=== PATIENT | female | born 1995 | race Caucasian/White ===

== ENCOUNTER → 2017-10-05 16:40 | Outpatient (CLI) | payer BC, SELFPAY ==
--- NOTE | 2017-10-05 16:40 | DT_ITS ---
This patient was seen during an EMR downtime September 28, 2017 - October 05, 2017. This patient may have a combination of paper and electronic documentation or all paper documentation. All documentation is viewable within the e-chart portion of [facility] for each patient visit.
[2017-10-05 17:38] LABS: AST(SGOT) 17 U/L (15-37); Alanine Aminotransfer ALT/SGPT 23 U/L (13-56); Albumin, Serum 3.8 g/dL (3.2-5.0); Alkaline Phosphatase 66 U/L (45-117); Anion Gap 8 (5-15); BUN 11 mg/dL (7-18); BUN/Creat Ratio 18.3 RATIO (10-20); Calcium,Total 8.8 mg/dL (8.5-10.1); Chloride 109 mmol/L (98-107); EST Glomerular Filtration Rate 131 mL/min (>60); Est Glom Filt Rate - Afr Amer 158 mL/min (>60); Globulin 3.9 g/dL (2.2-4.2); Glucose 112 mg/dL (74-106); Potassium 3.5 mmol/L (3.5-5.1); Protein, Total 7.7 g/dL (6.4-8.2); Sodium Level 143 mmol/L (136-145)
[2017-10-05 17:43] LABS: Vitamin B12 372 pg/mL (211-911); Vitamin D,25 Hydroxy 9.6 ng/mL (29.95-100.01)
[2017-10-05 17:59] LABS: Homocysteine 5.5 umol/L (3.2-10.7)
== END ==
PROVIDERS: Visit Provider Obstetrics & Gynecology
DX: O90.6 Postpartum mood disturbance (principal); I10 Essential (primary) hypertension
CPT/HCPCS: 36415; 80053; 82306; 82607; 83090; 83921

== ENCOUNTER → 2017-11-30 11:35 | Outpatient (CLI) | payer BC, SELFPAY ==
[2017-11-30 16:07] LABS: Vitamin B12 551 pg/mL (211-911); Vitamin D,25 Hydroxy 20.6 ng/mL (29.95-100.01)
== END ==
PROVIDERS: Visit Provider Obstetrics & Gynecology
DX: O90.6 Postpartum mood disturbance (principal); D51.9 Vitamin B12 deficiency anemia, unspecified; E55.9 Vitamin D deficiency, unspecified
CPT/HCPCS: 36415; 82306; 82607

== ENCOUNTER 2019-08-24 10:24 | Outpatient (RCR) | payer BC, SELFPAY ==
[2017-03-28 08:10] VITALS: BMI 38.7
[2019-08-22 11:15] LABS: hCG Titer Quant., Serum 4762 mIU/mL (1-3)
[2019-08-24 13:23] LABS: hCG Titer Quant., Serum 4160 mIU/mL (1-3)
== END 2019-08-25 18:00 | disposition home or self-care (01) ==
LOC: LAB 10:24
PROVIDERS: Referring Provider Obstetrics & Gynecology; Visit Provider Obstetrics & Gynecology
DX: N91.2 Amenorrhea, unspecified (principal)
CPT/HCPCS: 36415; 84702

== ENCOUNTER → 2020-03-20 | Outpatient (CLI) | payer BC, SELFPAY ==
[2017-03-28 08:10] VITALS: BMI 38.7
[2020-03-22 03:07] LABS: Chlamydia By Nucleic Acid AMP Negative (Negative)
[2020-03-22 08:39] LABS: Gonococcus By Nucleic Acid AMP Negative (Negative)
[2020-03-26 21:17] LABS: HPV Reflexed? NOT INDICATED
== END | disposition home or self-care (01) ==
LOC: LABSPEC 11:36
PROVIDERS: Visit Provider Obstetrics & Gynecology
DX: Z12.4 Encounter for screening for malignant neoplasm of cervix (principal); Z11.3 Encounter for screening for infections with a predominantly sexual mode of transmission
CPT/HCPCS: 87491; 87591; 88175; G0145

== ENCOUNTER → 2020-04-17 13:59 | Outpatient (CLI) | payer BC, SELFPAY ==
[2020-04-17 15:44] LABS: Absolute Lymphocyte Count 1.65 X10^3/uL (0.83-4.51); Absolute Neutrophil Count 8.4 X10^3/uL (2.0-7.7); Basophil# 0.04 X10^3/uL; Basophil% 0.4 % (0-1); Eosinophil# 0.25 X10^3/uL; Eosinophils% 2.3 % (0-5); Hematocrit 38.2 % (37-47); Hemoglobin 12.9 g/dL (12.0-15.0); Lymphocyte # 1.65 X10^3/ul (4.0); Mean Corp Hgb Conc 33.8 g/dL (32-36); Mean Corpuscular Hgb 28.8 pg (27.0-32.0); Mean Corpuscular Volume 85.3 fL (81-99); Mean Platelet Vol. 10.1 fl (6.2-12.0); Monocyte% 6.3 % (0-10); NRBC Flagged by Analyzer 0 % (0-5); Neutrophil # 8.35 X10^3/uL (2.7-7.7); Neutrophil % 75.6 % (47-70); Platelet Count 383 K/mm3 (150-450); RBC Distribution Width CV 13.1 % (11.6-14.6); RBC Distribution Width SD 40.3 fl (35.1-43.9); Red Blood Count 4.48 M/mm3 (4.2-5.4)
[2020-04-17 15:50] LABS: Color, Urine Yellow (Yellow); Glucose, Dipstick Normal (Normal); Ketone-Dipstick 5 mg/dl (Negative); Leukocyte Esterase-Dipstick 25 /ul (Negative); Nitrite-Dipstick Negative (Negative); Occult Blood-Urine Negative /ul (Negative); Protein-Dipstick 15 mg/dl (Negative); Urine Bilirubin Dipstick Negative (Negative); Urine Clarity Clear (Clear); Urine Urobilinogen Normal (Normal)
[2020-04-17 16:13] LABS: Thyroid Stim Hormone (TSH) 0.51 uIU/mL (0.358-3.74)
[2020-04-17 16:15] LABS: Amphetamine Urine VISTA NEGATIVE (<1000 ng/mL); Barbiturate Urine VISTA NEGATIVE (< 200 ng/mL); Benzodiazepine Urine VISTA NEGATIVE (< 200 ng/mL); Cocaine Urine VISTA NEGATIVE (< 300 ng/mL); Ecstacy Urine VISTA NEGATIVE (< 500 ng/mL); Methadone Urine VISTA NEGATIVE (< 300 ng/mL); PCP Urine VISTA NEGATIVE (< 25 ng/mL); THC Urine VISTA NEGATIVE (< 50 ng/mL); Vista UDS pH Range 7
[2020-04-18 09:47] LABS: HIV - WCH Non-Reactive (Nonreactive); Hepatitis B Surface Antigen Non-Reactive (Nonreactive); Hepatitis C Antibody Non-Reactive (Nonreactive); Rubella IgG Reactive (Nonreactive)
[2020-04-19 02:22] LABS: Prenatal RPR NONREACTIVE (NONREACTIVE)
== END ==
PROVIDERS: Visit Provider Obstetrics & Gynecology
DX: Z34.81 Encounter for supervision of other normal pregnancy, first trimester (principal)
CPT/HCPCS: 36415; 80307; 81002; 81220; 84443; 85025; 86703; 86762; 86803; 87340

== ENCOUNTER 2020-05-07 09:00 | Outpatient (RCR) | payer MEDICAID, SELFPAY ==
--- NOTE | 2020-05-07 09:00 | BH.COMM_ITS ---
Communication Note - Communication with Client Communication Note: Met with pt via Zoom prior to starting IOP today. No s ignificant changes since pre-admission screening. Completed admission paperwork and pt provided verabal consent. Completed [facility]. Pt presents as low risk with last suicidal thought occuring near 4 weeks ago.
--- NOTE | 2020-05-07 09:05 | BH.SGPN.GN ---
Behaviors/Verbalizations/Mental Status: [] Eye contact is good. Motor activity is appropriate. Appearance is casual. Speech is Appropriate. Mood is anxious. Affect is congruent. Thoughts are linear and logical. No evidence of psychosis. No reports of suicidal thoughts Client Response/Progress/Benefit: [] Pt participated when prompted. This is patient's first day in IOP. Shared that she entered IOP b/c she has been on a emotional roller-coaster. Shared hx of OCD and recent miscarriage and how that has exacerbated her mental health symptoms and decreased functioning. States that she would like to be in more control of her emotions and thoughts. No progress noted as this was her first session. Appeared to benefit from group support and increased awareness of the role of gaslighting in mental health. Will continue in IOP to maintain safety, increase healthy coping, and prevent decompensation Narrative Note: [] This psychotherapy group was provided via telehealth using two-way, real-time interactive telecommunication technology between the patients and the provider.?The interactive telecommunication technology included audio and video.? ?The patient was offered telemedicine as an option for care delivery during the COVID-19 pandemic and consented to this option. ?Patient location: [place] ?Provider located at [facility]
--- NOTE | 2020-05-07 10:05 | BH.COMM ---
Communication Note - Communication with Client Communication Note: Pt spoke to this therapist after 1st group. Reports that she has not been feeling well and had actually took a COVID testing and is awaiting results. She asked to be excused from 2nd and 3rd group. Plan is for her to continue virtually on 05/09/20.
--- NOTE | 2020-05-09 09:00 | BH.SGPN.GN ---
This psychotherapy group was provided via telehealth using two-way, real-time interactive telecommunication technology between the patients and the provider.?The interactive telecommunication technology included audio and video.? ?The patient was offered telemedicine as an option for care delivery during the COVID-19 pandemic and consented to this option. ?Patient location: [place] ?Provider located at [facility] Behaviors/Verbalizations/Mental Status: []Client alert and oriented, neatly dressed and groomed. Eye contact good. Motor activity appropriate. Speech within normal limits. Affect congruent to mood-tearful, mood anxious. Thoughts linear, logical, no signs of hallucinations or delusions. Reviewed client?s symptom tracker, no report of SI, plan, or intent as of 05/09/20. Client Response/Progress/Benefit: []Client responded well to session, attentive and receptive to encouragement from group. Client reports feeling anxious this morning and was tearful throughout check-in. Client shared about her mental health symptoms and recent struggling stating, I have a lot of fear and guilt. Client had to leave group early one day this week which led to client ruminating that she disappointed IOP staff. Tableau Analyst helped client combat this distortion. Client shared although she is anxious this morning, she is a little more positive. Client reports a mental health win for her was being able to stop herself from cleaning excessively yesterday. Appeared to benefit from connecting with peers. Will continue IOP tx to prevent decompensation, improve daily functioning, and reduce anxious thought patterns. Narrative Note: []
--- NOTE | 2020-05-09 10:05 | BH.SGPN.GN ---
Behaviors/Verbalizations/Mental Status: [] Eye contact is good. Motor activity is appropriate. Appearance is casual. Speech is Appropriate. Mood is anxious. Affect is congruent. Thoughts are linear and logical. No evidence of psychosis. Client Response/Progress/Benefit: [] Pt was an active participant in group discussion and was attentive during psychoeducation. Provided input on the quote of the day. Group was primarily educational and introduced and gave examples of the 10 cognitive distortions. Pt provided some examples of personal experiences for certain cognitive distortions. Benefited from education and increased awareness of cognitive distortions and role that they play in negative thoughts and emotions. Will continue in IOP to maintain safety, increase health coping skills, and prevent decompensation. Narrative Note: []
--- NOTE | 2020-05-09 11:30 | BH.NA_ITS ---
Physical Data - Height/Weight Height: 1.75 m Current Medication Compliance - Medication Compliance Do you take your medication as prescribed?: Yes Nutritional History - Appetite Nutritional Instructions:: If client shows signs of a swallowing problem, weight change of 10 pounds or more in the last month, or is on a diabetic diet, the physician will review and request a dietitian consult, as appropriate. All unintentional weight loss will be referred to the physician for decision on need for dietitian consult. Describe your appetite:: Fair Additional nutritional information:: Client states she does feel hungry, but at times does not follow her hunger cues. Client states she currently is having problems with her OCD and eating. Functional Assessment - Sleep Pattern Describe any problems with sleeping: Client states she is in bed at least 8 hours, but states she tosses and turns and gets less than 8 hours of actual sleep per night. Sensory/Communication Assess - Vision Problems Do you have any vision problems?: Glasses - Communication Problems Do you have difficulty understanding what people are saying?: No Medical Problems/History - Musculoskeletal Conditions Musculoskeletal: Other (See comments) Comments:: epidermolysis bullosa - Pain Assessment Do you have acute or chronic pain?: No - Additional History Additional comments:: depression, anxiety, OCD, post- depression Surgical History - Surgical History Have you had any surgeries? If so, list type and date:: No Substance Abuse - Substance Abuse Please describe substance abuse in the last 30 days:: Client denies alcohol use. Client states she briefly smoked cigarrettes at age 18. Client denies drug use. Client states she rarely drink caffiene. Mental Status Summary - Mental Status Significant Findings/Observations on Appearance and Mood:: Client is alert and oriented x 4. Client is seen via telehealth. Client is cooperative. Client's voice is normal rate. Client appears mildly anxious. Client makes logical assoc iations. Client denies delusions/hallucinations. Client denies SI. Suicide Assessment - Suicidal Ideation Are you currently or have you been suicidal in the past?: Yes - denies SI at this time Suicidal Intentional Rating Scale (SIRS): Suicidal thoughts (past) Physician Notification: If Active suicidal thoughts/Will not contract for safety is checked, contact physician and document in the Physician Notification section below. Past Psychiatric History - MH Treatment Hx Past Psychiatric Medications:: TeresaofRobb prescottpar Age of first mental health symptoms: Client was diagnosed with depression at age 16. Client was diagnosed with OCD around age 22. Describe (age, circumstance, etc) any past hospitalizations: [facility] in 2018. Current providers for mental health treatment (counselor, psychiatrist, mattress spring encaser, etc.): [facility] for therapy and psychiatry. Fall Risk Assessment - Age Age: Less than 60 - Mental Status Mental Status: Willing & able to ask for assistance when needed - Physical Status Physical Status: No problems - Impairments Impairments: None - Elimination Elimination: Continent AND independent - Gait or Balance Gait or Balance: Walks independently - Hx of Falls History of falls in the past 6 months: No known history - Medications/Substances Psychotropics:: Antidepressants Medications/substances used within the past 24 hours or ordered to administer: 1-2 of the medications/substances listed above - Total Score Total Points:: 1 RN Summary of Impressions - Impressions Recommendations: Include psychiatric and medical issues, treatment planning recommendations, and discharge planning needs. Impressions: Psychiatric Issues: major depressive disorder, recurrent, severe without psychosis; obsessive-compulsive disorder; cluster B traits - Level of Care How do the client's current symptoms and functional deficits support need for this level of care?: Client was referred to IOP by her therapist and psychiatrist for fleeting SI and depression. Client states her depression has gotten worse within the last year with COVID and family issues, causing more isolation. Client endorses crying spells, anhedonia, hopelessness, and decreased energy. Client states her appetite varies. Client is . Client also reports a stressor as a miscarriage she has in August 2019. Client states she was increasingly suicidal when she was still on her Zoloft, but since being switched to Celexa she is not suicidal but still depressed. IOP will promote gains and prevent further decompensation while providing social support and skills training.
--- NOTE | 2020-05-09 12:55 | BH.PSY.EVA_ITS ---
Psychiatric Evaluation - Initial Evaluation Initial Evaluation: History of Present Illness: [] Patient is a 25-year-old female with a history of depression, anxiety, and OCD who was referred by her psychiatric provider for worsening depression and suicidal ideation for the past several months. She currently lives with her and her 3-year-old daughter. She has been for 4 years. 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 The patient had several major stressors this year including having a miscarriage in August 2019. The patient was very depressed after this and also is very anxious about her current 15-week intrauterine . The current was desired and planned for her and her is supportive. Another stressor is [place] and [place] about 1 year ago and she does not know many people here and fee ls she does not have much support locally. She does have friends but they are an hour away by driving. For primary support she has her or father. Patient was taking Zoloft for depression and then the Zoloft quit working so it was discontinued. The patient states around that time she started having worsening suicidal ideation. She denies having any plan for suicide. Currently she feels depressed and sad and has some crying but feels better than she did several weeks ago. She has some anhedonia. She has increased sleep and decreased appetite which she feels is due to her . She has low energy level. Concentration is somewhat decreased. She feels guilt often due to the fact that she has had longstanding OCD with evangelical preoccupations. She is a worrier by nature and she has panic attacks but they have decreased to about once or twice a month now. She has a long history of evangelical obsessions for her OCD and always feels that every decision I make is wrong.. She feels due to her OCD she says that there is [address] to do things and that usually she does not pick that way. She has some rituals that are pretty rigid around bedtime but other than that no other rituals. She counts calories and steps that she takes during the day but this has been diagnosed as being due more to her OCD. She denies any eating disorder, purging or vomiting. She denies any trauma but she feels she did have some symptoms of PTSD after miscarriage but denies any now. She admits now to having only fleeting suicidal ideation. Denies a plan for suicide denies passive thoughts. Denies homicidal ideation, hallucinations, delusions, or symptoms of hector. Current Psychiatric Medications: [] Celexa 40 mg p.o. daily (on this for 6 weeks total, 1 month at this dose).; Zoloft was discontinued 1 month ago and she had taken that since after her 3-year-old daughter was born. Past Psychiatric History: [] She has a history of 1 psychiatric admission at [facility] in 2018 for severe depression and suicidal ideation after her first daughter was born. She denies any suicide attempts ever. She has current psychiatric providers. She first took psychiatric medications at age 18 for OCD and depression. She was first diagnosed with OCD at age 22 but feels she has had a since age 3 or 4 years. At that time her family moved across the country and she remembers the onset of her severe anxiety. She first had counseling at age 15 and it was helpful. She admits to cutting as self- harm from age 15 to age 18 which never required stitches. She has not done any self-harm since 6 years ago. Her past medications include Prozac, Lexapro, Zoloft, BuSpar, trazodone. Substance Use History: [] Non-smoker. No marijuana use. No alcohol use. No other drug use. No rehab ever. Allergies: [] No known allergies Medications: [] vitamins, one baby aspirin daily, B complex vitamins, vitamin D3, fish oil, Celexa. Past Medical History: [] 15-week current intrauterine . She is a 3 para 1 AB 1 with a history of 1 term daughter who is now 3 years of age. 1 spontaneous in August 2019. She has a genetic skin disorder called epidermolysis bullosa. Her periods are regular when she is not . She denies any surgeries. Family Psychiatric History: [] Mother is age 57 and father is age 58. Father has hypertension. She has a cousin with schizophrenia and drug and alcohol abuse. Her father has PTSD and ADHD. She has a sister with an eating disorder which she thinks is anorexia but her sister is at a healthy weight now. She has a lot of depression in her maternal and paternal aunts. No completed suicides in the family. Personal/Social History: [] She was born in [place] and raised in [place]. She moved to [place] in 2013 for a gap year program and met her here and state. She describes her childhood as there was lots of pressure. The patient felt she could never please her mother and still feels this way. School was okay for her until high school. She states that she had a nervous breakdown in 2014 around age 19 but was not hospitalized for this. She says she was cutting a lot in 2014 and had depression and OCD. She graduated high school and had some college. She got at age 20 and a last has lasted 5 years. Her is 27 years old and he is a [employer] group leader full-time in a [employer]. She describes her self is Confucianist. is supportive. No abuse in the marriage. She has 1 sister who is 5 years older than her and they are close. Legal History: [] No arrests. 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 No . Review of Systems: [] Negative except as noted in present illness. Vital Signs: [] Will be reviewed in nurses notes. Mental Status Examination: [] Patient is a 25-year-old female who is seen via telehealth and is casually dressed and groomed with good hygiene. She appears normal for stated age and has no psychomotor agitation or retardation. Eye contact is good and speech is normal rate and rhythm and fluent with no pressure. Mood is depressed. Affect is constricted and she is tearful at times. Thought process is organized and goal-directed. Thought content: There is evidence of occasional, fleeting suicidal ideation. There is no evidence of any plan for suicide. No evidence of passive thoughts of . No evidence of homicidal ideation, hallucinations, delusions, or symptoms of hector. The patient's thought content includes feeling that every decision I make is wrong. She feels this is due to her OCD with evangelical preoccupations. Diagnoses: [] Carson I: [] Major depressive disorder, recurrent, severe without psychosis; obsessive-compulsive disorder Carson II: [] Cluster B traits Carson III: [] 15-week intrauterine Carson IV: [] The patient will start the IOP program at [facility] as the structure, support, education, individual and group therapy will hopefully prevent worsening of the patient's symptoms which might require hospitalization. She felt safe during the interview and if it anytime she does not feel safe she will let us know or go to the emergency room. The risks, options, possible complications and side effects of the medications including in and breast-feeding were discussed with the patient and she und erstands and accepts these. No medication changes were made. The patient saw her psychiatrist yesterday. She will continue to follow-up with her outpatient psychiatric and medical providers. Plan: []
--- NOTE | 2020-05-09 13:08 | BH.DR.ITP ---
Initial Treatment Plan - Patient Information Visit Information: ADMISSION DATE: EXPECTED LOS: 4-6 weeks - Problems/Symptoms Problem #1:: Depression Symptom:: Sadness, hopelessness, worthlessness, guilt, fleeting passive suicidal ideation Problem #2:: Anxiety Symptom:: Worry, rumination, panic attacks, obsessions
--- NOTE | 2020-05-11 09:05 | BH.SGPN.GN ---
Behaviors/Verbalizations/Mental Status: [] Eye contact is good. Motor activity is appropriate. Appearance is casual. Speech is Appropriate. Mood is anxious. Affect is congruent. Thoughts are linear and logical. No evidence of psychosis. Reviewed daily check in sheet and no reports of suicidal ideations or intent Client Response/Progress/Benefit: [] Pt participated at times during the group discussion. Emotion for today is tired. Reports significant panic attacks yesterday. Had difficulty identifing trigger and was irritable when encouraged to identify how she could grow and learn from this panic attacks. Able to identify that she was able to reach out to support () rather than isolate or beat herself up. left his job and returned home to help pt as well which she appreciated. No progress noted. Benefited from group support and encouragement. Will continue in IOP to maintain safety, improve functioning, and increase health coping. Narrative Note: [] This psychotherapy group was provided via telehealth using two-way, real-time interactive telecommunication technology between the patients and the provider.?The interactive telecommunication technology included audio and video.? ?The patient was offered telemedicine as an option for care delivery during the COVID-19 pandemic and consented to this option. ?Patient location: [place] ?Provider located at [facility]
--- NOTE | 2020-05-11 10:10 | BH.SGPN.GN ---
This psychotherapy group was provided via telehealth using two-way, real-time interactive telecommunication technology between the patients and the provider. The interactive telecommunication technology included audio and video. The patient was offered telemedicine as an option for care delivery during the COVID-19 pandemic and consented to this option. Patient location: [place] Provider located at [facility] Behaviors/Verbalizations/Mental Status: []Client alert and oriented, casually dressed and groomed. Eye contact good. Motor activity appropriate. Speech within normal limits. Affect congruent, mood dysthymic. Thoughts linear, logical, no signs of hallucinations or delusions. Client Response/Progress/Benefit: []Client was an active participant AEB contributing to discussion and staying engaged with group activity while being telehealth. Connected with the topic of pitfalls and helped the group discuss barriers that keep them from choosing a healthier path to mental wellness such as pitfalls. Group worked together to identify examples of personal pitfalls which included; avoidance behaviors, self-comparison, isolation, personalizing, catastrophizing, all or nothing thinking, and not meeting high expectations. Client shared her personal pitfalls as avoidance behaviors, isolation, having high expectations, and all or nothing thinking. Engaged during the activity by offering group members encouragement and problem solving techniques. Client benefited from group as she learned her barriers from improving her mental symptoms. Client will continue IOP to increase the use of healthy coping skills, reduce negative thinking, and improve mood. Narrative Note: []
--- NOTE | 2020-05-11 11:10 | BH.SGPN.GN ---
This psychotherapy group was provided via telehealth using two-way, real-time interactive telecommunication technology between the patients and the provider.?The interactive telecommunication technology included audio and video.? ?The patient was offered telemedicine as an option for care delivery during the COVID-19 pandemic and consented to this option. ?Patient location: [place] ?Provider located at [facility] Behaviors/Verbalizations/Mental Status: []Client alert and oriented, neatly dressed and groomed. Eye contact good. Motor activity appropriate. Speech within normal limits. Affect congruent-tearful, mood anxious. Thoughts linear, logical, no signs of hallucinations or delusions. Client Response/Progress/Benefit: []Client receptive of session, engaged throughout AEB client participating in discussion and taking notes. Client completed a worksheet where client identified personal pitfalls impacting mental health progress. Client?s pitfalls included: ?overly moralizing? things, all or nothing thinking, external distractions, ?I can?t? statements, and personalizing. Attentive and contributing during group brainstorm of strategies to overcome pitfalls. Client will work on overcoming pitfalls by limiting the amount of time client distracts herself using technology. Benefited from identifying personal pitfalls and strategies to overcome these pitfalls. First week of IOP, appears to be connecting well to topics. Will continue IOP tx to prevent decompensation, improve daily functioning, and learn healthy coping skills to manage intrusive thoughts. Narrative Note: []
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
--- NOTE | 2020-05-11 14:58 | BH.MTP ---
Master Treatment Plan - Patient Information Program Physician:: Dr. Palacios Primary Therapist:: Kathleen Young, [facility] - Psychiatric Diagnoses Psychiatric Diagnoses:: Major depressive disorder, recurrent, severe without psychosis; obsessive-compulsive disorder Diagnosis Code(s):: F33.2 - Estimated LOS Estimated LOS (in weeks):: 6 Problem/Goal #1 - Problem/Goal #1 Stated Goal:: Client will reduce depressive symptoms, feelings of hopelessness, and anhedonia due to Major Depressive Disorder through Intensive Outpatient Program. Description of Barriers: Negative and distorted thoughts, inappropriate guilt, intrusive thoughts, low motivation and apathy could all be bariers to treatment. Functional Impact: Pt referred to [facility] by her outpatient therapist and psychiatrsit due to worsening depression and fleeting suicidal thoughts. Denies active SI, plan or intent. Endorses increased sleep, decreased appetite, low energy, isolation, crying spells, anhedonia, and hopelessness. Hx of jainism OCD with intrusive thoughts that every decision she makes is wrong. Mental health symptoms impacting daily functioning. Poor focus, concentration and memory. Able to care for her child but not at her baseline, finds self more distracted. Some days she has difficulty completing ADL's. - Objectives Objective #1 Stated Objective: Identify at least 2-3 distorted thoughts that reinforce depressive symptoms and replace with rational thought patterns. Interventions: Therapist will help client identify distorted, negative beliefs about self and replace with more realistic, affirmative messages.? Discharge Criteria: Client will have achieved this goal when can identify at least 2 distorted thought patterns and effectively replace those thoughts with rational messages.? Target Date: 06/18/20 Review Date: 06/04/20 Objective #2 Stated Objective: Pt will decrease depressive symptoms AEB pt?s score on the DSM 5 cross-cutting measure and improve pt?s daily functioning. Interventions: Through groups and individual therapy, pt will be provided with education on cognitive distortions, mistaken beliefs, and identifying and combating negative self-talk. Therapist will assist pt with getting back into the activities she once enjoyed as well as increasing healthy coping strategies. Discharge Criteria: Pt will have met this goal when pt?s score on the DSM 5 cross cutting measure for depression has been decreased and per pt?s report daily functioning has improved Target Date: 06/18/20 Review Date: 06/04/20 Problem/Goal #2 - Problem/Goal #2 Stated Goal:: Stabilize anxiety level while increasing ability to function on daily basis.? Description of Barriers: Negative and distorted thoughts, inappropriate guilt, intrusive thoughts, low motivation and apathy could all be bariers to treatment. Functional Impact: Pt referred to [facility] by her outpatient therapist and psychiatrsit due to worsening depression and fleeting suicidal thoughts. Denies active SI, plan or intent. Endorses increased sleep, decreased appetite, low energy, isolation, crying spells, anhedonia, and hopelessness. Hx of jainism OCD with intrusive thoughts that every decision she makes is wrong. Mental health symptoms impacting daily functioning. Poor focus, concentration and memory. Able to care for her child but not at her baseline, finds self more distracted. Some days she has difficulty completing ADL's. - Objectives Objective #1 Stated Objective: Client will learn and implement 2-3 calming skills to reduce overall anxiety and manage anxiety symptoms. Interventions: Therapist will teach client calming/relaxation skills and assign client homework which practices relaxation skills daily. Discharge Criteria: Client will have achieved this goal when can verbalize at least 2 calming skills and implement those skills successfully. Target Date: 06/18/20 Review Date: 06/04/20 Objective #2 Stated Objective: Pt will decrease anxious symptoms AEB pt?s score on the DSM 5 cross-cutting measure improve pt?s daily functioning. Interventions: Through groups and individual therapy, pt will be provided education about anxiety?s impact on body and common physiological reaction to anxiety. Therapist will teach pt appropriate breathing techniques and build healthy coping skills to manage daily anxieties. Discharge Criteria: Pt will have met this goal when pt?s score on the DSM 5 cross cutting measure for anxiety has been decreased and per pt?s report daily functioning has improved. Target Date: 06/18/20 Review Date: 06/04/20
--- NOTE | 2020-05-11 15:02 | BH.MDN_ITS ---
Multi-Disciplinary Note - Note 60-min Individual Time Started:: 12:20 Date: 05/11/20 Purpose of session/treatment goals addressed:: Purpose of session was to assess pt's current symptoms and stressors. Additional focus was on establshing IOP treatment goals. Eye Contact:: Good Motor Activity:: Appropriate Appearance:: Casual Speech:: Appropriate Mood:: Anxious Affect:: Congruent Thoughts:: Linear, Logical, No evidence of hallucinations/delusions noted Staff Interventions:: Therapist used open ended questions to elicit pt's current symptoms and stressors. Eliicted what led pt to seek IOP level of care. Collaborated with pt to identify treatment goals. Provided support by using active listening and validating pt's emotions. build rapport with pt. Client Response:: Pt responded well to session AEB pt openly sharing thoughts and feelings. Pt stated she was feeling extremely anxious at the end of the last group. Pt reported she is having difficulty being constricted to attending the program during certain times. 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 Through discussion pt able to recognize this was a distorted thought and it is okay to take a break if needed. Pt stated she has sought IOP level of care due to depressed mood, hopelessness, apathy, not wanting to get out of bed, low motivation, and decreased daily productivity. Pt reported has OCD with intrusive scrupulosity thoughts. Pt stated she believes this stems from being raised in a extremely conservative anabaptism mu-ism. Pt reported often has guilt about not making the right choice. Pt reported daily anxiety with panic attacks and restlessness. Pt reported she was going to work on her OCD with a therapist at [facility] but was referred to a different therapist to work through her trauma first using EMDR. Pt stated she had a miscarriage in August 2019 which she reported was the catalyst to her worsening depression. Pt reported she is currently 16 weeks and anxious that something will go wrong. Pt stated additional stressors are moving to [place] very conservative town, having limited support, losing a friendship with her best f riend, and having to switch counselors. Pt stated while she is in IOP she wants to work on decreasing/challenging her all or nothing thought parrents and prioritizing self-care. Risks/Concerns:: denies suicidal thoughts, plan or intention to date. Progress Toward Goals/Plan:: No progress observed given this is pt's first week in IOP. Session focused on building rapport and establshing treatment goals. Pt is to continue IOP to increase healthy coping, improve daily functioning, and prevent decompensation. Time Stopped:: 13:15
--- NOTE | 2020-05-14 09:05 | BH.SGPN.GN ---
Behaviors/Verbalizations/Mental Status: [] Eye contact is good. Motor activity is appropriate. Appearance is casual. Speech is Appropriate. Mood is anxious. Affect is congruent. Thoughts are linear and logical. No evidence of psychosis. Reviewed daily check in sheet and no reports of suicidal ideations or intent. Client Response/Progress/Benefit: [] Pt was an active participant in group discussion. Emotion for today is anxious. Mental health wins include limited social media. Discussed why she believes this will help her mental health. Also started back up with yoga over the weekend. Discussed her obstacles in the past which have kept her from yoga I always felt if I could do it as intense as possible it wasn't worth doing. Able to see benefits of light yoga with children as beneficial. Progress noted per pt report. Benefited from group support, encouragement, and praise. Will continue in IOP to maintain safety, increase healthy coping, and improve functioning. Narrative Note: []
--- NOTE | 2020-05-14 10:00 | BH.SGPN.GN ---
Behaviors/Verbalizations/Mental Status: []Client alert and oriented, casually dressed and appropriately groomed. Eye contact good. Motor activity appropriate. Speech within normal limits. Affect congruent, mood anxious and euthymic. Thoughts linear, logical, no signs of hallucinations or delusions. Client Response/Progress/Benefit: []Client engaged during session AEB taking notes, providing input, and listening attentively to others. Client worked with peers on defining goals and brainstorming the benefits of goal setting. Benefits included: having a purpose or sense of direction, creating a positive change, feeling in control of the outcomes, provides motivation, increases self-esteem, improves mental health, shows progress in daily living, and feeling grounded. Discussed self-awareness increases as she makes progress towards her goals. Contributed as group discussed the barriers that keep people from either setting goals or following through with goals. Client identified her personal barrier as ?feeling like a failure when a setback takes place.? Client attentive during psychoeducation on SMART goals. Appeared to benefit from learning the mental health benefits of setting goals using SMART criteria. Progress noted as client was able to recognize unhealthy thinking patterns of perfectionism and explained the importance of having short term and assisted goals. Client will continue IOP to increase the use of healthy coping skills, reduce negative thinking, and improve daily living. Narrative Note: []
--- NOTE | 2020-05-14 11:20 | BH.SGPN.GN ---
Behaviors/Verbalizations/Mental Status: []Eye contact is fair. Alert and oriented. Motor activity is appropriate. Appearance is casual. grooming is appropriate. Speech is Appropriate. Mood is anxious. Affect is constricted. Thoughts are linear and logical. No evidence of psychosis or hallucinations. Client Response/Progress/Benefit: []Client was engaged during discussion, did well to complete activity and process with the group. Client was willing to complete the worksheet in which she was challenged to develop a personal SMART goal. Client chose the goal meditate for five minutes a day for one week using [employer] timer merari. Client stated this will benefit her by reducing mind clutter, anxiety, and depression. Client identified her barriers which included: feeling like she isn't meditating right, not having the perfect time, and perfectionism. Client receptive to identifying solutions for these barriers and willing to begin working on this goal. Benefited from this group by developing a short-term SMART goal related to mental health. Will continue IOP tx to increase healthy coping skills, challenge distorted thoughts and prevent decompensation. Narrative Note: []
--- NOTE | 2020-05-15 10:15 | BH.SGPN.GN ---
Behaviors/Verbalizations/Mental Status: []Eye contact is good. Alert and oriented. Motor activity is appropriate. Appearance is casual. grooming is appropriate. Speech is Appropriate. Mood is anxious. Affect is congruent. Thoughts are linear and logical. No evidence of psychosis or hallucinations. Client Response/Progress/Benefit: []Pt engaged participant AEB pt contributing thoughts and feelings during session and engaging in activity. Pt assisted group with identifying consequences of not expressing self in a healthy way which included: resentment, bitterness, seeking constant distractions, lashing out, displacement, lose support, and mental health negatively impacted. Pt stated she could connect with displacement of feelings because her will sometimes come home from work and take it out on her. Pt reported growing up she always felt responsible for her parents feelings and now she will rely on her to regulate her emotions. Pt stated that is something she wants to further reflect on and start to change. Pt seemed to benefit from increased awareness of the impact unmanaged emotions can have on mental health. Pt is to continue IOP to increase healthy coping, decrease inappropriate guilt and prevent decompensation. Narrative Note: []
--- NOTE | 2020-05-15 11:10 | BH.SGPN.GN ---
Behaviors/Verbalizations/Mental Status: []Client alert and oriented, casually dressed and groomed. Eye contact good. Motor activity appropriate. Speech within normal limits. Affect congruent, mood anxious. Thoughts linear, logical, no signs of hallucinations or delusions. Client Response/Progress/Benefit: []Client engaged in session AEB client listening attentively to peers and providing input. Attentive during psychoeducation on 4 zones of regulation. Client able to identify feelings and behaviors for each zone. Client identified coping skills one can use to support self in each zone which included: journaling, opposite action, thought challenging, exercise, listening to music, deep breathing, progressive muscle relaxation, and reaching out to supports. Client stated belief that she is in the yellow zone today because she feels nervous and anxious about her upcoming OB appointment today. Client reports she can benefit from practicing deep breathing, practicing self-care, and communicating clearly with her OB. Benefited from increased education on zones of regulation or stages of alertness for emotions and healthy coping skills to use for each zone. Will continue IOP tx to prevent decompensation, reduce negative thinking, and improve daily functioning. Narrative Note: []
--- NOTE | 2020-05-15 15:46 | BH.MDN ---
Multi-Disciplinary Note - Note 45-min Individual Time Started:: 09:25 Date: 05/15/20 Purpose of session/treatment goals addressed:: Purpose of session was to address goal 1 from master treatment plan. Eye Contact:: Good Motor Activity:: Appropriate Appearance:: Casual Speech:: Appropriate Mood:: Anxious Affect:: Congruent Thoughts:: Linear, Logical, No evidence of hallucinations/delusions noted Staff Interventions:: Therapist used open ended questions to elicit pt's current symptoms and stressors. Therapist reviewed homework from last individual session. Collaborated with pt to identify themes of what she struggles with the most. Elicited a goal from pt for the next week. Client Response:: Pt reported she completed her goals from last individual session by doing yoga several times and putting her limits back on her phone. Pt stated she had to challenge her thoughts because struggles with believing she didn't really do yoga if she didn't do it for an hour and extremely intense. Pt reported she recognizes this thought is very all or nothing but stated these are the thoughts she often has. Pt stated she is able to acknowledge her wins of doing yoga even thought it wasn't for an hour and not intense. Pt stated she also put the limits on her phone to decrease how often she escapes throught social media. Pt reported she found herself still zoning out at times but thought she did better since having the limits set. Pt stated her weekend went overall really well. Through discussion pt able to identify issues of morality, all or nothing thoughts, guilt and need for control are the top themes of what she struggles with the most. Pt stated she knows her all or nothing thoughts and issues of morality are intertwined. Pt reported she likes to have a sense of control as a way to manage her anxiety. However pt recognizes that there are many things in life she cannot control and constantly trying to control the uncontrollable makes things harder for her. Pt stated her goal is to challenge any emotional reasoning distortions that she notices. Risks/Concerns:: denies suicidal thoughts, plan or intention to date. Progress Toward Goals/Plan:: Progress noted AEB pt reporting gaining more awareness of her distorted thought patterns and recognition of how her distortions are keeping her stuck. Pt is to continue IOP to increase healthy coping, challenge distorted thoughts and prevent decompensation. Time Stopped:: 10:10
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
--- NOTE | 2020-05-16 10:20 | BH.SGPN.GN ---
Behaviors/Verbalizations/Mental Status: [] Eye contact is good. Motor activity is appropriate. Appearance is casual. Speech is Appropriate. Mood is anxious. Affect is congruent. Thoughts are linear and logical. No evidence of psychosis. Client Response/Progress/Benefit: [] Pt was an active participant in group discussion and activity. Shared her insights on the quote of the day. Attentive during psychoeducation. Client worked with group to identify forces that can impact growth and overall mental health. Positive factors group identified that can impact mental health included; asking for help, self-care, taking medications, personal hygiene, and utilizing coping skills. Took a more passive role during experiential group activity noting I don't want to make any mistakes Processed the activity with peers and was able to make connections with the overall topic of the group. Pt benefited from increased awareness of the impact positive and negative forces can have on mental health and personal growth. Will continue in IOP to maintain safety, increase healthy coping, and decrease intrusive thoughts. Narrative Note: []
--- NOTE | 2020-05-16 11:20 | BH.SGPN.GN ---
Behaviors/Verbalizations/Mental Status: []Eye contact is good. Alert and oriented. Motor activity is appropriate. Appearance is casual. grooming is appropriate. Speech is Appropriate. Mood is anxious and positive. Affect is congruent. Thoughts are linear and logical. No evidence of psychosis or hallucinations. Client Response/Progress/Benefit: []Pt receptive of session, listened attentively to peers and provided positive input throughout group discussion. Group processed the activity and identified positive and negative forces impacting ability to complete the challenge. Pt was attentive during psychoeducation and appeared to benefit from increased insight on the impact of negative and positive forces on mental wellness. Identified wanting to improve her negative force of ruminating on things outside her control by putting a time limit on how much news she reads about. Pt stated she wants to limit herself to 10-20 minutes of news stories because the news increases her anxiety and also is an avoidance tactic. Pt recommended continued IOP tx to improve healthy coping skills, decrease anxious thoughts and prevent decompensation. Narrative Note: []
--- NOTE | 2020-05-23 10:15 | BH.SGPN.GN ---
Behaviors/Verbalizations/Mental Status: [] Eye contact is good. Motor activity is appropriate. Appearance is casual. Speech is Appropriate. Mood is anxious. Affect is congruent. Thoughts are linear and logical. No evidence of psychosis. Client Response/Progress/Benefit: [] Pt was an active participant in group discussions. Attentive and provided insights during psychoeducation on benefits and disadvantages of anxiety and review of different types of Anxiety Disorders (Social Anxiety, CARTER, OCD, PTSD, and Separation Anxiety). Completed worksheet on identifying her own physical symptoms or signs of anxiety which pt reported numerous however identified most frequent as; hives, muscle pain, and stomach issues. Benefited from increased awareness of physiological signs of anxiety as well as differences between 'normal' anxiety and anxiety disorder. Will continue in IOP to maintain safety, increase healthy coping, and improve functioning. Narrative Note: []
--- NOTE | 2020-05-23 11:15 | BH.SGPN.GN ---
Behaviors/Verbalizations/Mental Status: []Client alert and oriented, casually dressed and groomed. Eye contact good. Motor activity appropriate. Speech within normal limits. Affect congruent, mood anxious. Thoughts linear, logical, no signs of hallucinations or delusions. Client Response/Progress/Benefit: []Client was an active participant in group discussion and providing good insight to peers. Reviewed safety behaviors she engages in that reinforce anxiety. Attentive during psychoeducation on mindfulness coping skills and their impact on mental health wellness. The group practiced deep breathing and progressive muscle relaxation. Client was able to identify self-soothing and mind-based coping skills which included: 5-senses, meditation, deep breathing, journaling, and body scan. Client would like to work on practicing yoga to manage anxiety. Appeared to benefit from practicing in the moment coping skills. Progress noted in client?s receptiveness to coping skill suggestions and thought challenging. Client will continue IOP tx to improve daily functioning, combat distortions, and reduce avoidance behaviors. Narrative Note: []
--- NOTE | 2020-05-24 10:10 | BH.SGPN.GN ---
This psychotherapy group was provided via telehealth using two-way, real-time interactive telecommunication technology between the patients and the provider. The interactive telecommunication technology included audio and video. The patient was offered telemedicine as an option for care delivery during the COVID-19 pandemic and consented to this option. Patient location: [place] Provider located at [facility] Behaviors/Verbalizations/Mental Status: []Client alert and oriented, casually dressed and appropriately groomed. Eye contact good. Motor activity appropriate. Speech within normal limits. Affect full, mood anxious and euthymic, Thoughts linear, logical, no signs of hallucinations or delusions. Client Response/Progress/Benefit: []Client receptive of session, attentive and taking notes. Client agreed with the quote and provided a personal example to relate to. Identified benefits of healthy communication as helping self get her needs met as well as building trust with others. Potential barriers client identified were bringing others into an unhealthy conversation and displacing her anger on others. Remained attentive during psychoeducation on the four communication styles. Client self-reports identifying most with the aggressive communication style and wanting to become more assertive in communication. Benefited from increased insight regarding own communication style and impacts this has on overall mental health. Progress noted as client understood the impact that aggressive communication may have on her relationship with her . Client will continue IOP to improve healthy coping skills and ability to challenge negative thoughts that reinforce anxiety Narrative Note: []
--- NOTE | 2020-05-24 11:20 | BH.SGPN.GN ---
Behaviors/Verbalizations/Mental Status: []Client alert and oriented, casually dressed and appropriately groomed. Eye contact good. Motor activity appropriate. Speech WNL. Affect congruent, mood anxious. Thoughts linear, logical, no signs of hallucinations or delusions. Client Response/Progress/Benefit: []Client responded well to session AEB client listening attentively to others and providing input during group discussion on the pay offs and costs of the different communication styles. Client stated she most often uses aggressive communication with her and assertiveness with non-family members. Attentive during psychoeducation on assertiveness strategies to improve communication, and client selected an assertiveness skill to practice. Client selected the skill mindful is what she wants to work on because she wants to focus on staying in present moment with a discussion versus bringing up the past. Will continue IOP tx to increase healthy coping skills, challenge distorted thoughts, and prevent decompensation. Narrative Note: []
--- NOTE | 2020-05-24 14:48 | BH.MDN ---
Multi-Disciplinary Note - Note 30-min Individual Time Started:: 12:15 Date: 05/24/20 Purpose of session/treatment goals addressed:: Purpose of session was to address goal 1 from master treatment plan. Eye Contact:: Good Motor Activity:: Appropriate Appearance:: Casual Speech:: Appropriate Mood:: Anxious, Other - tearful at times Affect:: Congruent Thoughts:: Linear, Logical, No evidence of hallucinations/delusions noted Staff Interventions:: Therapist elicited pt's current symptoms and stressors. Reviwed homework from last session. Discussed areas that struggled in for the past week. Assisted pt with creating a flexible nighttime routine. reviewed healthy coping to help manage depressive symptoms. Provided support by using active listening and validating emotions. Client Response:: Pt responded well to session AEB pt sharing thoughts and feelings openly. Pt stated she did work on her goal from last session of challenging her emotional reasoning thoughts. Pt reported she will catch herself starting to guilt herself for no logical reason and address that thought in the moment. Pt stated she doesn't want her guilt to strangle her anymore. Pt reported she has been struggling with going to bed at a decent time which leds pt to feeling exhausted in the morning. Pt stated she knows going to bed late doesn't help her function very well throughout the day. Pt worked with therapist to develop flexible evening plan. Pt stated she wants to be in bed by 11:30pm on the nights before IOP and by 12am on the other nights. Pt reported she will turn her tv off an hour before she wants to be in bed to give her time to do yoga and be proactive by etting out her clothes for the next day if she has to be somewhere. Pt expressed some anxiety about having a nighttime routine becasue of fear she will revert back to how she used to be years ago with a very rigid OCD routine. Pt reported she is trying to challenge those thougths by reminding herself how far she has come. Pt stated she can note some improvement with her depressive symptoms, noting feeling lonely has being the most difficult thing for her currently. Pt reported tonight she is going to meet a friend for coffee as a way to increase connection and decrease feelings of loneliness. Pt stated goal for the week will be to foucs on her evening routine. Risks/Concerns:: denies current suicidal ideation, plan or intention to date. Progress Toward Goals/Plan:: Progress noted with pt reporting decreased depressive symptoms and improved ability to challenge some of her anxious and distorted thoughts. Continues to struggle with inappropriate guilt and difficulty with reducing expectations at times. Pt is to continue IOP to increase healthy coping, continue to challenge distorted thoughts and prevent decompensation. Time Stopped:: 12:45
--- NOTE | 2020-05-25 10:10 | BH.SGPN.GN ---
Behaviors/Verbalizations/Mental Status: []Client alert and oriented, casually dressed and groomed. Eye contact good. Motor activity appropriate. Speech within normal limits. Affect constricted, mood anxious. Thoughts linear, logical, no signs of hallucinations or delusions. Client Response/Progress/Benefit: []Client receptive to session, participating throughout. Provided input as the group brainstormed the positive and negative aspects of stress on physical and mental health. Group did well to identify the benefits of stress as well as the impact of distress on performance and mental health. Client identified top stressors such as trouble with functioning at her baseline, plans to move, feeling lonely, and cleaning and organizing at home. Client reports her stress jar is ?filled to the brim? and when it overflows client typically shuts down and avoids. Client stated, ?I?ll tell myself I can?t do it and then my problems get worse.? Progress in improved awareness of how client?s stress response can create a vicious cycle and make more stressors. Recommended to continue IOP tx to promote use of healthy coping skills, reduce negative thinking, and improve daily functioning. Narrative Note: []
--- NOTE | 2020-05-25 11:10 | BH.SGPN.GN ---
Behaviors/Verbalizations/Mental Status: []Client alert and oriented, casually dressed and groomed. Eye contact fair. Motor activity appropriate. Speech within normal limits. Affect congruent, mood anxious. Thoughts linear, logical, no signs of hallucinations or delusions. Client Response/Progress/Benefit: []Client engaged in session AEB listening attentively to others, providing input, and taking notes throughout. Client remained attentive during discussion about the 4 A's of managing stress and discussed connecting with the various benefits of each. Client stated she wants to work on avoiding unnecessary stressors. Client stated she has identified the unnecessary stressors currently in her jar and now wants to develop a framework on how to deal with each stressor. Client seemed to benefit from increased awareness of the impact of stress on mental health and increasing repertoire of stress management strategies. Client is to continue IOP level of care to continue focusing on increase self-care, challenge distorted thoughts and prevent decompensation. Narrative Note: []
== END 2020-05-27 23:59 ==
LOC: BHIOP 09:00
PROVIDERS: Referring Provider Psychiatry & Neurology Psychiatry; Visit Provider Psychiatry & Neurology Psychiatry
DX: O99.342 Other mental disorders complicating pregnancy, second trimester (principal); Z3A.15 15 weeks gestation of pregnancy; F33.2 Major depressive disorder, recurrent severe without psychotic features; F42.9 Obsessive-compulsive disorder, unspecified; Z79.899 Other long term (current) drug therapy; Z81.1 Family history of alcohol abuse and dependence; Z81.8 Family history of other mental and behavioral disorders
CPT/HCPCS: 90792; H0035; H2012; H2020; 90832; 90834; 90837

== ENCOUNTER 2020-05-28 09:00 | Outpatient (RCR) | payer MEDICAID, SELFPAY ==
[2017-03-28 08:10] VITALS: BMI 38.7
--- NOTE | 2020-05-25 09:00 | BH.SGPN.GN ---
Behaviors/Verbalizations/Mental Status: []Client alert and oriented, casually dressed. Eye contact fair. Motor activity appropriate. Speech within normal limits. Affect congruent, mood euthymic. Thoughts linear, logical, no signs of hallucinations or delusions. Reviewed client?s symptom tracker, no risk or plan for suicide ideation as of 05/25/20. Client Response/Progress/Benefit: []Client responded well to session, engaged throughout and participated in group discussion. Client reported feeling ?tired? as feeling a lack of sleep throughout the night. Client stated she has been working on her goal of going to bed at an earlier time by putting her phone away and spending quality time with her family. Client reportedly used healthy coping skills to accomplish her goal as self-care, quality time with , and playing board games as a healthy distraction. Progress noted as client is self aware that she has been ?in denial? about her sleep schedule and reports using the excuse of being to justify her poor sleep. Benefited from group as client was offering positive support to other group members. Will continue IOP to improve healthy communication with her and continue the use of healthy coping skills. Narrative Note: []
--- NOTE | 2020-05-28 09:00 | BH.SGPN.GN ---
Behaviors/Verbalizations/Mental Status: []Client alert and oriented, casually dressed. Eye contact good. Motor activity appropriate. Speech within normal limits. Affect congruent, mood euthymic. Thoughts linear, logical, no signs of hallucinations or delusions. Reviewed client?s symptom tracker, no risk or plan for suicide ideation as of 05/28/20. Client Response/Progress/Benefit: []Client responded well to session, engaged throughout and participated in group discussion. Client reported feeling ?calm? during her check-in. Client reported accomplishing her goal of going to bed early and completing yoga. Client stated a stressor as ?loss of friendships due to COVID 19?, but has recently spent quality time with close friends. Client reframed her stressor and said the friendships she has currently, are the friendships who are the strongest and most beneficial. Reported practicing healthy communication with , self-care, and opposite action as healthy coping skills. Progress noted as practicing healthy coping skills and accomplishing goals. Will continue IOP to continue the use of healthy coping skills, decrease the severity of anxiety sx, and reduce negative thinking. Narrative Note: []
--- NOTE | 2020-05-28 10:12 | BH.SGPN.GN ---
Behaviors/Verbalizations/Mental Status: []Client alert and oriented, casually dressed. Eye contact good. Motor activity appropriate. Speech within normal limits. Affect congruent, mood anxious and euthymic. Thoughts linear, logical, no signs of hallucinations or delusions. Client Response/Progress/Benefit: []Client engaged participant AEB client taking notes and providing to discussion. Group discussed the quote as well as unhealthy coping skills. Client shared someone?s ?load? may include stress, other people?s emotions, and responsibilities. Group gave examples such as: alcohol, avoidance, taking responsibility for others, and minimizing. Client shared an unhealthy coping skill she uses not asking for help and ignoring ?body cues? to rest. Client participated in the group activity and gained awareness of unrealistic expectations she had that were impacting client during activity. Client seemed to benefit from increased awareness of the importance of increasing healthy coping skills and consequences of utilizing unhealthy coping skills. Client reports progress with practicing mindfulness skills and catching negative thoughts. Will continue IOP tx to promote mood stability, improve daily functioning, and combat distortions. Narrative Note: []
--- NOTE | 2020-05-28 11:15 | BH.SGPN.GN ---
Behaviors/Verbalizations/Mental Status: []Client alert and oriented, casual dress, hygiene tended to. Eye contact fair. Motor activity appropriate. Speech within normal limits. Affect congruent, mood anxious. Thoughts linear, logical, no signs of hallucinations or delusions. Client Response/Progress/Benefit: []Client responded well to session, actively listening and providing examples. Client stated currently she is leaning more on her external supports for help so she can fully focus on improving and building healthy internal coping skills. Group discussed the different categories of coping skills which included distraction, emotional release, grounding, self-love, and thought challenging. Client participated in creating a coping skills ?menu? from the five categories of coping skills. Client's coping skill menu included: yoga, talking to self and supports, basic self-care, art, and positive affirmations. Progress noted in client AEB client reporting improved mood and improved ability to challenged distorted thoughts. Appeared to benefit from increasing repertoire of healthy coping skills. Will continue tx to continue challenging distorted thoughts, increase self-care practices and prevent decompensation.
--- NOTE | 2020-05-30 10:15 | BH.SGPN.GN ---
Behaviors/Verbalizations/Mental Status: []Client alert and oriented, neatly dressed and groomed. Eye contact good. Motor activity appropriate. Speech within normal limits. Affect congruent, mood euthymic. Thoughts linear, logical, no signs of hallucinations or delusions. Client Response/Progress/Benefit: []Client responded well to session, attentive and frequently contributing to discussion. Client worked with the group to identify factors that contributed to how we define ourselves which included: roles, expectations, labels, comparisons to others, circumstances, and shortcomings. Client reported that she was told growing up to not talk about mental health, so client internalized mental health stigma. Client reported she has experienced the impacts of mental health stigma and that client especially connected with perceived stigma. Client worked with group to identify and discuss social and perceived stigma. Client?s perceived stigma included telling herself ?I should be doing more and I?m a bad mom.? Client seemed to benefit from increased awareness of how mental health stigma can impact progress and self-worth. Client to continue IOP tx to promote gains in using healthy coping skills and to further improve daily functioning. Narrative Note: []
--- NOTE | 2020-05-30 11:10 | BH.SGPN.GN ---
Behaviors/Verbalizations/Mental Status: []Client alert and oriented, casually dressed, hygiene appeared to be tended to. Eye contact fair. Motor activity appropriate. Speech within normal limits. Affect congruent, anxious and slightly sad. Thoughts linear, logical, no signs of hallucinations or delusions. Client Response/Progress/Benefit: []Client engaged participant AEB pt providing input during discussion, taking notes and listened attentively to peers. Client worked with group to identify what mental stigma has prevented them from doing. Client stated for her stigma has prevented her from setting goals. Group brainstormed strategies to combat social and perceived stigma which included: educating others, no longer using negative language about mental illness, being open about mental health, self-compassion and not reinforcing stigma with behaviors or labels. Client stated she will attempt to decrease perceived stigma by creating a daily schedule/routine that is realistic to counteract perceived stigma she can't accomplish goals. Appeared to benefit from increasing awareness of strategies to combat stigma. Will continue IOP tx to continue use of healthy coping, identify core beliefs and prevent decompensation. Narrative Note: []
--- NOTE | 2020-05-30 13:19 | PCM.BH.PN_ITS ---
Progress Note Progress Note: History of Present Illness/Interim History: [] Patient is a 25-year-old female with a history of depression, anxiety and OCD who is seen in follow-up at the [facility] behavioral health IOP program. I last saw the patient about 3 weeks ago. She is currently 18 weeks gestational age with her current . She states that she feels better and her mood is much less depressed than before. Her anxiety has also much less and she is able to function better at home and is getting more done. She feels that the IOP program is helping her deal with her issues and feel more supported. Her sleep is good and she is able to deal with her OCD more effectively. She denies any suicidal or homicidal ideation. She denies any hallucinations or delusions. She is looking forward to and is excited about her new baby in the future. Current Psychiatric Medications: [] Celexa 40 mg p.o. daily (on this dose for 9 weeks total). Mental Status Examination: [] Patient is a 25-year-old female who is appears normal for stated age and is casually dressed and groomed with good hygiene. She has no psychomotor agitation or retardation. Eye contact is good and speech is normal rate and rhythm and fluent with no pressure. Mood is mildly depressed to euthymic. Affect is full and normal. Thought processes organized and goal-directed. Thought content: There is no evidence of suicidal or homicidal ideation or plan for suicide. There is no evidence of passive thoughts of . There is no evidence of hallucinations or delusions. Impulsivity is low. Judgment is intact. Insight: Good. Diagnoses: [] [place] I: [] Major depressive disorder, recurrent, severe without psychosis (resolving); obsessive-compulsive disorder [place] II: [] Cluster B traits [place] III: [] 18-week intrauterine [place] IV:[]] Primary support issues Plan: [] Patient will continue the IOP program at [facility] as the structure, support, education, individual and group therapy will hopefully prevent worsening of the patient's symptoms. She felt safe during the interview and if it anytime she does not feel safe she will let us know or go to the emergency room. The risk, options, possible complications and side effects of the medications were again discussed with the patient and she understands and accepts these. No medication changes were made. She will continue to follow-up with her outpatient psychiatric and medical providers.
--- NOTE | 2020-05-30 15:44 | BH.MDN ---
Multi-Disciplinary Note - Note 45-min Individual Time Started:: 09:15 Date: 05/30/20 Purpose of session/treatment goals addressed:: Purpose of session was to address goal 1 from treatment plan. Eye Contact:: Good Motor Activity:: Restless Appearance:: Casual Speech:: Appropriate Mood:: Anxious Affect:: Congruent Thoughts:: Linear, Logical, No evidence of hallucinations/delusions noted Staff Interventions:: thought challenging, motivational interviewing, CBT techniques, strengths perspective, other - created routine and realistic expectations Client Response:: Client reported she did art, yoga and paint as self-care and relaxation activities. Client stated she believed engaging in these calming activities helped decrease pressure throughout day. Client stated she is trying to adapt expectations for each day by looking at her current functioning. Client reported mother in law has been helping watch client's daughter two times a week so client has time to relax and use skills. Client reported she is continuing to work on sleep schedule and noticing progress. Pt expressed anxiety about not being able to have self-motivation to get things done. Worried once IOP is over she won't be moving in the morning. Client worked with therapist to identify activities would like to work on to improve routine. Client reported she wants to get out of the house several times a week with her daughter. 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 Lastly wants to get up between 7:30-8:00 so can get ready and make breakfast before her daughter wakes up. Client reported she feels those expectations are reasonable. Risks/Concerns:: Denies suicidal/homicidal ideation, plan or intention to date. Progress Toward Goals/Plan:: Progress noted with client reported improved mood, improved sleep schedule and being able to ask for help from supports. Client continues to struggle with wanting to create rigid, unreasonable expectations. Client is showing increased insight into how her unrealistic expectations negatively impact mood and functioning. Client to continue IOP to increase healthy coping, improve confidence and prevent decompensation. Time Stopped:: 10:00
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
--- NOTE | 2020-05-31 10:08 | BH.SGPN.GN ---
Behaviors/Verbalizations/Mental Status: []Client alert and oriented, casually dressed and groomed. Eye contact good. Motor activity appropriate. Speech within normal limits. Affect congruent, mood anxious and depressed. Thoughts linear, logical, no signs of hallucinations or delusions Client Response/Progress/Benefit: []Client was an engaged participant AEB client providing input throughout discussion and listening attentively to others. Client shared current reality as feeling stuck, not giving herself credit for progress, anxiety about , and feeling lonely. Client's realistic, desired reality is to feel closer to her support, practice more self-care, and feel less anxious. Client reports belief that she is ?probably closer than I think I am? to her desired reality. Group discussed common barriers that keep people stuck to include stigma, upbringing, self-comparison, lack of self-care, and negative thinking. Benefited from group as client was able to identify current and desired mental health state and increase awareness of how barriers can impact progress. Progress noted in client?s report of improved sleep schedule, but client is currently struggling with inappropriate guilt. Client to continue IOP tx to reinforce healthy coping skills, overcome negative thinking, and improve self-compassion. Narrative Note: []
--- NOTE | 2020-05-31 11:05 | BH.SGPN.GN ---
Behaviors/Verbalizations/Mental Status: []Client alert and oriented, casually dressed and groomed. Eye contact good. Motor activity appropriate. Speech within normal limits. Affect constricted, mood anxious and dysthymic. Thoughts linear, logical, no signs of hallucinations or delusions. Client Response/Progress/Benefit: []Client was an active participant in group discussion and activity. Engaged during activity and provided ideas on how to cope with internal barriers that keep clients stuck from moving towards goals. Barriers identified by client included: inappropriate guilt, isolation, and unrealistic expectations. Strategies identified for overcoming these barriers included: thought challenging, reaching out to support, acceptance and reminding self of positives. Client reported she wants to work on overcoming her barrier of inappropriate guilt by talking to support and seeking validation. Client was also encouraged to practice thought challenging. Benefited from group by identifying obstacles and solutions to desired reality. Client has been showing progress with increasing self-care, but continues to struggle with chronic negative thought patterns. Will continue IOP tx to reframe thinking and improve mood stability. Narrative Note: []
--- NOTE | 2020-06-01 09:05 | BH.SGPN.GN ---
Behaviors/Verbalizations/Mental Status: [] Eye contact is good. Motor activity is appropriate. Appearance is casual. Speech is Appropriate. Mood is euthymic. Affect is full. Thoughts are linear and logical. No evidence of psychosis. Reviewed daily check in sheet and no reports of suicidal thoughts. Client Response/Progress/Benefit: [] Pt was an active participant in group discussion. Attentive. Emotion for today is open. Daily symptom tracker notes 05/01 for depression and anxiety. Reports that she has decreased her ruminations over past events this week. Unsure how exactly she was able to do this however notes improved mood related to it. States I learned that I cannot shame myself into growth. Increased self-compassion. Improved sleep schedule. Benefited from group support and encouragement. Progress noted. Will continue in IOP to maintain gains. Narrative Note: []
--- NOTE | 2020-06-01 10:15 | BH.SGPN.GN ---
Behaviors/Verbalizations/Mental Status: [] Eye contact is good. Motor activity is appropriate. Appearance is casual. Speech is Appropriate. Mood is euthymic. Affect is full. Thoughts are linear and logical. No evidence of psychosis. Client Response/Progress/Benefit: [] Pt was an active participant in group discussions and activities. Attentive. Worked with peers to define what self-care is and it's benefits to mental health. Self-care was identified as activities that we do to; maintain/enhance our well-being, reduce stress, increase communication, improve view of self, decrease burnout, and to have fun. Group discussed the obstacles to completing self-care activities and the myths surrounding them which included; self-care is selfish, I'm too busy for them, self-care is just having fun, I don't deserve to do self-care, self-care has to be planned, self-care should only be done when I have nothing else to do. Group broke into smaller groups and worked together to bust these myths. Pt benefited due to increased awareness of importance of self-care in mental health. Will continue in IOP to maintain gains, prevent decompensation, and increase healthy coping. Narrative Note: []
--- NOTE | 2020-06-01 11:15 | BH.SGPN.GN ---
Behaviors/Verbalizations/Mental Status: []Client alert and oriented, casually dressed and groomed. Eye contact good. Motor activity restless. Speech within normal limits. Affect congruent, mood anxious and euthymic. Thoughts linear, logical, no signs of hallucinations or delusions. Client Response/Progress/Benefit: []Client active participant AEB client providing input during discussions and listened attentively to peers. Participated in group discussion on the various areas of self-care and types of self-care activities for each area. Client completed worksheet in which client identified current self-care practices and what self-care activities client wants to start using. Client reports belief financial self-care in a current strength, but client would like to improve emotional self-care. Client plans to work on this by setting aside 30 minutes each day this weekend to read a self-help book on self-compassion. Client has been showing progress with applying coping skills, but she continues to struggle with ruminations and inappropriate guilt. Will continue IOP tx to further promote the use of healthy coping skills, increase self-compassion, and improve daily functioning. Narrative Note: []
--- NOTE | 2020-06-04 09:00 | BH.SGPN.GN ---
Behaviors/Verbalizations/Mental Status: []Client alert and oriented, casually dressed. Eye contact good. Motor activity appropriate. Speech within normal limits. Affect congruent, mood anxious. Thoughts linear, logical, no signs of hallucinations or delusions. Reviewed client?s symptom tracker, no risk or plan for suicide ideation as of 06/04/20. Client Response/Progress/Benefit: []Client responded well to session, engaged throughout and participated in group discussion. Client reported feeling ?anxious? due to having nightmares last night. Reported the nightmares are due to her and finds it difficult to disassociate from the nightmares. Also reported a stressor of back pain and triggers of having a misscarriage but went to chiropractor to reassure herself this morning. Did not complete her goal of reading 30 minutes daily, but stated she still wants to complete the goal but has to set realistic expectations. Progress noted as client reportes using healthy coping skills such as communicating with , practicing meditation, spending time with supports, and practicing self-care. Benefited from group as client offered positive support to peers. Will continue IOP to challenge negative thoughts, improve daily functioning, and continue the use of healthy coping skills. Narrative Note: []
--- NOTE | 2020-06-04 10:15 | BH.SGPN.GN ---
Behaviors/Verbalizations/Mental Status: []Client alert and oriented, well dressed and groomed. Eye contact good. Motor activity appropriate. Speech within normal limits. Affect congruent, mood euthymic. Thoughts linear, logical, no signs of hallucinations or delusions Client Response/Progress/Benefit: []Client engaged in session AEB client providing input throughout discussion, taking notes and listening attentively to peers. When processing quote client shared it has been hard for her to set boundaries because client grew up believing that she should put others? happiness before her own. Client assisted group with identifying barriers to setting healthy boundaries. These included: fear of abandonment, low self-worth, lack of respect, fear of hurting, and fear of the unknown. Client stated guilt is her biggest barrier. Client attentive during psychoeducation on the types of boundaries. Client seemed to benefit from increased awareness of how boundaries impact mental health. Progress noted in client?s increased ability to catch unhealthy thought patterns and practice self-care. Will continue IOP tx to continue use of healthy coping, challenge distorted thoughts, and reduce unrealistic expectations. Narrative Note: []
--- NOTE | 2020-06-04 11:20 | BH.SGPN.GN ---
Behaviors/Verbalizations/Mental Status: []Client alert and oriented, casually dressed and appropriately groomed. Eye contact good. Motor activity appropriate. Speech within normal limits. Affect full, mood euthymic, slightly anxious. Thoughts linear and intact. no signs of delusions or hallucinations. Client Response/Progress/Benefit: []Client responded well to session AEB pt listening attentively to peers and providing input throughout session. Client engaged in the boundary self-assessment activity and attentive during psychoeducation on the different boundary styles. Client participated in review of personal bill of rights and discussion about how adopting certain bill of rights can help improve boundary setting. Client stated from the personal bill of rights worksheet she wants to work on adopting the belief I have the right not to be responsible for others' behaviors, actions, feelings, or problems. Client stated she believes adopting this bill of right will help her set boundaries with others and self so she doesn't get involved in others' situations. Will continue IOP tx to continue use of healthy coping, challenge distorted thoughts and prevent decompensation. Narrative Note: []
--- NOTE | 2020-06-04 14:49 | BH.MTP_ITS ---
Treatment Plan Review Date of Admission:: 05/07/20 Date of Treatment Plan Review:: 06/04/20 Admitting Diagnoses:: F33.2 Major depressive disorder, recurrent, severe without psychosis; obsessive-compulsive disorder Current Diagnoses:: F33.2 Major depressive disorder, recurrent, severe without psychosis (resolving); obsessive-compulsive disorder Patient's Response to Treatment:: Pt has responded well to treatment AEB consistent attendance, active participation during group sessions, engaged in individual therapy, and often completes homework. Status of Current Problems and Symptoms: Pt reporting progress with decreased depression and anxiety. Pt reports improved mood with improved daily functioning. Pt still struggles with seeking reassurance when anxious. Pt's continues to experience ruminations and anxious thought patterns. Pt showing progress with decreasing frequency of reassurance seeking. Pt reporting improved communication with her support system. Problem #1 Problem Name:: depression Status of Goals:: obj 1 - met, ongoing work encouraged. Pt identifies opposite action, self-compassion, challenging negative thoughts, and having a sleep schedule as skills that have helped her manage depressive symptoms. obj 2 - partially met, ongoing work encouraged. DSM 5 data unable to be collected at time of review. Per pt's report she notes significant improvement with her mood and improved daily functioning. Team Recommendations:: Team recommends to continue current goal and objectives with focus on showing consistent use of skills and that pt can maintain gains. Problem #2 Problem Name:: anxiety Status of Goals:: obj 1 - met, ongoing work encouraged. Pt identifies m editation, belly breathing and grounding tools as calming skills that have helped pt successfully manage anxiety at times. Pt still struggles with reassurance seeking and obsessive thought patterns. Obj 2 - partially met, ongoing work encouraged. DSM 5 data unable to be collected at time of review. Per pt's report she notes decrease in anxious symptoms and improved functioning. Pt starting to manage anxious thoughts and feelings without needing to seek reassurance. Team Recommendations:: Team recommends to continue current goal and objectives with focus on showing consistent use of skills and that pt can maintain gains.
--- NOTE | 2020-06-07 10:05 | BH.SGPN.GN ---
Behaviors/Verbalizations/Mental Status: [] Eye contact is good. Motor activity is appropriate. Appearance is casual. Speech is Appropriate. Mood is euthymic. Affect is congruent. Thoughts are linear and logical. No evidence of psychosis. Client Response/Progress/Benefit: [] Pt was an active participant in group discussions. Attentive during psycho-education on 4 types of conflict styles (Competing, Collaborating, Avoiding, and Accommodating). Worked with group to define conflict and identify how conflict is helpful. With peers identified barriers to addressing or managing conflict which included: fear of upsetting others, embarrassing self, abandonment, past negative experiences with conflict, and shutting down. Pt believes her conflict style is competing because wants to be right which she stated leads to prolonged conflict. Benefited from group due to increase insight and awareness of conflict, conflict styles, and obstacles to managing conflict. Pt to continue IOP to continue use of healthy coping, challenge distorted thoughts and prevent decompensation.
--- NOTE | 2020-06-07 11:07 | BH.SGPN.GN ---
Behaviors/Verbalizations/Mental Status: []Client alert and oriented, neatly dressed and groomed. Eye contact good. Motor activity appropriate. Speech within normal limits. Affect congruent, mood euthymic. Thoughts linear, logical, no signs of hallucinations or delusions. Client Response/Progress/Benefit: []Client engaged in session AEB contributing to discussion and taking notes. Client did well to participate during the activity in which participants were challenged to eliminate various items through group consensus. Client contributed to discussion of the barriers that occurred during the activity as well as the conflict resolution strategies. Client reviewed the worksheet on fair fighting rules to cope with conflict and client selected taking a moment to ?check-in? with self before a conflict to see ?what?s really the issue.? Client shared this may prevent unnecessary arguments with her . Appeared to benefit from learning strategies to better manage conflict. Progress noted in client?s increased awareness and generalization of coping skills. Will continue IOP tx to reduce negative thinking, improve mood stability, and increase self-esteem. Narrative Note: []
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
--- NOTE | 2020-06-08 09:00 | BH.SGPN.GN ---
Behaviors/Verbalizations/Mental Status: []Client alert and oriented, casually dressed. Eye contact good. Motor activity appropriate. Speech within normal limits. Affect congruent, mood euthymic and anxious. Thoughts linear, logical, no signs of hallucinations or delusions. Reviewed client?s symptom tracker, no risk or plan for suicide ideation, plan, or intent as of 06/08/20. Client Response/Progress/Benefit: []Client responded well to session, engaged throughout and participated in group discussion. Client reported feeling ?content? this morning as she spent last night alone practicing self-care and quality time with her daughter. Client stated she felt more able to manage her negative thoughts by challenging them and using opposite action. Stated her stressors as her and having negative thoughts related to a previous miscarriage. Progress noted as client reports using healthy coping skills and feeling more in control of her negative thoughts. Will continue IOP to continue the use of healthy coping skills, challenge cognitive distortions, and improve daily functioning. Narrative Note: []
--- NOTE | 2020-06-08 10:05 | BH.SGPN.GN ---
Behaviors/Verbalizations/Mental Status: []Client alert and oriented, casually dressed and groomed. Eye contact good. Motor activity appropriate. Speech within normal limits. Affect congruent, mood euthymic. Thoughts linear, logical, no signs of hallucinations or delusions. Client Response/Progress/Benefit: []Client engaged participant AEB contributions during discussion, engaged during activity and attentively listened to peers. Group reported even though change can be scary, change can be positive. Discussed how change can lead to improved mental health and relationships. Client worked with the group to identify barriers to making change, which included: fear of failure, anxiety, past experiences, comfortable with status quo, and putting others first. Client participated in the activity where they identified and discussed the emotions related to change. Client reported she sometimes uses time as an excuse to not make a change. Benefited from increased awareness and understanding of emotions, benefits, and barriers related to change. Will continue IOP tx as client can benefit from reducing anxious symptoms, increasing healthy coping skills, and preventing decompensation.
--- NOTE | 2020-06-08 11:05 | BH.SGPN.GN ---
Behaviors/Verbalizations/Mental Status: []Client alert and oriented, neatly dressed and groomed. Eye contact good. Motor activity appropriate. Speech within normal limits. Affect congruent, mood euthymic. Thoughts linear, logical, no signs of hallucinations or delusions. Client Response/Progress/Benefit: []Client responded well to session AEB taking notes and actively participating. Client contributed during psychoeducation on the change process and different emotions in each stage of change. Client also contributed during the activity and shared it was difficult for client to adjust expectations, but she succeeded. 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 Client reports belief she is currently in between the preparation and action stages. Client has made progress, but she would like to increase consistency. Client contributed during group discussion on using a decisional balance tool to promote change. Appeared to benefit from identifying what stage of change client is in and creating a small goal. Will continue IOP tx to promote use of healthy coping skills, combat negative thoughts, and improve self-esteem. Narrative Note: []
--- NOTE | 2020-06-13 09:05 | BH.SGPN.GN ---
Behaviors/Verbalizations/Mental Status: [] Eye contact is good. Motor activity is appropriate. Appearance is disheveled. Speech is Appropriate. Mood is anxious. Affect is congruent. Thoughts are linear and logical. No evidence of psychosis. Reviewed daily check in sheet and no reports of suicidal ideations or intent. Client Response/Progress/Benefit: [] Pt participated at times during the group discussions. Emotion for today is anxious. Reports that she has struggled with mental health in the past few days and discussed what has been occurring. She is also anxious related to her and she has an upcoming ultrasound and her OBGYN is currently on FMLA. Weather and not feeling well has led to isolation. Her COVID test was negative and has plans to leave the house this afternoon for an appointment. Benefited from group support and encouragement. Will continue in IOP to prevent decompensation, increase healthy coping, and improve functioning. Narrative Note: []
--- NOTE | 2020-06-13 10:10 | BH.SGPN.GN ---
This psychotherapy group was provided via telehealth using two-way, real-time interactive telecommunication technology between the patients and the provider.?The interactive telecommunication technology included audio and video.? ?The patient was offered telemedicine as an option for care delivery during the COVID-19 pandemic and consented to this option. ?Patient location: [place] ?Provider located at [facility] Behaviors/Verbalizations/Mental Status: []Client alert and oriented, neatly dressed and groomed. Eye contact good. Motor activity appropriate. Speech within normal limits. Affect congruent, mood anxious and agitated. Thoughts linear, logical, no signs of hallucinations or delusions. Client Response/Progress/Benefit: []Client was an engaged participant AEB taking notes and contributing to discussion. Connected with group topic of perspective and the impacts of one?s perspective on mental health. Client worked with the group to identify how a negative perspective can impact mental health which included: self-fulfilling prophecy, keeping people stuck in toxic relationships, and overgeneralizing. 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 Client appeared to benefit from increasing understanding of mental health benefits of a positive perspective and potential consequences to progress when perspective is negative. Progress noted in self-report of practicing coping skills outside IOP. Continues to struggle with combating all or nothing thoughts. Client will continue IOP tx to promote gains, improve self-compassion, and reduce negative thinking. Narrative Note: []
--- NOTE | 2020-06-13 11:10 | BH.SGPN.GN ---
This psychotherapy group was provided via telehealth using two-way, real-time interactive telecommunication technology between the patients and the provider.?The interactive telecommunication technology included audio and video.? ?The patient was offered telemedicine as an option for care delivery during the COVID-19 pandemic and consented to this option. ?Patient location: [place] ?Provider located at [facility] Behaviors/Verbalizations/Mental Status: []Eye contact is good. Alert and oriented. Motor activity is appropriate. Appearance is casual. grooming is appropriate. Speech is Appropriate. Mood is euthymic. Affect is congruent. Thoughts are linear and logical. No evidence of psychosis or hallucinations. Client Response/Progress/Benefit: []Pt engaged participant AEB pt providing input throughout session, listening attentively to peers and completing strengths exploration handout. Pt shared some of the strengths she identified were wisdom, empathy, and bravery. Pt stated she is currently using the strength of curiosity to help her mental health recovery process. Pt reported curiosity helps her examine her inner thoughts without judgement. Pt seemed to benefit from increased awareness of personal strengths and improved understanding how perspective can impact view of self. Pt is to continue IOP to continue use of healthy coping, challenge distorted thoughts and prevent decompensation. Narrative Note: []
--- NOTE | 2020-06-15 09:00 | BH.SGPN.GN ---
Behaviors/Verbalizations/Mental Status: []Client alert and oriented, casually dressed. Eye contact good. Motor activity appropriate. Speech within normal limits. Affect congruent, mood anxious and euthymic. Thoughts linear, logical, no signs of hallucinations or delusions. Reviewed client?s symptom tracker, no risk or plan for suicide ideation as of 06/15/20. Client Response/Progress/Benefit: []Client responded well to session, engaged throughout and participated in group discussion. Client reported feeling ?slightly negative? this morning as feeling stressed about . Reported a mental health win as advocating for self concerning her medical needs in regards to her and what she feels most comfortable with. Reported using opposite action to get out of bed and leave her house which helps improve overall mood. Progress noted as client reported actively working on goal of reading a book about self-compassion and practicing healthy coping skills. Benefited from group as client offered positive insight to peers. Will continue IOP to continue the use of healthy coping skills and challenge negative thoughts. Narrative Note: []
--- NOTE | 2020-06-15 11:00 | BH.SGPN.GN ---
Behaviors/Verbalizations/Mental Status: []Client alert and oriented, neatly dressed and groomed. Eye contact good. Motor activity appropriate. Speech within normal limits. Affect constricted, mood anxious and dysthymic. Thoughts linear, logical, no signs of hallucinations or delusions. Client Response/Progress/Benefit: []Pt was engaged throughout AEB contributing to group discussion and self-reflection. Pt contributed as the group provided examples of physical warning signs for anger and identified personal warning signs. These included: upset stomach, stress hives, and being hyper focused. Pt contributed as group brainstormed healthy coping skills for better managing anger which included: music, walking/exercise, meditation, reflecting on consequences, and grounding. Pt appeared to benefit from identifying different techniques to manage anger as well as gaining awareness of potential consequences of unmanaged anger. Pt selected listening to understand as the coping skill pt would like to try to regulate anger. Progress noted as pt reports increased self-care, but pt continues to struggle with self-compassion. Will continue IOP tx to promote the use of healthy coping skills and further decrease negative thinking. Narrative Note: []
--- NOTE | 2020-06-15 16:47 | BH.MDN ---
Multi-Disciplinary Note - Note 60-min Individual Time Started:: 10:00 Date: 06/15/20 Purpose of session/treatment goals addressed:: Purpose of session was address goals 1 and 2 from [facility]. Eye Contact:: Good Motor Activity:: Appropriate Appearance:: Casual Speech:: Appropriate Mood:: Euthymic Affect:: Full Thoughts:: Linear, Logical, No evidence of hallucinations/delusions noted Staff Interventions:: thought challenging, CBT techniques, discharge planning, strengths perspective, goal setting Client Response:: Pt reported she has been struggling lately with setting high expectations. Pt recognizes setting such high expectations sets her up for failure. Pt reported she is trying to work on self-compassion to help her set more realistic expectations. Pt reported she can note treatment progress since starting IOP. Pt reported her depression as decreased, improved daily schedule, increased awareness of her OCD symptoms with ability to manage more effectively, able to challenge distorted thoughts, and more open with communication. Pt reported she wants to keep working on structuring her days. Pt stated her goal is create a week schedule for next week. Pt stated she would feel ready for discharge in two weeks. Risks/Concerns:: Pt denies suicidal ideation, plan or intention to date. future focused. Progress Toward Goals/Plan:: Progress noted with pt reporting decreased depression, improved use of healthy coping skills, challenging distorted thoughts and improved ability to manage OCD and anxious symptoms. Pt continues to struggle with setting unrealistic expectations and needs continued work on creating a daily structure/routine. Pt is to continue IOP to maintain gains, create routine, and prevent decompensation. Plan is for pt to discharge from IOP in two weeks. Time Stopped:: 11:00
--- NOTE | 2020-06-18 09:00 | BH.SGPN.GN ---
Behaviors/Verbalizations/Mental Status: []Client alert and oriented, casually dressed. Eye contact good. Motor activity appropriate. Speech within normal limits. Affect congruent, mood anxious and euthymic. Thoughts linear, logical, no signs of hallucinations or delusions. Reviewed client?s symptom tracker, client scored himself within his baseline on 06/18/20. Client Response/Progress/Benefit: []Client responded well to session, engaged throughout and participated in group discussion. Client reported feeling ?happy? this morning after sharing positive experiences over her weekend. Shared feeling ?less anxious? this weekend due to recognizing when to step away in high stress situations with her in-laws. Stated ?lowering expectations and making more realistic goals? as a goal she reports working on. Identified thought challenging, self-care, and opposite action as healthy coping skills to help complete her goals of lowering expectations. Progress noted as client reports using healthy coping skills and working towards tx goals. Benefited from group as client gave positive suggestions and feedback to peers. Will continue IOP to continue the use of healthy coping skills, further decrease anxiety, and improve daily functioning. Narrative Note: []
--- NOTE | 2020-06-18 10:00 | BH.SGPN.GN ---
Behaviors/Verbalizations/Mental Status: []Client alert and oriented, casually dressed and groomed. Eye contact good. Motor activity appropriate. Speech within normal limits. Affect congruent, mood euthymic. Thoughts linear, logical, no signs of hallucinations or delusions. Client Response/Progress/Benefit: [] Client active participant AEB providing input to discussion and listening attentively to peers. Group identified the benefits of having a support system such as: emotional release, ability to rebound quicker after a setback, gain perspective, and not feeling alone. Group discussed different types of support, and client noted coping skills as an internal support. Group also discussed the barriers to accessing support in which client identified ?fear of being perceived as weak or incapable?. She did well to engage in the social support activity AEB providing feedback and sharing ideas. Seemed to benefit from increased awareness of potential benefits of social support. Progress noted in client?s self-report of practicing increased self-compassion. Will continue IOP tx to promote gains and further reduce mental health sx. Narrative Note: []
--- NOTE | 2020-06-18 11:13 | BH.SGPN.GN ---
Behaviors/Verbalizations/Mental Status: []Client alert and oriented, neatly dressed and groomed. Eye contact good. Motor activity appropriate. Speech within normal limits. Affect congruent, mood agitated. Thoughts linear, logical, no signs of hallucinations or delusions. Client Response/Progress/Benefit: []Client an active participant throughout AEB contributing to discussion, taking notes, and providing supportive feedback. Client participated in the group activity highlighting the various barriers to effectively utilizing supports and strategies the group used. Client participated in discussion of the four types of support (emotion, tangible, informational, and social) and gave examples for all types. Client reports wanting to work on increasing social support and plans to do this by continuing to be proactive in scheduling things with friends. Client shared she also has learned to be ?more open to opportunity? which has helped client connect with supports. Client seemed to benefit from identifying the type of support she wants to improve. Client to continue in IOP tx to promote mood stability, increase self-compassion, and improve daily functioning. Narrative Note: []
--- NOTE | 2020-06-21 09:00 | BH.SGPN.GN ---
Behaviors/Verbalizations/Mental Status: []Client alert and oriented, neatly dressed and groomed. Eye contact good. Motor activity appropriate. Speech within normal limits. Affect congruent, mood euthymic. Thoughts linear, logical, no signs of hallucinations or delusions. Reviewed client?s symptom tracker, no risk for suicidal ideation, plan, or intent as of 06/21/20 Client Response/Progress/Benefit: []Client responded well to session, attentive and providing supportive statements to peers. Client reports feeling anxious and proud this morning. Client stated she is proud of herself for all the progress she has made since starting IOP. Client shared she has been increasing self-care by having a better sleep/wake routine, spending time with friends, and being more flexible in her daily life. Client stated she feels anxious because she had difficult memories from her past come up last night, which client initially was frustrated about. Client reported then I had a realization that I'm not responsible for my thoughts and client was able to be more compassionate towards herself. Appeared to benefit from reflecting on her gains and connecting with peers. Will continue IOP tx to promote mood stability, further decrease negative thinking, and improve self-compassion. Narrative Note: []
--- NOTE | 2020-06-21 10:08 | BH.SGPN.GN ---
Behaviors/Verbalizations/Mental Status: [] Client alert and oriented, casually dressed and groomed. Eye contact good. Motor activity appropriate. Speech within normal limits. Affect congruent, mood euthymic. Thoughts linear, logical, no signs of hallucinations or delusions. Client Response/Progress/Benefit: [] Client receptive to session, participating throughout. Provided input as the group brainstormed the positive and negative aspects of stress on physical and mental health, indicating that stress makes her physically ill. Client identified current stressors impacting her mental health as: organizing her daily schedule, parenting, her current , moving, and past negative experiences. Client reports her stress jar is ?30% less full than last time? and noted that this feels much ?less paralyzing? than when she first began the IOP program. Progress in improved awareness of how many stressors she previously had in her jar that were ?unnecessary? and could be removed. Recommended to continue IOP tx to promote continued use of healthy coping skills and prevent decompensation. Narrative Note: []
--- NOTE | 2020-06-21 11:12 | BH.SGPN.GN ---
Behaviors/Verbalizations/Mental Status: []Client alert and oriented, casually dressed and groomed. Eye contact good. Motor activity WNL. Speech within normal limits. Affect congruent, mood anxious. Thoughts linear, logical, no signs of hallucinations or delusions. Client Response/Progress/Benefit: []Client engaged in session AEB listening attentively to others, providing input, and taking notes throughout. Client remained attentive during discussion about the 4 A's of managing stress and discussed connecting with the various benefits of each. Client stated she wants to work on stressor of daily schedule/parenting. Client reported she is going to alter her expectations about her schedule and parenting to help reduce stress and pressure of meeting unrealistic expectations. Client seemed to benefit from increased awareness of the impact of stress on mental health and increasing repertoire of stress management strategies. Client is to continue IOP level of care to continue focusing on setting realistic expectations, challenging distorted thoughts and prevent decompensation.
--- NOTE | 2020-06-22 10:12 | BH.SGPN.GN ---
Behaviors/Verbalizations/Mental Status: []Client alert and oriented, casually dressed and groomed. Eye contact good. Motor activity appropriate. Speech within normal limits. Affect congruent, mood euthymic. Thoughts linear, logical, no signs of hallucinations or delusions. Client Response/Progress/Benefit: [] Client was an active participant AEB contributing to discussion, taking notes, and engaging in group activity. Connected with the topic of pitfalls and indicated that pitfalls are ?obstacles along the way to success?. She contributed to the group discussion on barriers that keep them from choosing a healthier path to mental wellness such as pitfalls. Group worked together to identify examples of personal pitfalls which included; distorted thinking, lack of motivation, fear of failure, self-blame, and unhealthy coping. Client identified fear, indecision, all or nothing thinking, and perfectionism as own personal pitfalls. Engaged during the activity by taking on leadership role, offering encouragement, and providing feedback throughout. Client benefited from group as she learned to better identify potential barriers to improving mental health symptoms. Client will continue IOP to increase the consistent use of healthy coping skills, reduce mental health sx, and prevent decompensation. Narrative Note: []
--- NOTE | 2020-06-22 14:48 | BH.MDN_ITS ---
Multi-Disciplinary Note - Note 30-min Individual Time Started:: 11:30 Date: 06/22/20 Purpose of session/treatment goals addressed:: Purpose of session was to address goals 1 and 2 from [facility]. Eye Contact:: Good Motor Activity:: Appropriate Appearance:: Casual Speech:: Appropriate Mood:: Euthymic Affect:: Full Thoughts:: Linear, Logical, No evidence of hallucinations/delusions noted Staff Interventions:: thought challenging, CBT techniques, discharge planning, other - reviewed healthy coping skills Client Response:: Client reported she has been more intentional about being social at least once per week. Client reported she has been lowering her expectations with positive results. Client stated has reconnected with an old friend from gnosticist group when she was a child. Client reported it has been positive to reconnect with someone that also is trying to deconstruct muslim. Client stated when talking with this friend it validates her experience on how her restorationist experience was traumatic. Client reported will continue to make effort to stay connected with this friend. Client stated hse has been engaging in less comparisons with others. Client reported she is catching and stopping self when notices she is putting herself down for making a mistake. Client stated she has seen significant progress with herself since starting IOP and is feeling ready to discharge from [facility] next week. Risks/Concerns:: Denies active suicidal ideation, plan or intention to date. future focused. Progress Toward Goals/Plan:: Progress noted AEB client report of decrease in depressed and anxious symptoms. Client able to identify distorted thoughts and challenge thoughts. Client stated having decrease in ruminations throughout the day. Client having increased social connections, engaging in activities used to enjoy and improved daily functioning. Plan is for client to discharge from [facility] next week. Time Stopped:: 12:05
== END 2020-06-24 23:59 ==
LOC: BHIOP 09:00
PROVIDERS: Referring Provider Psychiatry & Neurology Psychiatry; Visit Provider Psychiatry & Neurology Psychiatry
DX: O99.342 Other mental disorders complicating pregnancy, second trimester (principal); F33.2 Major depressive disorder, recurrent severe without psychotic features; Z3A.18 18 weeks gestation of pregnancy; F42.9 Obsessive-compulsive disorder, unspecified; Z79.899 Other long term (current) drug therapy
CPT/HCPCS: 99213; H0035; H2012; H2020; 90832; 90834; 90837

== ENCOUNTER 2020-06-27 09:00 | Outpatient (RCR) | payer MEDICAID, SELFPAY ==
[2017-03-28 08:10] VITALS: BMI 38.7
--- NOTE | 2020-06-22 09:00 | BH.SGPN.GN ---
Behaviors/Verbalizations/Mental Status: []Client alert and oriented, casually dressed. Eye contact good. Motor activity appropriate. Speech within normal limits. Affect congruent, mood euthymic and anxious. Thoughts linear, logical, no signs of hallucinations or delusions. Reviewed client?s symptom tracker, no risk or thoughts ofsuicide ideation, plan, or intent as of 06/22/20. Client Response/Progress/Benefit: []Client responded well to session, engaged throughout and participated in group discussion. Client reported feeling ?anxious and content? this morning. Client reported no stressors. Reported working on her goal of having less restrictions within her schedule and identified healthy coping skills as self-compassion, talking with healthy supports, being vulnerable and open in communication, and watching television. Benefited from group as client provided positive support to other group members as they discussed their stressors. Progress noted as client continues to use healthy coping skills to help accomplish goals. Will continue IOP to improve self-compassion, continue the use of healthy coping skills, and reframe negative thoughts. Narrative Note: []
--- NOTE | 2020-06-27 09:01 | BH.SGPN.GN ---
Behaviors/Verbalizations/Mental Status: [] Eye contact is good. Alert and oriented. Motor activity is appropriate. Appearance is casual. grooming is appropriate. Speech is Appropriate. Mood is anxious and euthymic. Affect is congruent. Thoughts are linear and logical. No evidence of psychosis or hallucinations. Client Response/Progress/Benefit: []Pt engaged in session AEB listening to others and willingness to share thoughts and feelings with group. Pt did well to identify personal wins, noting she was feeling both optimistic and anxious on this date. Shared that she was able to have several difficult conversations with her and that they have been working on more effective communication which has been a personal ?in? for her. Shared feeling more understood and positive as a result. Additional win noted as making time for self-care last night which she struggles to do at times. Pt shared current stressor as upcoming IOP discharge, however did well to identify skills she may use to maintain gains made thus far. Recommended continued IOP tx to continue addressing mental health sx management and prevent decompensation prior to upcoming discharge. Narrative Note: []
--- NOTE | 2020-06-27 10:15 | BH.SGPN.GN ---
Behaviors/Verbalizations/Mental Status: []Client alert and oriented, casually dressed and appropriately groomed. Eye contact good. Motor activity appropriate. Speech within normal limits. Affect congruent, mood euthymic. Thoughts linear, logical, no signs of hallucinations or delusions. Client Response/Progress/Benefit: []Client engaged during session AEB taking notes, providing input, and listening attentively to others. Client worked with peers on defining goals and brainstorming the benefits of goal setting. Contributed as group discussed the barriers that keep people from either setting goals or following through with goals. Client reported she can note progress within herself because the first time she had this group she had a hard time with the concept of setting realistic expectations and not striving to be perfect, but now is able to recognize how distorted and unhelpful her thoughts were. Client attentive during psychoeducation on SMART goals. Appeared to benefit from reviewing the mental health benefits of setting goals using SMART criteria. Client will continue IOP to continue use of healthy coping skills and prevent decompensation. Narrative Note: []
--- NOTE | 2020-06-27 11:43 | PCM.BH.PN_ITS ---
Progress Note Progress Note: History of Present Illness/Interim History: [] The patient is a 25-year-old female with a history of depression, anxiety and OCD who is seen in follow-up at the [facility] behavioral health IOP program. I last saw the patient about 3 weeks ago. The patient feels that she is really benefiting from the IOP program. She likes the structure of the program and feels that it helps her structure her life at home better also. 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 She is about 21 weeks gestational age with her current now and is looking forward to having her new baby girl. Her has been without complications. Patient feels that she is less depressed now than when she began the program. She feels that she has learned skills that have allowed her to be more assertive and honest in her marriage and more assertive out in the world. Her mood is approaching euthymia now. Anxiety is also much improved. She denies any thoughts of , suicidal ideation, hallucinations or delusions. Current Psychiatric Medications: [] Celexa 40 mg p.o. daily (on this dose for 12 weeks total). Mental Status Examination: [] Patient is seen wearing a mask and appears mildly obese but normal for stated age. She is casually dressed and groomed with good hygiene. She has no psychomotor agitation or retardation. She is pleasant and cooperative during the interview. Eye contact is good and speech is normal rate and rhythm and fluent with no pressure. Mood is euthymic. Affect is full and normal. Thought process is organized and goal-directed. Thought content: There is no evidence of thoughts of , suicidal or homicidal ideation, hallucinations or delusions. Impulsivity is low. Judgment is intact. Insight is good. Diagnoses: [] [place] I: [] Major depressive disorder, recurrent, severe without psychosis (resolving); obsessive-compulsive disorder [place] II: [] Cluster B traits [place] III: [] 21-week intrauterine [place] IV:[]] Primary support issues Plan: [] The patient will continue the IOP program at [facility] and if she continues to improve and maintain her improvement she will be discharged in several days. She felt safe during the interview and if at any time she does not feel safe she will let us know or go to the emergency room. The risks, options, possible complications and side effects of the medications were discussed with the patient again and she understands and accepts these. No medication changes were made. The patient will continue to follow-up with her outpatient psychiatric and medical providers.
--- NOTE | 2020-06-27 15:59 | BH.MDN ---
Multi-Disciplinary Note - Note 45-min Individual Time Started:: 10:15 Date: 06/27/20 Purpose of session/treatment goals addressed:: Purpose of session was to review treatment progress, identify maintenance plan and discuss aftercare plans. Eye Contact:: Good Motor Activity:: Appropriate Appearance:: Casual Speech:: Appropriate Mood:: Euthymic Affect:: Full Thoughts:: Linear, Logical, No evidence of hallucinations/delusions noted Staff Interventions:: CBT techniques, strengths perspective, reviewed DSM-5 Client Response:: Pt reported she feels excited and anxious about her last day being Thursday. Pt reported she has made significant treatment progress since starting IOP. Pt stated her depression has significantly decreased. Pt reported she has improved daily functioning, able to manage stressors more effectively, and feels happier. Pt stated she has created weekly structure that includes time for self-care and engaging in activities she likes to do. Pt reviewed maintenance plan with therapist. Pt shared her daily plans for the whole week. 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 Pt reported she feels less anxious when she has structure. Pt recognizes she has to be flexible with her schedule because she struggles with all or nothing thinking. Pt stated she knows she needs to work on self-care because when the new baby arrives it could make time for self more challenging. Pt reported she has asked for help from her mom to come and stay at their house after pt gives . Pt stated she sees this as a big win because asking for help has been a challenge for pt. Pt reported she plans to follow up with her already established outpatient counselor and psychiatrist at [facility]. Risks/Concerns:: Pt denies suicidal ideation, plan or intention to date. Progress Toward Goals/Plan:: Significant progress noted AEB pt reporting decrease in depression and anxiety, improved daily functioning, increased self-care, improved communication with supports, able to ask for help, and ability to challenge distorted thoughts. Pt feels ready for discharge this week. Plan is for pt to follow up with her already established providers for counseling and psychiatry. Pt will be starting [facility] Aftercare program next . Time Stopped:: 11:05
--- NOTE | 2020-06-29 09:03 | BH.SGPN.GN ---
Behaviors/Verbalizations/Mental Status: []Client alert and oriented, neatly dressed and groomed. Eye contact good. Motor activity appropriate. Speech within normal limits. Affect congruent, mood euthymic. Thoughts linear, logical, no signs of hallucinations or delusions. Reviewed client?s symptom tracker, no risk for suicidal ideation, plan, or intent as of 06/29/20 Client Response/Progress/Benefit: []Client responded well to session, positive and providing supportive statements. Client reports feeling proud and bittersweet this morning as it is her last day of IOP tx. Client shared IOP has been helpful, so it is hard to leave. Client plans to participate in IOP aftercare which helps client feel better about graduating. Client shared her goal moving forward will be to work on maintenance and continuing to become more compassionate with herself. Client reports consistently using healthy coping skills such as thought challenging, mindfulness, being flexible, communication with supports, and self-care. Progress noted as client's functioning has improved and her symptoms have decreased significantly since admission. Will discharge from IOP today as she no longer meets criteria for IOP level of care. Narrative Note: []
--- NOTE | 2020-06-29 11:10 | BH.SGPN.GN ---
Behaviors/Verbalizations/Mental Status: []Client alert and oriented, casually dressed and groomed. Eye contact good. Motor activity appropriate. Speech within normal limits. Affect congruent, mood euthymic and anxious. Thoughts linear, logical, no signs of hallucinations or delusions. Client Response/Progress/Benefit: []Client responded well to session, engaged and participated throughout discussion. Client participated in the discussion of how each resiliency component can help increase personal resiliency. Client identified current resiliency traits client currently possesses and how these can continue to help client in treatment. Client identified personal resilience traits as keeping things in perspective. Client noted she has been working on making goals and expectations realistic and attainable. Client took a leadership role within the activity and brainstorms ideas for group to reach goal. Appeared to benefit from group as client discussed how resiliency impacts her daily functioning. Progress noted as client reflected on her improved mental health. Client?s goal it to practice nurturing herself with a positive view of self by reading a book regarding self-compassion and reframing negative self-talk. Client will discharge from [facility] as client no longer meets IOP criteria. Narrative Note: []
== END 2020-07-25 23:59 ==
LOC: BHIOP 09:00
PROVIDERS: Referring Provider Psychiatry & Neurology Psychiatry; Visit Provider Psychiatry & Neurology Psychiatry
DX: F33.2 Major depressive disorder, recurrent severe without psychotic features (principal); F42.9 Obsessive-compulsive disorder, unspecified; Z79.899 Other long term (current) drug therapy; E66.9 Obesity, unspecified
CPT/HCPCS: 99213; H0035; H2012; H2020; 90834

== ENCOUNTER 2020-07-05 14:00 | Outpatient (RCR) | payer MEDICAID, SELFPAY ==
[2017-03-28 08:10] VITALS: BMI 38.7
--- NOTE | 2020-07-05 14:00 | BH.SGPN.GN ---
Behaviors/Verbalizations/Mental Status: []Client alert and oriented, neatly dressed and groomed. Eye contact good. Motor activity appropriate. Speech within normal limits. Affect congruent, mood euthymic and anxious. Thoughts linear, logical, no signs of hallucinations or delusions. Client Response/Progress/Benefit: []Client responded well to session, checked in using GAPS. Client?s emotion today is ?anxious? as it is her first day in Aftercare program. Client reported multiple wins including having a difficult conversation with her and advocating for herself by maintaining her boundaries when needing a break. Client states using thought challenging, taking breaks, mindfulness, and affirmations to cope with daily stressors. Client shared house hunting continues to be a stressor for client. Receptive of discussion on self-talk and its influence in maintaining long-term mental health stability. Contributed to strategies for improving effective creation and application of believable personal affirmations. Client?s affirmation statements were ?I deserve rest and can rest at my own discretion? and ?I have the skills to improve this moment?. Progress noted in client?s report of continued mood stability since IOP discharge. Client to continue aftercare group to promote gains and further increase application of healthy coping skills. Narrative Note: []
--- NOTE | 2020-07-05 15:31 | BH.MTP_ITS ---
Master Treatment Plan - Patient Information Program Physician:: Dr. Palacios Primary Therapist:: Kathleen Young [facility] - Psychiatric Diagnoses Psychiatric Diagnoses:: Major depressive disorder, recurrent, severe without psychosis (resolving); obsessive-compulsive disorder Diagnosis Code(s):: F33.2 - Estimated LOS Estimated LOS (in weeks):: 12 Problem/Goal #1 - Problem/Goal #1 Stated Goal:: Client will maintain or see a reduction in symptoms AEB client score on the DSM 5 cross-cutting measure and improve client's daily functioning. - Objectives Objective #1 Stated Objective: Client will continue to consistently apply healthy coping skills to maintain progress made in IOP tx. Interventions: Through group therapy, client will review warning signs and triggers as well as healthy coping skills learned in IOP tx to successfully maintain gains while transitioning into outpatient therapy. Discharge Criteria: Client will have accomplished this goal when client's score on the DSM-5 cross-cutting measure has either maintained or reduced over a 12 week period. Target Date: 09/27/20 Objective #2 Stated Objective: Client will learn and utilize 2-3 maintenance strategies to prevent decompensation. Interventions: Through group therapy, client will be provided with education on healthy maintenance behaviors, relapse prevention techniques, and healthy coping strategies. Discharge Criteria: Client will have accomplished this goal when can report using at least 2 maintenance skills to prevent decompensation. Target Date: 09/27/20
--- NOTE | 2020-07-12 14:00 | BH.SGPN.GN ---
Behaviors/Verbalizations/Mental Status: []Client alert and oriented, casual in appearance. Eye contact good. Motor activity appropriate. Speech within normal limits. Affect congruent. Mood euthymic, slightly anxious. Thoughts linear, logical, no signs of hallucinations or delusions Client Response/Progress/Benefit: []Pt responded well to session AEB pt providing input throughout session, listening attentively to peers and completed worksheet. Pt reported she did not complete homework of hanging out her positive affirmation cards from last session. pt stated she did think of her affirmations several times over the last week. Pt admitted she used excuses to not hang up the cards. Pt stated feeling bit stressed last few days because tired due to being and not feel good. Pt stated mental health positive as communicating with openly and practicing self-compassion. During self-reflection activity pt stated she believes she is doing better with self-compassion, setting realistic expectations, and using skills more consistently. Pt stated she wants to work on self-reflection by taking time each evening to identify positives from day. Pt to continue aftercare to maintain gains and prevent decompensation. Narrative Note: []
--- NOTE | 2020-07-19 14:00 | BH.SGPN.GN ---
Behaviors/Verbalizations/Mental Status: []Client alert and oriented, casually dressed and groomed. Eye contact good. Motor activity appropriate. Speech within normal limits. Affect constricted, mood euthymic and anxious. Thoughts linear and logical. No signs of hallucinations or delusions. Client Response/Progress/Benefit: []Client responded well to session. Client reports feeling calm and ?content but I feel kind of bad that I do? today as client recently had a ?friendship breakup.? Client stated she recently set boundaries with a long-time friend which made client feel better, but hurt her friend?s feelings. Client receptive to supportive statements from peers reminding client she has the right to self-care. Client reports using coping skills such as mindfulness, self-compassion, and slowing down to manage her stressors. Client engaged well during the discussion of self-compassion. Noted connecting with the benefits of self-compassion and shared that for her self-compassion is ?talking to yourself like you would your inner child.? Client appeared to benefit from psychoeducation on the three elements of self-compassion and debunking common myths about self-compassion. Client practiced using self-compassion by reframing her ?friendship breakup? using the three components of self-compassion. Will continue IOP tx to promote mood stability and reinforce healthy coping skills. Narrative Note: []
== END 2020-07-25 23:59 ==
LOC: BHOG 14:00
PROVIDERS: Referring Provider Psychiatry & Neurology Psychiatry; Visit Provider Psychiatry & Neurology Psychiatry
DX: F33.2 Major depressive disorder, recurrent severe without psychotic features (principal)
CPT/HCPCS: 90853

== ENCOUNTER → 2020-08-07 12:58 | Outpatient (CLI) | payer MEDICAID, SELFPAY ==
[2017-03-28 08:10] VITALS: BMI 38.7
[2020-08-07 14:04] LABS: Glucose Challenge Gest 1H 50g 224 mg/dL (70-140); Hematocrit 33.8 % (37-47); Hemoglobin 10.7 g/dL (12.0-15.0); Mean Corp Hgb Conc 31.7 g/dL (32-36); Mean Corpuscular Volume 85.1 fL (81-99); Mean Platelet Vol. 9.9 fl (6.2-12.0); Platelet Count 383 K/mm3 (150-450); RBC Distribution Width CV 13.1 % (11.6-14.6); Red Blood Count 3.97 M/mm3 (4.2-5.4); White Blood Count 9.9 K/mm3 (4.4-11.0)
[2020-08-07 14:40] LABS: ALB/GLOB Ratio 0.6 RATIO (0.9-2.4); AST(SGOT) 13 U/L (15-37); Alanine Aminotransfer ALT/SGPT 19 U/L (13-56); Albumin, Serum 2.5 g/dL (3.2-5.0); Alkaline Phosphatase 60 U/L (45-117); Anion Gap 8 (5-15); BUN 5 mg/dL (7-18); BUN/Creat Ratio 8.4 RATIO (10-20); Calcium,Total 8.6 mg/dL (8.5-10.1); Chloride 104 mmol/L (98-107); Creatinine, Serum 0.59 mg/dL (0.55-1.02); EST Glomerular Filtration Rate 130 mL/min (>60); Est Glom Filt Rate - Afr Amer 157 mL/min (>60); Globulin 4.1 g/dL (2.2-4.2); Glucose 225 mg/dL (74-106); LDH 137 U/L (84-246); Potassium 4.2 mmol/L (3.5-5.1); Protein, Total 6.6 g/dL (6.4-8.2); Sodium Level 136 mmol/L (136-145)
[2020-08-07 16:48] LABS: Protein, Urine (Random) < 6.0 mg/dL (<11.9)
== END ==
PROVIDERS: Visit Provider Student in an Organized Health Care Education/Training Program
DX: O16.9 Unspecified maternal hypertension, unspecified trimester (principal); Z3A.00 Weeks of gestation of pregnancy not specified
CPT/HCPCS: 36415; 80053; 82570; 82950; 83615; 84156; 85027; 87086; 87088

== ENCOUNTER 2020-08-09 13:50 | Outpatient (RCR) | payer MEDICAID, SELFPAY ==
[2017-03-28 08:10] VITALS: BMI 38.7
--- NOTE | 2020-08-09 14:00 | BH.SGPN.GN ---
Behaviors/Verbalizations/Mental Status: []Client alert and oriented, casual appearance. Eye contact good. Motor activity appropriate. Speech within normal limits. Affect congruent, mood euthymic. Thoughts linear, logical, no signs of hallucinations or delusions. Client Response/Progress/Benefit: []Pt responded well to session AEB pt openly sharing thoughts and feelings and completing worksheet. Pt stated she has a rough day yesterday because she was diagnosed with gestational diabetes. Pt reported she started to catastrophize that this would trigger her OCD thoughts she used to have about eating. Pt stated she was able to get through this stressor by talking it through with her and allowing herself to feel. Pt stated she was able to note positives within the stressor like having to eat more consistently. Pt responded well to review and discussion on self-care. pt reported she feels like she has been doing better with engaging in self-care. Pt reported her self-care plan for the week is to: eat consistently, exercise, pray, sing, ask for help, spend time with family, and pampering. Narrative Note: []
--- NOTE | 2020-08-09 14:42 | BH.TPR ---
Treatment Plan Review Date of Admission:: 07/05/20 Date of Treatment Plan Review:: 08/09/20 Admitting Diagnoses:: F33.2 Major depressive disorder, recurrent, severe without psychosis (resolving); obsessive-compulsive disorder Current Diagnoses:: F33.2 Major depressive disorder, recurrent, severe without psychosis (resolving); obsessive-compulsive disorder Patient's Response to Treatment:: Pt struggling with attendance, missing the last two aftercare sessions. Pt engaged when does attend session. Status of Current Problems and Symptoms: Ongoing problems. Recently diagnosed with gestational diabetes which has exacerbated mental health symptoms. Problem #1 Problem Name:: Pt will maintain or see a reduction in sx AEB client score on the DSM-5 Status of Goals:: Objective 1- Not complete. DSM 5 scores not collected, however per pt's report functioning slightly decompensating. Pt reports increased anxiety due to complications. Pt using skills at times like thought challenge and reducing expectations. Objective 2- pt able to identify healthy coping skills like opposite action, thought reframing, reducing expectations and positive self-talk however struggling to use skills when needed. Team Recommendations:: Recommended client continue IOP aftercare group in addition to attending regular outpatient counseling in order to reinforce healthy coping skills and prevent further decompensation.
== END 2020-08-24 23:59 ==
LOC: BHOG 13:50
PROVIDERS: Referring Provider Psychiatry & Neurology Psychiatry; Visit Provider Psychiatry & Neurology Psychiatry
DX: F33.2 Major depressive disorder, recurrent severe without psychotic features (principal); F42.9 Obsessive-compulsive disorder, unspecified
CPT/HCPCS: 90853

== ENCOUNTER 2020-08-20 14:10 | Outpatient (CLI) | payer MEDICAID, SELFPAY ==
[2017-03-28 08:10] VITALS: BMI 38.7
[2020-08-20 14:25] VITALS: BMI 43.4
[2020-08-20 14:44] VITALS: BP 139/77; PULSE 108; O2SAT 98
[2020-08-20 14:45] VITALS: TEMP 36.8
[2020-08-20 14:50] VITALS: BP 139/77; PULSE 108
[2020-08-20] MEDS: Acetaminophen 500 MG Tablet 1000 MG PO (18:01)
--- NOTE | 2020-08-21 18:09 | PCM.PN.BLA ---
Progress Note 25 yo at 22/09 presenting s/p abdominal trauma. Daughter stepped on abdomen today. Denies bleeding, LOF, contractions. Reports some soreness of abdomen. +FM. Physical Exam Narrative Patient in NAD. NC/AT. No increased cardiorespiratory effort. Abdomen soft, NT, gravid. EXT no edema. Assessment & Plan Assessment/Plan (1) Abdominal trauma: Status: Acute Code(s): S39.91XA - Unspecified injury of abdomen, initial encounter Plan: 22/09w with abdominal trauma - daughter stepped on abdomen. heart tracing 145/mod indra/+accel/nod ecel, no contractions. Abdomen soft. Tylenol helped pain. RH pos blood type. No evidence of abruption. status reassuring. Home with precautions. F/u with visit next day.
== END 2020-08-20 18:25 | disposition home or self-care (01) ==
LOC: WPOUT 14:13 → WP 14:15
PROVIDERS: Referring Provider Student in an Organized Health Care Education/Training Program; Visit Provider Student in an Organized Health Care Education/Training Program
DX: O9A.213 Injury, poisoning and certain other consequences of external causes complicating pregnancy, third trimester (principal); S39.91XA Unspecified injury of abdomen, initial encounter; W50.0XXA Accidental hit or strike by another person, initial encounter; Y93.9 Activity, unspecified; Y92.9 Unspecified place or not applicable; Y99.9 Unspecified external cause status; Z3A.29 29 weeks gestation of pregnancy
CPT/HCPCS: 59050; 99218; G0378

== ENCOUNTER 2020-08-30 14:00 | Outpatient (RCR) | payer MEDICAID, SELFPAY ==
--- NOTE | 2020-08-30 14:00 | BH.SGPN.GN ---
Behaviors/Verbalizations/Mental Status: []Client alert and oriented, casually dressed and groomed. Eye contact fair. Motor activity appropriate. Speech within normal limits. Affect constricted. Mood anxious and dysthymic. Thoughts linear, logical, no signs of hallucinations or delusions. Client Response/Progress/Benefit: []Client responded well to session AEB client sharing thoughts and feelings and listening attentively to peers. Client reported she is doing okayish. Reported she is still struggling with adjusting to her gestational diabetes which is why she's missed the last two weeks. Client reported she is noticing her OCD symptoms are starting to worsen, but is doing her best to manage. Client identified additional stressor is being diagnosed with Obsessive Compulsive Personality Disorder which has added challenges to the household. Client stated she has gotten better at asking for help and setting boundaries to help manage this difficult time. Client contributed to the discussion on gratitude and its benefits. Client attentive during discussion of internal vs. external gratitude. Client created weekly plan on what she will identify for gratitude over the next 7 days. Appeared to benefit from connecting with peers and creating plan to identify gratitude. Pt decompensating over the last three weeks with reporting increased OCD symptoms and drop in functioning. Will continue IOP aftercare to continue use of healthy coping skills, challenge distorted thoughts and prevent further decompensation.
--- NOTE | 2020-09-13 14:00 | BH.SGPN.GN ---
Behaviors/Verbalizations/Mental Status: []Client alert and oriented, casual dress, hygiene tended to. Eye contact fair. Motor activity appropriate. Speech within normal limits. Affect constricted, mood agitated and anxious. Thoughts linear, logical, no signs of hallucinations or delusions. Client Response/Progress/Benefit: []Pt reported she is feeling amanda because super and super done. Pt stated she is proud of herself for being more open to her OBGYN about how she feels during the . Pt reported she has been having open, honest conversations with her . Pt stated she has been more self-compassionate about her gestational diabetes which seems to have helped decrease her panic attacks. Pt engaged in brainstorming of various daily routine ideas. Pt completed task of identifying activities to complete either on a daily or weekly basis for her routine. Patient identified night routine to include: clean kitchen, medication at 10:30pm, TV off by midnight, personal hygiene, schedule and to do list for next day, read, talk with for short time, and bed. Pt seemed to benefit from support from peers and learning about benefits of routine. Pt to continue aftercare group to continue use of healthy coping, challenge distorted thoughts and prevent decompensation. Narrative Note: []
--- NOTE | 2020-09-13 15:09 | BH.MTP_ITS ---
Treatment Plan Review Date of Admission:: 07/05/20 Date of Treatment Plan Review:: 09/13/20 Admitting Diagnoses:: F33.2 Major depressive disorder, recurrent, severe without psychosis (resolving); obsessive-compulsive disorder Current Diagnoses:: F33.2 Major depressive disorder, recurrent, severe without psychosis (resolving); obsessive-compulsive disorder Patient's Response to Treatment:: Pt's attendance has been sporadic in last two months. When pt does attend she is engaged AEB providing input throughout and completing worksheets. Status of Current Problems and Symptoms: Problems ongoing. Moving towards acceptance of gestational diabetes and being more self-compassionate during adjustment time. Problem #1 Problem Name:: Pt will maintain or see a reduction in sx AEB client score on the DSM-5 Status of Goals:: Objective 1- Not complete. DSM 5 scores indicate increase in anxiety by 33%, 20% increase in depression and overall 32% increase in symptoms. Pt's and recent diagnosis of gestational diabetes seem to be impacting mental health. Objective 2- pt able to identify healthy coping skills like opposite action, thought reframing, reducing expectations and positive self- talk. Team Recommendations:: Recommended client continue IOP aftercare group in addition to attending regular outpatient counseling in order to reinforce healthy coping skills and prevent further
--- NOTE | 2020-09-20 14:00 | BH.SGPN.GN ---
Behaviors/Verbalizations/Mental Status: []Client alert and oriented, neatly dressed and groomed. Eye contact good. Motor activity appropriate. Speech within normal limits. Affect congruent, mood anxious and dysthymic. Thoughts linear, logical, no signs of hallucinations or delusions. Client Response/Progress/Benefit: []Pt receptive of session, engaged throughout. Pt noted she was feeling nervous this afternoon and discussed this has been her overarching mood since being diagnosed with gestational diabetes. Attributes this to struggling with thought challenging when having ?what-if thoughts?. Went on to note that her mother is in town and has offered to watch pt?s 3 year old daughter overnight which will give pt time for self-care. Receptive of discussion on personal accountability and its importance in maintaining mental health stability. Pt worked cooperatively with group to identify benefits of maintaining personal accountability. Engaged in discussion on different accountability styles and brainstorming strategies for improving ability to hold themselves accountable. Pt identified that for homework she will practice using visual accountability resources via keeping an accomplishment log to hold her accountable for identifying areas she deserves credit each day. Pt seemed to benefit from support from peers and increasing understanding of personal accountability benefits and strategies. Progress variable as pt continues to report difficulties in managing anxiety however expresses some improvements in this area. Will continue IOP aftercare group. Narrative Note: []
== END 2020-09-24 23:59 ==
LOC: BHOG 14:00
PROVIDERS: Referring Provider Psychiatry & Neurology Psychiatry; Visit Provider Psychiatry & Neurology Psychiatry
DX: F33.2 Major depressive disorder, recurrent severe without psychotic features (principal); F42.9 Obsessive-compulsive disorder, unspecified
CPT/HCPCS: 90853

== ENCOUNTER → 2020-09-18 16:02 | Outpatient (CLI) | payer MEDICAID, SELFPAY ==
[2020-08-20 14:25] VITALS: BMI 43.4
[2020-09-18 17:35] LABS: Protein, Urine (Random) 22.6 mg/dL (<11.9); Protein:Creat Ratio 138 mg/g CRE (0-200)
[2020-09-18 17:37] LABS: ALB/GLOB Ratio 0.6 RATIO (0.9-2.4); AST(SGOT) 13 U/L (15-37); Alanine Aminotransfer ALT/SGPT 17 U/L (13-56); Albumin, Serum 2.6 g/dL (3.2-5.0); Alkaline Phosphatase 90 U/L (45-117); Anion Gap 8 (5-15); BUN 8 mg/dL (7-18); BUN/Creat Ratio 13.9 RATIO (10-20); Calcium,Total 9.3 mg/dL (8.5-10.1); Chloride 107 mmol/L (98-107); Creatinine, Serum 0.58 mg/dL (0.55-1.02); EST Glomerular Filtration Rate 135 mL/min (>60); Est Glom Filt Rate - Afr Amer 163 mL/min (>60); Globulin 4.6 g/dL (2.2-4.2); Glucose 104 mg/dL (74-106); Hematocrit 36.3 % (37-47); Hemoglobin 11.5 g/dL (12.0-15.0); LDH 136 U/L (84-246); Mean Corp Hgb Conc 31.7 g/dL (32-36); Mean Corpuscular Hgb 26.1 pg (27.0-32.0); Mean Corpuscular Volume 82.3 fL (81-99); Mean Platelet Vol. 9.6 fl (6.2-12.0); Platelet Count 424 K/mm3 (150-450); Potassium 4.1 mmol/L (3.5-5.1); Protein, Total 7.2 g/dL (6.4-8.2); RBC Distribution Width CV 14.1 % (11.6-14.6); RBC Distribution Width SD 41.6 fl (35.1-43.9); Red Blood Count 4.41 M/mm3 (4.2-5.4); Sodium Level 138 mmol/L (136-145); Uric Acid 5.1 mg/dL (2.6-6.0); White Blood Count 10.1 K/mm3 (4.4-11.0)
== END ==
PROVIDERS: Visit Provider Obstetrics & Gynecology
DX: O13.9 Gestational [pregnancy-induced] hypertension without significant proteinuria, unspecified trimester (principal); Z3A.00 Weeks of gestation of pregnancy not specified
CPT/HCPCS: 36415; 80053; 82570; 83615; 84156; 84550; 85027

== ENCOUNTER → 2020-09-26 15:32 | Outpatient (CLI) | payer MEDICAID, SELFPAY ==
[2020-09-26 17:04] LABS: Hematocrit 36.1 % (37-47); Hemoglobin 11.5 g/dL (12.0-15.0); Mean Corp Hgb Conc 31.9 g/dL (32-36); Mean Corpuscular Hgb 26.3 pg (27.0-32.0); Mean Corpuscular Volume 82.4 fL (81-99); Platelet Count 420 K/mm3 (150-450); RBC Distribution Width CV 14.3 % (11.6-14.6); RBC Distribution Width SD 41.6 fl (35.1-43.9); Red Blood Count 4.38 M/mm3 (4.2-5.4)
[2020-09-26 17:10] LABS: ALB/GLOB Ratio 0.6 RATIO (0.9-2.4); AST(SGOT) 14 U/L (15-37); Alanine Aminotransfer ALT/SGPT 19 U/L (13-56); Albumin, Serum 2.5 g/dL (3.2-5.0); Alkaline Phosphatase 95 U/L (45-117); Anion Gap 8 (5-15); BUN 8 mg/dL (7-18); BUN/Creat Ratio 12.8 RATIO (10-20); Calcium,Total 9.2 mg/dL (8.5-10.1); Chloride 105 mmol/L (98-107); Creatinine, Serum 0.62 mg/dL (0.55-1.02); EST Glomerular Filtration Rate 122 mL/min (>60); Est Glom Filt Rate - Afr Amer 148 mL/min (>60); Globulin 4.4 g/dL (2.2-4.2); Glucose 116 mg/dL (74-106); Potassium 4.3 mmol/L (3.5-5.1); Protein, Total 6.9 g/dL (6.4-8.2); Sodium Level 138 mmol/L (136-145); Uric Acid 5.5 mg/dL (2.6-6.0)
[2020-09-26 17:19] LABS: Protein, Urine (Random) 17.9 mg/dL (<11.9); Protein:Creat Ratio 104 mg/g CRE (0-200)
== END ==
PROVIDERS: Visit Provider Obstetrics & Gynecology
DX: O10.913 Unspecified pre-existing hypertension complicating pregnancy, third trimester (principal); Z3A.00 Weeks of gestation of pregnancy not specified
CPT/HCPCS: 36415; 80053; 82570; 84156; 84550; 85027

== ENCOUNTER 2020-09-27 09:00 | Outpatient (RCR) | payer MEDICAID, SELFPAY ==
--- NOTE | 2020-09-27 14:00 | BH.SGPN.GN ---
Behaviors/Verbalizations/Mental Status: []Client alert and oriented, casually dressed, hygiene tended to. Eye contact good. Motor activity appropriate. Speech within normal limits. Affect congruent, mood euthymic. Thoughts linear, logical, no signs of hallucinations or delusions. Client Response/Progress/Benefit: []Client responded well to session, attentive and engaged throughout. Reported feeling excited today as she has finally been given in induction date and reports reduced anxiety knowing more of when the baby is likely to be delivered. Client expressed that she has been creating a list of things to do prior to her induction date and feels more confident in her ability to best prepare herself as a result. Shared that she has been using skills of reaching out to supports, maintaining healthy boundaries, and opposite action. Client contributed to discussion on healthy decision making. Aided in identifying personal barriers and strategies to improve healthy decisions. Client reported she would like to work on reducing negative self-talk and perfectionistic thinking by making a more conscious effort to give herself credit when making small steps. Appeared to benefit from reflecting on application of coping skills, identifying barriers, and creating a game plan to improve healthy decision-making skills. Will continue IOP aftercare to continue the use of healthy coping skills and challenge negative thoughts. Narrative Note: []
--- NOTE | 2020-11-13 13:48 | BH.DS ---
Discharge Summary - Demographics Discharge Date: 09/27/20
--- NOTE | 2020-11-13 13:54 | BH.DS ---
Discharge Summary - Demographics Date of Admission:: 07/05/20 Discharge Date: 09/27/20 Presenting Problems at Admission:: Client discharged from IOP tx and transitioned to IOP aftercare to maintain gains client made in IOP and to reinforce healthy coping skills. At admission to IOP aftercare, client was still reporting mild symptoms of depression and anxiety. Client was also working on improving self-care and planning for upcoming transition to having multiple children in the home. Client was experiencing life stressors including caregiving, related stress, house hunting, self-care, boundaries. Despite these stressors, client reported ability to cope with her mental health and was activity using healthy skills. Discharge Diagnoses:: Major depressive disorder, recurrent, severe without psychosis (resolving); obsessive-compulsive disorder Reason for Discharge:: Client has accomplished her tx goals AEB her ability to maintain mood stability and gains made in IOP as well as overcome additional stressors presented while in the aftercare program. Client will transition to traditional outpatient counseling. - Treatment Progress During Treatment & Response: Client was engaged in IOP aftercare as evidenced by client's participation in group discussions and self-report of applying coping skills. Client at times struggled with consistency in these areas and missed several weeks of aftercare treatment due to medical issues associated with her . Client frequently reported using challenging distorted thoughts, asking for help, breathing, open communication with supports, and positive self-talk to manage her symptoms. Client?s DSM-5 scores for depression reduced by 33% from admission to discharge which was client?s tx goal. Client?s DSM-5 scores for anxiety also reduced by 33% by discharge date. At discharge, client was consistently reporting increased ability to function, better ability to balance stressors and maintain self-care, and was actively reaching out to her supports. Issues Still to be Addressed:: Client can benefit from continuing to increase communication and willingness to reach out to healthy supports, practice calming coping skills, and challenging distortions. Client had reported history of worsening mental health symptoms when not having time for self-care and is encouraged to continue to make this a priority. Discharge Recommendations/Instructions:: Client is recommended to continue seeing her outpatient providers for medication management and ongoing therapy. Discharge Handout: Complete Discharge Handout with client on aftercare options and continuity of care.
== END 2020-09-28 09:00 | disposition home or self-care (01) ==
LOC: BHOG 09:00
PROVIDERS: Referring Provider Psychiatry & Neurology Psychiatry; Visit Provider Psychiatry & Neurology Psychiatry
DX: F33.2 Major depressive disorder, recurrent severe without psychotic features (principal); F42.9 Obsessive-compulsive disorder, unspecified
CPT/HCPCS: 90853

== ENCOUNTER → 2020-10-08 | Outpatient (CLI) | payer MEDICAID, SELFPAY | END | disposition home or self-care (01) | LOC: LABSPEC 13:59 | PROVIDERS: Visit Provider Obstetrics & Gynecology | DX: Z36.85 Encounter for antenatal screening for Streptococcus B (principal) | CPT/HCPCS: 87081 ==

== ENCOUNTER 2020-10-12 07:05 | Inpatient (IN) | payer MEDICAID, SELFPAY ==
[2020-10-12] VITALS (44 sets, daily range): BP systolic 124–170; BP diastolic 58–95; PULSE 88–120; TEMP 36.4–37.7; O2SAT 91–100; BMI 48.9
[2020-10-12] MEDS: Lactated Ringers 1,000 ML 50 ML IV (08:15)
[2020-10-12 08:27] LABS: Absolute Lymphocyte Count 1.32 X10^3/uL (0.83-4.51); Basophil# 0.01 X10^3/uL; Basophil% 0.1 % (0-1); Eosinophils% 2.4 % (0-5); Hemoglobin 10.7 g/dL (12.0-15.0); Lymphocyte # 1.32 X10^3/ul (0.83-4.51); Lymphocyte % 16.2 % (19-41); Mean Corp Hgb Conc 31.5 g/dL (32-36); Mean Corpuscular Hgb 25.6 pg (27.0-32.0); Mean Corpuscular Volume 81.3 fL (81-99); Monocyte# 0.65 X10^3/uL; NRBC Flagged by Analyzer 0 % (0-5); Neutrophil # 5.95 X10^3/uL (2.7-7.7); Neutrophil % 72.8 % (47-70); Platelet Count 331 K/mm3 (150-450); RBC Distribution Width CV 14.6 % (11.6-14.6); RBC Distribution Width SD 42.4 fl (35.1-43.9); Red Blood Count 4.18 M/mm3 (4.2-5.4); White Blood Count 8.2 K/mm3 (4.4-11.0)
--- NOTE | 2020-10-12 08:28 | PCM.HP.OB ---
HPI - General General Date of Admission: 10/12/20 HPI Narrative GABY GUTIERREZ, is a 25 F who presents for induction of labor at 37w2d for gestational diabetes, uncontrolled on insulin. Maternal Data Information DENY Calculator Estimated Delivery Date Method Current WG Current Estimate 10/31/20 LMP (Certain) 37w 2d PFSH PFS Medical History (Updated 10/12/20 @ 08:56 by Heather Lopez) Cystic fibrosis carrier Epidermolysis bullosa Gestational diabetes mellitus in childbirth, insulin controlled Hypertension affecting Lactose intolerance Major depressive disorder, recurrent severe without psychotic features Obsessive compulsive disorder Oligohydramnios Home Medications vit,[id number] [Prenatabs FA] 1 tab PO DAILY 02/09/17 [History Last Taken 08/20/20 06:00] Levemir Flexpen 60 units OTHER BID 10/12/20 [History Last Taken 10/12/20 05:30] Zyrtec 1 tab PO.IVFORM DAILY 10/12/20 [History Last Taken 10/12/20] mirtazapine 15 mg PO QHS 10/12/20 [History Last Taken 10/11/20 21:00] venlafaxine 150 mg PO.IVFORM QHS 10/12/20 [History Last Taken 10/11/20 21:00] Allergy/AdvReac Type Severity Reaction Status Date / Time lanolin AdvReac Rash Verified 08/20/20 14:29 Family History (Updated 10/12/20 @ 08:[address] Ema Medina MD) Father Hypertension Surgical History No history of previous surgery Social History (Updated 10/12/20 @ 08:[address] Ema Medina MD) Smoking Status: Never smoker how long ago did patient quit smoking: quit in 2013 History 3 Elective abortions Hx Para 1 Spontaneous abortions 1 Hx # Term Pregnancies 1 Ectopic pregnancies Hx # Pregnancies Multiple births # of living children 1 Past Pregnancies Del. Date Name GA/Weeks Outcome Route Bth Weight Infant Gen Labor Lgth Anesthesia Del Locatn Provider FOB 03/28/17 Frederick 38 live - full term vacuum 7lb 12oz Female 12 epidural [facility] Landon Francisco Delivery Date: 03/28/17 IOL for low MEI, PIH Earl-Adam,Summer NST FHR Rate Baby A Baseline: 140 Variability:: Moderate Accelerations:: 15 x 15 Decelerations:: None NST Reactive:: Yes FHR Category:: Category I Uterine Activity:: 0/10 Vital Signs Vital Signs Vital Signs: 10/12/20 07:38 Temperature 99.2 F H Temperature Source Temporal Pulse Rate 108 H Blood Pressure 152/72 H BP Systolic 152 BP Diastolic 72 Pulse Ox 99 Weight Weight: 143.789 kg Body Mass Index (BMI) 48.9 Physical Exam Const alert, oriented x3 and no apparent distress HEENT normocephalic Resp normal respiratory effort, normal air movement and clear to auscultation bilaterally Cardio regular rate and regular rhythm GI normal to inspection, nondistended, normoactive bowel sounds, soft to palpation, non-tender and non-distended Inspection: gravid Labs Labs Labs: Blood Type A POSITIVE Antibody Screen NEGATIVE Hct 34.0 % (37-47) L Hgb 10.7 g/dL (12.0-15.0) L Rubella IgG Antibody Reactive (Nonreactive) Hep Bs Antigen Non-Reactive (Nonreactive) Neisseria gonorrhoeae DNA (COLEEN) Negative (Negative) HIV 1&2 Antibody Non-Reactive (Nonreactive) C.trachomatis DNA (PCR) Negative (Negative) Glucose 1 Hr 50 gm 224 mg/dL (70-140) H Group B Strep DNA POSITIVE (Negative) H Rhogam given: No Miscellaneous Test Assessment & Plan (1) 37 weeks gestation of : PLAN: Misoprostol (2) Gestational diabetes mellitus in childbirth, insulin controlled: PLAN: Postprandial BS 150 Blood sugars per protocol (3) Hypertension affecting : QUALIFIERS: Trimester: third trimester Qualified Code(s): O16.3 - Unspecified maternal hypertension, third trimester PLAN: Start Labetalol
[2020-10-12 08:36] LABS: Bedside Glucose 158 mg/dL (70-110)
[2020-10-12] MEDS: miSOPROStol 25 MCG TABLET PO (08:36)
[2020-10-12 09:36] LABS: Bedside Glucose 112 mg/dL (70-110)
[2020-10-12 10:20] LABS: Bedside Glucose 102 mg/dL (70-110)
[2020-10-12] MEDS: Labetalol 100 MG Tablet PO ×2 (10:42→21:37)
[2020-10-12 11:21] LABS: Bedside Glucose 117 mg/dL (70-110)
[2020-10-12 12:26] LABS: Bedside Glucose 121 mg/dL (70-110)
[2020-10-12 13:15] LABS: Bedside Glucose 102 mg/dL (70-110)
[2020-10-12 14:45] LABS: Bedside Glucose 104 mg/dL (70-110)
[2020-10-12] MEDS: Oxytocin 30 units/NS 500 ml 30 UNITS/500 ML IV.SOLN IV (15:06)
--- NOTE | 2020-10-12 17:42 | PN.OBGYN_ITS ---
Subjective Subjective Reports contractions are mild. She feels well. Objective Data Objective Data Vital Signs: Vital Signs Temp Pulse BP Pulse Ox 98.1 F 102 H 139/75 H 97 10/12/20 17:13 10/12/20 17:13 10/12/20 17:13 10/12/20 17:13 Weight: 143.789 kg Body Mass Index (BMI) 48.9 Intake & Output: Intake and Output for Last 24 Hours 10/10/20 10/11/20 10/12/20 23:59 23:59 23:59 Intake Total 858.73 / 858.73 Output Total 650 / 650 Balance 208.73 / 208.73 Lab / Micro Data Result Diagrams: 10/12/20 08:15 Labs: Laboratory Results - last 24 hr 10/12/20 10/12/20 10/12/20 08:04 08:15 08:15 WBC 8.2 RBC 4.18 L Hgb 10.7 L Hct 34.0 L MCV 81.3 MCH 25.6 L MCHC 31.5 L RDW Std Deviation 42.4 RDW Coeff of Demond 14.6 Plt Count 331 MPV 10.0 Immature Gran % (Auto) 0.500 Neut % (Auto) 72.8 H Lymph % (Auto) 16.2 L [place]ondera % (Auto) 8.0 Eos % (Auto) 2.4 Baso % (Auto) 0.1 Absolute Neuts (auto) 6.0 Absolute Lymphs (auto) 1.32 Nucleated RBC % 0 POC Glucose 158 H Blood Type A POSITIVE Antibody Screen NEGATIVE 10/12/20 10/12/20 10/12/20 09:22 10:08 11:14 WBC RBC Hgb Hct MCV MCH MCHC RDW Std Deviation RDW Coeff of Demond Plt Count MPV Immature Gran % (Auto) Neut % (Auto) Lymph % (Auto) Pondera % (Auto) Eos % (Auto) Baso % (Auto) Absolute Neuts (auto) Absolute Lymphs (auto) Nucleated RBC % POC Glucose 112 H 102 117 H Blood Type Antibody Screen 10/12/20 10/12/20 10/12/20 12:20 13:10 14:19 WBC RBC Hgb Hct MCV MCH MCHC RDW Std Deviation RDW Coeff of Demond Plt Count MPV Immature Gran % (Auto) Neut % (Auto) Lymph % (Auto) [place]ondera % (Auto) Eos % (Auto) Baso % (Auto) Absolute Neuts (auto) Absolute Lymphs (auto) Nucleated RBC % POC Glucose 121 H 102 104 Blood Type Antibody Screen NST FHR Rate Baby A Baseline: 145 Variability:: Moderate Accelerations:: 15 x 15 Decelerations:: None NST Reactive:: Yes FHR Category:: Category I Uterine Activity:: 2-07/04 Assessment & Plan (1) 37 weeks gestation of : PLAN: Amniotomy performed with limited clear fluid Continue pitocin as tolerated by mother and fetus Cat I FHR (2) Hypertension affecting : QUALIFIERS: Trimester: third trimester Qualified Code(s): O16.3 - Unspecified maternal hypertension, third trimester PLAN: Labetalol bid (3) Gestational diabetes mellitus in childbirth, insulin controlled: PLAN: Glucose monitoring per protocol Continue Levemir
[2020-10-12] MEDS: Calcium Carbonate 500 MG Tablet PO (18:25)
[2020-10-12] MEDS: Lactated Ringers 500 ML 999 ML IV (18:26)
[2020-10-12] MEDS: fentaNYL-bupivacaine (epidural) 100 ML BAG EPIDURAL ×2 (19:10→23:26)
[2020-10-12] MEDS: Lactated Ringers 1,000 ML 200 ML IV (21:38)
[2020-10-12 22:10] LABS: Bedside Glucose 79 mg/dL (70-110)
[2020-10-12 22:30] LABS: Bedside Glucose 74 mg/dL (70-110)
[2020-10-12] MEDS: 0.9% Saline Lock 10 ML Syringe IV (23:40)
[2020-10-13] VITALS (43 sets, daily range): BP systolic 117–176; BP diastolic 58–83; PULSE 99–130; RESP 16–18; TEMP 35.6–37.2; O2SAT 94–99
[2020-10-13 02:25] LABS: Bedside Glucose 49 mg/dL (70-110)
[2020-10-13 02:25] LABS: Bedside Glucose 59 mg/dL (70-110)
[2020-10-13] MEDS: Lactated Ringers 1,000 ML 200 ML IV (02:35)
[2020-10-13 02:51] LABS: Bedside Glucose 70 mg/dL (70-110)
[2020-10-13 04:06] LABS: Bedside Glucose 85 mg/dL (70-110)
[2020-10-13 04:41] LABS: Bedside Glucose 84 mg/dL (70-110)
[2020-10-13] MEDS: fentaNYL-bupivacaine (epidural) 100 ML BAG EPIDURAL (04:44)
[2020-10-13] MEDS: Ondansetron 4 MG/2 ML Vial IV (05:12)
[2020-10-13] MEDS: 0.9% Saline Lock 10 ML Syringe IV (05:12)
[2020-10-13 05:46] LABS: Bedside Glucose 83 mg/dL (70-110)
[2020-10-13] MEDS: Oxytocin 30 units/NS 500 ml 30 UNITS/500 ML IV.SOLN 334 UNITS IV (06:06)
--- NOTE | 2020-10-13 06:42 | EX.PCM.OBRPT ---
Assessment & Plan (1) Hypertension affecting : QUALIFIERS: Trimester: third trimester Qualified Code(s): O16.3 - Unspecified maternal hypertension, third trimester (2) Gestational diabetes mellitus in childbirth, insulin controlled: (3) 37 weeks gestation of : (4) Vacuum-assisted vaginal delivery: Maternal Data Information DENY Calculator Estimated Delivery Date Method Current WG Current Estimate 10/31/20 LMP (Certain) 37w 3d Vaginal Delivery Maternal Presentation Maternal Presentation: Medically Indicated Induction Type of Induction: Cytotec and - (Pitocin and Amniotomy performed following cytotec) Medical Reason for Induction: - (Gestational diabetes mellitus, poorly controlled) Operative Information Date of Procedure: 10/13/20 Pre-Operative Diagnosis: 37-3/7 weeks gestation, gestational diabetes Post-Operative Diagnosis: 37-3/7 weeks gestation, gestational diabetes Surgery / Procedure Performed: Vacuum Assisted Vaginal Delivery Type of Anesthesia: Epidural Anesthesiologist: Lucho Neil Drain: Mendez to straight drain Estimated Blood Loss: 500 ml Findings Description of Procedure: Arrived to room with category 2 heart rate tracing and patient was fully dilated and +3 station. She pushed with good maternal effort to +4 station however had bradycardia that did not resolve with maternal repositioning, discontinuing patient of the Pitocin and oxygen. I advised vacuum assisted. Reviewed risk and benefits of the vacuum placement. The fetus was in direct OA. The Kiwi Was placed at the flexion point and 500 mmHg applied. 3 pulls were performed with no pop offs to deliver the head. The Kiwi suction was released. There is no nuchal cord. The infant shoulders delivered with ease and the infant was placed on the maternal abdomen and further attended by nursery personnel. The cord was doubly clamped and cut. Cord blood gases were obtained. The placenta delivered spontaneously and appeared intact on inspection. The perineum was inspected and KEL performed confirming a second-degree perineal laceration with vaginal extension. Laceration was repaired using 3-0 Vicryl Rapide. There was good hemostasis. Sponge and needle counts were correct x2. Presentation: Vertex Amniotic Membrane Rupture Type: Artificial Amniotic Fluid Description: Clear Placental Delivery Description: Spontaneous Placenta Disposition: [facility] Cord Vessel Description: 3 Vessels Cord Entanglement: None Nuchal Cord Compression: With compression (variable deceleration noted prior to delivery) Infant A Gender: Female (1 minute): 7 (5 minute): 9 Delayed Cord Clamping: Yes Post Vaginal Delivery Medications Given After Delivery: IV Pitocin Laceration: Midline, Vaginal Extension/lac and 2nd degree Complication Complications: None
[2020-10-13] MEDS: Lactated Ringers 500 ML 999 ML IV ×2 (07:30)
[2020-10-13] MEDS: Labetalol (Prefilled) 20 MG/4 ML 10 MG IV (07:38)
[2020-10-13 08:21] LABS: Hematocrit 29.5 % (37-47); Hemoglobin 9.2 g/dL (12.0-15.0); Mean Corp Hgb Conc 31.2 g/dL (32-36); Mean Corpuscular Hgb 25.6 pg (27.0-32.0); Mean Corpuscular Volume 81.9 fL (81-99); Mean Platelet Vol. 9.8 fl (6.2-12.0); Platelet Count 271 K/mm3 (150-450); RBC Distribution Width CV 14.6 % (11.6-14.6); RBC Distribution Width SD 42.5 fl (35.1-43.9); White Blood Count 14.4 K/mm3 (4.4-11.0)
[2020-10-13 08:41] LABS: ALB/GLOB Ratio 0.6 RATIO (0.9-2.4); AST(SGOT) 15 U/L (15-37); Alanine Aminotransfer ALT/SGPT 14 U/L (13-56); Albumin, Serum 1.8 g/dL (3.2-5.0); Alkaline Phosphatase 86 U/L (45-117); Anion Gap 10 (5-15); BUN 8 mg/dL (7-18); BUN/Creat Ratio 14.9 RATIO (10-20); Calcium,Total 7.9 mg/dL (8.5-10.1); Chloride 105 mmol/L (98-107); Creatinine, Serum 0.54 mg/dL (0.55-1.02); EST Glomerular Filtration Rate 146 mL/min (>60); Est Glom Filt Rate - Afr Amer 176 mL/min (>60); Estimated Creatinine Clearance 153.52 ml/min; Globulin 3.2 g/dL (2.2-4.2); Glucose 89 mg/dL (74-106); Potassium 3.8 mmol/L (3.5-5.1); Sodium Level 137 mmol/L (136-145); Uric Acid 7.2 mg/dL (2.6-6.0)
[2020-10-13] MEDS: Ibuprofen 600 MG Tablet PO ×3 (08:43→20:44)
[2020-10-13 08:57] LABS: Protein, Urine (Random) 26.1 mg/dL (<11.9); Protein:Creat Ratio 300 mg/g CRE (0-200)
[2020-10-13] MEDS: Labetalol 100 MG Tablet PO ×2 (09:57→22:16)
[2020-10-13] MEDS: Loratadine 10 MG Tablet PO (09:57)
[2020-10-13 12:20] LABS: Bedside Glucose 94 mg/dL (70-110)
[2020-10-13] MEDS: Prenatal Vits Tablet 1 TABLET PO (15:11)
[2020-10-13] MEDS: Acetaminophen 500 MG Tablet 1000 MG PO ×2 (15:12→20:44)
--- NOTE | 2020-10-13 19:22 | CASEMGMT ---
SW Assessment Patient's Name: Janie Minor MOB History obtained from medical record, MOB and FOB, Francisco Mily. Patient gave permssion for this fiction and nonfiction prose writer to speak to her in the presence of the FOB G 3 P2 now Delivered at 37 weeks Control: Vasectomy [facility] Summer Rajat Medina Baby : Priscila 10/13/20 Apgars 7/9 Weights: 9bs 4 ounces Extended Day Teacher: Adarsh Tompkins Bottle Feeding MOB's Other Children: Christie Minor , age 3 1/2. Christie is currently being watched by FOB's parents Housing: Patient and FOB reside in a house in [facility] Transportation: Patient and FOB both have cars and both can drive Supplies: Patient and FOB report they have carseat, blankets, diapers, clothes, and all supplies. Mother reports that due to her skin disorder she will not breast feed the . She plans to bottle feed. Supports: Patient said that she is from [place] but her family is on her way to come and stay with her. Patient said that her mother will stay with her longer. Patient said that she will get charm filter operator helper to assist with Education Level: Patient graduated High School. No learning issues with reading, writing or learning comprehension.. Some college but did not complete a degree. Employment: Patient is not employed outside the home Agency Involvement: Patient has [employer] Patient has WIC Patient had [facility] with their first child but declined referral to [facility] at this time. Patient is linked with Stephanie Turner at [facility]. She reports she saw Stephanie last week and previously had been seeing her every other week. Patient plans to text her to [facility] an appointment. Patient has no legal or CPS issues. FOB: Pj Minor (Francisco) Patient and FOB have been together for 6 -6.5 years FOB will be involved with Employment: FOB is employed at [employer] in [place]. He will be taking 2 weeks off work to assist with . Patient is father to patient's other daughter, Christie. FOB reports that he is currently receiving treatment for OCPD (Obsessive Compulsive Personality Disorder) at [facility]. He sees his counselor weekly. Maternal health history. Patient reports [facility] and psychiatrist, Dr. Moreno.Patient reports she plans to continue to take her meds as prescribed. Patient said that she previously was in IOP/PHP program and found it very helpful. Patient denied any current SI. Patient plans to follow up with her mental health providers as needed. Patient voiced that at times she feels overwhelmed but is able to voice it to others for support. Previous records reports history of panic attacks. Patient was educated on Shaken Baby Syndrome, PPD and Safe Sleeping. Patient reports no AOD use or issues. SW educated patient on post depression. Patient reports that she has a pod cast called the [facility]. Patient was able to smile when talking about the and noted that the baby looked like her. Patient was educated that if patient gets into crisis she can always come to the Emergency Room for assessment and evaluation. Patient and FOB verbalized understanding. Patient was provided handouts on safe sleeping, post depression including 10 facts about depression and anxiety in and post . Patient and FOB declined any needs or concerns. Patient and FOB appear to be open to receiving support from mental health professionals. Patient's family is coming to provide assistance and patient's mother will stay longer to assist. Patient plans to hire help with . SW updated Diana RN. Diana reported concerns as patient wants assistance with showering and assistance with putting gloves on her hands. Father did skin to skin with and father has been feeding the . CATALINA called back later in the day and lurer said that she spoke to Diana and Diana indicated she feels alot better with patient's care of the child and self. Thus, at this time patient is cleared for discharge however, if any additional social work needs or safety needs arise the patient may benefit from an additional day for observation. Plan is for patient to be discharged home on Thursday. Plan: Home with family support and mental health counselor involved with patient and fob. Suzanne SWANN
[2020-10-13] MEDS: Mirtazapine 15 MG Tablet PO (22:17)
[2020-10-13] MEDS: Venlafaxine XR 150 MG Capsule PO (22:17)
[2020-10-14] VITALS (7 sets, daily range): BP systolic 128–168; BP diastolic 68–90; PULSE 100–110; RESP 18; TEMP 36.2–37.1; O2SAT 95–97
[2020-10-14] MEDS: Ibuprofen 600 MG Tablet PO ×2 (04:12→09:52)
[2020-10-14] MEDS: Acetaminophen 500 MG Tablet 1000 MG PO ×2 (04:12→09:52)
[2020-10-14 06:16] LABS: Bedside Glucose 89 mg/dL (70-110)
[2020-10-14 06:17] LABS: Hematocrit 25.7 % (37-47); Mean Corp Hgb Conc 31.1 g/dL (32-36); Mean Corpuscular Hgb 26.1 pg (27.0-32.0); Mean Platelet Vol. 9.6 fl (6.2-12.0); Platelet Count 215 K/mm3 (150-450); RBC Distribution Width CV 15.1 % (11.6-14.6); RBC Distribution Width SD 45.1 fl (35.1-43.9); Red Blood Count 3.06 M/mm3 (4.2-5.4); White Blood Count 7.9 K/mm3 (4.4-11.0)
--- NOTE | 2020-10-14 08:43 | NURSING ---
Call placed to Dr. Rajat Medina to discuss patient's blood pressures. Patient is somewhat painful and recently took a shower. Plan is to give 200 mg PO Labetalol now and reassess.
[2020-10-14] MEDS: Labetalol 200 MG Tablet PO (08:52)
--- NOTE | 2020-10-14 09:09 | NURSING ---
Patient denies headache, blurred vision, or epigastric pain. Dr. Rajat Medina and charge nurse both aware of blood pressures.
--- NOTE | 2020-10-14 09:12 | PCM.DC ---
Discharge Instructions Diet Discharge Diet: No restrictions Activity Discharge Activity: Return to Normal Activity May resume sexual activity in: 4-6 weeks Lifting Restrictions: 20-25lb Dressing / Incision Call your doctor if you observe: Fever of 101 or Higher, Using more than 1 pad per hour, Shortness of breath, Chest pain, Calf discomfort, Uncontrolled pain and - (Persistent or severe headache) Follow Up Care Please Follow Up With: Ema Medina MD When: 7-10 days telephone visit 6 weeks for visit Test Results: Test results from this visit will be discussed in further detail at your follow-up appointment, if applicable. Discharge Plan Admission Admit Date/Time: 10/12/20 07:05 Primary Reason for Your Visit: Vaginal delivery Attending Provider: Ema Ricardo Primary Care Provider: Care PhysicianJanice Primary Instructions Patient Instructions: After a Vaginal , High Blood Pressure (Hypertension) Additional Instructions / Restrictions: Take and record your home blood pressures once daily at rest. Call the office for home BPs >150 systolic or > 100 diastolic Discharge Orders/Prescriptions Prescriptions: New ibuprofen 600 mg Tablet 600 mg PO Q8H PRN PRN (Reason: Pain Score 1-3) Qty: 30 RF: 0 labetalol 100 mg Tablet 200 mg PO BID Qty: 120 RF: 1 Continued Prenatabs FA 1 TABLET tablet 1 tab PO DAILY RF: 0 mirtazapine 15 mg Tablet 15 mg PO QHS RF: 0 Zyrtec 1 tab PO.IVFORM DAILY RF: 0 venlafaxine 150 mg PO.IVFORM QHS RF: 0 Discontinued Levemir Flexpen 60 units OTHER BID RF: 0 Referrals / Follow Up: Care Physician,Janice Primary [Primary Care Provider] - Disposition Disposition (needs filled in before D/C Order can be placed): Home, self care
--- NOTE | 2020-10-14 09:38 | PCM.PN.OB ---
Subjective Subjective Perineum is sore. She notes blistering at site, but pain is manageable. She is out of bed, voiding without difficulty. She feels well overall. Denies headache, vision changes, heavy lochia. Has mild cramping. Requests d/c home today. Objective Data Objective Data Vital Signs: Vital Signs Temp Pulse Resp BP Pulse Ox 97.1 F L 110 H 18 147/73 H 97 10/14/20 08:28 10/14/20 09:13 10/14/20 08:28 10/14/20 09:13 10/14/20 08:28 Oxygen Delivery Method Room Air Weight: 143.789 kg Body Mass Index (BMI) 48.9 Intake & Output: Intake and Output for Last 24 Hours 10/12/20 10/13/20 10/14/20 23:59 23:59 23:59 Intake Total 2420.57 / 2420.57 3329.53 / 3329.53 Output Total 650 / 650 800 / 800 Balance 1770.57 / 1770.57 2529.53 / 2529.53 Lab / Micro Data Result Diagrams: 10/14/20 06:09 10/13/20 07:45 Labs: Laboratory Results - last 24 hr 10/13/20 10/14/20 10/14/20 08:37 06:05 06:09 WBC 7.9 RBC 3.06 L Hgb 8.0 L Hct 25.7 L MCV 84.0 MCH 26.1 L MCHC 31.1 L RDW Std Deviation 45.1 H RDW Coeff of Demond 15.1 H Plt Count 215 MPV 9.6 POC Glucose 94 89 Physical Exam Const alert, oriented x3 and no apparent distress Resp normal respiratory effort and normal air movement Cardio regular rate, regular rhythm, S1 normal heart sound and S2 normal heart sound Narrative: Lochia scant Uterus Palpation: uterus fundus firm and other OB fundus nontender Extremity no calf tenderness Extremity Narrative: +1 b/l pedal edema Neuro oriented x3 Assessment & Plan (1) (spontaneous vaginal delivery): PLAN: Bottlefeeding Rh positive Routine care (2) Hypertension affecting : QUALIFIERS: Trimester: third trimester Qualified Code(s): O16.3 - Unspecified maternal hypertension, third trimester PLAN: Suspect anxiety, white coat component of chronic HTN Labetalol 200mg bid Consider d/c home if BPs improved (3) Gestational diabetes mellitus in childbirth, insulin controlled: PLAN: Fasting sugar 89 this am No further monitoring indicated Plan HbA1C at 12 weeks
[2020-10-14] MEDS: Loratadine 10 MG Tablet PO (09:51)
--- NOTE | 2020-10-14 11:07 | NURSING ---
Educated patient on signs and symptoms of preeclampsia. Patient has home blood pressure cuff. Reviewed normal BP parameters. Patient verbalizes understanding.
== END 2020-10-14 11:25 | disposition home or self-care (01) | DRG 560 ==
PROVIDERS: Admitting Provider Obstetrics & Gynecology; Visit Provider Obstetrics & Gynecology
DX: O76 Abnormality in fetal heart rate and rhythm complicating labor and delivery (principal); O70.1 Second degree perineal laceration during delivery; O24.429 Gestational diabetes mellitus in childbirth, unspecified control; O26.23 Pregnancy care for patient with recurrent pregnancy loss, third trimester; Z3A.37 37 weeks gestation of pregnancy; Z37.0 Single live birth; O69.1XX0 Labor and delivery complicated by cord around neck, with compression, not applicable or unspecified; O13.4 Gestational [pregnancy-induced] hypertension without significant proteinuria, complicating childbirth; Z82.49 Family history of ischemic heart disease and other diseases of the circulatory system; Z79.4 Long term (current) use of insulin; Z14.1 Cystic fibrosis carrier; F42.9 Obsessive-compulsive disorder, unspecified
CPT/HCPCS: 36415; 59025; 59050; 80053; 82570; 82962; 84156; 84550; 85025; 85027; 86850; 86900; 86901; 99218; J7120; A4216; G0378; J2405

== ENCOUNTER → 2021-01-16 | Outpatient (CLI) | payer MEDICAID, SELFPAY | END | disposition home or self-care (01) | PROVIDERS: Visit Provider Physician Assistant | DX: Z20.822 Contact with and (suspected) exposure to COVID-19 (principal) | CPT/HCPCS: 87635; U0005; U0003 ==

== ENCOUNTER → 2021-01-30 10:55 | Outpatient (CLI) | payer MEDICAID, SELFPAY ==
[2021-01-30 12:01] LABS: Hemoglobin A1c 5.6 % (3.8-5.6)
== END ==
PROVIDERS: Visit Provider Obstetrics & Gynecology
DX: Z13.1 Encounter for screening for diabetes mellitus (principal); Z86.32 Personal history of gestational diabetes
CPT/HCPCS: 36415; 83036

== ENCOUNTER 2021-06-06 08:30 | Outpatient (RCR) | payer MEDICAID, SELFPAY ==
--- NOTE | 2021-06-06 09:05 | BH.SGPN.GN ---
Behaviors/Verbalizations/Mental Status: [] Eye contact is good. Motor activity is appropriate. Appearance is casual. Speech is Appropriate. Mood is anxious. Affect is congruent. Thoughts are linear and logical. No evidence of psychosis. Reviewed daily check in sheet and pt reports 1/5 for suicidal thoughts and 0/5 for intent. Client Response/Progress/Benefit: [] Pt participated at times during group discussion. Attentive. Shared with the group that today is her first day in IOP. Also shared that she had done the program in the past and found it very helpful. Decompensated due to 5 major life stressors. She did not elaborate on these stressors however discussed the repercussions that they had on her mental health and daily functioning. Shared hx of Obsessive thoughts. Benefited from group support and encouragement. Will continue in IOP to maintain safety, increase healthy coping, and prevent decompensation. Narrative Note: []
--- NOTE | 2021-06-06 09:30 | BH.COMM ---
Communication Note - Communication with Client Communication Note: Met with pt and updated pre-admission screening. Plan to start IOP today. Completed Gilliam Suicide Scale which shows high risk. Pt reports 1 1/2 weeks ago had interrupted suicide attempt when her knocked pills out of her hand. Pt states she did punch her head multiple times. Pt denies current suicidal ideation, plan or intention to date. Pt expressed understanding of reducing access to lethal methods. Pt denies access to guns. Pt agreeable to have her secure her current medications. Pt agrees to dispose of her excess medications. Consulted with Dr. Palacios with plan to admits to IOP with dx of Obsessive-compulsive disorder F42.9
--- NOTE | 2021-06-06 10:00 | BH.SGPN.GN ---
Behaviors/Verbalizations/Mental Status: []Client alert and oriented, casually dressed and groomed. Eye contact good. Motor activity appropriate. Speech within normal limits. Affect congruent, mood anxious. Thoughts linear, logical, no signs of hallucinations or delusions. Client Response/Progress/Benefit: []Client responded well to group session AEB listening attentively to others and participating in group discussion. Group members worked together to define and provide personal examples of pitfalls. Client stated that in the past, she had been told if things were difficult she was not on the ?right path? which led to pitfalls, and gave an example of reverting to unhealthy coping skills as a personal pitfall. Client participated in experiential activity, providing encouragement and problem solving strategies. Client appeared to benefit from increased self awareness of personal pitfalls. Will continue IOP treatment to prevent decompensation, increase healthy coping skills, and improve overall functioning. Narrative Note: []
--- NOTE | 2021-06-06 11:15 | BH.SGPN.GN ---
Behaviors/Verbalizations/Mental Status: []Client alert and oriented, neatly dressed and groomed. Eye contact good. Motor activity appropriate. Speech within normal limits. Affect congruent, mood anxious. Thoughts linear, logical, no signs of hallucinations or delusions. Client Response/Progress/Benefit: []Client receptive of session, engaged throughout AEB client actively listening and contributing to discussion, as well as taking notes. Client completed worksheet identifying personal pitfalls impacting mental health progress. Client identified the following pitfalls: avoidance, reassurance seeking, and difficulty adjusting her expectations. Group learned different coping skills to help manage pitfalls. Client selected reassurance seeking as the pitfall client wants to overcome. Client plans to work on this by prolonging the time before she asks for reassurance. Benefited from identifying personal pitfalls and strategies to overcome these pitfalls. Will continue IOP tx to prevent decompensation, increase ability to manage OCD symptoms, and improve daily functioning. Narrative Note: []
--- NOTE | 2021-06-07 09:05 | BH.SGPN.GN ---
Behaviors/Verbalizations/Mental Status: [] Eye contact is good. Motor activity is appropriate. Appearance is disheveled. Speech is Appropriate. Mood is anxious. Affect is congruent. Thoughts are linear and logical. No evidence of psychosis. Reviewed daily check in sheet and no reports of suicidal ideations or intent. Client Response/Progress/Benefit: [] Pt was an active participant in group discussion. Attentive. Provided appropriate feedback. Mental health win was Going to sleep at midnight. Talked more at length regarding was this is a win and some of her OCD traits which have kept her from going to sleep at normal times. Another mental health win was managing stress and Crisis this AM regarding childcare. I stayed calm and avoided catastrophizing things. She is proud that she was able to manage this disruption in routine and not avoid. I could've just not come but this is important. Progress noted per pt report. Benefited from group support, encouragement, and feedback. Narrative Note: []
--- NOTE | 2021-06-07 10:06 | BH.SGPN.GN ---
Behaviors/Verbalizations/Mental Status: []Client alert and oriented, casually dressed and groomed. Eye contact fair. Motor activity appropriate. Speech within normal limits. Affect constricted, mood tired and anxious. Thoughts linear, logical, no signs of hallucinations or delusions Client Response/Progress/Benefit: []Client engaged during session AEB actively contributing insight and completing worksheet. Connected with discussion on crisis and how coping with external crises by using unhealthy coping skills could result in a personal crisis. Group reflected on the importance of having awareness of personal warning signs to prevent reaching crisis point. Group identified potential warning signs for crisis and client completed the personal warning signs worksheet. Client identified personal crisis warning signs to include: isolation, decreased sleep and appetite, and hyper-focusing on problem-solving. Client benefited by increasing awareness of what leads to crisis and personal warning signs. Client will continue IOP tx to prevent decompensation, reduce OCD symptoms, and improve daily functioning. Narrative Note: []
--- NOTE | 2021-06-10 10:08 | BH.SGPN.GN ---
Behaviors/Verbalizations/Mental Status: []Client alert and oriented, casually dressed and groomed. Eye contact good. Motor activity appropriate. Speech within normal limits. Affect congruent, mood anxious. Thoughts linear, logical, no signs of hallucinations or delusions. Client Response/Progress/Benefit: []Client responded well to session AEB sharing and listening attentively to others. Client participated in experiential activity illustrating resilience, providing problem solving strategies and supportive feedback to others. Client was attentive and engaged throughout group processing of activity, nodding and taking notes. Discussed barriers to building resilience to include fear of the unknown. Identified benefits of increasing resilience as increasing flexibility in daily life, and better emotional regulation. Clinician provided psychoeducation on ten strategies to increase resilience. Appeared to benefit from increased knowledge of strategies to build resilience. Will continue IOP treatment to continue increasing anxiety management skills and application of self care to increase overall functioning. Narrative Note: []
--- NOTE | 2021-06-10 11:07 | BH.MDN_ITS ---
Multi-Disciplinary Note - Note 60-min Individual Time Started:: 09:30 Date: 06/10/21 Purpose of session/treatment goals addressed:: Purpose of session was to assess pt's current symptoms and stressors and identify treatment goals. Eye Contact:: Good Motor Activity:: Appropriate Appearance:: Casual Speech:: Appropriate Mood:: Anxious, Other - tearful Affect:: Congruent Thoughts:: Linear, Logical, No evidence of hallucinations/delusions noted Staff Interventions:: psychoeducation on: - anxiety cycles, CBT techniques, rapport building, strengths perspective, treatment planning, goal setting Client Response:: Pt stated her weekend went overall good. Pt reported she made intentional effort to not seek reassurance from her on several occasions over the weekend. Pt stated she realizes the uncomfortable anxiety lasted only a minute then she was able to move on. Pt reported while in IOP she wants to revisit healthy coping skills, decrease impact of OCD symptoms have on her daily functioning, and decrease depressive symptoms. Pt connected with education on anxious cycles and worked with therapist to identify what triggers her anxiety. pt explained she has intrusive thoughts about whether she made the right deci pebbles. Pt reported she will often seek reassurance from others to make sure her decision was good. Pt reported she also struggles with moving levels in her house because she fears she will get stuck on a floor or will experience uncomfortable physical sensations. Pt expressed understanding in order to decrease in anxiety she needs to face her fears. Pt agreeable to start decreasing frequency of seeking reassurance. Pt will document anxiety level on 1-10 (with 10 being severe) scale during anxious moment and anxiety level after she didn't seek reassurance. Risks/Concerns:: denies suicidal ideation, plan or intention to date. future focused. Progress Toward Goals/Plan:: Progress noted with pt reporting starting to decrease reassurance seeking behavior and reporting improved mood over the weekend. Pt continues to struggle with distorted thought patterns, overanalyzing, anxious thought patterns and avoidance behaviors. Pt to continue IOP to increase healthy coping, decrease anxiety and prevent decompensation. Time Stopped:: 10:30
--- NOTE | 2021-06-10 11:07 | BH.SGPN.GN ---
Behaviors/Verbalizations/Mental Status: []Client alert and oriented, casually dressed and groomed. Eye contact good. Motor activity appropriate. Speech within normal limits. Affect congruent, mood anxious and dysthymic. Thoughts linear, logical, no signs of hallucinations or delusions Client Response/Progress/Benefit: []Client responded well to session AEB listening and contributing to group discussion and completing the resilience worksheet provided. Client participated in the discussion of how each resiliency component can help increase personal resiliency. Worked cooperatively with group to identify strategies to enhance each of the components discussed. Client identifying doing well with the resilience components of: make connections and self-awareness. Went on to reflect wanting to improve in the personal resilience component of ?take care of yourself?. Client stated she wants to work on this by setting small daily goals and prioritizing self-care before other tasks in her daily routine. Client seemed to benefit from discussing strategies for improving personal resilience. Will continue IOP tx to prevent decompensation, continue to promote application of healthy coping skills, and further improve healthy boundary setting. Narrative Note: []
--- NOTE | 2021-06-10 11:49 | BH.MTP_ITS ---
Master Treatment Plan - Patient Information Program Physician:: Dr. Palacios Primary Therapist:: Kathleen Young, [facility] - Psychiatric Diagnoses Psychiatric Diagnoses:: 1. Obsessive-compulsive disorder. 2. Major depressive disorder, recurrent, severe without psychosis. 3. Cluster B traits Diagnosis Code(s):: F42; F33.2 - Estimated LOS Estimated LOS (in weeks):: 6 Problem/Goal #1 - Problem/Goal #1 Stated Goal:: Reduce time involved with or interference from obsessions and compulsions. Description of Barriers: Pt's negative thought patterns, all or nothing thinking, racing thoughts, low motivation, hopelessness, high expectations of self and distorted thoughts could be potential barriers to treatment. Functional Impact: The patient did the IOP program at the [facility] from April to June 2020. She referred herself back to the program for worsening symptoms of depression and OCD for the past few months. The patient on May 26, 2021 was depressed and became suicidal and made a gesture to take an overdose of pills but her knocked the bottle out of her hand. Her OCD symptoms have worsened since having her baby and they are paralyzing at times. She has a longstanding history of congregational preoccupations and rituals that she has to do things the right way or she can't do it at all. At times she can only switch floors at her home a certain number of times and then she is has trouble getting things done that might need to be done on a different floor pack. The patient endorses feeling down and sad. She endorses feeling hopelessness, worthlessness, low motivation and guilt. She enjoys her kids somewhat but they are also stressing her out now. She forces herself to eat in the morning and has been tending to binge at night but this has recently improved. She has fleeting, passive suicidal ideation now about 10 times a week but no definite plan and no active thoughts of suicide. - Objectives Objective #1 Stated Objective: Client will learn and utilize 2-3 strategies to help manage obsessions and compulsions. Interventions: Group and individual therapy will teach client strategies (e.g. continued everyday exposure, cognitive restructuring, problem solving and grounding tools) and help client build them into her life as much as possible. Discharge Criteria: Client will have met this goal when has utilized at least 2 strategies and reports successful decrease in impact of obsessions/compulsions on daily functioning. Target Date: 07/18/21 Review Date: 07/04/21 Objective #2 Stated Objective: Pt will decrease anxious symptoms AEB pt?s score on the DSM 5 cross-cutting measure improve pt?s daily functioning. Interventions: Through groups and individual therapy, pt will be provided education about anxiety?s impact on body and common physiological reaction to anxiety. Therapist will teach pt appropriate breathing techniques and build healthy coping skills to manage daily anxieties. Discharge Criteria: Pt will have met this goal when pt?s score on the DSM 5 cross cutting measure for anxiety has been decreased and per pt?s report daily functioning has improved. Target Date: 07/18/21 Review Date: 07/04/21 Problem/Goal #2 - Problem/Goal #2 Stated Goal:: Client will decrease depressive symptoms and isolation due to Major Depressive Disorder through Intensive Outpatient Program. Description of Barriers: Pt's negative thought patterns, all or nothing thinking, racing thoughts, low motivation, hopelessness, high expectations of self and distorted thoughts could be potential barriers to treatment. Functional Impact: The patient did the IOP program at the [facility] health unit from April to June 2020. She referred herself back to the program for worsening symptoms of depression and OCD for the past few months. The patient on May 26, 2021 was depressed and became suicidal and made a gesture to take an overdose of pills but her knocked the bottle out of her hand. Her OCD symptoms have worsened since having her baby and they are paralyzing at times. She has a longstanding history of congregational preoccupations and rituals that she has to do things the right way or she can't do it at all. At times she can only switch floors at her home a certain number of times and then she is has trouble getting things done that might need to be done on a different floor pack. The patient endorses feeling down and sad. She endorses feeling hopelessness, worthlessness, low motivation and guilt. She enjoys her kids somewhat but they are also stressing her out now. She forces herself to eat in the morning and has been tending to binge at night but this has recently improved. She has fleeting, passive suicidal ideation now about 10 times a week but no definite plan and no active thoughts of suicide. - Objectives Objective #1 Stated Objective: Client will learn and utilize 2-3 healthy coping strategies to manage depressive symptoms. Interventions: Therapist will utilize CBT techniques to assist client with understanding the connection between thoughts, feelings and behaviors. Education will be provided on behavioral activation. Therapist will assist client in learning internal coping strategies to manage depressive symptoms, along with helping client identify triggers. Discharge Criteria: Client will have achieved this goal when can verbalize and has practiced at least 2 healthy coping strategies that successfully manage depressive symptoms. Target Date: 07/18/21 Review Date: 07/04/21 Objective #2 Stated Objective: Pt will decrease depressive symptoms AEB pt?s score on the DSM 5 cross-cutting measure and improve pt?s daily functioning. Interventions: Through groups and individual therapy, pt will be provided with education on cognitive distortions, mistaken beliefs, and identifying and combating negative self-talk. Therapist will assist pt with getting back into the activities she once enjoyed as well as increasing healthy coping strategies. Discharge Criteria: Pt will have met this goal when pt?s score on the DSM 5 cross cutting measure for depression has been decreased and per pt?s report daily functioning has improved. Target Date: 07/18/21 Review Date: 07/04/21
--- NOTE | 2021-06-10 11:49 | BH.PSA ---
Development & Family of Origin - Family History Family History: Family History (Last Updated 10/12/20 @ 08:[address] Ema Medina MD) Father Hypertension Suicide Assessment Treatment Plan Recommendations
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
--- NOTE | 2021-06-12 10:10 | BH.SGPN.GN ---
Behaviors/Verbalizations/Mental Status: []Client alert and oriented, casually dressed and groomed. Eye contact good. Motor activity appropriate. Speech within normal limits. Affect congruent, mood anxious. Thoughts linear, logical, no signs of hallucinations or delusions. Client Response/Progress/Benefit: []Client responded well to session AEB sharing and listening attentively to others. Client was engaged throughout group discussion defining taking action. Group identified barriers to taking action, with client contributing fear of success as a barrier. Clinician discussed how certain emotional states can color our perspective, describing it as ?what is driving your bus?. Client provided guilt, reassurance seeking, and feeling overwhelmed as driving her ?bus? most often. Appeared to benefit from increased self-awareness and knowledge regarding examples and barriers to taking action. Will continue IOP treatment to continue increasing OCD management skills and self-compassion to prevent decompensation and improve everyday functioning. Narrative Note: []
[2021-06-12 10:42] VITALS: BP 162/102; PULSE 110
--- NOTE | 2021-06-12 11:15 | BH.SGPN.GN ---
Behaviors/Verbalizations/Mental Status: []Client alert and oriented, casually dressed and groomed. Eye contact good. Motor activity appropriate. Speech within normal limits. Affect congruent, mood euthymic. Thoughts linear, logical, no signs of hallucinations or delusions. Client Response/Progress/Benefit: []Client responded well to session, taking notes and participating in worksheet discussion. Client stated her goal is to tally when she feels the urge to seek reassurance and star when she doesn't seek reassurance. Identified setting daily reminder, communicating plan with and using belly breathing to manage discomfort as strategies to help support her with this goal. Appeared to benefit from identifying a small goal to benefit mental health. Client to continue IOP to decrease avoidance behaviors, improve daily functioning and prevent decompensation.
--- NOTE | 2021-06-12 12:32 | PCM.BH.PSYEV ---
Psychiatric Evaluation Initial Evaluation Initial Evaluation: History of Present Illness: [] The patient is a 26-year-old female who has been for 5 years and who has a history of depression and OCD. The patient gave to her second child 8 months ago and has a healthy baby. She also has a 4-year-old daughter who is currently having some issues with her physical health and GI disorders and is can being considered for a possible diagnosis of autism versus OCD symptoms. The patient did the IOP program at the [facility] unit from April to June 2020. She referred herself back to the program for worsening symptoms of depression and OCD for the past few months. The patient currently lives with her and 4-year-old and 8-month-old children. 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 The patient on May 26, 2021 was depressed and became suicidal and made a gesture to take an overdose of pills but her knocked the bottle out of her hand. The patient says recent stressors have included her parents moving close to the patient and her 4-year-old daughter's health issues. In addition the patient recently came out as bisexual and they moved into a new home a few months ago. She says the new location is preferred but it the whole process has still been stressful. Her started a new job 7 months ago and he now works from home and this has caused some stress for the patient and her 4-year-old daughter wants to be with the all the time since he is working at home and this has been stressful for them. Patient has a history of punching herself in the head and she only did this once but is still having urges to do it. She thinks she may have punched herself and given herself a concussion but she had no loss of consciousness or bruising. Her OCD symptoms have worsened since having her baby and they are paralyzing at times. She has a longstanding history of jainism preoccupations and rituals that she has to do things the right way or she can't do it at all. At times she can only switch floors at her home a certain number of times and then she is has trouble getting things done that might need to be done on a different floor pack. She also admits to having thoughts that are sexual about her and these are very ego-dystonic for her. She said they don't upset her like they used to because she has since learned that they're common and OCD and she knows she has no intentions or true feelings like that about her baby. She is unable to breast-feed her baby due to her skin condition of epidermolysis bullosa so she is bottlefeeding her baby. The baby is doing well and is sleeping 11 hours a night now. The patient endorses feeling down and sad. She endorses feeling hopelessness, worthlessness, low motivation and guilt. She enjoys her kids somewhat but they are also stressing her out now. She forces herself to eat in the morning and has been tending to binge at night but this has recently improved. For primary support she has her , sister and a several girlfriends. Her medications are put away now since her overdose gesture. Her energy level is low and her sleep hours are somewhat disrupted as she was tending to stay up till 2:58 in the morning due to her OCD telling her she had to do this or else. Something she bad would happen or she would be bad. She has low energy level and concentration varies. She admits to having some thoughts that she wouldn't care if she didn't wake up tomorrow. She has fleeting, passive suicidal ideation now about 10 times a week but no definite plan and no active thoughts of suicide. She is a worrier by nature and is having a few panic attacks a month. She has some disordered eating but it has improved lately and she denies any purging or other issues. She denies any recent trauma and denies any current PTSD symptoms. Current Psychiatric Medications: [] Effexor XR 150 mg p.o. daily (no dose change for 1 year); Remeron 15 mg p.o. nightly (x1 year) Past Psychiatric History: [] The patient did the IOP program at [facility] from April to June 2020. She has a history of 1 psychiatric admissions at [facility] in 2018 for severe depression and suicidal ideation after her first daughter was born. No suicide attempts ever but a recent gesture or attempt in front of her which he disrupted. She has a psychiatrist Dr. Moreno and a counselor that she sees every 1 to 2 weeks and this has been helpful. She first took psychiatric medication at age 18 for OCD and depression. She was diagnosed with OCD at age 22 but she states that she is certain she has had it since age for at least. She first had counseling at age 15 and it was helpful. She admits to cutting a self-harm from age [age] but never required stitches. She recently punched herself in the head but denies any other self-harm. Past medications include Celexa, Zoloft, Prozac and Lexapro. She cut herself 4 months ago 1 time only but no other cutting and no stitches. Substance Use History: [] Non-smoker. Has medical marijuana card and uses marijuana 3 times a week at bedtime to help her get to sleep. Drinks 1 drink of alcohol per week. No other alcohol and no other drug use. No rehab ever. Allergies: [] No known allergies except to lanolin Medications: [] No medications except psychiatric meds as noted above. She does agree that she should restart her vitamin D. Past Medical History: [] Epidermolysis bullosa; 3 para 2 AB 1 female with a history of 2 vaginal deliveries and 1 miscarriage in August 2019. She denies any surgeries. She is currently using condoms for control and her plans to have a vasectomy soon. Family Psychiatric History: [] Mother is age 58 and father is 59. Father has hypertension. The patient has a cousin with schizophrenia and drug and alcohol abuse. Her father has PTSD and ADHD. She has a sister with a history of an eating disorder but the sister is recovered now. Maternal and paternal aunts have depression. No completed suicides in the family. Personal/Social History: [] Patient was born in [place] and raised in [place]. She moved to [place] in 2013 for a gap year program and met her here and stayed. She describes her childhood as there was lots of pressure. The patient felt she could never please her mother and still feels this way. Since her mother moved closer few months ago this has really stressed the patient out. School was okay for her until high school. She states that she had a nervous breakdown in 2013 around age 19 but was not hospitalized for this. She was cutting a lot in 2014 and had depression and OCD. She graduated high school and had some college. She at age 20 has been 5 years. Her works in a sales job and is 27 years old. He is currently a part-time production zone leader in a [employer] but he plans to quit this job soon he is given notice. The patient was raised Latter Day but doesn't go to cheondoism. She says this is not a cause of stress in their marriage. is supportive. No abuse in the marriage. She has 1 sister who is 5 years older than her and they're close. They moved to a new house locally about 6 months ago and this is a better location but packing and then unpacking now remains stressful with 2 young children. Legal History: [] No arrests. 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 No . Overweight and having trouble losing weight after delivery but otherwise negative. Review of Systems: [] See above Vital Signs: [] Reviewed in nurses notes. Mental Status Examination: [] The patient is an obese 25-year-old female who is seen wearing a mask due to the pandemic and is casually dressed and groomed with good hygiene. She has no psychomotor agitation or retardation. Eye contact is good and speech is normal rate and rhythm and fluent with no pressure. Mood is depressed and anxious. Affect is constricted. Thought process is organized and goal-directed. Thought content: There is evidence of passive thoughts that she wouldn't care if she . There is evidence of fleeting, passive suicidal ideation up to 10 times a week. There is no evidence of active suicidal ideation, plan for suicide, homicidal ideation, hallucinations, delusions. She does have intrusive just ego-dystonic thoughts that things have to be done correctly or she is bad and also few sexual thoughts about her baby. Reality testing is intact. Insight is good. Impulsivity is high. Judgment is intact. Diagnoses: [] 1. Obsessive-compulsive disorder 2. Major depressive disorder, recurrent, severe without psychosis 3. Cluster B traits 4. 8 months Plan: [] The patient will start the IOP program at [facility] as the structure, support, education and group therapy will hopefully prevent worsening of the patient's symptoms which might require hospitalization. She felt safe during the interview and if it anytime she does not feel safe she will let us know or go to the emergency room. The risks, options, possible complications and side effects of the medications were discussed with the patient and she understands accepts these. The patient agrees to increase her Effexor XR to 225 mg p.o. daily. She will do this by filling a prescription for 75 mg of Effexor XR and taking 1 of these with 1 150 mg for a total of 225 mg daily. She understands that OCD requires higher doses and it can take up to 12 weeks for the OCD symptoms to respond. She will continue her Remeron for now but understands that this will cause weight gain and possibly cause her to be unable to lose weight later. After several weeks on the Effexor she may wean and discontinue the Remeron but the patient is hesitant to do this as she does not like changes. The patient will continue to follow-up with her outpatient outpatient psychiatric and medical providers and I will see the patient in follow-up in 1 to 2 weeks and as needed.
--- NOTE | 2021-06-12 12:48 | BH.DR.ITP ---
Initial Treatment Plan Patient Information Visit Information: ADMISSION DATE: EXPECTED LOS: 4-6 weeks Problems/Symptoms Problem #1:: Obsessive compulsive disorder Symptom:: Worry, intrusive thoughts with amish preoccupation and thoughts that she is not right. Symptom:: Rumination Problem #2:: Depression Symptom:: Sadness, hopelessness, worthlessness, low motivation, biological disruption of sleep, low energy, guilt, passive thoughts of , fleeting, passive suicidal ideation
--- NOTE | 2021-06-13 10:05 | BH.SGPN.GN ---
Behaviors/Verbalizations/Mental Status: []Client alert and oriented, casually dressed and groomed. Eye contact good. Motor activity appropriate. Speech within normal limits. Affect congruent, mood anxious. Thoughts linear, logical, no signs of hallucinations or delusions. Client Response/Progress/Benefit: []Client responded well to session, sharing throughout and listening attentively to others. Client provided examples of self care myths throughout group discussion, including self care is selfish, has to be pampering, and is too expensive. Client contributed to group discussion identifying the benefits of self care, and barriers that make it difficult to practice. Client participated in experiential activity illustrating the importance of utilizing self care. Client expressed feelings, problem solved, and provided supportive feedback to others throughout activity. Appeared to benefit from increased knowledge of self care strategies and the importance of self care. Will continue IOP treatment to continue increasing application of self care and anxiety management skills to improve daily functioning. Narrative Note: []
--- NOTE | 2021-06-17 09:00 | BH.SGPN.GN ---
Behaviors/Verbalizations/Mental Status: [] Eye contact is good. Motor activity is appropriate. Appearance is disheveled. Speech is Appropriate. Mood is anxious. Affect is congruent. Thoughts are linear and logical. No evidence of psychosis. Reviewed daily check in sheet and no reports of suicidal ideations or intent. Client Response/Progress/Benefit: [] Pt was an active participant in group discussion. Attentive. Provided appropriate feedback. Daily symptom tracker notes 25 for anxiety, depression, and irritability. /5 for self-harm urges. Mental gabe wins included adjusting and managing stressors over the weekend. Shared that her routine was disrupted on Thursday, which in the past would have led to significant decompensation due to OCD traits and negative automatic thoughts. Despite this stressor she reports that she as able to manage through thought reframing. I adjusted well. I'm doing better with transitions and managing change. She was able to utilize support while feeling ill this weekend as well which decrease distress. Also reports a nightmare which highlighted all my worst fears however through thought challenging and acceptance this did not lead to decompensation. Progress noted per pt report. Benefited from group support, encouragement, and a feedback. Will continue in IOP to maintain safety, increase healthy coping, and improve functioning. Narrative Note: []
--- NOTE | 2021-06-18 09:00 | BH.SGPN.GN ---
This psychotherapy group was provided via telehealth using two-way, real-time interactive telecommunication technology between the clients and the provider. The interactive telecommunication technology included audio and video. The client was offered telemedicine as an option for care delivery during the COVID-19 pandemic and consented to this option. Client location: [place] Provider located at [facility] Behaviors/Verbalizations/Mental Status: []Client alert and oriented, casually dressed and groomed. Eye contact good. Motor activity appropriate. Speech within normal limits. Affect congruent, mood anxious. Thoughts linear, logical, no signs of hallucinations or delusions. Reviewed client?s symptom tracker, no risk for suicidal ideation, plan, or intent as of 06/18/21 Client Response/Progress/Benefit: []Client responded well to session, distracted at times because client was watching her daughter today at home. Client described her mood as frazzled this morning due to trying to be present for therapy and watching her daughter at the same time. Client shared a mental health win today is that communication between client and her mother has been much better. Client stated she is focusing on being clear, honest, and direct with her mother and it has been reciprocated well. Client continues to struggle with her OCD symptoms and anxiety, but she is working on reducing reassurance seeking. Appeared to benefit from connecting with peers and acknowledging progress. Will continue IOP tx to prevent decompensation, improve daily functioning, and reduce intrusive thoughts. Narrative Note: []
--- NOTE | 2021-06-18 10:08 | BH.SGPN.GN ---
Behaviors/Verbalizations/Mental Status: []Client alert and oriented, casually dressed and groomed. Eye contact good. Motor activity appropriate. Speech within normal limits. Affect congruent, mood anxious and euthymic. Thoughts linear, logical, no signs of hallucinations or delusions. Client Response/Progress/Benefit: [] Client responded well to session AEB client taking notes, listening attentively to others, and providing input throughout. Group discussed the origin of coping skills, examples of unhealthy coping, and why we utilize them. Client identified comparisons, lack of awareness, and unrealistic expectations as personal barriers to using healthy coping skills. Participated in experiential activity, providing possible solutions and supportive feedback to peers. Client was attentive, took notes, and provided input throughout discussion of the importance of external supports and a strong variety of internal coping skills. Appeared to benefit from increased knowledge of internal coping skills and identifying personal barriers to consistent skill application. Progress in client increased awareness and report of taking steps to improve thought challenge skills. Client will continue IOP treatment to promote self-compassion, improve anxiety management skills, as well as prevent decompensation. Narrative Note: []
--- NOTE | 2021-06-20 09:00 | BH.SGPN.GN ---
This psychotherapy group was provided via telehealth using two-way, real-time interactive telecommunication technology between the patients and the provider. The interactive telecommunication technology included audio and video. The patient was offered telemedicine as an option for care delivery during the COVID-19 pandemic and consented to this option. Patient location: [place] Provider located at [facility] Behaviors/Verbalizations/Mental Status: Eye contact is good. Motor activity is appropriate. Appearance is casual. Speech is appropriate. Mood is anxious. Affect is congruent. Thoughts are linear and logical. No evidence of psychosis. Reviewed daily symptom tracker sheet with no reports of suicidal ideations, plan, or intent. Client Response/Progress/Benefit: [] Client was engaged AEB pt openly sharing thoughts and feelings and appeared attentive to others. Client stated she had a rough morning because she found out yesterday her was directly exposed to covid by a co-worker. Client reported her oldest daughter is staying with her grandparents to prevent any exposure to covid. Client stated she's having a difficult time being away from her daughter. Client stated she is feeling anxious that someone in the family will get covid. Client reported she is trying to focus on the facts of the situation and not let her anxiety take over. Client stated mental health positive as intentionally focusing on positives during day. Client seemed to benefit from support from peers. Will continue IOP treatment to decrease avoidance behaviors, increase emotion regulation and prevent decompensation.
--- NOTE | 2021-06-20 10:10 | BH.SGPN.GN ---
Behaviors/Verbalizations/Mental Status: [] Eye contact is good. Motor activity is appropriate. Appearance is casual. Speech is Appropriate. Mood is anxious. Affect is congruent. Thoughts are linear and logical. No evidence of psychosis. Client Response/Progress/Benefit: [] Pt was an active participant in group discussion. Engaged in activity. Attentive during psychoeducation on the 4 stages of change. Pt participated and shared insight during interactive discussion regarding the obstacles to making changes which included; anxiety, fear of the unknown, what if it doesn't go well?, makes us leave comfort zone, expects things to go bad, FOF, past experiences with change were negative, and shame. Pt participated in activity which led to discussion on emotions commonly associated with change ( confused, cautious, guilty, overwhelmed, happy, anxious, confident, hopeful, and frightened. Benefited from increased insight and awareness of obstacles to change, common emotions associated with change, and the stages of change. Will continue in IOP to prevent decompensation, maintain safety, and increase healthy coping skills. Narrative Note: [] This psychotherapy group was provided via telehealth using two-way, real-time interactive telecommunication technology between the patients and the provider. The interactive telecommunication technology included audio and video. The patient was offered telemedicine as an option for care delivery during the COVID-19 pandemic and consented to this option. Patient location: [place] Provider located at [facility]
--- NOTE | 2021-06-20 14:45 | BH.MDN ---
Multi-Disciplinary Note - Note 45-min Individual Time Started:: 11:53 Date: 06/20/21 Purpose of session/treatment goals addressed:: Purpose of session was to address goal 1 from MTP. Eye Contact:: Good Motor Activity:: Appropriate Appearance:: Casual Speech:: Appropriate Mood:: Anxious Affect:: Congruent, Other - tearful at times Thoughts:: Linear, Logical, No evidence of hallucinations/delusions noted Staff Interventions:: thought challenging, CBT techniques, mindfulness skills, strengths perspective, goal setting Client Response:: Client stated she has been struggling with some parts of the intrusive thoughts book she has been reading. Therapist pointed out that client is being all or nothing about the book content. Client agreed she really just wants a book to tell her everything she needs with no room for interpretation. Client stated she needs to keep working on seeing the hernandez of situations. Client reported she had recommended a podcast to her sister and her sister texted that she found one of the people annoying. Client stated she had to text her sister because client took her sister's response very personally. Client reported she does struggle that she feels like someone is rejecting her if they don't like something she suggests because she views that as a vulnerable thing. Therapist helped client with challenging this perspective. Client stated she has been doing well with seeking reassurance from her less often. Client reported her anxiety is about a 7 or 8 out of 10 with 10 being severe for about 2-3 minutes if doesn't seek reassurance. Client reported she does think it's helping to see that the severe anxiety doesn't last long if she just rides it out. Client stated additional progress noted with being able to switch floors in her house to get things with less anxiety. Client stated she was able to put her kids to bed one day last week which she notes as significant win. Client reported the unknown causes a lot of anxiety, so her is the one that does bedtime. Client stated she did really well with putting the kids down and didn't take as long as she thought it would. Reported goal for the week is to set 2 to 3 intentions of the day and 2-3 self-care priorities for the day. Risks/Concerns:: Denies suicidal/homicidal ideation, plan or intention to date. future focused. Progress Toward Goals/Plan:: Progress noted with pt reporting decrease in reassurance seeking, able to switch floors more often in her house, and sitting with uncomfortable feelings more often. Client continues to struggle with daily intrusive anxious thoughts, racing thoughts, and difficulty completing some tasks at times. Pt is to continue IOP to continue doing the anxious thing, decrease avoidance behavior and prevent decompensation. Time Stopped:: 12:33
--- NOTE | 2021-06-24 09:03 | BH.SGPN.GN ---
Behaviors/Verbalizations/Mental Status: Client alert and oriented, casually dressed and groomed. Eye contact good. Motor activity appropriate. Speech within normal limits. Affect congruent, mood anxious and dysthymic. Thoughts linear, logical, no signs of hallucinations or delusions. Reviewed client?s symptom tracker, risk for suicidal ideation reported as 2/5, denies plan, or intent as of 06/18/21. Client is future oriented and reports ability to maintain safety.[] Client Response/Progress/Benefit: [] Client responded well to session, attentive and willing to process with group. Client reports feeling anxious? this morning as she had a stressful previous day and morning this morning. Explained that her 4 year old daughter had returned home after spending a few days with client?s parents and that this had been a difficult transition for them all. Shared that her younger daughter had begun crawling in the last week which has increased the overall anxiety and caregiving responsibilities. Client shared trying to take things one day at a time and challenge herself to practice self-compassion, but that she has been struggling in this area. Went on to discuss trying to focus on one to two self-care goals each day. Receptive of and appeared to benefit from group support and suggestions. Progress noted in client overall ability to address current stressor and maintain mood stability in doing so. Client will continue IOP tx to promote healthy communication with supports, continue to encourage self-care, and maintain mood stability. Narrative Note: []
--- NOTE | 2021-06-24 10:15 | BH.SGPN.GN ---
Behaviors/Verbalizations/Mental Status: []Client alert and oriented, casually dressed and groomed. Eye contact good. Motor activity appropriate. Speech within normal limits. Affect congruent, mood euthymic. Thoughts linear, logical, no signs of hallucinations or delusions. Client Response/Progress/Benefit: []Client responded well to session AEB sharing and listening attentively to others. Client participated in group activity identifying famous individuals and how they overcame failure to be successful. Group defined fear of failure, with client stating ?there are a lot of things that I do not do because I am afraid of not being good enough?. Group discussed how fear of failure has impacted their mental health and relationships, with client stating ?you miss 100% of the shots you don?t take?. Client participated in experiential activity, providing supportive feedback and problem solving throughout. Appeared to benefit from increased knowledge of fear of failure and increased self-awareness. Will continue IOP treatment to continue increasing positive self-talk and decreasing rumination to increase overall functioning. Narrative Note: []
--- NOTE | 2021-06-24 11:15 | BH.SGPN.GN ---
Behaviors/Verbalizations/Mental Status: []Client alert and oriented, casually dressed and groomed. Eye contact good. Motor activity appropriate. Speech within normal limits. Affect congruent, mood anxious. Thoughts linear, logical, no signs of hallucinations or delusions. Client Response/Progress/Benefit: []Client responded well to session, engaged in the experiential activity and attentive throughout group processing. Client completed fear of failure worksheet and was able to identify thoughts and behaviors that reinforce personal fear of failure including: avoidance, having rigid role expectations, and valuing others? opinions over her own. Client also reported that fear of failure has kept client from being consistent with her passions, trying new things, and advocating for her daughter. Client participated in small group discussion regarding strategies to overcome fear of failure. Identified wanting to work on creating more realistic expectations for herself. Appeared to benefit from increased knowledge of strategies to combat fear of failure and gaining self-awareness. Client will continue IOP tx to prevent decompensation, increase ability to manage OCD symptoms, and increase self-compassion. Narrative Note: []
== END 2021-06-24 23:59 | disposition home or self-care (01) ==
LOC: BHIOP 08:30
PROVIDERS: PCP Family Medicine; Referring Provider Psychiatry & Neurology Psychiatry; Visit Provider Psychiatry & Neurology Psychiatry
DX: F42.9 Obsessive-compulsive disorder, unspecified (principal); F33.2 Major depressive disorder, recurrent severe without psychotic features; Z79.899 Other long term (current) drug therapy
CPT/HCPCS: H2020 ×2; 90792; H2012; S9480; T1002; 90832

== ENCOUNTER 2021-06-25 07:56 | Outpatient (RCR) | payer MEDICAID, SELFPAY ==
[2021-06-25 00:42] VITALS: BP 162/102; PULSE 110
--- NOTE | 2021-06-25 09:05 | BH.SGPN.GN ---
Behaviors/Verbalizations/Mental Status: [] Eye contact is good. Motor activity is appropriate. Appearance is casual. Speech is Appropriate. Mood is euthymic. Affect is full. Thoughts are linear and logical. No evidence of psychosis. Reviewed daily check in sheet and no reports of suicidal ideations or intent. Client Response/Progress/Benefit: [] Pt was an active participant in group discussion. Attentive. Provided appropriate feedback. Daily symptom tracker notes 1/5 for depression and anger, 2/5 for anxiety. Emotion for today is really good overall. Mental health wins include not pushing myself or setting unrealistic expectations. She gave some examples in the past of setting unrealistic goals which impacted her mental health. She discussed some situational stressors and how she is coping with them. Progress noted per pt report. Will continue in IOP to maintain safety, stablize mood, and prevent decompensation, Narrative Note: []
--- NOTE | 2021-06-25 10:05 | BH.SGPN.GN ---
Behaviors/Verbalizations/Mental Status: []Eye contact is good. Motor activity is appropriate. Appearance is casual. Speech is Appropriate. Mood is anxious. Affect is congruent. Thoughts are linear and logical. No evidence of psychosis. Client Response/Progress/Benefit: []Pt was an active participant in group discussion AEB taking notes and providing input throughout. Attentive during psychoeducation reviewing internal and external obstacles and provided examples throughout. Participated in the reflection activity in which clients sugey pictures depicting their current and desired reality and shared with the group. Pt shared in current reality she is in a straight jacket made up of her intrusive thoughts and as hard as she tries to fight they continue to tighten around her. Shared desired reality is to release herself from her thoughts and feel more deserving of self-care and support from others. Pt to continue IOP to further improve daily functioning, and promote healthy stress and anxiety management skills, as well as prevent decompensation. Narrative Note: []
--- NOTE | 2021-06-25 11:10 | BH.SGPN.GN ---
Behaviors/Verbalizations/Mental Status: []Client alert and oriented, casually dressed and groomed. Eye contact good. Motor activity appropriate. Speech within normal limits. Affect congruent, mood euthymic. Thoughts linear, logical, no signs of hallucinations or delusions. Client Response/Progress/Benefit: []Client an active participant, encouraging peers and contributed as group brainstormed ideas on how to cope with internal barriers that keep clients stuck from moving towards goals. Able to identify barriers to desired reality. Identified barriers to current reality to include: ?paralyzing? intrusive thoughts, catastrophizing, and black and white thinking. Client wants to work on overcoming the barrier of catastrophizing by taking a breath/step back and looking at the facts. Benefited from group by identifying obstacles and solutions to desired reality. Will continue IOP tx to prevent decompensation, reduce intrusive thought patterns, and improve daily functioning impaired by OCD. Narrative Note: []
--- NOTE | 2021-06-26 10:05 | BH.SGPN.GN ---
Behaviors/Verbalizations/Mental Status: []Client alert and oriented, casually dressed and groomed. Eye contact good. Motor activity appropriate. Speech within normal limits. Affect congruent, mood euthymic. Thoughts linear, logical, no signs of hallucinations or delusions. Client Response/Progress/Benefit: []Client responded well to session AEB sharing and listening attentively to others. Group discussed the benefits of healthy relationships, with client identifying home being a safe place and having support as examples. Group identified factors that contribute to unhealthy relationships, with client stating poor conflict resolution, personal upbringing, and lashing out as contributors. Client participated in experiential activity modeling healthy relationship behaviors, providing support to others and problem solving throughout. Appeared to benefit from increased knowledge of the benefits of healthy relationships and characteristics of unhealthy relationships. Will continue IOP treatment to increase anxiety management skills and decrease negative self talk to improve daily functioning. Narrative Note: []
--- NOTE | 2021-06-26 12:15 | PCM.BH.PN ---
Progress Note Progress Note: History of Present Illness/Interim History: [] The patient is a 26-year-old female who is seen in follow-up at the [facility] behavioral health IOP program where she is being treated for OCD and depression. I last saw the patient 2 weeks ago and at that time her Effexor XR was increased to 225 mg p.o. daily. The patient is tolerating the Effexor well and feels a slight improvement in her mood and anxiety symptoms. Her mood is much less depressed. She feels her OCD is slightly better also. She feels she is learning valuable skills to help manage her mental health issues in the IOP program. She denies any self-harm in the past 2 weeks. She is trying and has been able to keep more regular sleep-wake hours and she feels that this has increased her sleep by about 2 hours at night. She she still has some stresses with her 's new job and her children but she is able to deal with them better. She denies any panic attacks in the past 2 weeks. She denies any passive thoughts of and also denies suicidal ideation, homicidal ideation, hallucinations or delusions. Current Psychiatric Medications: [] Effexor XR 225 mg p.o. daily (dose increased 2 weeks ago); Remeron 15 mg p.o. nightly Mental Status Examination: [] The patient is a obese 25-year-old female who is seen wearing a mask due to the pandemic and is casually dressed and groomed with good hygiene. She is ambulatory with a normal gait. She has no psychomotor agitation or retardation. Eye contact is good and speech is normal rate and rhythm and fluent with no pressure. Mood is mildly depressed. Affect is full and normal. Thought process is organized and goal-directed. Thought content: There is no evidence of passive thoughts of , self-harm, suicidal ideation, homicidal ideation, hallucinations or delusions. She does still have some intrusive ego dystonic thoughts due to her OCD that are not changed but are slightly less potent. Insight is good. Impulsivity is moderate to high. Judgment is intact. Diagnoses: [] 1. Obsessive-compulsive disorder 2. Major depressive disorder, recurrent, severe without psychosis 3. Cluster B traits 4. 8-1/2 months Plan: [] The patient will continue the IOP program at [facility] as the structure, support, education and group therapy will hopefully prevent worsening of the patient's symptoms which might require hospitalization. She felt safe during the interview and if it anytime she does not feel safe she will let us know or go to the emergency room. The risks, options, possible complications and side effects of the medications were again discussed with the patient and she understands and accepts these. No medication changes were made today. The patient understands it can take up to 12 weeks to see much improvement in OCD symptoms from dose increases. In addition she understands that OCD often requires higher doses than normally prescribed. She will continue the Remeron for now but if she notices weight gain and as the Effexor takes effect we may be able to wean her off of the Remeron. The patient will continue to follow-up with her outpatient psychiatric and medical providers. I will see the patient in follow-up while she is in the IOP program.
--- NOTE | 2021-06-26 15:55 | BH.MDN ---
Multi-Disciplinary Note - Note 45-min Individual Time Started:: 09:17 Date: 06/26/21 Purpose of session/treatment goals addressed:: Purpose of session was to address goals 1 and 2 from MTP. Eye Contact:: Good Motor Activity:: Appropriate Appearance:: Casual Speech:: Appropriate Mood:: Anxious, Other - tearful Affect:: Congruent Thoughts:: Linear, Logical, No evidence of hallucinations/delusions noted Staff Interventions:: thought challenging, CBT techniques, strengths perspective, goal setting - Homework provided to accomplish 3 identified tasks, taught coping skills - breaking large tasks into more manageable pieces Client Response:: Client reported she is continuing to make progress with not seeking reassurance from others. Client reported getting better at catching herself before she seeks reassurance. Client shared she has noticed her anxiety is decreasing when doesn't get reassurance and starting to be more confident in her decisions. Client shared an issue that continues to impact her is getting easily overwhelmed when has to think about the long-term or future. Client reported she has been avoiding completing paperwork for her daughter's preschool application for next school year because gets overwhelmed. Also been avoiding calling [facility] to schedule autism testing for her daughter because fears what the results will be. Client reported she knows avoiding these tasks result in increased anxiety and nothing getting accomplished. Client worked with therapist to break down three tasks she has been avoiding and identify when she will complete each task. Client identified her tasks to be: make payment for preschool, complete preschool application and call [facility] to schedule daughter's appointment. Client stated she feels these three tasks are doable by next week. Risks/Concerns:: Client denies suicidal/homicidal ideation, plan or intention to date. future focused. Progress Toward Goals/Plan:: Client progress noted AEB client reporting decreased frequency of seeking reassurance and anxiety reduction when doesn't get reassurance. Progress also can be noted with client being able to switch floors in her house with less distress the more she faces her anxiety. Client started IOP with having frequent thoughts of and had a suicidal gesture. Client hasn't had suicidal thoughts in the last couple of weeks. Client continues to struggle with overwhelming anxious thoughts that result in her avoiding getting necessary tasks completed. Client to continue IOP to continue exposing self to anxious situations, utilization of healthy coping and prevent decompensation. Time Stopped:: 10:00
--- NOTE | 2021-07-02 09:06 | BH.SGPN.GN ---
Behaviors/Verbalizations/Mental Status: []Client alert and oriented, casually dressed and groomed. Eye contact good. Motor activity appropriate. Speech within normal limits. Affect congruent, mood euthymic and anxious. Thoughts linear, logical, no signs of hallucinations or delusions. Reviewed client?s symptom tracker, no risk for suicidal ideation, plan, or intent as of 07/02/21 Client Response/Progress/Benefit: [] Client responded well to session, attentive and openly discussed areas of progress in treatment. Client reports feeling hopeful and anxious this morning as she had a positive weekend and accomplished several small mental health goals. Discussed challenging herself to be more social and spend time out celebrating with her and his family. Additionally, discussed making plans to Facetime with a friend tomorrow rather than sleep-in which client expressed feeling excited about doing. Shared skills she can use to help hold herself accountable as she feels she may be tempted to sleep-in. Shared trying to continue to work on her intrusive thoughts outside of treatment and has found the ?Overcoming unwanted intrusive thoughts? book to be a helpful resource as well. Appeared to benefit from reflecting on her progress, as well as supportive suggestions from the group. Client will continue IOP tx to promote mood stability, continue to improve healthy goal setting, and reduce intrusive thoughts. Narrative Note: []
--- NOTE | 2021-07-02 10:10 | BH.SGPN.GN ---
Behaviors/Verbalizations/Mental Status: []Client alert and oriented, casually dressed and groomed. Eye contact good. Motor activity appropriate. Speech within normal limits. Affect congruent, mood euthymic. Thoughts linear, logical, no signs of hallucinations or delusions. Client Response/Progress/Benefit: []Client responded well to session AEB sharing and listening attentively to others. Client participated in group discussion defining boundaries, describing them as ?non-negotiables?. Participated in group discussion regarding the importance of boundaries, stating that they help build self worth and prevent pitfalls. Clinician provided psychoeducation on types of boundaries, including physical, material, and emotional. Client provided personal examples of boundaries she has set with her supports. Appeared to benefit from increased knowledge of types of boundaries and self- awareness. Will continue IOP treatment to continue increasing healthy boundary setting with supports and decreasing inappropriate guilt to improve daily functioning. Narrative Note: []
--- NOTE | 2021-07-02 11:15 | BH.SGPN.GN ---
Behaviors/Verbalizations/Mental Status: []Client alert and oriented, casually dressed and groomed. Eye contact good. Motor activity appropriate. Speech within normal limits. Affect congruent, mood euthymic. Thoughts linear, logical, no signs of hallucinations or delusions. Client Response/Progress/Benefit: []Pt responded well to session AEB listening attentively to peers and providing input. Pt attentive during psychoeducation on the different boundary styles. Pt noted connecting most with the porous and flexible boundary setting styles. Pt shared she is working on being more assertive with her intellectual boundaries. Pt was given a handout on strategies for healthy boundary setting. Pt identified wanting to work on avoiding reassurance seeking from her supports to improve boundary setting with herself. Appeared to benefit from increasing insight to boundary setting and the impacts on mental health. Progress reported in pt?s report of decreased reassurance seeking from her . Will continue IOP tx to improve ability to manage OCD symptoms and intrusive thoughts that have been impacting daily functioning. Narrative Note: []
--- NOTE | 2021-07-03 09:36 | BH.TPR ---
Treatment Plan Review Date of Admission:: 06/06/21 Date of Treatment Plan Review:: 07/03/21 Admitting Diagnoses:: 1. Obsessive-compulsive disorder F42. 2. Major depressive disorder, recurrent, severe without psychosis. 3. Cluster B traits Current Diagnoses:: 1. Obsessive-compulsive disorder F42. 2. Major depressive disorder, recurrent, severe without psychosis. 3. Cluster B traits Patient's Response to Treatment:: Pt responding well to IOP AEB consistent attendance to sessions, providing input throughout group discussions and engaging in individual counseling. Status of Current Problems and Symptoms: Pt showing improvement with decreased reassurance seeking from others with report of reduction of anxiety when doesn't seek reassurance. Pt continues to report recurrent and persistent thoughts that cause anxiety and she engages in behaviors to prevent anxiety. Pt has been avoiding necessary tasks, like paying for preschool, because she becomes overwhelmed and anxious. Per pt's DSM 5 cross cutting scores at review scores indicate a 48% overall reduction in symptoms compared to intake scores. Problem #1 Problem Name:: OCD Status of Goals:: obj 1: partially met, ongoing work encouraged. Pt able to identify strategies to help manage obsessions and compulsions like exposure to anxiety provoking situations, not seeking reassurance (sitting with the uncomfortable), and using grounding tools. Pt showing progress with managing some obsessive thoughts but continues to engage in compulsive behaviors at times. obj 2: partially met, ongoing work encouraged. Per pt's DSM 5 cross cutting measure scores indicate a 45% reduction in generalized anxious thoughts and a 29% reduction in obsessive thoughts and compulsions. Team Recommendations:: Team recommends continue current goals and objectives to see consistent application of skills and maintenance of progress. Problem #2 Problem Name:: Depression Status of Goals:: Obj 1 - partially met, ongoing work needed. Pt able to identify healthy coping skills like thought challenge, openly communicating with supports, and opposite action. Has struggled at times with consistent use of healthy coping skills. Obj 2 - partially met, ongoing work needed. Per pt's DSM 5 scores at review scores indicate a 20% decrease in depression. Team Recommendations:: Team recommends continue current goals and objectives to see consistent application of skills, increase social interactions, promoting pt to get back into activities she used to enjoy and maintenance of progress.
--- NOTE | 2021-07-04 09:05 | BH.SGPN.GN ---
Behaviors/Verbalizations/Mental Status: [] Eye contact is good. Motor activity is appropriate. Appearance is casual. Speech is Appropriate. Mood is anxious. Affect is congruent. Thoughts are linear and logical. No evidence of psychosis. Reviewed daily check in sheet and no reports of suicidal ideations or intent. Client Response/Progress/Benefit: [] Pt was an active participant in group discussion. Attentive. Provided appropriate feedback. Mental health wins include; following through with virtual meeting with friend and completed a guided meditation. Talked at length regarding the benefits of talking with her friend and the guided meditation. Also described a situation where she was able to thought challenge. She reports increased anxiety in the past 2-3 days with no apparent triggers. Shared how this has impacted her functioning and led to some regression. Regression noted per pt report with increased anxiety. Will continue in IOP to maintain safety, decrease intrusive thoughts, and stabilize mood. Narrative Note: []
--- NOTE | 2021-07-04 10:20 | BH.SGPN.GN ---
Behaviors/Verbalizations/Mental Status: []Client alert and oriented, casually dressed and groomed. Eye contact good. Motor activity appropriate. Speech within normal limits. Affect congruent, mood euthymic. Thoughts linear, logical, no signs of hallucinations or delusions. Client Response/Progress/Benefit: []Pt was an engaged participant AEB pt listening attentively to others and providing input throughout. Attentive during psychoeducation on communication styles. Assisted group with identifying benefits of effective communication on mental health which included: getting needs met, improves relationships, maintains boundaries, and prevents additional conflict. Pt identified she tries to be assertive first, but pt tends to revert to passive-aggressive and aggressive with her spouse. Pt reports this style leads to conflict and pt feeling guilty. Benefited from increased awareness of different communication barriers, styles, and the importance of communicating effectively to improve mental wellness. Will continue IOP tx to improve management of OCD symptoms, improve self-compassion, and improve daily functioning. Narrative Note: []
--- NOTE | 2021-07-05 10:15 | BH.SGPN.GN ---
Behaviors/Verbalizations/Mental Status: []Client alert and oriented, casually dressed and groomed. Eye contact good. Motor activity appropriate. Speech within normal limits. Affect congruent, mood euthymic. Thoughts linear, logical, no signs of hallucinations or delusions. Client Response/Progress/Benefit: []Client responded well to session AEB sharing and listening attentively to others. Client participated in activity illustrating how positive and negative perspectives affect how individuals view situations, sharing observations and insights. Group defined and discussed perspective and what impacts it, with client contributing social media as an example. Client identified her perspective as ?coming out of negative?, and stated that she is working to ?not write off today? and be productive within her limits. Appeared to benefit from increased knowledge and self-awareness of perspective. Will continue IOP treatment to increase anxiety management skills and realistic goal setting to improve daily functioning. Narrative Note: []
--- NOTE | 2021-07-05 11:15 | BH.SGPN.GN ---
Behaviors/Verbalizations/Mental Status: []Client alert and oriented, casually dressed and groomed. Eye contact good. Motor activity appropriate. Speech within normal limits. Affect congruent, mood euthymic and anxious. Thoughts linear, logical, no signs of hallucinations or delusions Client Response/Progress/Benefit: []Pt did well to remain attentive throughout session, AEB providing input throughout discussion. Engaged as group reviewed the importance of taking a strengths-based approach to foster a healthier perspective and better manage mental health symptoms. Completed strengths exploration worksheet and identified personal strengths to include: bravery, empathy, and confidence. Pt reported these strengths are currently helping pt be vulnerable and take action in her treatment. Pt stated self-sabotage keeps pt from using strengths and pt helped group identify strategies to increase acknowledgement of strengths. Benefited from identifying personal strengths and strategies for enhancing use of identified strengths. Pt to continue IOP tx to promote gains, increase ability to challenge negative self-talk, and further decrease reassurance seeking. Narrative Note: []
--- NOTE | 2021-07-05 15:40 | BH.MDN ---
Multi-Disciplinary Note - Note 60-min Individual Time Started:: 09:10 Date: 07/05/21 Time Stopped:: 10:15
--- NOTE | 2021-07-08 09:01 | BH.SGPN.GN ---
Behaviors/Verbalizations/Mental Status: [] Eye contact is good. Motor activity is appropriate. Appearance is casual. Speech is Appropriate. Mood is euthymic, slightly anxious. Affect is congruent. Thoughts are linear and logical. No evidence of psychosis. Reviewed daily check in sheet and no reports of suicidal ideations or intent. Client Response/Progress/Benefit: [] Pt was an active participant in group discussion. Attentive. Provided appropriate feedback. Emotion for today is hopeful. Pt shared she had an awesome weekend. Pt reported mental health win as being productive and giving self time for self-care. pt stated she noticed herself becoming little obsessive about her cleaning but stopped self so she would engage in self-care. Pt stated she used dialectical thinking to challenge her all or nothing thinking. Pt stated stressed that every month she is going to experience horrible day around her menstrual cycle. Pt reported she was worrying is this how it will always be. Pt receptive to feedback from group and encouraged to talk with OBGYN about her symptoms. Benefited from group support, encouragement, and feedback. Progress noted per pt report. Will continue in IOP to continue challenge distorted thoughts, continue to decrease reassurance seeking and prevent decompensation.
--- NOTE | 2021-07-08 10:05 | BH.SGPN.GN ---
Behaviors/Verbalizations/Mental Status: []Client alert and oriented, casually dressed and groomed. Eye contact good. Motor activity appropriate. Speech within normal limits. Affect congruent, mood anxious. Thoughts linear, logical, no signs of hallucinations or delusions. Client Response/Progress/Benefit: []Client responded well to session AEB sharing and listening attentively to others. Client participated in group discussion of what makes up a support system, with client identifying child development instructor, pets, and doctors as supports. Group discussed factors that weaken support systems and the benefits of social support. Client identified toxic supports and lack of resources as weakening factors. Participated in experiential activity illustrating the importance of social support as well as modeling communication that strengthens support systems. Appeared to benefit from increased knowledge of social support and self-awareness of personal support system. Will continue IOP treatment to continue improving boundary setting and anxiety management skills to improve daily functioning. Narrative Note: []
--- NOTE | 2021-07-08 11:15 | BH.SGPN.GN ---
Behaviors/Verbalizations/Mental Status: []Client alert and oriented, neatly dressed and groomed. Eye contact good. Motor activity appropriate. Speech within normal limits. Affect congruent, mood euthymic. Thoughts linear, logical, no signs of hallucinations or delusions. Client Response/Progress/Benefit: []pt was an active participant throughout AEB contributing to discussion, providing personal examples, and taking notes. Pt processed emotions pt felt in the activity and how pt coped in the moment. Pt provided input during discussion on the types of support our supports can provide. Pt reports wanting to work on increasing information support, noting this will provide pt insight and knowledge. Pt plans to improve this support by going to the [employer]. Pt seemed to benefit from identifying the type of support and how this support will aid in promoting overall mental wellness. Progress noted in pt?s report of utilizing coping skills to reduce reassurance seeking. Will continue IOP tx to further improve ability to manage OCD symptoms and improve daily functioning. Narrative Note: []
--- NOTE | 2021-07-10 10:10 | BH.SGPN.GN ---
Behaviors/Verbalizations/Mental Status: []Client alert and oriented, neatly dressed and groomed. Eye contact good. Motor activity appropriate. Speech within normal limits. Affect congruent, mood euthymic. Thoughts linear, logical, no signs of hallucinations or delusions. Client Response/Progress/Benefit: []Pt was an active participant in group discussion and experiential activity. Attentive during psychoeducation. Group had an interactive discussion on the benefits of emotional regulation in which pt provided insight. Group identified several benefits to emotional regulation which included; more stable relationships, improved communication, and better ability to manage stress. Group also was able to identify how emotions can impact our communication leading to; difficulty articulating our thoughts, shutting down, mind-reading, and getting defensive. Pt participated in experiential activity and reported she used positive self-talk during the activity to combat unrealistic expectations and self-inflicted pressure. Benefited from increased awareness into how emotions can impact one's ability to effectively communicate. Will continue IOP tx to further improve mood stability and increase the ability to manage OCD symptoms. Narrative Note: []
--- NOTE | 2021-07-10 11:20 | BH.SGPN.GN ---
Behaviors/Verbalizations/Mental Status: []Client alert and oriented, casually dressed and groomed. Eye contact good. Motor activity appropriate. Speech within normal limits. Affect congruent, mood euthymic. Thoughts linear, logical, no signs of hallucinations or delusions. Client Response/Progress/Benefit: []Client engaged in session AEB client listening attentively to peers and providing input. Attentive during psychoeducation on 4 zones of regulation. Client able to identify feelings and behaviors for each zone. Client identified coping skills one can use to support self in each zone which included: gentle yoga, reach out to supports, to-do list, meditation. Client reports she can benefit from opposite action, regular meditation, and timed production. Benefited from increased education on zones of regulation or stages of alertness for emotions and healthy coping skills to use for each zone. Will continue IOP tx to prevent decompensation, challenge negative thoughts, and continue use of healthy coping skills.
--- NOTE | 2021-07-10 12:26 | PCM.BH.PN_ITS ---
Progress Note Progress Note: History of Present Illness/Interim History: [] The patient is a 26-year-old female who is seen in follow-up at the [facility] behavioral health IOP program where she is being treated for OCD and depression. I last saw the patient 2 weeks ago. The patient states that she feels her mood overall has improved greatly on the higher dose of Effexor that she has been taking for the past month. Her OCD is also much better and interferes much less in her daily life. She has learned valuable skills in the IOP program also that helps her deal with her obsessions and negative thinking. Patient is sleeping better also had about over 7 hours a night which is good for her. She denies any self-harm. She denies any panic at time attacks. She denies any passive thoughts of , suicidal ideation, homicidal ideation, hallucinations or delusions. The patient feels she is doing better and wishes to try to go off her Remeron to avoid the risk of weight gain associated with it. In addition the patient feels she may have PMDD because her moods often and sometimes worsens several days before her menstrual period starts. She is cycle day #8 now. The patient has regular menstrual periods. Current Psychiatric Medications: [] Effexor XR 225 mg p.o. daily (dose increased 4 weeks ago); Remeron 15 mg p.o. nightly Mental Status Examination: [] Patient is an obese female who is seen wearing a mask due to the pandemic and appears normal for stated age. She is casually dressed and groomed with good hygiene. She has no psychomotor agitation or retardation. Eye contact is good and speech is normal rate and rhythm and fluent with no pressure. Mood is euthymic. Affect is full and normal. Thought process is organized and goal-directed. Thought content: The patient is optimistic about the future and is looking forward to applying the skills she has learned in the IOP program. There is no evidence of passive thoughts of , thoughts of self-harm, suicidal ideation, homicidal ideation, hallucinations or delusions. Her intrusive OCD thoughts have decreased markedly and she is able to control them so they interfere very little with her life. Insight is good. Impulsivity is moderate. Judgment is intact. Diagnoses: [] 1. Obsessive-compulsive disorder 2. Major depressive disorder, recurrent, severe without psychosis (resolving) 3. Cluster B traits 4. 9 months post Plan: [] The patient will continue the IOP program at [facility] as the structure, support, education and group therapy will hopefully prevent worsening of the patient's symptoms which might require hospitalization. She felt safe during the interview and if it anytime she does not feel safe she will let us know or go to the emergency room. The risks, options, possible complications and side effects of the medications were again discussed with the patient and she understands and accepts these. The patient will discontinue her Remeron tonight to avoid any risk of weight gain associated with it. She agrees to keep a journal of her premenstrual symptoms for several months to determine if she truly has PMDD. She will continue to follow-up with her outpatient psychiatric and medical providers and I will see the patient in follow-up in 2 weeks.
--- NOTE | 2021-07-10 12:32 | PCM.BH.PN_ITS ---
Progress Note Progress Note: history of Present Illness/Interim History: [] Patient is a 38-year-old female who is seen in follow-up at the [facility] behavioral health IOP program where she is being treated for bipolar depression, anxiety and PTSD. I last saw the patient 2 weeks ago and at that time Latuda was started at 40 mg p.o. at dinner with food. The patient was instructed that if she was tolerating it well she could increase to 80 mg in the evening with food after several days. The patient increased to 80 mg at dinner with food about 10 days ago and and states that she feels much better. Her sleep is vastly improved at 6 hours straight every night and this is very good for her. Her mood is good but not grandiose or manic. Her mind is clear and her her concentration is good. She denies any passive thoughts of and denies any suicidal ideation in the past 2 weeks. She is currently looking for a job and is optimistic about the future. She has noticed no side effects on the Latuda but feels her mood is much more stable. She denies any drug use. Current Psychiatric Medications: [] Latuda 80 mg p.o. in the evening with food (times almost 2 weeks); she is also continuing her lithium, hydroxyzine, melatonin and Flexeril at their prior doses. Mental Status Examination: [] The patient is a 38-year-old female who appears normal for stated age and is seen wearing a mask due to the pandemic. She is casually dressed and groomed with good hygiene. She has no psychomotor agitation or retardation. Eye contact is good and speech is normal rate and rhythm and fluent with no pressure. Mood is euthymic. Affect is full and normal. Thought process is goal-directed and organized. Thought content: There is no evidence of passive thoughts of , suicidal ideation, plan for suicide, homicidal ideation, hallucinations, delusions or symptoms of hector. Judgment is intact. Impulsivity is moderate. Insight is fair to good. Diagnoses: [] 1. Bipolar 1 disorder, most recent episode depressed, severe without psychosis (resolving) 2. Generalized anxiety disorder 3. PTSD 4. 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 Primary support issues Plan: [] The patient will continue the IOP program as the structure, support, education and group therapy will hopefully prevent worsening of the patient's symptoms which might require hospitalization. She felt safe during the interview and if it anytime she does not feel safe she agrees to let us know or go to the emergency room. The risks, options, possible complications and side effects of the medications were discussed with the patient again and she understands and accepts these. The patient will continue her current medication dose and a prescription was sent in for Latuda 80 mg, 1 p.o. at dinner with food in the evening. #30 with 1 refill. The patient will continue to follow-up with her outpatient psychiatric and medical providers.
--- NOTE | 2021-07-10 15:51 | BH.MDN ---
Multi-Disciplinary Note - Note 45-min Individual Time Started:: 09:15 Date: 07/10/21 Eye Contact:: Good Motor Activity:: Appropriate Appearance:: Casual Speech:: Appropriate Mood:: Euthymic Affect:: Full Thoughts:: Linear, Logical, No evidence of hallucinations/delusions noted Staff Interventions:: psychoeducation on: - maintenance plan, CBT techniques, discharge planning, strengths perspective, other - reviewed healthy skills Time Stopped:: 09:55
--- NOTE | 2021-07-11 09:13 | BH.SGPN.GN ---
Behaviors/Verbalizations/Mental Status: []Client alert and oriented, casually dressed and groomed. Eye contact good. Motor activity appropriate. Speech within normal limits. Affect congruent, mood anxious and euthymic. Thoughts linear, logical, no signs of hallucinations or delusions. Reviewed client?s symptom tracker, no risk for suicidal ideation, plan, or intent as of 07/11/21 Client Response/Progress/Benefit: []Client responded well to session, attentive and openly discussed current stressors as well as progress with group. Client reports feeling tired but excited this morning, describing limited sleep but is looking forward to plans to have a relaxing afternoon. Discussed reaching out to her mom to help watch her daughter so she can get a few things done around the house. Shared she would typically feel guilty about doing so but has been working to challenge herself to not apologize for prioritizing her own needs, which is progress. Additional win is recognizing and addressing her used of distraction to avoid taking her medications last night. Client explained putting off her meds as she was anxious about beginning a new dose but successfully challenged herself to confront her use of avoidance and do the anxious thing. Appeared to benefit from reflecting on her progress in this area, as well as supportive group environment. Client will continue IOP tx to promote mood stability, continue to reduce reassurance seeking behaviors, and prevent decompensation. Narrative Note: []
--- NOTE | 2021-07-11 10:10 | BH.SGPN.GN ---
Behaviors/Verbalizations/Mental Status: []Eye contact is good. Motor activity is appropriate. Appearance is neat. Speech is appropriate. Mood is euthymic. Affect is congruent. Thoughts are linear and logical. No evidence of psychosis Client Response/Progress/Benefit: []Pt was an engaged participant in group discussion, providing input and was attentive during psychoeducation. Participated in short activity about automatic thoughts and shared that mood and past experiences can impact automatic thoughts. Group was primarily educational; therapist introduced and gave examples of the most common cognitive distortions. Benefited from education and increased awareness of cognitive distortions and the role that they play our behaviors and emotions. Pt reported connecting with distortions such as catastrophizing, shoulds, and all or nothing thinking. Pt reported all or nothing thinking has been an issue for pt most of her life and has led to very rigid expectations of self. Will continue IOP tx to challenge unrealistic expectations, increase self-compassion, and further reduce OCD symptoms. Narrative Note: []
--- NOTE | 2021-07-11 11:10 | BH.SGPN.GN ---
Behaviors/Verbalizations/Mental Status: []Eye contact is good. Motor activity is appropriate. Appearance is neat. Speech is appropriate. Mood is euthymic. Affect is congruent. Thoughts are linear and logical. No evidence of psychosis Client Response/Progress/Benefit: []Pt was an active participant in discussion. Attentive during psychoeducation on cognitive distortions not discussed in previous group and providing several personal examples. Pt identified distortions she connects with during previous group, but gave more examples of all or nothing and catastrophizing. Pt shared she has struggled with not finishing goals or quitting her goals due to all or nothing thinking in the past. Reviewed strategies to help challenge and reframe distortions. Pt picked the strategy of using opposite action of what pt's distortion is telling her to do to help challenge negative thoughts. Will continue in IOP tx to further reduce OCD symptoms, challenge all or nothing expectations, and promote gains. Narrative Note: []
--- NOTE | 2021-07-15 09:00 | BH.SGPN.GN ---
Behaviors/Verbalizations/Mental Status: []Pt alert and oriented, casually dressed and groomed. Eye contact good, motor activity appropriate, speech within normal limits. Affect, congruent. Mood, euthymic. Thoughts linear, logical, no signs of hallucinations or delusions. Reviewed pt's daily symptom tracker, no SI indicated. Client Response/Progress/Benefit: P[]Pt responded well to session, attentive and listening to peers. Pt reports feeling confident this morning as pt has been experiencing stressors and triggers, but responding better than she has in the past. Pt stated she used coping skills this weekend to manage OCD and need for reassurance and she has been challenging self-expectations to avoid perfectionism. Pt shared her rigid thoughts and expectations have been a barrier to pt being consistent with coping skills before, so pt is working on doing something small each day. Pt's stressor today is that pt's is struggling with some personal things and pt wants to fix all her problems for her. Discussed being kind/supportive and having boundaries. Progress noted in pt's self-report of improved mood stability and functioning. Pt will discharge from [facility] tx at the end of the week but can benefit from two more sessions to reinforce healthy coping skills. Narrative Note: []
--- NOTE | 2021-07-15 10:10 | BH.SGPN.GN ---
Behaviors/Verbalizations/Mental Status: [] Eye contact is good. Motor activity is appropriate. Appearance is disheveled. Speech is Appropriate. Mood is euthymic. Affect is full. Thoughts are linear and logical. No evidence of psychosis. Client Response/Progress/Benefit: [] Pt was an active participant in group discussion and activity. Attentive during psychoeducation on social stigma vs self-stigma. Pt was actively involved in interactive discussion on the question of What impacts how we define and view ourselves? Pt along with peers were able to identify several aspects that impact how we view ourselves which include; society, past experiences, upbringing, guilt over past actions, shame, what we tell ourselves, actions, and our roles (i.e. mother, father, unemployed, crazy). Pt also participated in identifying examples of social stigma for mental health illness which included too sensitive, looking for attention, overly emotional, psycho, crazy, just an excuse, not working hard enough, lazy, mental health is not real, just a pessimist, and mental health can just be turned off. Benefited from increased awareness of how mental health stigma can impact individuals and treatment. Plan is to continue in IOP to maintain safety, increase healthy coping, decreased intrusive thoughts, and prevent decompensation. Narrative Note: []
--- NOTE | 2021-07-15 11:10 | BH.SGPN.GN ---
Behaviors/Verbalizations/Mental Status: []Client alert and oriented, casually dressed and groomed. Eye contact good. Motor activity appropriate. Speech within normal limits. Affect congruent, mood euthymic. Thoughts linear, logical, no signs of hallucinations or delusions. Client Response/Progress/Benefit: []Client engaged participant AEB client participating in the activity, providing some input during small group discussion, and listening attentively to others. Client appeared to connect with discussion about what stigma has kept her from doing. Group brainstormed strategies to combat social and perceived stigma. Client shared one thing she can personally do to combat stigma is to open up about getting treatment for mental health. Appeared to benefit from increasing awareness of strategies to combat stigma. Will continue IOP tx to continue use of healthy coping, challenge negative thoughts and prevent decompensation.
--- NOTE | 2021-07-18 09:05 | BH.SGPN.GN ---
Behaviors/Verbalizations/Mental Status: []Eye contact is good. Motor activity is appropriate. Appearance is casual with hygiene tended to. Speech is appropriate. Mood is anxious and euthymic. Affect is congruent. Thoughts are linear and logical. No evidence of psychosis. Reviewed daily check in sheet and pt denies suicidal ideations, plan, or intent as of this date, 07/18/21. Client Response/Progress/Benefit: []Pt receptive of session, actively engaged throughout and providing supportive feedback and input to group. Reports current emotion as ?stressed but thankful? discussing that although she has several current stressors, she has come a long way in her ability to manage these stressors and the associated anxiety. Discussed Doing well to advocate for her needs and ask others for help without feeling guilty or like she is an inconvenience. Additionally, discussed trying to manage her own anxiety while also preparing her daughter for an upcoming medical procedure. Discussed thought challenge and calming skills she has been finding most beneficial. Appeared to benefit from reflecting on wins and identifying current areas of progress. Pt will continue IOP tx to maintain gains, encourage consistent healthy skill application, and prevent decompensation. Narrative Note: []
--- NOTE | 2021-07-18 10:15 | BH.SGPN.GN ---
Behaviors/Verbalizations/Mental Status: []Client alert and oriented, casually dressed and groomed. Eye contact good. Motor activity appropriate. Speech within normal limits. Affect congruent, mood euthymic. Thoughts linear, logical, no signs of hallucinations or delusions. Client Response/Progress/Benefit: []Client receptive to session, participating throughout. Provided input as the group brainstormed the positive and negative aspects of stress on physical and mental health. Group did well to identify the benefits of stress as well as the impact of distress on performance and mental health. Client identified top stressors such as holding onto others emotions, communicating with parents, mormon guilt, money issues, and daughter's health. Client reports her stress jar is about 70% filled and when it overflows client will become overwhelmed. Stated she knows asking for help is what she needs to do when jar starts to get full. Seemed to benefit from improved awareness of how client?s stress response can create a vicious cycle and make more stressors. Recommended to continue IOP tx to maintain gains, continue use of healthy coping skills and prevent decompensation.
--- NOTE | 2021-07-18 11:10 | BH.SGPN.GN ---
Behaviors/Verbalizations/Mental Status: [] Eye contact is good. Motor activity is appropriate. Appearance is casual. Speech is Appropriate. Mood is anxious. Affect is congruent. Thoughts are linear and logical. No evidence of psychosis. Client Response/Progress/Benefit: [] Pt was an active participant in group discussion. Attentive during psychoeducation. Active participant in group experiential activity. Able to reflect on group activity and relate it to group topic of stress. Pt along with peers had an interactive discussion in which they identified certain skills they had to utilize to manage stress during activity which included ; communication, asking for help, trying new and different techniques, utilize acceptance (i.e. not as easy as I thought), and thought reframing (i.e. doesn't have to work on first try). Provided insight and examples during psychoeducation on the 4 A's of Stress (Avoid, Alter, Adapt, ad Accept). Pt choose to practice 'Accept' by accepting Cain's procedure and using our supports to make it as easy as possible. Benefited from increased education and awareness of strategies to manage stress. Also practiced in the moment stress management during group activity. Will continue in IOP to maintain gains with plan to discharge tomorrow. Narrative Note: []
--- NOTE | 2021-07-19 08:51 | BH.DS ---
Discharge Summary - Demographics Date of Admission:: 06/06/21 Discharge Date: 07/19/21 Presenting Problems at Admission:: The patient did the IOP program at the [facility] from April to June 2020. She referred herself back to the program for worsening symptoms of depression and OCD for the past few months. The patient on May 26, 2021 was depressed and became suicidal and made a gesture to take an overdose of pills but her knocked the bottle out of her hand. Her OCD symptoms have worsened since having her baby and they are paralyzing at times. She has a longstanding history of buddhist preoccupations and rituals that she has to do things the right way or she can't do it at all. At times she can only switch floors at her home a certain number of times and then she is has trouble getting things done that might need to be done on a different floor pack. The patient endorses feeling down and sad. She endorses feeling hopelessness, worthlessness, low motivation and guilt. She enjoys her kids somewhat but they are also stressing her out now. She forces herself to eat in the morning and has been tending to binge at night but this has recently improved. She has fleeting, passive suicidal ideation now about 10 times a week but no definite plan and no active thoughts of suicide. Discharge Diagnoses:: 1. Obsessive-compulsive disorder F42. 2. Major depressive disorder, recurrent, severe without psychosis (resolving) F33.2. 3. Cluster B traits Reason for Discharge:: Client has demonstrated significant treatment progress AEB client report and decrease in symptoms per DSM 5 cross cutting measure at discharge. Client no longer meets criteria for IOP level of care.
--- NOTE | 2021-07-19 10:15 | BH.SGPN.GN ---
Behaviors/Verbalizations/Mental Status: []Client alert and oriented, neatly dressed and groomed. Eye contact good. Motor activity appropriate. Speech within normal limits. Affect congruent, mood euthymic. Thoughts linear, logical, no signs of hallucinations or delusions. Client Response/Progress/Benefit: []Pt was an active participant in group discussion and activity. Attentive during psychoeducation on coping skills and gave examples of unhealthy coping skills shut as trying to cope all alone and avoiding issues. Pt also reflected on her growth since starting IOP and how she beti with stressors now. Benefited from increased understanding of unhealthy coping skills and the need for developing healthy interna and external coping skills. Pt will discharge from IOP tx as pt has accomplished their tx goals and no longer meets criteria for IOP level of care. Narrative Note: []
--- NOTE | 2021-07-19 11:15 | BH.SGPN.GN ---
Behaviors/Verbalizations/Mental Status: []Client alert and oriented, casually dressed and groomed. Eye contact good. Motor activity appropriate. Speech within normal limits. Affect congruent, mood euthymic. Thoughts linear, logical, no signs of hallucinations or delusions. Client Response/Progress/Benefit: [] Client responded well to session, taking notes and providing input and examples throughout. Group discussed the different categories of coping skills which included distraction, emotional release, grounding, self-love, and thought challenging. Client created a coping skill menu identifying various skills she could try in each category. Client?s coping skill menu included: complete daily chores/office work, meditation, lion?s breath, maintaining healthy guidelines for bedtime, reminding herself that a little at a time still counts. Appeared to benefit from increasing repertoire of healthy coping skills. Will discharge from tx given progress and is recommended to continue outpatient tx to maintain gains, further promote mood stability, and prevent decompensation. Narrative Note: []
--- NOTE | 2021-07-19 14:45 | BH.DS ---
Discharge Summary - Demographics Date of Admission:: 06/06/21 Discharge Date: 07/19/21 Presenting Problems at Admission:: The patient did the IOP program at the [facility] unit from April to June 2020. She referred herself back to the program for worsening symptoms of depression and OCD for the past few months. The patient on May 26, 2021 was depressed and became suicidal and made a gesture to take an overdose of pills but her knocked the bottle out of her hand. Her OCD symptoms have worsened since having her baby and they are paralyzing at times. She has a longstanding history of mosque preoccupations and rituals that she has to do things the right way or she can't do it at all. At times she can only switch floors at her home a certain number of times and then she is has trouble getting things done that might need to be done on a different floor pack. The patient endorses feeling down and sad. She endorses feeling hopelessness, worthlessness, low motivation and guilt. She enjoys her kids somewhat but they are also stressing her out now. She forces herself to eat in the morning and has been tending to binge at night but this has recently improved. She has fleeting, passive suicidal ideation now about 10 times a week but no definite plan and no active thoughts of suicide. Discharge Diagnoses:: 1. Obsessive-compulsive disorder F42. 2. Major depressive disorder, recurrent, severe without psychosis (resolving) F33.2. 3. Cluster B traits Reason for Discharge:: Pt has made significant treatment progress and no longer meets medical necessity for IOP level of care. - Treatment Progress During Treatment & Response: Per DSM 5 cross cutting measure at discharge pt's scores indicate a 60% reduction in depression, 55% reduction in generalized anxiety, 62% reduction in OCD symptoms, and an overall 62% decrease in symptoms when compared to intake scores. Pt responded well to IOP AEB pt's consistent attendance, actively engaged in group discussions, and applied skills learned in group and individual counseling outside treatment environment. Issues Still to be Addressed:: Pt could benefit from continued reinforcement of healthy skills, being able to sit with uncomfortable anxious symptoms, continuing to stop self from seeking reassurance, and continued work on creating new healthy core beliefs. Discharge Recommendations/Instructions:: 07/29/21 appointment with Stephanie for counseling. next month appointment is scheduled with Dr. Moreno for medication management. 08/01/21 scheduled to start [facility] Aftercare Program Discharge Handout: Complete Discharge Handout with client on aftercare options and continuity of care.
--- NOTE | 2021-07-19 15:42 | BH.MDN ---
Multi-Disciplinary Note - Note 60-min Individual Time Started:: 09:10 Date: 07/19/21 Time Stopped:: 10:10
== END 2021-07-19 12:29 | disposition home or self-care (01) ==
LOC: BHIOP 07:56
PROVIDERS: PCP Family Medicine; Referring Provider Psychiatry & Neurology Psychiatry; Visit Provider Psychiatry & Neurology Psychiatry
DX: F42.9 Obsessive-compulsive disorder, unspecified (principal); F33.2 Major depressive disorder, recurrent severe without psychotic features; Z79.899 Other long term (current) drug therapy
CPT/HCPCS: 99213; H2012; H2020; S9480; 90834; 90837

== ENCOUNTER 2021-08-08 13:00 | Outpatient (RCR) | payer MEDICAID, SELFPAY ==
--- NOTE | 2021-08-08 14:00 | BH.SGPN.GN ---
Behaviors/Verbalizations/Mental Status: []Client alert and oriented, casually dressed and groomed. Eye contact good. Motor activity appropriate. Speech within normal limits. Affect congruent, mood euthymic. Thoughts linear, logical, no signs of hallucinations or delusions. Client Response/Progress/Benefit: [] Pt responded well to session, engaged and remaining attentive and willing to participate in discussion throughout. Pt reported she has not seen her therapist but has an appointment coming up. Pt reported using deep breathing, logically thinking through things, meditation, and allowing feelings as strategies to manage stressors and emotions in the last week. Pt reports connecting with the topic of routine and structure and it?s importance in ongoing mental health maintenance. Pt engaged in brainstorming of various daily routine ideas. Pt completed task of identifying current routine practices as well as important tasks to begin more regularly implementing into a structured daily routine. Pt seemed to benefit from support from peers and learning about benefits of routine. Pt to continue aftercare group to promote ongoing use of healthy coping, continue to use open communication, and prevent decompensation.
--- NOTE | 2021-08-08 14:48 | BH.MTP ---
Master Treatment Plan - Patient Information Program Physician:: Dr. Teresa Escobedo Primary Therapist:: Kathleen Young [facility] - Psychiatric Diagnoses Psychiatric Diagnoses:: Obsessive-compulsive disorder F42; Major depressive disorder, recurrent, severe without psychosis (resolving); F33.2; Cluster B traits Diagnosis Code(s):: F42 - Estimated LOS Estimated LOS (in weeks):: 10 Problem/Goal #1 - Problem/Goal #1 Stated Goal:: client will maintain or see a reduction in symptoms AEB client score on the DSM 5 cross-cutting measure and improve client's daily functioning. - Objectives Objective #1 Stated Objective: Client will continue to consistently apply healthy coping skills to maintain progress made in IOP tx. Interventions: Through group therapy, client will review warning signs and triggers as well as healthy coping skills learned in IOP tx to successfully maintain gains while transitioning into outpatient therapy. Discharge Criteria: Client will have accomplished this goal when client's score on the DSM-5 cross-cutting measure has either maintained or reduced over a 10 week period. Target Date: 10/17/21 Review Date: 09/12/21 Status: open Objective #2 Stated Objective: Client will learn and utilize 2-3 maintenance strategies to prevent decompensation from original IOP DSM-5 scores. Interventions: Through group therapy, client will be provided with education on healthy maintenance behaviors, relapse prevention techniques, and healthy coping strategies. Discharge Criteria: Client will have accomplished this goal when can report using at least 2 maintenance skills to prevent decompensation compared to original IOP DSM-5 scores Target Date: 10/17/21 Review Date: 09/12/21 Status: open
--- NOTE | 2021-08-09 08:29 | BH.COMM ---
Communication Note - Communication with Client Communication Note: Pt presented to start Transitions group which is weekly group for 10-12 weeks. Verbal order to admit with dx of F42.[address] Palacios
--- NOTE | 2021-08-15 14:00 | BH.SGPN.GN ---
Behaviors/Verbalizations/Mental Status: []Client alert and oriented, casual in appearance. Eye contact good. Motor activity appropriate. Speech within normal limits. Affect congruent. Mood euthymic, anxious. Thoughts linear, logical, no signs of hallucinations or delusions Client Response/Progress/Benefit: []Pt responded well to session AEB providing input throughout and listening attentively to others. Pt reported current emotion as ?optimistic but anxious? and attributes this in part to needing to adjust to her daughter?s recent anxiety dx and decide how to best support her daughter moving forward. Pt reports she has remained consistent with regular outpatient counseling and ongoing medication management. Pt identified several coping skills she has been using over the past week to continue to manage mental health sx and maintain mood stability, which included: cleaning, deep breathing, and asking for help. Pt connected with self-reflection discussion. Worked with group to identify the benefits of self-reflection. Seemed to benefit from identifying how to incorporate self-reflection into life more often. Pt completed aftercare specific self-reflection activity and indicated she has seen improvements in overall ability to maintain consistent with medications, taking time to embrace her own self-worth, as well as continue to challenge her use of distorted thoughts. Explained she would like to continue to focus on making improvements in her ability to create and maintain a healthy food plan as she has been struggling with binge/restriction cycling recently. Willing to complete weekly self-reflection assignment for homework. Pt to continue aftercare to maintain gains and prevent decompensation. Narrative Note: []
--- NOTE | 2021-08-23 14:00 | BH.SGPN.GN ---
Behaviors/Verbalizations/Mental Status: []Client alert and oriented, casually dressed. Eye contact good. Motor activity appropriate. Speech within normal limits. Affect congruent, mood euthymic. Thoughts linear, logical, no signs of hallucinations or delusions. Client Response/Progress/Benefit: []Pt responded well to session AEB pt providing input during discussion and listening attentively to peers. Pt stated has seen individual therapist, psychiatry and taking medications. Pt reported her daughter had two falls this week which was stressful but pt coped by using support. Pt stated she also has been socializing more and in a place to provide support to others. Pt engaged in discussion about self-love. Pt worked with group to identify strategies to increase self-love. Pt stated wanting to work on self-love taking time to calm her mind every day. Pt seemed to benefit from reviewing treatment progress and stressors as well as learning about how to increase self-love. Pt to continue aftercare group to promote ongoing use of healthy coping, continue to use open communication, and prevent decompensation.
== END 2021-08-24 23:59 ==
LOC: BHOG 13:00
PROVIDERS: PCP Family Medicine; Visit Provider Psychiatry & Neurology Psychiatry
DX: F33.2 Major depressive disorder, recurrent severe without psychotic features (principal); F42.2 Mixed obsessional thoughts and acts
CPT/HCPCS: 90853

== ENCOUNTER 2021-08-26 08:36 | Outpatient (RCR) | payer MEDICAID, SELFPAY ==
--- NOTE | 2021-08-29 14:00 | BH.SGPN.GN ---
Behaviors/Verbalizations/Mental Status: []Client alert and oriented, casual in appearance. Eye contact good. Motor activity appropriate. Speech within normal limits. Affect congruent. Mood anxious and tired. Thoughts linear, logical, no signs of hallucinations or delusions Client Response/Progress/Benefit: []Pt responded well to session AEB pt openly sharing thoughts and feelings and completing worksheet. Pt completed the self-reflection sheet stating they have been following up with their outpatient counseling, psychiatry, and taking medications consistently. Pt reported she had a medication issue this week which resulted in pt sleeping more than usual and acting strangely. Pt meets with her psychiatrist tomorrow and shared she feels tired today still, but better than she did earlier this week. Pt also reports using coping skills such as accepting rest, being assertive with boundaries, and stretching. Pt responded well to group discussion and review about self-care. 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 Pt seemed to benefit from support from peers and identifying self-care plan. Pt will continue IOP aftercare to promote gains and further increase mood stability. Narrative Note: []
--- NOTE | 2021-08-29 16:26 | BH.DS_ITS ---
Discharge Summary - Demographics Date of Admission:: 08/08/21 Discharge Date: 08/29/21 Presenting Problems at Admission:: Pt discharged from IOP tx and transitioned to IOP aftercare to maintain gains Pt made in IOP and to reinforce healthy coping skills. At admission to IOP aftercare, pt continued to report mild depression and OCD as well as ongoing negative core beliefs that pt was working on changing. Pt also continued to experience the stress of parenting, finances, and family medical issues. Discharge Diagnoses:: Obsessive-compulsive disorder F42; Major depressive disorder, recurrent, severe without psychosis (resolving); F33.2; Cluster B traits Reason for Discharge:: Pt stopped coming to IOP aftercare after 08/29/21. Pt had to cancel due to medical issues. Pt will continue with outpatient counseling and psychiatry. - Treatment Progress During Treatment & Response: Pt responded well and made progress in IOP aftercare as evidenced by pt's participation in group discussions and self- report of consistently applying coping skills. Pt stopped attending aftercare after 08/29/21 due to medical issues, but prior to this pt was an active group member. Pt's overall DSM-5 scores decreased by an additional 50% from IOP admission. Pt was able to prevent decompensation of depressive, OCD, and anxiety symptoms and maintain gains made in IOP. Issues Still to be Addressed:: Pt could benefit from continued reinforcement of healthy skills, being able to sit with uncomfortable anxious symptoms, continuing to stop self from seeking reassurance, and continued work on creating new healthy core beliefs. Discharge Recommendations/Instructions:: Pt will follow up with Dr. Moreno for medication management and Stephanie for individual counseling. Pt recently had some medical issues and can benefit from continuing to follow up with her outpatient medical providers. Discharge Handout: Complete Discharge Handout with client on aftercare options and continuity of care.
== END 2021-09-24 23:59 ==
LOC: BHOG 08:36
PROVIDERS: PCP Family Medicine; Visit Provider Psychiatry & Neurology Psychiatry
DX: F42.9 Obsessive-compulsive disorder, unspecified (principal); F33.2 Major depressive disorder, recurrent severe without psychotic features
CPT/HCPCS: 90853

== ENCOUNTER → 2021-09-13 | Outpatient (CLI) | payer MEDICAID, SELFPAY ==
[2021-09-13 13:31] LABS: Hematocrit 40.6 % (37-47); Hemoglobin 13.4 g/dL (12.0-15.0); Mean Corpuscular Volume 81.7 fL (81-99); Mean Platelet Vol. 9.9 fl (6.2-12.0); Platelet Count 419 K/mm3 (150-450); RBC Distribution Width CV 13.3 % (11.6-14.6); RBC Distribution Width SD 39.1 fl (35.1-43.9); Red Blood Count 4.97 M/mm3 (4.2-5.4); White Blood Count 8.2 K/mm3 (4.4-11.0)
[2021-09-13 14:08] LABS: T3 Total - Triiodothyronine 1.44 ng/mL (0.6-1.81)
[2021-09-13 14:14] LABS: Free T3 3.2 pg/mL (2.18-3.98); T4 Free Direct 0.81 ng/dL (0.76-1.46)
== END | disposition home or self-care (01) ==
LOC: WOBLAB 12:52
PROVIDERS: PCP Family Medicine; Visit Provider Obstetrics & Gynecology
DX: N93.8 Other specified abnormal uterine and vaginal bleeding (principal)
CPT/HCPCS: 36415; 84439; 84443; 84480; 84481; 85027

== ENCOUNTER 2021-09-19 12:28 | Emergency (ER) | payer MEDICAID, SELFPAY ==
[2021-09-19 12:29] VITALS: BP 191/128; PULSE 104; RESP 18; TEMP 36.7; O2SAT 97; BMI 42.8
[2021-09-19 13:28] VITALS: BP 155/93; PULSE 114; RESP 16; O2SAT 98
[2021-09-19 13:33] LABS: Mucous, Urine 0 SEEN /hpf (<or=2+)
[2021-09-19 13:35] LABS: Internal QC Validated? YES +Cl - CLEAR BKGD
[2021-09-19] MEDS: 0.9% Normal Saline 1,000 ML 1000 ML IV (13:35)
[2021-09-19 13:36] LABS: Absolute Lymphocyte Count 1.84 X10^3/uL (0.83-4.51); Basophil# 0.02 X10^3/uL; Basophil% 0.3 % (0-1); Color, Urine Red (Yellow); Eosinophil# 0.08 X10^3/uL; Eosinophils% 1.2 % (0-5); Glucose, Dipstick Normal (Normal); Hematocrit 39.6 % (37-47); Hemoglobin 13.2 g/dL (12.0-15.0); Ketone-Dipstick 5 mg/dl (Negative); Leukocyte Esterase-Dipstick 25 /ul (Negative); Lymphocyte # 1.84 X10^3/ul (0.83-4.51); Lymphocyte % 28.5 % (19-41); Mean Corp Hgb Conc 33.3 g/dL (32-36); Mean Corpuscular Hgb 27.2 pg (27.0-32.0); Mean Corpuscular Volume 81.6 fL (81-99); Monocyte# 0.47 X10^3/uL; Monocyte% 7.3 % (0-10); NRBC Flagged by Analyzer 0 % (0-5); Neutrophil # 4.03 X10^3/uL (2.7-7.7); Neutrophil % 62.4 % (47-70); Nitrite-Dipstick Negative (Negative); Occult Blood-Urine 250 /ul (Negative); Platelet Count 429 K/mm3 (150-450); Protein-Dipstick 100 mg/dl (Negative); RBC Distribution Width CV 13.1 % (11.6-14.6); RBC Distribution Width SD 38.6 fl (35.1-43.9); Red Blood Count 4.85 M/mm3 (4.2-5.4); Specific Gravity, Urine 1.015 (1.002-1.030); Urine Bilirubin Dipstick Negative (Negative); Urine Clarity Cloudy (Clear); Urine Urobilinogen Normal (Normal); White Blood Count 6.5 K/mm3 (4.4-11.0)
[2021-09-19 13:38] LABS: Pregnancy, Urine Negative Negative
[2021-09-19 13:41] LABS: Red Blood Cells-Urine > 100 SEEN /hpf (0-5)
[2021-09-19 13:43] LABS: Bacteria 1+ /hpf (None Seen); Squamous Epithelial Cells - UA 0-5 SEEN /hpf (5-10); White Blood Cells 0-5 SEEN /hpf (0-5)
[2021-09-19 13:49] LABS: Anion Gap 7 (5-15); BUN 9 mg/dL (7-18); BUN/Creat Ratio 12.7 RATIO (10-20); Calcium,Total 9.2 mg/dL (8.5-10.1); Chloride 105 mmol/L (98-107); Creatinine, Serum 0.71 mg/dL (0.55-1.02); EST Glomerular Filtration Rate 105 mL/min (>60); Est Glom Filt Rate - Afr Amer 127 mL/min (>60); Estimated Creatinine Clearance 124.38 ml/min; Glucose 144 mg/dL (74-106); Potassium 3.8 mmol/L (3.5-5.1); Sodium Level 139 mmol/L (136-145)
[2021-09-19 14:23] VITALS: BP 146/94; BP 153/110; PULSE 107; PULSE 109; PULSE 113
[2021-09-19 14:28] VITALS: BP 139/84; PULSE 113; RESP 16; O2SAT 97
--- NOTE | 2021-09-19 15:06 | EDS_ITS ---
HPI HPI - Female History of Present Illness Chief Complaint: Vag Bleeding Informant: patient Narrative Narrative: Patient is a 26-year-old female with recent history of dysfunctional uterine bleeding presenting with increased uterine bleeding and lightheadedness. Patient states she is had bleeding for the past 2 weeks nonstop. She is going through the largest pad size every few hours. She started feel lightheaded today which is what triggered her to go to the emergency room. She saw her eyeglass assembler last week and had a transvaginal ultrasound which showed a thickened endometrium and was scheduled to have a D&C 1 week from today. When she started feel lightheaded today she came to the emergency room for further evaluation. Patient is not on any iron supplements. No other complaints at this time. Patient notes that she was recently prior on progestin to help with the bleeding however it made her depression worse and started have suicidal thought so she stopped taking it 5 days ago. Since then the bleeding has worsened again. She did recently see her psychiatrist and had her mirtazapine and Effexor increased. She is unsure if this is contributing to her lightheadedness. PFSH PFS Medical History Cystic fibrosis carrier Encounter for screening for COVID-19 Epidermolysis bullosa Gestational diabetes mellitus in childbirth, insulin controlled Hypertension affecting Lactose intolerance Major depressive disorder, recurrent severe without psychotic features Obsessive compulsive disorder Oligohydramnios Vacuum-assisted vaginal delivery Home Medications venlafaxine [Effexor XR] 300 mg PO QHS 06/12/21 [History Last Taken Unknown] ferrous gluconate 324 mg PO BID 14 Days #28 tab 09/19/21 [Rx Last Taken Unknown] mirtazapine 30 mg PO QHS 09/19/21 [History Last Taken Unknown] Allergy/AdvReac Type Severity Reaction Status Date / Time lanolin AdvReac Rash Verified 09/19/21 12:33 Family History Father Hypertension Surgical History No history of previous surgery Social History Smoking Status: Never smoker how long ago did patient quit smoking: quit in 2013 ROS ROS ED Constitutional Constitutional ED: Reports other Details: Lightheaded ; Denies chills or fever(s) Eyes Eyes: Denies blurry vision or change in vision ENT ENT ED: Denies rhinorrhea Cardiovascular Cardiovascular: Denies chest pain or palpitations Respiratory/Chest Respiratory/Chest: Denies dyspnea Gastrointestinal Gastrointestinal: Denies abdominal pain, nausea or vomiting Genitourinary Genitourinary ED: Reports vaginal bleeding and other Details: Abnormal vaginal bleeding ; Denies dysuria, hematuria or urinary frequency Musculoskeletal Musculoskeletal: Denies arthralgias or myalgias Integumentary Denies rash Neurologic Neurologic: Denies headache(s) or weakness Psychiatric Psychiatric: Reports depression; Denies anxiety, suicidal ideation or suicidal thoughts EXAM Physical Exam Const Vital Signs: 09/19/21 12:29 09/19/21 13:28 09/19/21 14:23 Temperature 98.1 F Temperature Source Temporal Pulse Rate 104 H 114 H Pulse Rate [Lying] 109 H Pulse Rate [Sitting (for 1 minute prior to obtaining)] 107 H Pulse Rate [Standing (for 1 minute prior to obtaining)] 113 H Respiratory Rate 18 16 Blood Pressure 191/128 H 155/93 H Blood Pressure [Lying] 146/94 H Blood Pressure [Sitting (for 1 minute prior to obtaining)] 153/110 H Blood Pressure Mean 149 113 Blood Pressure Mean [Lying] 111 Blood Pressure Mean [Sitting (for 1 minute prior to obtaining)] 124 Pulse Ox 97 98 Oxygen Delivery Method Room Air Room Air 09/19/21 14:28 Temperature Temperature Source Pulse Rate 113 H Pulse Rate [Lying] Pulse Rate [Sitting (for 1 minute prior to obtaining)] Pulse Rate [Standing (for 1 minute prior to obtaining)] Respiratory Rate 16 Blood Pressure 139/84 H Blood Pressure [Lying] Blood Pressure [Sitting (for 1 minute prior to obtaining)] Blood Pressure Mean 102 Blood Pressure Mean [Lying] Blood Pressure Mean [Sitting (for 1 minute prior to obtaining)] Pulse Ox 97 Oxygen Delivery Method Room Air General Appearance ED: Negative for pallor HEENT Reports moist mucous membranes Negative for trauma Eyes PERRL and EOMs intact bilaterally General Eye ED: Negative for pale conjunctiva Neck supple Chest Wall inspection of chest normal Resp normal respiratory effort and clear to auscultation bilaterally Cardio regular rhythm Rate: tachycardic GI normal to inspection, nondistended, normoactive bowel sounds and soft to palpation no CVA tenderness and external exam normal Speculum Exam - Vagina: vaginal bleeding medium/moderate and with clots (Small) Speculum Exam - Cervix: cervical os closed and cervical bleeding Back/Spine no CVA tenderness Extremity normal to inspection and full ROM Neuro oriented x3 Sensorium / Orientation: alert Psych mental status grossly normal Skin no rashes or lesions noted General Skin Exam: Negative for pallor MDM MDM MDM Narrative Medical decision making narrative: Patient evaluated for lightheadedness and vaginal bleeding. She is not having intermittent vaginal bleeding for some time is been worse over the past 2 weeks. She has an appointment for D&C next week. She started feel lightheaded today which is what prior to the emergency room. Hemoglobin today is 13.2. 5 days ago she was 13.4. Her hemoglobin is stable. Patient does not have any brisk bleed on pelvic exam. Orthostatics are stable however she is tachycardic. She actually initially is hypertensive in the emergency room. Discussed case with Dr. Raman, OB on-call, who is agreeable with outpatient follow-up given stable hemoglobin. She does not require an emergent D&C at this time. No further recommendations for medications at this time given her adverse reaction to progesterone last week. Patient is counseled return precautions. She will be started on iron supplements. She verbalizes agreement understands plan. Discharged home in stable condition. Lab Data Labs: Laboratory Results - last 24 hr 09/19/21 09/19/21 09/19/21 13:25 13:25 13:25 WBC 6.5 RBC 4.85 Hgb 13.2 Hct 39.6 MCV 81.6 MCH 27.2 MCHC 33.3 RDW Std Deviation 38.6 RDW Coeff of Demond 13.1 Plt Count 429 MPV 10.0 Immature Gran % (Auto) 0.300 Neut % (Auto) 62.4 Lymph % (Auto) 28.5 Cavalier % (Auto) 7.3 Eos % (Auto) 1.2 Baso % (Auto) 0.3 Absolute Neuts (auto) 4.0 Absolute Lymphs (auto) 1.84 Nucleated RBC % 0 Sodium 139 Potassium 3.8 Chloride 105 Carbon Dioxide 27.0 Anion Gap 7 BUN 9 Creatinine 0.71 Estim Creat Clear Calc 124.38 Est GFR (MDRD) Af Amer 127 Est GFR (MDRD) Non-Af 105 BUN/Creatinine Ratio 12.7 Glucose 144 H Calcium 9.2 Urine Color Urine Clarity Urine pH Ur Specific [place] Urine Protein Urine Glucose (UA) Urine Ketones Urine Occult Blood Urine Nitrite Urine Bilirubin Urine Urobilinogen Ur Leukocyte Esterase Urine RBC Urine WBC Ur Squamous Epith Cells Urine Bacteria Urine Mucus Urine Test Blood Type A POSITIVE Antibody Screen NEGATIVE 09/19/21 13:25 WBC RBC Hgb Hct MCV MCH MCHC RDW Std Deviation RDW Coeff of Demond Plt Count MPV Immature Gran % (Auto) Neut % (Auto) Lymph % (Auto) Cavalier % (Auto) Eos % (Auto) Baso % (Auto) Absolute Neuts (auto) Absolute Lymphs (auto) Nucleated RBC % Sodium Potassium Chloride Carbon Dioxide Anion Gap BUN Creatinine Estim Creat Clear Calc Est GFR (MDRD) Af Amer Est GFR (MDRD) Non-Af BUN/Creatinine Ratio Glucose Calcium Urine Color Red Urine Clarity Cloudy Urine pH 8.0 Ur Specific [place] 1.015 Urine Protein 100 H Urine Glucose (UA) Normal Urine Ketones 5 H Urine Occult Blood 250 H Urine Nitrite Negative Urine Bilirubin Negative Urine Urobilinogen Normal Ur Leukocyte Esterase 25 H Urine RBC > 100 SEEN Urine WBC 0-5 SEEN Ur Squamous Epith Cells 0-5 SEEN Urine Bacteria 1+ Urine Mucus 0 SEEN Urine Test Negative Blood Type Antibody Screen Discharge Plan Triage Chief Complaint: Vag Bleeding ED Provider: Ashanti Rubio Dx/Rx/DC Orders Clinical Impression: DUB (dysfunctional uterine bleeding), Lightheadedness Instructions: ED Dysfunctional Uterine Bleeding Prescriptions: New ferrous gluconate 324 mg (37.5 mg iron) tablet 324 mg PO BID 14 Days Qty: 28 RF: 0 No Action venlafaxine [Effexor XR] 150 mg Capsule,Extended Release 24hr 300 mg PO QHS RF: 0 mirtazapine 30 mg Tablet 30 mg PO QHS RF: 0 Primary Care Provider: Lona Rico Referrals: Lona Rico MD [Primary Care Provider] - Ema Ricardo MD [STAFF PHYSICIAN] - 2 Days Disposition Disposition: Home, Self Care
== END 2021-09-19 15:36 | disposition home or self-care (01) ==
PROVIDERS: Emergency Provider Emergency Medicine; PCP Family Medicine; Visit Provider Emergency Medicine
DX: N93.8 Other specified abnormal uterine and vaginal bleeding (principal); R42 Dizziness and giddiness; F32.9 Major depressive disorder, single episode, unspecified; Z79.899 Other long term (current) drug therapy
CPT/HCPCS: 80048; 81001; 81025; 85025; 86850; 86900; 86901; 96360; 99283; J7030

== ENCOUNTER → 2021-09-20 | Outpatient (CLI) | payer MEDICAID, SELFPAY ==
[2021-09-20 11:31] LABS: Hematocrit 41.2 % (37-47); Hemoglobin 13.4 g/dL (12.0-15.0); Mean Corp Hgb Conc 32.5 g/dL (32-36); Mean Corpuscular Hgb 26.9 pg (27.0-32.0); Mean Corpuscular Volume 82.7 fL (81-99); Mean Platelet Vol. 9.8 fl (6.2-12.0); Platelet Count 446 K/mm3 (150-450); RBC Distribution Width CV 12.9 % (11.6-14.6); RBC Distribution Width SD 38.6 fl (35.1-43.9); Red Blood Count 4.98 M/mm3 (4.2-5.4)
--- NOTE | 2021-09-20 12:30 | EMB_PTH ---
PATIENT: GABY AMEZCUA LOC: [facility] U#:[id number] AGE/SX: ROOM: RE09/20/[address]: Dr. Ema Medina MD : 1995 BED: DIS: 09/20/2021 SPEC #: [id number] RECD: 09/20/21 16:22 STATUS: DANYA ARGUETA #: [id number] GERSON: 09/20/21 12:[address]: Ema Ricardo DEPT: SURGICAL PATHOLOGY RECD BY: Mary Grace Marin ENTERED: 09/24/21 06:41 SP TYPE: ENDOM BX/C MASOOD DR: Dr. Lona Rico MD Tissues: Endometrium, NOS Procedures: Surgery Specimen Level IV HEADER OPERATION: Endometrial biopsy PRE-OP DIAGNOSIS: Menorrhagia, thickened endometrium TISSUE SUBMITTED: Endometrial biopsy MICROSCOPIC DIAGNOSIS Endometrium, biopsy: Transition endometrium with stromal breakdown. AM:mauricio 09/25/2021 MICROSCOPIC DESCRIPTION Slides are reviewed. GROSS DESCRIPTION Received in fixative is one container labeled with the patient's name and designated endometrial biopsy. The specimen consists of multiple irregular and hemorrhagic fragments of dark reddish-fraser soft tissue that in aggregate measure 2 x 2 x 0.2 cm. The specimen is totally submitted in one cassette. / AM:mauricio 09/24/2021 TC:5 CPT: 33548
== END | disposition home or self-care (01) ==
LOC: WOBLAB 11:24
PROVIDERS: PCP Family Medicine; Visit Provider Obstetrics & Gynecology
DX: N93.8 Other specified abnormal uterine and vaginal bleeding (principal); N92.1 Excessive and frequent menstruation with irregular cycle; R93.89 Abnormal findings on diagnostic imaging of other specified body structures
CPT/HCPCS: 36415; 85027; 88305

== ENCOUNTER 2021-09-25 07:34 | Outpatient (RCR) | payer MEDICAID, SELFPAY | END 2021-10-16 09:43 | disposition home or self-care (01) | LOC: BHOG 07:34 | PROVIDERS: PCP Family Medicine; Visit Provider Psychiatry & Neurology Psychiatry | DX: Z00.00 Encounter for general adult medical examination without abnormal findings (principal) ==

== ENCOUNTER 2021-09-26 12:52 | Day surgery (SDC) | payer MEDICAID, SELFPAY ==
[2021-09-25 13:02] LABS: International Normalized Ratio 1.1; Prothrombin Time (Protime)PT. 13.5 SECONDS (11.7-14.9)
[2021-09-25 13:03] LABS: Partial Thromboplast Time 24.7 Seconds (24.1-36.2)
[2021-09-26] VITALS (7 sets, daily range): BP systolic 140–164; BP diastolic 72–108; PULSE 78–100; RESP 16–18; TEMP 36.2–37.3; O2SAT 97–99; BMI 45.2
[2021-09-26 13:15] LABS: Internal QC Validated? YES +Cl - CLEAR BKGD; Pregnancy, Urine Negative Negative
[2021-09-26] MEDS: Lactated Ringers 1,000 ML 125 ML IV (13:33)
--- NOTE | 2021-09-26 13:38 | PCM.HP.BLA ---
History and Physical Date of Admission: 09/26/21 Surgical History and Physical Date: 09/26/2021 Name: GABY AMEZCUA Age: 26 Date of : 1995 Gaby Amezcua, a 26 year old female 2 0 1 0 2, presents for Hysteroscopy, dilation and curettage on September 26, 2021 --Ally has a history of menometrorrhagia and poorly tolerated Provera. She continues with bleeding. A pelvic US showed a 2cm endometrium. Office endometrial biopsy showed transitional endometium. shm MEDICATIONS HISTORY: Current medications prescribed by our practice are: 1. progesterone micronized 200 mg capsule, 2 tab po qhs 2. tranexamic acid 650 mg tablet, 2 tab po tid Patient is also takin. mirtazapine 15 mg tablet, 1 tab po qhs 2. Effexor XR 150 mg capsule,extended release 3. Cetirizine 10mg - 1 tab po daily ALLERGIES: No Known Drug Allergies, Lanolin, Hives and/or rash, Provera and Suicidal thoughts Infections - Bronchitis, Chicken pox and Pneumonia Illnesses - depression, anxiety, epidermolysis bullosa simplex Accidents - None Hospitalizations - see surgery One UTI 4 y ago; Review of Systems: GENERAL - Denies fever, or chills SKIN - Denies skin changes EYES - Denies visual changes EARS - Denies difficulty hearing NOSE - Denies nasal congestion or bleeding MOUTH - Denies sore throat or difficulty swallowing NECK - Denies pain or swelling RESPIRATORY - Denies shortness of breath or wheezing CARDIOVASCULAR - Denies palpitations or chest pain GASTROINTESTINAL - Denies nausea, vomiting, diarrhea, constipation GENITOURINARY - Irregular bleeding MUSCULOSKELETAL - Denies joint or muscle pain NEUROLOGICAL - Denies localized numbness or weakness PSYCHIATRIC - Denies depression or anxiety ENDOCRINE - Denies heat or cold intolerance, weight loss or gain HEMATO-IMMUNOLOGIC - Denies excesive bleeding with cuts SOCIAL HISTORY: Alcohol Use - occasionally not while Smoking - Never Diet - Does not drink milk- lactose intolerant. Occ herbal tea. Water tries for 80 oz day. Lifestyle - Exercise - Busy w home, daughter. Yoga and walks. Seat Belt Use - always Employer - [employer] Illicit Drug Use - denies use of street drugs Sexual Activity - Residence - lives with Place of - [place] Spouse-Sig Other Name - Francisco Spouse-Sig Other Occupation - [employer] Manager Spouse-Sig Other Phone No - [phone] Children Name(s) - Priscila Soriano Control - planning vasectomy/condoms FAMILY HISTORY: MENSTRUAL HISTORY: LMP Known?- Definite, LMP - 09/04/21, Age Onset Menarche - 11 PAST PREGNANCIES: Total Pregnancies - 3; Full Term Pregnancies - 2; Premature - 0; Abortions, Induced - 0; Abortions, Spontaneous - 1; Ectopics - 0; Multiple Births - 0; Living Children - 2 SURGICAL HISTORY: 1. none ; - PHYSICAL EXAM 09/20/21 BP- 140/88 L lower arm Resp- 20 regular Height- 67.5 inch CONSTITUTIONAL - NAD, well nourished, and well developed SKIN - No rash, lesions, or ulcers HEENT - normocephalic, atraumatic, sclerae anicteric LUNGS - normal respiratory rate and rhythm NEUROLOGICAL - normal gait, normal balance, normal motor PSYCHIATRIC - A and O to time, place, person, mood and affect External Genitial Vagina - non-tender without lesions Urethra/Urethral Meatus - non-tender Bladder - non-tender Vagina - vaginal conway are pink and moist without loss of rugae and no evidence of atropy Cervix - without cervical motion tenderness and has normal size and features without evident lesions Uterus - 6 cm in size, mobile and nontender Adnexa - clear without massess or tenderness Assessment & Plan Assessment/Plan (1) Menometrorrhagia: PLAN: Recent US with 2cm endometrium Transitional endometrium on office endometrial biopsy - unclear if due to recent progestin effect Suspicion for endometrial hyperplasia, r/o malignancy Plan for hysteroscopy, dilation and curettage Procedural r/b/i/a reviewed Patient and given opportunity to ask questions and questions answered to their satisfaction. Proceed as planned. (2) DUB (dysfunctional uterine bleeding):
--- NOTE | 2021-09-26 14:30 | EMB_PTH ---
PATIENT: GABY AMEZCUA [place] [facility] [place][id number] AGE/SX: 26/F ROOM: RE09/26/[address]: Dr. Ema Medina MD : 1995 BED: DIS: 09/26/2021 SPEC #: [id number] RECD: 09/26/21 15:34 STATUS: DANYA ARGUETA #: [id number] GERSON: 09/26/21 14:[address]: Ema Ricardo DEPT: SURGICAL PATHOLOGY RECD BY: Mary Grace Marin ENTERED: 09/27/21 08:40 SP TYPE: ENDOM BX/C MASOOD DR: Dr. Lona Rico MD Tissues: Endometrium, NOS Procedures: Surgery Specimen Level IV HEADER OPERATION: Hysteroscopy, D & C Symphion PRE-OP DIAGNOSIS: Menometrorrhagia, dysfunctional uterine bleeding TISSUE SUBMITTED: Endometrial curettings MICROSCOPIC DIAGNOSIS Endometrium, curettings: Transition endometrium with minimal disorder and focal glandular breakdown. AM:mauricio 09/30/2021 MICROSCOPIC DESCRIPTION Slides are reviewed. GROSS DESCRIPTION Received in fixative is one container labeled with the patient's name and designated endometrial curettings. The specimen consists of multiple irregular fragments of dark fraser soft tissue that in aggregate measure 6 x 3 x 0.2 cm. The specimen is totally submitted in two cassettes. / AM:mauricio 09/27/2021 TC:5 CPT: 87580
[2021-09-26] MEDS: Lidocaine 1% (20 ml mdv) 20 ML Vial (14:40)
--- NOTE | 2021-09-26 15:22 | PCM.OPRPT ---
Problems Associated Problem List Diagnoses (1) Menometrorrhagia: (2) DUB (dysfunctional uterine bleeding): Report of Operation Date of Procedure: 09/26/21 Pre-Operative Diagnosis: 1. Menometrorrhagia 2. Thickened endometrium Post-Operative Diagnosis: 1. Menometrorrhagia 2. Thickened endometrium Surgery/Procedure Performed:: 1. Hysteroscopy 2. Dilation and curettage 3. Symphion endometrial resection Description of Surgical Findings:: endometrial stipling, polypoid endometrium with single endometrial polyp Surgeon: Ema Ricardo Type of Anesthesia: Local MAC Anesthesiologist: Shaquille Carvalho Specimen's removed: endometrial curettings Estimated Blood Loss (mL): 5 Fluids Replaced: 800 ml Description of Procedure: Indications: 26-year-old para 2 with a history of excessive and frequent menstruation with irregular cycle presents for scheduled hysteroscopy, D&C and Symphion. She had a pelvic ultrasound demonstrating a 2 cm endometrial and benign office endometrial biopsy. She was advised to proceed with procedure to rule out endometrial hyperplasia or malignancy. Procedural risks, benefits, indications and alternatives were reviewed. Procedure: The patient was brought to the operating room and sinus performed. She is placed in the dorsal supine position and induced under MAC. She was repositioned to dorsolithotomy and examination under anesthesia was performed. The perineum was prepped and draped in sterile fashion with straight catheterization of the bladder performed. Weighted speculum was placed vaginally and the cervix grasped the anterior cervical lip using a single-tooth tenaculum. Paracervical block was placed for total of 20 cc of half percent ropivacaine. The cervix was subsequently dilated and hysteroscopy performed using the Symphion scope. The endometrium was abundant, polypoid with single endometrial polyp visualized and stifling present. Symphion resectoscopic polypectomy was performed with endometrial sampling and followed by sharp curettage. Hysteroscopy was again performed without any cavitary defects. The procedure was complete. The scope was removed. The tenaculum is removed from the cervix and the tenaculum site was hemostatic. The patient was repositioned to dorsal supine, awakened and transferred to the recovery room without complication. Sponge and needle counts were correct x2. Complications None Admit VTE Documentation VTE Present on Admission: No VTE Mechan Device Prophylaxis: SCD's VTE Pharm Prophylaxis ordered?: No
--- NOTE | 2021-09-26 15:30 | PCM.DC ---
Discharge Instructions Diet Discharge Diet: No restrictions Activity May resume sexual activity in: 4 weeks Dressing / Incision Call your doctor if you observe: Fever of 101 or Higher, Using more than 1 pad per hour, Shortness of breath, Chest pain, Calf discomfort and Uncontrolled pain Follow Up Care Please Follow Up With: Ema Medina MD When: 1-2 weeks Test Results: Test results from this visit will be discussed in further detail at your follow-up appointment, if applicable. Discharge Plan Admission Primary Reason for Your Visit: Hysteroscopy, dilation and curettage (D&C) Attending Provider: Ema Ricardo Primary Care Provider: Lona Rico Instructions Patient Instructions: Dilation and Curettage Discharge Orders/Prescriptions Prescriptions: New ibuprofen 800 mg tablet 800 mg PO TID PRN (Reason: pain) Qty: 30 RF: 0 Continued venlafaxine [Effexor XR] 150 mg Capsule,Extended Release 24hr 300 mg PO QHS RF: 0 progesterone micronized 200 mg Capsule 400 mg PO QHS RF: 0 mirtazapine 30 mg Tablet 30 mg PO QHS RF: 0 ferrous gluconate 324 mg (37.5 mg iron) tablet 324 mg PO BID 14 Days Qty: 28 RF: 0 Referrals / Follow Up: Lona Rico MD [Primary Care Provider] - Disposition Disposition (needs filled in before D/C Order can be placed): Home, Self Care
== END 2021-09-26 16:16 | disposition home or self-care (01) ==
LOC: SDC 12:55 → AC 12:55
PROVIDERS: PCP Family Medicine; Referring Provider Obstetrics & Gynecology; Visit Provider Obstetrics & Gynecology
PROC: 0UB98ZZ Excision of Uterus, Via Natural or Artificial Opening Endoscopic (ICD-10-PCS; CPT 58558; principal; 2021-09-26 14:15)
DX: N92.1 Excessive and frequent menstruation with irregular cycle (principal); F33.2 Major depressive disorder, recurrent severe without psychotic features; N93.8 Other specified abnormal uterine and vaginal bleeding; R93.89 Abnormal findings on diagnostic imaging of other specified body structures; F41.9 Anxiety disorder, unspecified; Z79.899 Other long term (current) drug therapy
CPT/HCPCS: 58563; 00952; 36415; 81025; 85610; 85730; 86850; 86900; 86901; 88305; J7120; J2405

== ENCOUNTER → 2021-11-01 | Outpatient (CLI) | payer MEDICAID, SELFPAY ==
[2021-11-01 10:57] LABS: Glucose 75GTT - 30 minutes 188 mg/dL (100-160)
[2021-11-01 10:58] LABS: Glucose 75GTT - 60 minutes 217 mg/dL (100-160)
[2021-11-01 11:20] LABS: Glucose 75GTT - Fasting 104 mg/dL (70-99)
[2021-11-01 12:39] LABS: Glucose 75GTT - 120 minutes 185 mg/dL (70-140)
[2021-11-02 08:53] LABS: Insulin 75GTT - 30 MIN 112.3 mU/L (Not Estab.)
[2021-11-02 08:53] LABS: Insulin 75GTT - 120 min 145.8 mU/L (Not Estab.)
[2021-11-02 08:53] LABS: Insulin 75GTT - 60 min 120.9 mU/L (Not Estab)
== END | disposition home or self-care (01) ==
LOC: WOBLAB 08:51
PROVIDERS: PCP Family Medicine; Visit Provider Obstetrics & Gynecology
DX: R03.0 Elevated blood-pressure reading, without diagnosis of hypertension (principal)
CPT/HCPCS: 36415; 82951; 82952; 83525

== ENCOUNTER 2022-01-30 06:02 | Day surgery (SDC) | payer MEDICAID, SELFPAY ==
[2022-01-24 11:35] LABS: Hemoglobin 13.9 g/dL (12.0-15.0); Mean Corp Hgb Conc 33.1 g/dL (32-36); Mean Corpuscular Hgb 27.3 pg (27.0-32.0); Mean Corpuscular Volume 82.4 fL (81-99); Mean Platelet Vol. 10.6 fl (6.2-12.0); Platelet Count 378 K/mm3 (150-450); RBC Distribution Width CV 13.3 % (11.6-14.6); RBC Distribution Width SD 39.7 fl (35.1-43.9); White Blood Count 6.3 K/mm3 (4.4-11.0)
[2022-01-30] VITALS (9 sets, daily range): BP systolic 117–151; BP diastolic 76–104; PULSE 96–109; RESP 16–18; TEMP 36.2–36.7; O2SAT 93–97; BMI 44.9
--- NOTE | 2022-01-30 | FALS_PTH ---
PATIENT: GABY AMEZCUA LOC: [facility] – [place] U#:[id number] AGE/SX: 26/F ROOM: RE01/30/[address]: Dr. Janeth Raman DO : 1995 BED: DIS: 01/30/2022 SPEC #: [id number] RECD: 01/30/22 12:46 STATUS: DANYA REQ #: [id number] GERSON: 01/30/22 00:[address]: Janeth Raman DEPT: SURGICAL PATHOLOGY RECD BY: Neymar Hernandez ENTERED: 01/30/22 12:47 SP TYPE: FALL TUBES OTHR DR: Dr. Lona Rico MD Tissues: A - Endometrium, NOS B - Fallopian tube Procedures: Surgery Specimen Level II Surgery Specimen Level IV HEADER OPERATION: Hysteroscopy, D & C Michelle PRE-OP DIAGNOSIS: Abnormal uterine bleeding, sterilization TISSUE SUBMITTED: A ? Endometrial curettings, B ? Bilateral fallopian tubes with paratubal cysts MICROSCOPIC DIAGNOSIS A. Endometrium, curettings: Minimally disordered proliferative endometrium. B. Bilateral fallopian tubes, salpingectomies: Complete segments of fallopian tubes. Benign paratubal cysts. AM:mauricio 01/31/2022 MICROSCOPIC DESCRIPTION Slides are reviewed. GROSS DESCRIPTION A - Received in fixative is one container labeled with the patient's name and designated endometrial curettings. The specimen consists of multiple fragments of pink hemorrhagic soft tissue that in aggregate measure 2.5 x 2 x 0.2 cm. The specimen is totally submitted in one cassette. B - Received in fixative is one container labeled with the patient's name and designated bilateral fallopian tubes with paratubal cysts. The specimen consists of bilateral fallopian tubes with paratubal cysts. One of the fallopian tubes measures 4.5 cm in length and 0.5 cm in diameter. The fimbrial end is identified. The rest of the specimen consists of multiple tubular pieces measuring 5 cm in length and 0.4 cm in diameter. The rest of the small pieces appear to consists of paratubal cysts and fimbrial end and measures in aggregate 4 x 3.5 x 0.5 cm. The paratubal cyst measures 0.5 to 1 cm in greatest dimension. The fallopian tubes are not identified as right or left. Lamp Shade Assembler sections are submitted in two cassettes as follows: 1 ? intact fallopian tube, 2 ? fallopian tube pieces including fimbrial end and paratubal cyst. / ARIANNA:mauricoi 01/30/2022 TC:5 CPT: 95239 x2, 01650
--- NOTE | 2022-01-30 06:21 | HP.PCM.OB_ITS ---
History and Physical Date of Admission: 01/30/22 HPI: 26-year-old female with abnormal uterine bleeding, menorrhagia and desire for permanent sterilization presenting for hysteroscopy, dilation curettage, endometrial ablation, laparoscopic bilateral salpingectomy. Medical history: 1. History of eating disorder 2. 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 D&C Medications: 1. Zyrtec 2. Vitamin D3 3. Ibuprofen as needed 4. Probiotic 5. Mirtazapine 6. Venlafaxine 7. Vitamin B complex Social history: Denies tobacco, alcohol, drug use Family history: History of hypertension and diabetes Allergies: Lanolin causes rash Review of system: Denies fevers or chills, chest pain or shortness of breath, nausea or vomiting, diarrhea or constipation, rashes, headache, vision changes, dizziness. Physical exam: Vital signs: General: No acute distress HEENT: Normocephalic/atraumatic, PERRLA Cardiac: Regular rate and rhythm Respiratory: Clear to auscultation bilaterally Abdomen: Soft, nontender, nondistended Extremities: No edema Neurologic: Cranial nerves II through XII grossly intact, no focal deficits Musculoskeletal: Strength 5 out of 5 throughout all extremities Assessment/plan:26-year-old female with abnormal uterine bleeding, menorrhagia and desire for permanent sterilization presenting for hysteroscopy, dilation curettage, endometrial ablation, laparoscopic bilateral salpingectomy. All risk, benefits, alternatives discussed with patient. Risk include but are not limited to: Risk of bleeding twin transfusion, infection, injury to surrounding tissue including bowel/bladder/major abdominal vessels, VTE, ICU admission, risk of regret. Patient aware and consented.
[2022-01-30 06:34] LABS: Internal QC Validated? YES +Cl - CLEAR BKGD; Pregnancy, Urine Negative Negative
[2022-01-30] MEDS: Lactated Ringers 1,000 ML 125 ML IV ×2 (07:00→10:10)
--- NOTE | 2022-01-30 07:28 | OP.PCM_ITS ---
Report of Operation Date of Procedure: 01/30/22 Pre-Operative Diagnosis: Abnormal uterine bleeding, desires permanent steriliza tion Post-Operative Diagnosis: Abnormal uterine bleeding, desires permanent sterilization Surgery/Procedure Performed:: Hysteroscopy, dilation curettage, endometrial ablation with Michelle. Laparoscopic bilateral salpingectomy. Description of Surgical Findings:: Normal-appearing external genitalia. No uterine descensus. Thickened endometrial lining. No fibroids or polyps. Normal-appearing bilateral ovaries and fallopian tubes. Left fallopian tube with fatty area and mesosalpinx, right fallopian tube with 2 paratubal cyst. Type of Anesthesia: General Specimen's removed: Endometrial curettings, bilateral fallopian tubes, paratubal cysts Estimated Blood Loss (mL): 10 cc Fluids Replaced: 800 cc Description of Procedure: Indications/risk benefits: 26-year-old female with abnormal uterine bleeding and desires permanent sterilization. All risk, benefits, terms discussed patient. Risk include but are not limited to: Risk bleeding twin transfusion, infection, injury to surrounding tissue including bowel/bladder/major abdominal vessels, VTE, ICU admission, risk of regret. Patient were consented. Procedure: Patient taken the operating room placed under general anesthesia. Patient placed in the dorsal lithotomy position prepped draped in usual sterile fashion. Mendez catheter placed. Weighted speculum placed in posterior vagina and Jones retractor used to visualize the cervix. Anterior lip of cervix grasped single-tooth tenaculum. Cervix gradually dilated. Hysteroscope placed through cervical canal and inspection of endometrial cavity completed with findings as above. Curettage completed a 360 degree manner. Uterus sounded to 11 cm, cervical length 5 cm. Michelle device opened. CO2 noted to be leaking through cervical canal. Additional ring forcep placed at cervix as the cervix was over dilated, after which CO2 assessment passed. Cavity assessments passed. Ablation completed. Device removed. Uterine manipulator placed, tenaculum and ring forceps removed. Gloves were changed and attention turned to the anterior abdominal wall. 5 mm infraumbilical transverse incision made with scalpel. Trocar placed under direct visualization. Right and left trochars placed under direct visualization; 5 mm left lower quadrant and 8 mm right lower quadrant. Inspection of the abdominal cavity completed with findings as above. Left fal lopian tube identified and carried from fimbria to cornua. Left fimbriated end grasped and LigaSure device used to remove tube along the mesosalpinx. Fallopian tube removed through trocar. Right fallopian tube then identified carried from cornua to fimbriated end. Fimbriated end grasped and fallopian tube removed using LigaSure device along the mesosalpinx. Right fallopian tube removed through trocar. Mesosalpinx and cornua hemostatic. Insufflation stopped, trochars removed. Skin closed with subcuticular stitch and skin glue. Mendez catheter and uterine manipulator removed, hemostatic cervix. Urine output: 200 cc clear urine.
--- NOTE | 2022-01-30 07:28 | DCINST_ITS ---
Discharge Instructions Diet Discharge Diet: No restrictions Activity Discharge Activity: Return to Normal Activity and May Shower May resume sexual activity in: 2 weeks Weight Bearing Status: Weight bearing as tolerated Lifting Restrictions: No greater than 15 pounds Dressing / Incision Call your doctor if your incision/area has: Continuous Slow Oozing, Increased Pain/ Swelling, Increased Redness and Foul Smelling Discharge Call your doctor if you observe: Fever of 101 or Higher, Inability to urinate, Using more than 1 pad per hour, Shortness of breath, Chest pain, Calf discomfort and Uncontrolled pain Cleanse incision/area with: Soap & Water and Keep Dressing Clean & Dry Follow Up Care Please Follow Up With: Janeth Raman DO When: 2 weeks post operative visit. Test Results: Test results from this visit will be discussed in further detail at your follow- up appointment, if applicable. Discharge Plan Admission Primary Reason for Your Visit: Ablation and tubal sterilization Attending Provider: Janeth Raman Primary Care Provider: Lona Rico Discharge Orders/Prescriptions Prescriptions: New oxycodone 5 mg tablet 5 mg PO Q6H PRN (Reason: pain (scale score 7-10)) 3 Days Qty: 10 0RF Continued venlafaxine [Effexor XR] 150 mg Capsule,Extended Release 24hr 300 mg PO QHS ibuprofen 800 mg tablet 800 mg PO TID PRN (Reason: pain) Qty: 30 0RF mirtazapine 30 mg Tablet 30 mg PO QHS cetirizine [Zyrtec] 10 mg Tablet 10 mg PO DAILY vitamin B complex Capsule 1 cap PO DAILY cholecalciferol (vitamin D3) [Vitamin D3] 50 mcg (2,000 unit) Capsule 50 mcg PO DAILY Probiotic 3 billion cell Capsule 3,000 mmu cells PO DAILY Rx Instructions: administer with a meal Referrals / Follow Up: Lona Rico MD [Primary Care Provider] - Disposition Disposition (needs filled in before D/C Order can be placed): Home, Self Care
--- NOTE | 2022-01-30 10:06 | SUR.PHASEI ---
Addendum entered by Tiffany Delgadillo 01/30/22 10:08: CORRECTION: TIME OF ENTRY 2443 Original Note: JUST REMOVED O2. PATIENT WANTS TO RETURN BRANDO TO AC ROOM TO AMBULATE TO BATHROOM. AGREED TO HOLD OFF IV PAIN MEDICATION TO EXPEDITE TXR. ENCOURAGED SPLINTING ABDOMEN, COUGHING & DEEP BREATHING.
== END 2022-01-30 10:55 | disposition home or self-care (01) ==
LOC: SDC 06:07 → AC 06:08
PROVIDERS: Anesthesiology; PCP Family Medicine; Referring Provider Student in an Organized Health Care Education/Training Program; Visit Provider Student in an Organized Health Care Education/Training Program
PROC: 0U5B8ZZ Destruction of Endometrium, Via Natural or Artificial Opening Endoscopic (ICD-10-PCS; CPT 58558; principal; 2022-01-30 07:15)
PROC: (CPT 58661; 2022-01-30 07:15)
DX: N92.0 Excessive and frequent menstruation with regular cycle (principal); F32.A Depression, unspecified; N83.8 Other noninflammatory disorders of ovary, fallopian tube and broad ligament; F41.9 Anxiety disorder, unspecified; Z30.2 Encounter for sterilization; Z79.899 Other long term (current) drug therapy
CPT/HCPCS: 58563; 58661; 36415; 81025; 85027; 86850; 86900; 86901; 88302; 88305; J7120; J2405

== ENCOUNTER → 2022-04-30 | Outpatient (CLI) | payer MEDICAID, SELFPAY ==
--- NOTE | 2022-04-30 15:33 | RAD_ITS ---
STUDY: X-RAY CHEST REASON FOR EXAM: Female, 27 years old. CHEST PAIN HEMOPTYSIS TECHNIQUE: XR Chest 2 Views COMPARISON: None FINDINGS: There is no demonstrated pleural abnormality. Normal size heart. Normal mediastinum and wero. Normal visualized pulmonary arteries. Normal visualized aortic arch and descending thoracic aorta. Normal visualized thoracic spine. Normal visualized ribs, clavicles, and shoulders. There is no demonstrated abnormality of the visualized soft tissue structures of the upper abdomen. RAD/Chest PA and Lateral IMPRESSION: There are no acute findings. Electronically Signed: Juan Souza MD at 17:42 EST ,
== END | disposition home or self-care (01) ==
LOC: RAD 15:31
PROVIDERS: PCP Family Medicine; Referring Provider Family Medicine; Visit Provider Family Medicine
DX: O24.419 Gestational diabetes mellitus in pregnancy, unspecified control (principal); O99.891 Other specified diseases and conditions complicating pregnancy; R04.2 Hemoptysis; Z3A.00 Weeks of gestation of pregnancy not specified
CPT/HCPCS: 36415; 71046; 83036

== ENCOUNTER 2022-09-25 12:50 | Emergency (ER) | payer MEDICAID, SELFPAY ==
[2022-09-25 12:51] VITALS: BP 176/121; PULSE 130; RESP 18; TEMP 35.3; O2SAT 99; BMI 44.9
[2022-09-25 13:57] VITALS: BP 218/117; PULSE 114; RESP 23; O2SAT 98
--- NOTE | 2022-09-25 14:07 | CT_ITS ---
STUDY: CT BRAIN WITHOUT CONTRAST REASON FOR EXAM: Female, 27 years old. 2 day history of headaches.COVID positive. RADIATION DOSAGE (If Supplied By Facility): CTDIvol = ( 44.99 ) mGy, DLP = ( 796.11 ) mGycm TECHNIQUE: Transaxial CT imaging of the brain was performed without administration of intravenous contrast material. Individualized dose optimization techniques were used for this CT. COMPARISON: No relevant priors. FINDINGS: Normal soft tissue structures. Normal calvarium. Normal size ventricles and extra-axial spaces for the patient''s age. Normal white matter tracts of the cerebral hemispheres. Normal basal ganglia and thalami. Normal brainstem. Normal cerebellum. There is no intracranial hemorrhage. There are no findings of an acute ischemic infarction. Minimal mucosal thickening along the lateral wall of the right maxillary sinus. Partial opacification of the left sphenoid sinus as well as the ethmoid sinuses. CT/Brain/Head without Contrast IMPRESSION: Sinusitis. Electronically Signed: Jeremy Gonzalez MD at 15:32 EDT ,
--- NOTE | 2022-09-25 14:12 | EX.ED.VIS.HA ---
HPI History of Present Illness Chief Complaint: Headache Narrative Narrative: 27-year-old female presenting with headache. She states is severe. She complains of light sensitivity and sound sensitivity. Patient describes pressure behind her forehead and some lightheadedness. Patient notes that her blood pressure is elevated. Patient states that she had she had a little bit of chest pressure and shortness of breath as well. Patient states she had COVID over the last several days. She states 9 days ago she started having symptoms. 6 days ago she tested positive for COVID-19. She states that yesterday she started to feel better and got up to do stuff and states she felt started feel tired and slept for 15 hours after this. Patient states she has no other medical history. Her blood pressures not usually high. She has had high blood pressure during . She is no longer having fevers, chills, body aches, congestion. [facility] Medical History Anxiety Blister Cystic fibrosis carrier Depression Encounter for screening for COVID-19 Epidermolysis bullosa Gestational diabetes mellitus in childbirth, insulin controlled Hypertension Hypertension affecting Lactose intolerance Low iron Major depressive disorder, recurrent severe without psychotic features Marijuana use MDD (major depressive disorder), recurrent episode, severe Non-smoker Obsessive compulsive disorder Oligohydramnios Vacuum-assisted vaginal delivery Wears glasses Home Medications ibuprofen 800 mg tablet 800 mg PO TID PRN pain #30 tabs 09/26/21 [Rx Last Taken 01/29/22] cetirizine 10 mg tablet (Zyrtec) 10 mg PO DAILY 01/23/22 [History Last Taken 01/29/22] cholecalciferol (vitamin D3) 50 mcg (2,000 unit) capsule (Vitamin D3) 50 mcg PO DAILY 01/23/22 [History Last Taken 01/29/22] lactobacillus combination no.4 3 billion cell capsule (Probiotic) 3,000 mmu cells PO DAILY 01/23/22 [History Last Taken 01/29/22] vitamin B complex 1 cap PO DAILY 01/23/22 [History Last Taken 01/29/22] oxycodone 5 mg tablet 5 mg PO Q6H PRN pain (scale score 7-10) 3 days #10 tabs 01/30/22 [Rx Last Taken Unknown] venlafaxine 150 mg capsule,extended release 24 hr (Effexor XR) 300 mg PO QHS #60 caps 07/14/22 [Rx Last Taken Unknown] aripiprazole 2 mg tablet 2 mg PO DAILY #30 tabs 09/01/22 [Rx Last Taken Unknown] metoprolol tartrate 50 mg tablet 50 mg PO DAILY #30 tabs 09/25/22 [Rx Last Taken Unknown] Allergy/AdvReac Type Severity Reaction Status Date / Time lanolin AdvReac Rash Verified 07/14/22 08:34 Family History Father Hypertension Surgical History History of dilation and curettage Social History Smoking Status: Never smoker how long ago did patient quit smoking: quit in 2013 ROS ROS ED Constitutional Constitutional ED: Denies chills or fever(s) Eyes Eyes: Denies change in vision ENT ENT ED: Denies rhinorrhea or sore throat Cardiovascular Cardiovascular: Reports chest pain Respiratory/Chest Respiratory/Chest: Reports dyspnea and dyspnea on exertion Gastrointestinal Gastrointestinal: Reports nausea; Denies abdominal pain or vomiting Genitourinary Genitourinary ED: Denies dysuria Musculoskeletal Musculoskeletal: Denies arthralgias or back pain Integumentary Denies abscess Neurologic Neurologic: Reports headache(s); Denies paresthesias Psychiatric Psychiatric: Denies anxiety or depression EXAM Physical Exam Const Vital Signs: 09/25/22 12:51 09/25/22 13:57 09/25/22 14:07 Temperature 95.6 F L Temperature Source Temporal Pulse Rate 130 H 114 H Respiratory Rate 18 23 H Blood Pressure 176/121 H 218/117 H Blood Pressure Mean 139 150 Pulse Ox 99 98 Oxygen Delivery Method Room Air Room Air Room Air 09/25/22 15:45 09/25/22 16:42 Temperature Temperature Source Pulse Rate 100 78 Respiratory Rate 16 16 Blood Pressure 147/88 H 160/101 H Blood Pressure Mean 107 Pulse Ox 95 Oxygen Delivery Method Room Air Positive well nourished General Appearance ED: NAD; Negative for pallor HEENT Reports normocephalic atraumatic Eyes PERRL and EOMs intact bilaterally Resp normal respiratory effort and clear to auscultation bilaterally Auscultation: Negative for rales, rhonchi or wheezes Cardio regular rhythm Rate: tachycardic GI non-tender Neuro oriented x3 and CN's II-XII intact bilaterally Sensorium / Orientation: awake and alert Speech: speech normal Psych mental status grossly normal Skin General Skin Exam: elasticity normal; Negative for jaundice or pallor MDM MDM MDM Narrative Medical decision making narrative: Patient presenting with elevated blood pressure, headache, nausea. She feels a little chest pressure and shortness of breath. She is tachycardic on arrival and a heart rate of 130. She states her typical heart rate is around 100. Her blood pressure was 218/117. IV line was established patient was given 20 mg grams of labetalol IV. Differential includes but is not limited to ACS, PE, aortic dissection, pneumonia, pneumothorax, hypertensive emergency, intracranial hemorrhage, electrolyte abnormalities, dehydration. CBC was obtained to assess white blood cell count, hemoglobin, platelets, differential. CMP to assess liver function, renal function, glucose, anion gap, electrolytes. hCG to assess for . Urinalysis to assess for UTI. High-sensitivity troponin and EKG were also obtained to rule out ischemia or endorgan damage secondary to hypertension. I cannot PERC out the patient because he is tachycardic and recently had COVID so I will obtain a CTA of the chest. CT brain will be obtained to rule out intracranial hemorrhage. CBC shows white blood cell count of 5.8, hemoglobin 14.0, hematocrit 42.3, platelets high at 456. Renal function within normal limits. Electrolytes normal with exception of potassium 3.3. Total bilirubin is normal. AST and ALT slightly increased however the patient recently had COVID-19. hCG negative. CTA of the chest shows no aortic dissection or pulmonary emboli. There are some evidence of inflammation/groundglass opacities in the lungs consistent with previous COVID-19. CT of the brain is negative. After 1 dose of labetalol the patient's blood pressure came down to 147/88. She was given Reglan and Benadryl for her headache and this did help her headache significantly. On reevaluation she feels a lot better. High-sensitivity troponin came back at 4. At this point the patient I think is stable for discharge. I spoke with Lona Arias who wanted to give the patient 50 mg of metoprolol p.o. twice daily which was ordered. Patient was told to keep a blood pressure diary. Return precautions were discussed. Impression: 1. Hypertension new onset 2. Headache 3. Chest pain 4. Dyspnea Lab Data Attestation: I reviewed the patient's lab results. Labs: Laboratory Results - last 24 hr 09/25/22 09/25/22 09/25/22 14:25 14:25 14:25 WBC 5.8 RBC 5.09 Hgb 14.0 Hct 42.3 MCV 83.1 MCH 27.5 MCHC 33.1 RDW Std Deviation 39.1 RDW Coeff of Demond 13.0 Plt Count 456 H MPV 9.4 Immature Gran % (Auto) 0.300 Neut % (Auto) 57.9 Lymph % (Auto) 33.0 [place] % (Auto) 6.2 Eos % (Auto) 2.1 Baso % (Auto) 0.5 Absolute Neuts (auto) 3.3 Absolute Lymphs (auto) 1.91 Nucleated RBC % 0 Sodium 139 Potassium 3.3 L Chloride 104 Carbon Dioxide 27.0 Anion Gap 8 BUN 14 Creatinine 0.72 Estim Creat Clear Calc 121.57 Est GFR (MDRD) Af Amer 123 Est GFR (MDRD) Non-Af 102 BUN/Creatinine Ratio 19.3 Glucose 106 Calcium 9.0 Total Bilirubin 0.20 Direct Bilirubin 0.12 AST 82 H ALT 131 H Alkaline Phosphatase 86 Troponin I High Sens 4 Total Protein 8.0 Albumin 3.5 Globulin 4.5 H HCG, Quant < 1 Urine Color Urine Clarity Urine pH Ur Specific [place] Urine Protein Urine Glucose (UA) Urine Ketones Urine Occult Blood Urine Nitrite Urine Bilirubin Urine Urobilinogen Ur Leukocyte Esterase Urine RBC Urine WBC Ur Squamous Epith Cells Urine Bacteria Urine Mucus 09/25/22 15:35 WBC RBC Hgb Hct MCV MCH MCHC RDW Std Deviation RDW Coeff of Demond Plt Count MPV Immature Gran % (Auto) Neut % (Auto) Lymph % (Auto) [place] % (Auto) Eos % (Auto) Baso % (Auto) Absolute Neuts (auto) Absolute Lymphs (auto) Nucleated RBC % Sodium Potassium Chloride Carbon Dioxide Anion Gap BUN Creatinine Estim Creat Clear Calc Est GFR (MDRD) Af Amer Est GFR (MDRD) Non-Af BUN/Creatinine Ratio Glucose Calcium Total Bilirubin Direct Bilirubin AST ALT Alkaline Phosphatase Troponin I High Sens Total Protein Albumin Globulin HCG, Quant Urine Color Yellow Urine Clarity Sl. Cloudy Urine pH 5.0 Ur Specific [place] 1.005 Urine Protein Negative Urine Glucose (UA) Normal Urine Ketones Negative Urine Occult Blood 10 H Urine Nitrite Negative Urine Bilirubin Negative Urine Urobilinogen Normal Ur Leukocyte Esterase Negative Urine RBC 0 SEEN Urine WBC 0-5 SEEN Ur Squamous Epith Cells 5-10 SEEN Urine Bacteria RARE Urine Mucus 0 SEEN Radiography Diagnostic Testing: Clinical Impression(s) from Imaging Studies Brain CT 09/25/22 14:07 IMPRESSION: Sinusitis. Electronically Signed: Jeremy Gonzalez MD at 15:32 EDT , Chest CTA 09/25/22 14:13 IMPRESSION: No evidence of pulmonary embolism. Tiny areas of the groundglass appearance as described in both lungs suggestive of possible focal inflammatory changes. Electronically Signed: Jeremy Gonzalez MD at 15:40 EDT , Discharge Plan Triage Chief Complaint: Headache ED Provider: Robin Hernandez Dx/Rx/DC Orders Instructions: ED Headache Unspecified, ED Hypertension New Begin Treatment Prescriptions: New metoprolol tartrate 50 mg tablet 50 mg PO DAILY Qty: 30 0RF No Action venlafaxine [Effexor XR] 150 mg capsule,extended release 24hr 300 mg PO QHS Qty: 60 2RF ibuprofen 800 mg tablet 800 mg PO TID PRN (Reason: pain) Qty: 30 0RF cetirizine [Zyrtec] 10 mg Tablet 10 mg PO DAILY vitamin B complex Capsule 1 cap PO DAILY cholecalciferol (vitamin D3) [Vitamin D3] 50 mcg (2,000 unit) Capsule 50 mcg PO DAILY Probiotic 3 billion cell Capsule 3,000 mmu cells PO DAILY Rx Instructions: administer with a meal oxycodone 5 mg tablet 5 mg PO Q6H PRN (Reason: pain (scale score 7-10)) 3 Days Qty: 10 0RF aripiprazole 2 mg tablet 2 mg PO DAILY Qty: 30 2RF Primary Care Provider: Lona Rico Referrals: Lona Rico MD [Primary Care Provider] - Disposition Disposition: Home, Self Care Discharge Date/Time: 09/25/22 16:43
--- NOTE | 2022-09-25 14:13 | CT_ITS ---
STUDY: CTA CHEST REASON FOR EXAM: Female, 27 years old. With a history of headaches. Dizziness.COVID positive. The patient is 37 weeks . The patient was shielded appropriately. RADIATION DOSAGE (If Supplied By Facility): CTDIvol = ( 13.75 ) mGy, DLP = ( 454.16 ) mGycm TECHNIQUE: The examination was performed with the intravenous administration of IV 100mL Isovue-370. Post-processing of the angiographic images was performed, with multiplanar reformation and 3D reconstruction. Individualized dose optimization techniques were used for this CT. COMPARISON: None. FINDINGS: STUDY: CTA CHEST REASON FOR EXAM: Female, 27 years old. With a history of headaches. Dizziness.COVID positive. The patient is 37 weeks . The patient was shielded appropriately. RADIATION DOSAGE (If Supplied By Facility): CTDIvol = ( 13.75 ) mGy, DLP = ( 454.16 ) mGycm TECHNIQUE: The examination was performed with the intravenous administration of IV 100mL Isovue-370. Post-processing of the angiographic images was performed, with multiplanar reformation and 3D reconstruction. Individualized dose optimization techniques were used for this CT. COMPARISON: None. Normal enhancement of the main pulmonary artery and right and left pulmonary arteries. Normal enhancement of the bilateral peripheral pulmonary arteries. There is no demonstrated pulmonary embolism. Normal thoracic aorta and visualized great vessels. There is no demonstrated aortic dissection. Normal heart and pericardium. Normal mediastinum. Normal hilar regions. Normal visualized trachea and bronchi. The lungs are well expanded. There is a faint groundglass nodular density measuring 3.3 mm in anterior aspect of the right upper lobe as seen on axial image #96. A similar appearing groundglass nodular densities seen in the lateral aspect of the left upper lobe as seen on axial image #92. This may represent a focal area of inflammatory change. There is also evidence of a focal nodular groundglass appearance in the anterior aspect of the right middle lobe as seen on axial image #85. Mild increased markings in the lower lobes. Normal pleura. Normal chest wall structures. Normal osseous structures. Normal visualized upper abdomen. CT/CTA Chest W/WO Contrast IMPRESSION: No evidence of pulmonary embolism. Tiny areas of the groundglass appearance as described in both lungs suggestive of possible focal inflammatory changes. Electronically Signed: Jeremy Gonzalez MD at 15:40 EDT ,
--- NOTE | 2022-09-25 14:15 | NURSING ---
NO OLD EKGS
[2022-09-25] MEDS: DiphenhydrAMINE 50 MG/ML Syringe 25 MG IV (14:42)
[2022-09-25] MEDS: 0.9% Normal Saline 1,000 ML 999 ML IV (14:42)
[2022-09-25] MEDS: Metoclopramide 10 MG/2 ML Vial IV (14:44)
[2022-09-25] MEDS: Labetalol (Prefilled) 20 MG/4 ML IV (14:45)
[2022-09-25 14:51] LABS: Absolute Lymphocyte Count 1.91 X10^3/uL (0.83-4.51); Absolute Neutrophil Count 3.3 X10^3/uL (2.0-7.7); Basophil# 0.03 X10^3/uL; Basophil% 0.5 % (0-1); Eosinophil# 0.12 X10^3/uL; Eosinophils% 2.1 % (0-5); Hematocrit 42.3 % (37-47); Lymphocyte # 1.91 X10^3/ul (0.83-4.51); Mean Corp Hgb Conc 33.1 g/dL (32-36); Mean Corpuscular Hgb 27.5 pg (27.0-32.0); Mean Corpuscular Volume 83.1 fL (81-99); Mean Platelet Vol. 9.4 fl (6.2-12.0); Monocyte# 0.36 X10^3/uL; Monocyte% 6.2 % (0-10); NRBC Flagged by Analyzer 0 % (0-5); Neutrophil # 3.34 X10^3/uL (2.7-7.7); Neutrophil % 57.9 % (47-70); Platelet Count 456 K/mm3 (150-450); RBC Distribution Width SD 39.1 fl (35.1-43.9); Red Blood Count 5.09 M/mm3 (4.2-5.4); White Blood Count 5.8 K/mm3 (4.4-11.0)
[2022-09-25 14:55] LABS: AST(SGOT) 82 U/L (15-37); Alanine Aminotransfer ALT/SGPT 131 U/L (13-56); Albumin, Serum 3.5 g/dL (3.2-5.0); Alkaline Phosphatase 86 U/L (45-117); Anion Gap 8 (5-15); BUN 14 mg/dL (7-18); BUN/Creat Ratio 19.3 RATIO (10-20); Bilirubin, Direct 0.12 mg/dL (0.00-0.30); Chloride 104 mmol/L (98-107); Creatinine, Serum 0.72 mg/dL (0.55-1.02); EST Glomerular Filtration Rate 102 mL/min (>60); Est Glom Filt Rate - Afr Amer 123 mL/min (>60); Estimated Creatinine Clearance 121.57 ml/min; Globulin 4.5 g/dL (2.2-4.2); Glucose 106 mg/dL (74-106); Potassium 3.3 mmol/L (3.5-5.1); Sodium Level 139 mmol/L (136-145); Troponin-I HS 4 pg/mL (3.0-54.0); hCG Titer Quant., Serum < 1 mIU/mL (1-3)
[2022-09-25 15:43] LABS: Mucous, Urine 0 SEEN /hpf (<or=2+); Red Blood Cells-Urine 0 SEEN /hpf (0-5)
[2022-09-25 15:45] VITALS: BP 147/88; PULSE 100; RESP 16; O2SAT 95
[2022-09-25 15:51] LABS: Color, Urine Yellow (Yellow); Glucose, Dipstick Normal (Normal); Ketone-Dipstick Negative (Negative); Leukocyte Esterase-Dipstick Negative /ul (Negative); Nitrite-Dipstick Negative (Negative); Occult Blood-Urine 10 /ul (Negative); Protein-Dipstick Negative (Negative); Specific Gravity, Urine 1.005 (1.002-1.030); Urine Bilirubin Dipstick Negative (Negative); Urine Clarity Sl. Cloudy (Clear); Urine Urobilinogen Normal (Normal)
--- NOTE | 2022-09-25 15:55 | NURSING ---
pt in bed smiling talking with dad and nurse. up to br for ua and not as woosy reported that head pressure better now bp wnl and 2nd ordered dose trandate on hold for now per
[2022-09-25 16:12] LABS: Bacteria RARE /hpf (None Seen); Squamous Epithelial Cells - UA 5-10 SEEN /hpf (5-10); White Blood Cells 0-5 SEEN /hpf (0-5)
[2022-09-25 16:42] VITALS: BP 160/101; PULSE 78; RESP 16
== END 2022-09-25 16:43 | disposition home or self-care (01) ==
PROVIDERS: Emergency Provider Student in an Organized Health Care Education/Training Program; PCP Family Medicine; Visit Provider Student in an Organized Health Care Education/Training Program
DX: I10 Essential (primary) hypertension (principal); R51.9 Headache, unspecified; R07.89 Other chest pain; R06.02 Shortness of breath; Z86.16 Personal history of COVID-19
CPT/HCPCS: 70450; 71275; 80048; 80076; 81001; 84484; 84702; 85025; 93005; 96361; 96374; 96375; 99285; Q9967; A4216

== ENCOUNTER 2022-10-27 10:58 | Emergency (ER) | payer MEDICAID, SELFPAY ==
[2022-10-27 10:59] VITALS: BP 186/119; PULSE 110; RESP 18; TEMP 36.6; O2SAT 100; BMI 46.3
--- NOTE | 2022-10-27 11:28 | RAD_ITS ---
STUDY: X-RAY - RIGHT ANKLE REASON FOR EXAM: Female, 27 years old. Pain following injury. TECHNIQUE: 3 view(s) of the ankle. COMPARISON: None. FINDINGS: Normal visualized distal tibia and fibula. Normal medial and lateral malleoli. Normal tibiotalar articulation and ankle mortise. Normal visualized talus and calcaneus. The visualized subtalar, talonavicular, calcaneocuboid and tarsal articulations are normal. The soft tissue structures are unremarkable. RAD/Ankle min 3 Views IMPRESSION: Normal x-ray examination of the ankle. Electronically Signed: Jeremy Gonzalez MD at 11:59 EDT ,
--- NOTE | 2022-10-27 11:28 | RAD_ITS ---
STUDY: X-RAY - LEFT TIBIA AND FIBULA REASON FOR EXAM: Female, 27 years old. Pain following injury. TECHNIQUE: 3 view(s) of the tibia and fibula were obtained. COMPARISON: None. FINDINGS: Comminuted oblique fracture through the distal tibial shaft as well as comminuted nondisplaced fracture of the distal fibula. Nondisplaced vertical fracture of the medial malleolus. Soft tissue swelling. Questionable open fracture of the distal tibia. RAD/Tibia & Fibula 2 Views IMPRESSION: Comminuted nondisplaced fracture involving the distal tibial shaft as well as the medial malleolus. Nondisplaced fracture of the distal fibula. Soft tissue swelling. Questionable open fracture. Electronically Signed: Jeremy Gonzalez MD at 12:00 EDT ,
--- NOTE | 2022-10-27 11:29 | ED.VIS.LOWEX ---
HPI History of Present Illness Chief Complaint: Lower Extremity Injury Informant: patient Narrative Narrative: Patient was going down few outdoor steps at her home today, her right ankle twisted causing her left one to buckle and give out, she felt a snap severe pain in her left lower leg and inability to bear weight, brought by EMS and splinted with regards to her left lower extremity. She states the right one feels fine she did not injure anything else above the lower extremities. No prodromal symptoms. [facility] Medical History Anxiety Blister Cystic fibrosis carrier Depression Encounter for screening for COVID-19 Epidermolysis bullosa Gestational diabetes mellitus in childbirth, insulin controlled Hypertension Hypertension affecting Lactose intolerance Low iron Major depressive disorder, recurrent severe without psychotic features Marijuana use MDD (major depressive disorder), recurrent episode, severe Non-smoker Obsessive compulsive disorder Oligohydramnios Vacuum-assisted vaginal delivery Wears glasses Home Medications ibuprofen 800 mg tablet 800 mg PO TID PRN pain #30 tabs 09/26/21 [Rx Last Taken 01/29/22] cetirizine 10 mg tablet (Zyrtec) 10 mg PO DAILY 01/23/22 [History Last Taken 01/29/22] cholecalciferol (vitamin D3) 50 mcg (2,000 unit) capsule (Vitamin D3) 50 mcg PO DAILY 01/23/22 [History Last Taken 01/29/22] lactobacillus combination no.4 3 billion cell capsule (Probiotic) 3,000 mmu cells PO DAILY 01/23/22 [History Last Taken 01/29/22] vitamin B complex 1 cap PO DAILY 01/23/22 [History Last Taken 01/29/22] oxycodone 5 mg tablet 5 mg PO Q6H PRN pain (scale score 7-10) 3 days #10 tabs 01/30/22 [Rx Last Taken Unknown] metoprolol tartrate 50 mg tablet 50 mg PO DAILY #30 tabs 09/25/22 [Rx Last Taken Unknown] aripiprazole 5 mg tablet 5 mg PO DAILY #30 tabs 10/15/22 [Rx Last Taken Unknown] venlafaxine 150 mg capsule,extended release 24 hr (Effexor XR) 300 mg (2 x 150 mg) PO QHS #60 caps 10/15/22 [Rx Last Taken Unknown] oxycodone-acetaminophen 5 mg-325 mg tablet 1 tab PO Q4H PRN pain 5 days #24 TABLETS 10/27/22 [Rx Last Taken Unknown] Allergy/AdvReac Type Severity Reaction Status Date / Time lanolin AdvReac Rash Verified 10/15/22 08:29 Family History Father Hypertension Surgical History History of dilation and curettage Social History Smoking Status: Never smoker how long ago did patient quit smoking: quit in 2013 ROS ROS ED Constitutional Constitutional ED: Denies chills or fever(s) Musculoskeletal Musculoskeletal: Reports extremity pain; Denies neck pain Integumentary Denies Abrasions, rash or wounds Neurologic Neurologic: Denies paresthesias or weakness EXAM Physical Exam Const Vital Signs: 10/27/22 10:59 10/27/22 11:35 10/27/22 13:48 Temperature 98 F Temperature Source Temporal Pulse Rate 110 H 102 H Respiratory Rate 18 18 Blood Pressure 186/119 H 197/115 H 168/97 H Blood Pressure Mean 141 142 120 Pulse Ox 100 96 Oxygen Delivery Method Room Air Room Air Positive well nourished and well developed General Appearance ED: well developed and NAD Neck full ROM and supple Back/Spine normal ROM and normal to inspection Extremity Extremity Narrative: Right lower extremity: Abrasion anterior to the lateral malleolus, there is some mild tenderness there and at the lateral malleolus as well as the medial malleolus there is no swelling, she has excellent range of motion, the base of the fifth metatarsal is nontender, the proximal fibula and the rest of the lower leg is nontender and the rest of the foot is nontender. Full range of motion throughout all joints. Left lower extremity: Deformity at the junction of the middle and distal thirds of the tibia with swelling and inability to move the ankle due to pain there. She can wiggle the toes well, she has a 2+/4 dorsalis pedis pulse. No tenderness of the knee limited range of motion due to pain in the lower leg, no tenderness in the femur or the hip without any groin pain. Full range of motion of both upper extremities without any pain or difficulty. No signs of other trauma. Neuro oriented x3, no focal motor deficits and no sensory deficits noted Sensorium / Orientation: alert Psych mental status grossly normal and thought process normal Skin no wounds Rashes: no rashes Trauma: abrasion MDM MDM MDM Narrative Medical decision making narrative: X-rays of the left tibia and fibula show fractures of the tibial shaft and the fibular shaft in addition to the medial malleolus. Discussed with Dr. Mckeon with orthopedics, he recommends a CT of the ankle for further evaluation. This was done after I splinted the patient see the procedure note, and after discussing with him he states he can take care of this, recommend close outpatient follow-up in the office in 2 or 3 days if the patient can be discharged with nonweightbearing. We did try, patient states she is able to walk with crutches nonweightbearing and use pain medication at home we discussed reasons to return mostly pain control, numbness in her toes, which she does not have now. Radiography Diagnostic Testing: Clinical Impression(s) from Imaging Studies Ankle X-Ray 10/27/22 11:28 IMPRESSION: Normal x-ray examination of the ankle. Electronically Signed: Jeremy Gonzalez MD at 11:59 EDT , Tibia/Fibula X-Ray 10/27/22 11:28 IMPRESSION: Comminuted nondisplaced fracture involving the distal tibial shaft as well as the medial malleolus. Nondisplaced fracture of the distal fibula. Soft tissue swelling. Questionable open fracture. Electronically Signed: Jeremy Gonzalez MD at 12:00 EDT , Lower Extremity CT 10/27/22 13:48 IMPRESSION: Nondisplaced, fracture of the distal tibial shaft as well as a vertical fracture through the medial malleolus of the distal tibia. Nondisplaced oblique fracture of the distal fibula just proximal to the lateral malleolus. Soft tissue swelling. No open fracture is seen. Electronically Signed: Jeremy Gonzalez MD at 15:07 EDT , Discharge Plan Triage Chief Complaint: Lower Extremity Injury ED Provider: Rubén Le Dx/Rx/DC Orders Clinical Impression: Fall down steps, Closed fracture of shaft of left tibia and fibula Prescriptions: New oxycodone-acetaminophen [oxycodone-acetaminophen] 5-325 mg tablet 1 tab PO Q4H PRN (Reason: pain) 5 Days Qty: 24 0RF No Action aripiprazole 5 mg tablet 5 mg PO DAILY Qty: 30 2RF venlafaxine [Effexor XR] 150 mg capsule,extended release 24hr 300 mg PO QHS Qty: 60 2RF ibuprofen 800 mg tablet 800 mg PO TID PRN (Reason: pain) Qty: 30 0RF cetirizine [Zyrtec] 10 mg Tablet 10 mg PO DAILY vitamin B complex Capsule 1 cap PO DAILY cholecalciferol (vitamin D3) [Vitamin D3] 50 mcg (2,000 unit) Capsule 50 mcg PO DAILY Probiotic 3 billion cell Capsule 3,000 mmu cells PO DAILY Rx Instructions: administer with a meal oxycodone 5 mg tablet 5 mg PO Q6H PRN (Reason: pain (scale score 7-10)) 3 Days Qty: 10 0RF metoprolol tartrate 50 mg tablet 50 mg PO DAILY Qty: 30 0RF Primary Care Provider: Lona Rico Referrals: Lona Rico MD [Primary Care Provider] - Ubaldo Mckeon MD [Med Staff - Active Staff] - 10/30/22 ([facility] -- call for appt time) Disposition Disposition: Home, Self Care
[2022-10-27 11:35] VITALS: BP 197/115; PULSE 102; RESP 18; O2SAT 96
[2022-10-27] MEDS: fentaNYL 100 MCG/2 ML Ampul 50 MCG IV (12:38)
[2022-10-27 13:48] VITALS: BP 168/97
--- NOTE | 2022-10-27 13:48 | CT_ITS ---
STUDY: CT LEFT ANKLE WITHOUT CONTRAST REASON FOR EXAM: Female, 27 years old. Fracture due to a fall. RADIATION DOSAGE (If Supplied By Facility): CTDIvol = ( 15.35 ) mGy, DLP = ( 549.49 ) mGycm TECHNIQUE: Thin section transaxial imaging of the ankle was obtained, with sagittal and coronal reconstructed images. Individualized dose optimization techniques were used for this CT. COMPARISON: None. FINDINGS: There is evidence of a comminuted nondisplaced fracture of the distal tibial diaphysis. Nondisplaced vertical fracture through the medial malleolus. Nondisplaced oblique fracture of the distal fibula just proximal to the lateral malleolus. Normal tibiotalar articulation and talar dome. Normal talus, calcaneus, navicular and cuboid tarsal bones. Normal subtalar, talonavicular and calcaneocuboid articulations. Normal navicular-cuneiform, cuneiform tarsal bones and intercuneiform articulations. Normal tarsometatarsal articulations and visualized metatarsi. Soft tissue swelling. CT/Extremity Lower without Contra IMPRESSION: Nondisplaced, fracture of the distal tibial shaft as well as a vertical fracture through the medial malleolus of the distal tibia. Nondisplaced oblique fracture of the distal fibula just proximal to the lateral malleolus. Soft tissue swelling. No open fracture is seen. Electronically Signed: Jeremy Gonzalez MD at 15:07 EDT ,
[2022-10-27] MEDS: Morphine 4 MG/ML Syringe IV (13:56)
[2022-10-27 15:23] VITALS: BP 118/78; PULSE 72; RESP 14; TEMP 36.6; O2SAT 99
== END 2022-10-27 15:45 | disposition home or self-care (01) ==
PROVIDERS: Emergency Provider Emergency Medicine; PCP Family Medicine; Visit Provider Emergency Medicine
DX: S82.255A Nondisplaced comminuted fracture of shaft of left tibia, initial encounter for closed fracture (principal); S82.435A Nondisplaced oblique fracture of shaft of left fibula, initial encounter for closed fracture; S82.55XA Nondisplaced fracture of medial malleolus of left tibia, initial encounter for closed fracture; W10.8XXA Fall (on) (from) other stairs and steps, initial encounter; Y93.01 Activity, walking, marching and hiking; Y99.8 Other external cause status; Y92.008 Other place in unspecified non-institutional (private) residence as the place of occurrence of the external cause; I10 Essential (primary) hypertension; Z79.899 Other long term (current) drug therapy
CPT/HCPCS: 29505; 73590; 73610; 73700; 96374; 96375; 99284; A4216

== ENCOUNTER → 2023-05-14 | Outpatient (CLI) | payer MEDICAID, SELFPAY ==
--- OUTSIDE RECORDS SUMMARY | 2023-05-14 09:53 | XMS RPT_ITS | CCD ---
Author Name Unknown Address [address] [facility] [address] [place] [address] Organization [facility] Care Team Providers Care Multi Disciplined Language Analyst Name Role Phone NO, DOCTOR ON Consulting Unavailable NO, DOCTOR ON Referring Unavailable DIDERIC ROB DO Admitting Unavailable DIDURERIC DO Primary Care Unavailable ERIC LAYTON DO Attending Unavailable ADRIANCRYSTAL Attending Unavailable NO, DOCTOR ON Consulting Unavailable ADRIANCRYSTAL Admitting Unavailable ADRIANCRYSTAL Primary Care Unavailable ADRIANCRYSTAL BALLARD Attending Unavailable NO, DOCTOR ON Consulting Unavailable ADRIANCRYSTAL Admitting Unavailable ADRIANCRYSTAL Primary Care Unavailable ALAYNA FOY Primary Care Physician [phone] PILY LEWIS DO Attending Unavailable ALAYNA FOY Primary Care Unavailable OCTAVIANO JASSO, DR GILBERTO Grant Attending Unavailab simin FOY ALAYNA Primary Care Unavailable OCTAVIANO JASSO, DR GILBERTO Grant Attending Unavailab HERBERT TobiasNAH Primary Care Unavailable Shanthi Easley PA-C A Primary Care Provider NICOLASA CHINO Attending Unavailable MEILER, SHANTHI A Primary Care Unavailable DISHA, IMAN Referring Unavailable MEILER, SHANTHI A Primary Care Unavailable MEILER, SHANTHI A Primary Care Unavailable DISHA, IMAN Referring Unavailable DISHA, IMAN Attending Unavailable MEILER, SHANTHI A Primary Care Unavailable Allergies Allergy Classification Reported Allergen(s) Allergy Type Date of Onset Reaction(s) Facility (9 sources) Lanolin; Translations: [lanolin topical] Drug Allergy 10-20-2018 [facility] Medications Current Medications Medication Drug Class(es) Dates Sig (Normalized) Sig (Original) metoprolol tartrate 50 mg oral tablet (3 sources) beta-Adrenergic Melba Start: 11-03-2022 take 1 tablet by mouth once daily Metoprolol Tartrate 50 mg oral tablet TAKE 1 TABLET BY MOUTH ONCE DAILY Start Date: 11/03/22 Status: Ordered 12 hr morphine sulfate 15 mg extended release oral tablet (1 source) Opioid Agonist Start: 11-08-2022 End: 11-10-2022 take 1 tablet by mouth every hour, then take 1 tablet by mouth every twelve hours MS Contin 15 mg/8-12 hrs oral tablet, extended release Dose : 15 mg = 1 tab(s), Oral, q12h, # 4 tab(s), 0 Refill(s), Leg pain Ankle fracture, 131.8 Start Date: 11/08/22 Stop Date: 11/10/22 Status: Ordered oxyCODONE hydrochloride 5 mg oral tablet (3 sources) Opioid Agonist Start: 11-03-2022 oxyCODONE 5 mg oral tablet ( IMMEDIATE release ) Dose : 5 mg = 1 tab(s), Oral, q6h, PRN for pain, # 12 tab(s), 0 Refill(s) Start Date: 11/03/22 Status: Ordered Probiotic (3 sources) Start: 11-03-2022 Probiotic 0 Refill(s) Start Date: 11/03/22 Status: Ordered Vitamin B Complex oral capsule (3 sources) Start: 11-03-2022 take 1 capsule by mouth once daily Vitamin B Complex oral capsule Dose = 1 cap(s), Oral, Daily, 0 Refill(s) Start Date: 11/03/22 Status: Ordered Vitamin D3 (3 sources) Start: 11-03-2022 Vitamin D3 Dose : 100 mcg = 1 tab(s), Oral, Daily, # 90 tab(s), 0 Refill(s) Start Date: 11/03/22 Status: Ordered Completed/Discontinued Medications Medication Drug Class(es) Dates Sig (Normalized) Sig (Original) ARIPiprazole 5 mg oral tablet (8 sources) Atypical Antipsychotic Start: 02-11-2023 ARIPiprazole (ABILIFY) 5 mg tablet Problems Active Problems Problem Classification Problem Date Documented Da te Episodic/Chronic Anxiety disorders (11 sources) Generalized anxiety disorder; Translations: [Obsessive-compulsi ve disorder] Onset: 10-20-2018 04-06-2020 Chronic Fracture of lower limb (3 sources) Closed fracture of lower leg; Translations: [Other fracture of unspecified lower leg, initial encounter for closed fracture] Onset: 11-08-2022 Episodic Menstrual disorders (2 sources) Menometrorrhagia; Translations: [Excessive and frequent menstruation with irregular cycle] 04-07-2023 Chronic Mood disorders (3 sources) Recurrent major depressive episodes, moderate 04-06-2020 Chronic Other connective tissue disease (1 source) Pain in lower limb; Translations: [Pain in leg, unspecified] Onset: 11-08-2022 Episodic Other female genital disorders (2 sources) Abnormal uterine bleeding; Translations: [Abnormal uterine and vaginal bleeding, unspecified] 02-27-2023 Chronic Other female genital disorders (1 source) Abnormal uterine and vaginal bleeding, unspecified; Translations: [Abnormal uterine bleeding (AUB)] Onset: 03-06-2023 Chronic Other nutritional; endocrine; and metabolic disorders (2 sources) Obesity 11-07-2022 Chronic Other nutritional; endocrine; and metabolic disorders (5 sources) Obese class I; Translations: [Obesity, unspecified] Onset: 09-14-2018 09-14-2018 Chronic Other nutritional; endocrine; and metabolic disorders (5 sources) Obese class II; Translations: [Obesity, unspecified] Onset: 04-11-2019 04-11-2019 Chronic Other nutritional; endocrine; and metabolic disorders (1 source) Body mass index 40+ - severely obese; Translations: [Body mass index (BMI) 45.0-49.9, adult] 04-07-2023 Chronic Other nutritional; endocrine; and metabolic disorders (1 source) Severe obesity; Translations: [Morbid (severe) obesity due to excess calories] 04-07-2023 Chronic Past or Other Problems Problem Classification Problem Date Documented Da te Episodic/Chronic Immunizations and screening for infectious disease (1 source) Encounter for observation for suspected exposure to other biological agents ruled out; Translations: [Encounter for observation for suspected exposure to other biological agents ruled out] Onset: 07-30-2019 Episodic Other circulatory disease (3 sources) Other specified symptoms and signs involving the circulatory and respiratory systems; Translations: [Other specified symptoms and signs involving the circulatory and respiratory systems] Onset: 11-22-2019 Episodic Other connective tissue disease (5 sources) Pelvic floor dysfunction; Translations: [Other specified disorders of muscle] Onset: 12-21-2020 12-21-2020 Episodic Other lower respiratory disease (2 sources) Cough; Translations: [Cough] Onset: 07-30-2019 Episodic Other lower respiratory disease (1 source) Shortness of breath; Translations: [Shortness of breath] Onset: 07-30-2019 Episodic Results Test Name Value Interpretation Reference Range Facil ity Vital Signs Date Time Vital Sign Value Performing Clinician Facility 04-07-2023 11:24-0500 Body weight 141.79 kg Nicolasa Chino MD Work Phone: [facility] 04-07-2023 11:24-0500 Diastolic blood pressure 80 mm[Hg] Nicolasa Chino MD Work Phone: [facility] 04-07-2023 11:24-0500 Systolic blood pressure 106 mm[Hg] Nicolasa Chino MD Work Phone: [facility] 02-27-2023 08:12-0400 Body height 175.3 cm Iman Disha LIGHT TRUCK DRIVER.RESTAURANT SERVICE MANAGER Work Phone: [facility] 02-27-2023 08:12-0400 Body weight 144.7 kg Iman Disha LIGHT TRUCK DRIVER.RESTAURANT SERVICE MANAGER Work Phone: [facility] 02-27-2023 08:12-0400 Diastolic blood pressure 94 mm[Hg] Iman Disha LIGHT TRUCK DRIVER.RESTAURANT SERVICE MANAGER Work Phone: [facility] 02-27-2023 08:12-0400 Systolic blood pressure 146 mm[Hg] Iman Caneadea LIGHT TRUCK DRIVER.RESTAURANT SERVICE MANAGER Work Phone: [facility] 11-08-2022 04:47-0400 Body temperature 98.24 [degF] PILY LEWIS DO [facility] 11-08-2022 04:47-0400 Diastolic Blood Pressure Non-Invasive 78 1 PILY LEWIS DO [facility] 11-08-2022 04:47-0400 Heart rate 89 /min PILY LEWIS DO [facility] 11-08-2022 04:47-0400 Respiratory rate 18 /min PILY DURESKA DO [facility] 11-08-2022 04:47-0400 Systolic Blood Pressure Non-Invasive 134 1 PILY DURESKA DO [facility] 11-08-2022 03:41-0400 Body height 175.3 cm PILY DURESKA DO [facility] 11-08-2022 03:41-0400 Body temperature 98.06 [degF] PILY BLEDSOEESKA DO [facility] 11-08-2022 03:41-0400 Body weight 131.8 kg PILY BLEDSOEESKA DO [facility] 11-08-2022 03:41-0400 Diastolic Blood Pressure Non-Invasive 80 1 PILY BLEDSOEESKA DO [facility] 11-08-2022 03:41-0400 Heart rate 125 /min PILY LEIGHKA DO [facility] 11-08-2022 03:41-0400 Respiratory rate 20 /min PILY BLEDSOEESKA DO [facility] 11-08-2022 03:41-0400 Systolic Blood Pressure Non-Invasive 145 1 PILY BLEDSOEESKA DO [facility] 11-07-2022 16:02-0400 Diastolic Blood Pressure Non-Invasive [address] GILBERTO BRUMFIELD MD [facility] 11-07-2022 16:02-0400 Heart rate 97 /min DR GILBERTO BRUMFIELD MD [facility] 11-07-2022 16:02-0400 Respiratory rate 17 /min DR GILBERTO BRUMFIELD MD [facility] 11-07-2022 16:02-0400 Systolic Blood Pressure Non-Invasive [address] GILBERTO BRUMFIELD MD [facility] 11-07-2022 15:45-0400 Diastolic Blood Pressure Non-Invasive [address] GILBERTO BRUMFIELD MD [facility] 11-07-2022 15:45-0400 Heart rate 94 /min DR GILBERTO BRUMFIELD MD [facility] 11-07-2022 15:45-0400 Respiratory rate 17 /min DR GILBERTO BRUMFIELD MD [facility] 11-07-2022 15:45-0400 Systolic Blood Pressure Non-Invasive [address] GILBERTO BRUMFIELD MD [facility] 11-07-2022 15:25-0400 Diastolic Blood Pressure Non-Invasive [address] GILBERTO BRUMFIELD MD [facility] 11-07-2022 15:25-0400 Heart rate 94 /min DR GILBERTO BRUMFIELD MD [facility] 11-07-2022 15:25-0400 Respiratory rate 21 /min DR GILBERTO BRUMFIELD MD [facility] 11-07-2022 15:25-0400 Systolic Blood Pressure Non-Invasive [address] GILBERTO BRUMFIELD MD [facility] 11-07-2022 14:51-0400 Body temperature 96.8 [degF] DR GILBERTO BRUMFIELD MD [facility] 11-07-2022 14:45-0400 Respiratory Rate - Anes 22 br/min DR GILBERTO BRUMFIELD MD [facility] 11-07-2022 14:40-0400 Respiratory Rate - Anes 21 br/min DR GILBERTO BRUMFIELD MD [facility] 11-07-2022 14:35-0400 Respiratory Rate - Anes 22 br/min DR GILBERTO BRUMFIELD MD [facility] 11-07-2022 10:58-0400 Body height 175.[address] GILBERTO BRUMFIELD MD [facility] 11-07-2022 10:58-0400 Body temperature 96.98 [degF] DR GILBERTO BRUMFIELD MD [facility] 11-07-2022 10:58-0400 Body weight 131.[address] GILBERTO BRUMFIELD MD [facility] 11-03-2022 08:25-[address] GILBERTO BRUMFIELD MD [facility] 11-03-2022 08:25-[address] GILBERTO Umanzor [facility] 11-03-2022 08:25-0400 Body height 175.[address] GILBERTO BRUMFIELD MD [facility] 11-03-2022 08:25-0400 Body weight 131.[address] GILBERTO BRUMFIELD MD [facility] 11-03-2022 08:25-0400 Body weight 42.89 kg/m2 DR GILBERTO BRUMFIELD MD [facility] 11-03-2022 08:25-0400 Diastolic Blood Pressure Non-Invasive [address] GILBERTO BRUMFIELD MD [facility] 11-03-2022 08:25-0400 Heart rate 106 /min DR GILBERTO BRUMFIELD MD [facility] 11-03-2022 08:25-0400 Respiratory rate 18 /min DR GILBERTO BRUMFIELD MD [facility] 11-03-2022 08:25-0400 Systolic Blood Pressure Non-Invasive [address] GILBERTO BRUMFIELD MD [facility] Encounters Encounter Date Encounter Type Care Provider Facility Start: 04-07-2023 End: 04-07-2023 ambulatory NICOLASA CHINO Facility:[facility] Start: 04-07-2023 End: 04-07-2023 Patient encounter procedure Nicolasa Chino MD Work Phone: OB/Gynecology Procedures Date Procedure Procedure Detail Performing Clinician Start: 11-07-2022 Bone structure of fi bula (body structure) DR GILBERTO BRUMFIELD MD Plan of Treatment Date Care Activity Detail Author Start: 09-18-2030 Urine microalbumin profile DTaP,Tdap,Td Vaccine (2 - Td or Tdap) [facility] Start: 12-26-2022 Covid-19 Vaccine ( season) Covid-19 Vaccine ( season) [facility] Start: 12-26-2022 Covid-19 Vaccine ( season) Covid-19 Vaccine ( season) [facility] Start: 12-26-2022 Influenza vaccination [facility] Start: 2015 Pap Testing Pap Testing [facility] Start: 2015 Screening for malignant neoplasm of cervix Pap Testing [facility] Start: 2012 Hepatitis C Screening Hepatitis C Screening [facility] Start: 2012 Hepatitis C screening Hepatitis C Screening [facility] Start: 2012 HIV Screening HIV Screening [facility] Start: 2012 HIV screening HIV Screening [facility] Start: 1994 Hepatitis B Vaccine (1 of 3 - 3-dose series) Hepatitis B Vaccine (1 of 3 - 3-dose series) [facility] End: 03-28-2024 Us transvaginal US FEMALE PELVIS TRANSVAG Radiology Routine Abnormal uterine bleeding (AUB) 1 Occurrences starting 02/27/2023 until 03/28/2024 [facility] Work Phone: Immunizations Immunization Date Immunization Notes Care Provider Ac moore 04-05-2021 influenza virus vacc ine, unspecified formulation Nicolasa Chino MD Work Phone: [facility] 03-17-2020 influenza virus vacc ine, unspecified formulation Iman Disha ZAVALETA Work Phone: [facility] Payers Date Payer Category Payer Medicaid [facility] MEDICAID [place] [employer] [place] [id number] 2022-Present [phone] [address] [place] [address] Medicaid [id number] 2022 Unknown [id number] 1994 Unknown [id number] 1994 Unknown [id number] 1994 Unknown [id number] 1994 Unknown [id number] 1994 Unknown [id number] 1994 Unknown [id number] Unknown [id number] Social History Date Type Detail Facility Start: 11-03-2022 End: 04-07-2023 Tobacco smoking status Never smoked tobacco (finding) [facility] Sex Assigned At Sex [facility] Start: 09-14-2018 End: 04-07-2023 Tobacco use and exposure Smokeless tobacco non-user [facility] Start: 02-27-2023 End: 04-07-2023 Alcohol intake Current drinker of alcohol (finding) [facility] Start: 04-11-2019 End: 04-07-2023 History of Social function [facility] Start: 04-11-2019 End: 04-07-2023 Alcohol Use Disorder Identification Test - Consumption [AUDIT-C] [facility] How often to you hav e a drink containing alcohol? 2-4 times a month [facility] Average Number of Drinks Not on file [facility] Start: 1994 Sex Assigned At Not on file [facility] Functional Status Date Assessment Result Facility 11-08-2022 Functional Status Activity Carlos Alberto tance Maximum assistance [facility] 11-07-2022 Functional Status right knee high [facility] 11-07-2022 Functional Status ice on [facility] 11-07-2022 Functional Status Maintained [facility] Mental Status Date Assessment Result Facility 11-08-2022 Mental Status Orientation Oriented x 4 [facility] 11-07-2022 Mental Status Oriented x 4 [facility] 11-07-2022 Mental Status [facility] Clinical Notes 12-21-2020 to 04-07-2023 Nicolasa Chino MD - 04/07/2023 11:21 AM Angélica Hernandez RDMS - 03/06/2023 10:30 AM Iman Carcamo APRN.RESTAURANT SERVICE MANAGER - 02/27/2023 8:02 AM EDT Note Date & Type Note Facility 04-07-2023 Note HNO ID: [id number] Author: Nicolasa Chino MD Service: ? Author Type: Physician Type: Progress Notes Filed: 04/07/2023 1:00 PM Note Text: Gaby Minor is a 27 year old female who presents for problem visit for abnormal uterine bleeding. HPI: 27 YOF here w/ c./o heavy and prolonged menses. Had an endometrial ablation and tubal in 2021 at age 26. 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 Changes pasds q 90 min when heaviest. Bleeds for up to two weeks at a time. Cramping doesn't limit activity. Denies dyspareunia. 2 SVDs without complication. Denies problems w/ BM or urination. No pelvic pressure or feeling of prolapse. No feeling of incomplete void. No h/o prolonged bleeding or easy bruising. Patient states she has h/o eating discorder, OCD and has had a lot of mood problems worsening on OCPs in the past. Tried several types in the past. Sees a counselor and psychologist. States she has had a hard time exercising since broke leg and had to have surgery and hardware put in this summer. Gained approx 20 lbs. Stated she is wanting to be healthier. OB History T2 L2 SAB1 IAB0 Ectopic0 Multiple0 Live Births2 Bottle Tester History LMP: Ablation Age at Menarche: Age at First : Age at Menopause: Bottle Tester History Comments: Sexual Activity: Yes; Male; ablation Contraception: Tubal Ligation PAST MEDICAL HISTORY Diagnosis Date COVID 08/2022 Depression Epidermolysis bullosa simplex Essential hypertension 09/2022 after covid CARTER (generalized anxiety disorder) MDD (major depressive disorder) OCD (obsessive compulsive disorder) Post depression PAST SURGICAL HISTORY Procedure Laterality Date DANDC, DIAG AND/OR THERAPEUTIC 09/2021 LEG SURGERY HX Left 10/2022 broke tibula fibula and ankle LIGATE FALLOPIAN TUBE 01/30/2022 S BALLOON,UTERINE ABLATION [id number] 01/30/2022 FAMILY HISTORY Problem Relation Age of Onset No Known Problems Mother Hypertension Father No Known Problems Sister Social History Tobacco Use Smoking status: Never Smokeless tobacco: Never Vaping Use Vaping Use: Never used Substance Use Topics Alcohol use: Yes Drug use: Never Current Outpatient Medications Medication Sig tranexamic acid (LYSTEDA) 650 mg tablet Take 2 tablets 3 times a day as needed for heavy bleeding up to 5 days. norethindrone (AYGESTIN) 5 mg tablet Take 1 tablet TID until bleeding stops, the BID x 3 days, the daily x 3 days. Lactobacillus acidophilus (PROBIOTIC ORAL) Probiotic 0 Refill(s) Start Date: 11/03/22 Status: Ordered cetirizine (ZYRTEC) 10 mg tablet Take 10 mg by mouth. ARIPiprazole (ABILIFY) 5 mg tablet dilTIAZem CR (TIAZAC, TAZTIA XT) 120 mg 24 hr capsule meloxicam (MOBIC) 7.5 mg tablet venlafaxine ER (EFFEXOR XR) 150 mg 24 hr capsule cholecalciferol (VITAMIN D-3) 5,000 unit tab Take 5,000 Units by mouth once daily. No current facility-administered medications for this visit. Allergies As of Date: 04/07/2023 Allergen Noted Reaction LANOLIN 10/20/2018 Rash Fully Assessed 04/07/2023 Allergies and current medication updated:Yes EXAM: BP 106/80 Wt 312 lb 9.6 oz (141.8kg) GENERAL: pleasant, female in no apparent distress ABDOMEN: soft, non-tender, no masses, and pannus moderate PELVIC: external genitalia normal, normal Bartholin's glands, urethra, [place] Grant's glands, no vulvar lesions, no cervical lesions, good vaginal support, physiologic discharge present, normal appearing perineal body and perianal region BIMANUAL: uterus normal size, shape and consistency, no adnexal masses, and non-tender ASSESSMENT AND PLAN: menorrhagia, failed OCPs in the past, hesitant to retry due to mood side effects in the past. D/ wher short and salvage determiner risks to hyst. Has previous ablation and sterilization so conception is contraindicated already. However, d/w her would recommend trial of hormonal therapy. Has tried lysteda and it did lighten bleeding but still having prolonged bleeding. Mirena contraindicated due to previous ablation. If surgery would be TVH. Obesity-offered obesity medicine consult, will consider. Nicolasa Chino MD I spent a total of 36 minutes on the date of the service which included preparing to see the patient, [id number] patient care, completing clinical documentation, obtaining and/or reviewing separately obtained history, performing a medically appropriate examination, and independently interpreting results (not separately reported). [facility] 04-07-2023 History of Presen t illness Narrative Gaby Minor is a 27 year old female who presents for problem visit for abnormal uterine bleeding. HPI: 27 YOF here w/ c./o heavy and prolonged menses. Had an endometrial ablation and tubal in 2021 at age 26. 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 Changes pasds q 90 min when heaviest. Bleeds for up to two weeks at a time. Cramping doesn't limit activity. Denies dyspareunia. 2 SVDs without complication. Denies problems w/ BM or urination. No pelvic pressure or feeling of prolapse. No feeling of incomplete void. No h/o prolonged bleeding or easy bruising. Patient states she has h/o eating discorder, OCD and has had a lot of mood problems worsening on OCPs in the past. Tried several types in the past. Sees a counselor and psychologist. States she has had a hard time exercising since broke leg and had to have surgery and hardware put in this summer. Gained approx 20 lbs. Stated she is wanting to be healthier. OB History T2 L2 SAB1 IAB0 Ectopic0 Multiple0 Live Births2 Bottle Tester History LMP: Ablation Age at Menarche: Age at First : Age at Menopause: Bottle Tester History Comments: Sexual Activity: Yes; Male; ablation Contraception: Tubal Ligation PAST MEDICAL HISTORY Diagnosis Date COVID 08/2022 Depression Epidermolysis bullosa simplex Essential hypertension 09/2022 after covid CATRER (generalized anxiety disorder) MDD (major depressive disorder) OCD (obsessive compulsive disorder) Post depression PAST SURGICAL HISTORY Procedure Laterality Date D&C, DIAG AND/OR THERAPEUTIC 09/2021 LEG SURGERY HX Left 10/2022 broke tibula fibula and ankle LIGATE FALLOPIAN TUBE 01/30/2022 S BALLOON,UTERINE ABLATION [id number] 01/30/2022 FAMILY HISTORY Problem Relation Age of Onset No Known Problems Mother Hypertension Father No Known Problems Sister Social History Tobacco Use Smoking status: Never Smokeless tobacco: Never Vaping Use Vaping Use: Never used Substance Use Topics Alcohol use: Yes Drug use: Never Current Outpatient Medications Medication Sig tranexamic acid (LYSTEDA) 650 mg tablet Take 2 tablets 3 times a day as needed for heavy bleeding up to 5 days. norethindrone (AYGESTIN) 5 mg tablet Take 1 tablet TID until bleeding stops, the BID x 3 days, the daily x 3 days. Lactobacillus acidophilus (PROBIOTIC ORAL) Probiotic 0 Refill(s) Start Date: 11/03/22 Status: Ordered cetirizine (ZYRTEC) 10 mg tablet Take 10 mg by mouth. ARIPiprazole (ABILIFY) 5 mg tablet dilTIAZem CR (TIAZAC, TAZTIA XT) 120 mg 24 hr capsule meloxicam (MOBIC) 7.5 mg tablet venlafaxine ER (EFFEXOR XR) 150 mg 24 hr capsule cholecalciferol (VITAMIN D-3) 5,000 unit tab Take 5,000 Units by mouth once daily. No current facility-administered medications for this visit. Allergies As of Date: 04/07/2023 Allergen Noted Reaction LANOLIN 10/20/2018 Rash Fully Assessed 04/07/2023 Allergies and current medication updated:Yes EXAM: BP 106/80 Wt 312 lb 9.6 oz (141.8kg) GENERAL: pleasant, female in no apparent distress ABDOMEN: soft, non-tender, no masses, and pannus moderate PELVIC: external genitalia normal, normal Bartholin's glands, urethra, [place] Grant's glands, no vulvar lesions, no cervical lesions, good vaginal support, physiologic discharge present, normal appearing perineal body and perianal region BIMANUAL: uterus normal size, shape and consistency, no adnexal masses, and non-tender ASSESSMENT AND PLAN: menorrhagia, failed OCPs in the past, hesitant to retry due to mood side effects in the past. D/ wher short and correction risks to hyst. Has previous ablation and sterilization so conception is contraindicated already. However, d/w her would recommend trial of hormonal therapy. Has tried lysteda and it did lighten bleeding but still having prolonged bleeding. Mirena contraindicated due to previous ablation. If surgery would be TVH. Obesity-offered obesity medicine consult, will consider. Nicolasa Chino MD I spent a total of 36 minutes on the date of the service which included preparing to see the patient, [id number] patient care, completing clinical documentation, obtaining and/or reviewing separately obtained history, performing a medically appropriate examination, and independently interpreting results (not separately reported). documented in this encounter [facility] 03-06-2023 Note HNO ID: [id number] Author: Angélica Rodriguez RDMS Service: ? Author Type: Building Coordinator Type: Progress Notes Filed: 03/06/2023 10:58 AM Note Text: Radiology Service Progress Note PATIENT NAME: Gaby Minor DATE OF SERVICE: March 06, 2023 TIME: 10:57 AM PATIENT IDENTITY VERIFICATION COMPLETED USING TWO (2) IDENTIFIERS: Name and Date of confirmed by patient verbally. FALL SCREENING: Has the patient had 2 falls in the last year or 1 fall with injury or currently using an Ambulatory Assistive Device (Walker, Cane, Wheelchair, Crutches, etc.)? No PATIENT GENDER DATA: Female. status: : No status: NO. PATIENT RELEVANT IMPLANT DATA REVIEWED: Not Applicable RADIOLOGY DEPARTMENT: Ultrasound PERIPHERAL IV DATA: Not applicable SIGNED BY: Angélica Rodriguez RDMS March 06, 2023 10:57 AM [facility] 03-06-2023 History of Presen t illness Narrative Radiology Service Progress Note PATIENT NAME: Gaby Minor DATE OF SERVICE: March 06, 2023 TIME: 10:57 AM PATIENT IDENTITY VERIFICATION COMPLETED USING TWO (2) IDENTIFIERS: Name and Date of confirmed by patient verbally. FALL SCREENING: Has the patient had 2 falls in the last year or 1 fall with injury or currently using an Ambulatory Assistive Device (Walker, Cane, Wheelchair, Crutches, etc.)? No PATIENT GENDER DATA: Female. status: : No status: NO. PATIENT RELEVANT IMPLANT DATA REVIEWED: Not Applicable RADIOLOGY DEPARTMENT: Ultrasound PERIPHERAL IV DATA: Not applicable SIGNED BY: Angélica Rodriguez RDMS March 06, 2023 10:57 AM documented in this encounter [facility] 02-27-2023 Note HNO ID: [id number] Author: Iman Gauthier APRN.RESTAURANT SERVICE MANAGER Service: ? Author Type: Nurse Practitioner Type: Progress Notes Filed: 02/27/2023 9:16 AM Note Text: Gaby Minor is a 27 year old female who presents for problem visit abnormal bleeding for 10 month(s). HPI: pt had a ablation and salpingectomy in 02/15 for heavy and prolong period lasting 2.5-3 weeks. For 2 months after ablation with light spotting. Mook started with a little heavier bleeding last 2 weeks which has just progress to longer and heavier bleeding now. In Sept bled for 25 day, with 2 weeks off and now on 14 days of bleeding. She is having some mild cramping. Bleeding starts off light and with each week gets heavier. OB History T2 L2 SAB1 IAB0 Ectopic0 Multiple0 Live Births2 Bottle Tester History LMP: Unknown Age at Menarche: Age at First : Age at Menopause: Bottle Tester History Comments: Sexual Activity: Yes; Male; ablation Contraception: Tubal Ligation PAST MEDICAL HISTORY Diagnosis Date COVID 08/2022 Depression Epidermolysis bullosa simplex Essential hypertension 09/2022 after covid CARTER (generalized anxiety disorder) MDD (major depressive disorder) OCD (obsessive compulsive disorder) Post depression PAST SURGICAL HISTORY Procedure Laterality Date DANDC, DIAG AND/OR THERAPEUTIC 09/2021 LEG SURGERY HX Left 10/2022 broke tibula fibula and ankle LIGATE FALLOPIAN TUBE 01/30/2022 S BALLOON,UTERINE ABLATION [id number] 01/30/2022 FAMILY HISTORY Problem Relation Age of Onset No Known Problems Mother Hypertension Father No Known Problems Sister Social History Tobacco Use Smoking status: Never Smokeless tobacco: Never Vaping Use Vaping Use: Never used Substance Use Topics Alcohol use: Yes Drug use: Never Current Outpatient Medications Medication Sig citalopram (CELEXA) 40 mg tablet Take 40 mg by mouth once daily. traZODone (DESYREL) 50 mg tablet Take 50 mg by mouth daily at bedtime. PRN fluticasone (FLONASE) 50 mcg/actuation nasal spray Use 2 Sprays in each nostril once daily. Rinse mouth after use. busPIRone (BUSPAR) 5 mg tablet TAKE 1 TABLET BY MOUTH ONCE DAILY FOR 3 DAYS THEN 1 TABLET TWICE DAILY sertraline (ZOLOFT) 50 mg tablet Take 1.5 tablets by mouth once daily. (Patient not taking: Reported on 06/11/2020 ) minerals ([employer] MINERAL ORAL) Take 1,000 mg by mouth once daily. B Complex Vitamins capsule Take 1 capsule by mouth once daily. cholecalciferol (VITAMIN D-3) 5,000 unit tab Take 5,000 Units by mouth once daily. No current facility-administered medications for this visit. Allergies As of Date: 02/27/2023 Allergen Noted Reaction LANOLIN 10/20/2018 Rash Fully Assessed 06/11/2020 REVIEW OF SYSTEMS Abdomen: No bloating, early satiety, indigestion, or increased flatulence. No abdominal pain, nausea, vomiting, diarrhea, or constipation. Expanded ROS: N/A Allergies and current medication updated:Yes EXAM: There were no vitals taken for this visit. GENERAL: pleasant, female in no apparent distress HEENT: Normocephalic, atraumatic, mucus membranes moist, and no lesions CHEST: Normal inspiratory effort NEURO: alert and oriented x3,exam grossly non-focal EXTREMITIES: normal ASSESSMENT/PLAN: 1. Abnormal uterine bleeding (AUB) - ICD9: 626.9, ICD10: N93.9 - CBC + DIFF - US FEMALE PELVIS TRANSVAG - IRON + TIBC - TSH BLD Will notify patient of test results. Pt will most likely need to have a hysterectomy, she does not want to do hormonal control due problems with it in the past and mental illness. Iman Gauthier, LIGHT TRUCK DRIVER.RESTAURANT SERVICE MANAGER Medical Decision Making: Problems: Moderate: New problem with uncertain prognosis Data: Unique test(s) ordered: 3+ Risk: Low: Low risk from testing/treatment Medical Decision Making Level: 4 - Moderate [facility] 02-27-2023 History of Presen t illness Narrative Gaby Minor is a 27 year old female who presents for problem visit abnormal bleeding for 10 month(s). HPI: pt had a ablation and salpingectomy in 02/15 for heavy and prolong period lasting 2.5-3 weeks. For 2 months after ablation with light spotting. Mook started with a little heavier bleeding last 2 weeks which has just progress to longer and heavier bleeding now. In Sept bled for 25 day, with 2 weeks off and now on 14 days of bleeding. She is having some mild cramping. Bleeding starts off light and with each week gets heavier. OB History T2 L2 SAB1 IAB0 Ectopic0 Multiple0 Live Births2 Bottle Tester History LMP: Unknown Age at Menarche: Age at First : Age at Menopause: Bottle Tester History Comments: Sexual Activity: Yes; Male; ablation Contraception: Tubal Ligation PAST MEDICAL HISTORY Diagnosis Date COVID 08/2022 Depression Epidermolysis bullosa simplex Essential hypertension 09/2022 after covid CARTER (generalized anxiety disorder) MDD (major depressive disorder) OCD (obsessive compulsive disorder) Post depression PAST SURGICAL HISTORY Procedure Laterality Date D&C, DIAG AND/OR THERAPEUTIC 09/2021 LEG SURGERY HX Left 10/2022 broke tibula fibula and ankle LIGATE FALLOPIAN TUBE 01/30/2022 S BALLOON,UTERINE ABLATION [id number] 01/30/2022 FAMILY HISTORY Problem Relation Age of Onset No Known Problems Mother Hypertension Father No Known Problems Sister Social History Tobacco Use Smoking status: Never Smokeless tobacco: Never Vaping Use Vaping Use: Never used Substance Use Topics Alcohol use: Yes Drug use: Never Current Outpatient Medications Medication Sig citalopram (CELEXA) 40 mg tablet Take 40 mg by mouth once daily. traZODone (DESYREL) 50 mg tablet Take 50 mg by mouth daily at bedtime. PRN fluticasone (FLONASE) 50 mcg/actuation nasal spray Use 2 Sprays in each nostril once daily. Rinse mouth after use. busPIRone (BUSPAR) 5 mg tablet TAKE 1 TABLET BY MOUTH ONCE DAILY FOR 3 DAYS THEN 1 TABLET TWICE DAILY sertraline (ZOLOFT) 50 mg tablet Take 1.5 tablets by mouth once daily. (Patient not taking: Reported on 06/11/2020 ) minerals ([employer] MINERAL ORAL) Take 1,000 mg by mouth once daily. B Complex Vitamins capsule Take 1 capsule by mouth once daily. cholecalciferol (VITAMIN D-3) 5,000 unit tab Take 5,000 Units by mouth once daily. No current facility-administered medications for this visit. Allergies As of Date: 02/27/2023 Allergen Noted Reaction LANOLIN 10/20/2018 Rash Fully Assessed 06/11/2020 REVIEW OF SYSTEMS Abdomen: No bloating, early satiety, indigestion, or increased flatulence. No abdominal pain, nausea, vomiting, diarrhea, or constipation. Expanded ROS: N/A Allergies and current medication updated:Yes EXAM: There were no vitals taken for this visit. GENERAL: pleasant, female in no apparent distress HEENT: Normocephalic, atraumatic, mucus membranes moist, and no lesions CHEST: Normal inspiratory effort NEURO: alert and oriented x3,exam grossly non-focal EXTREMITIES: normal ASSESSMENT/PLAN: 1. Abnormal uterine bleeding (AUB) - ICD9: 626.9, ICD10: N93.9 - CBC + DIFF - US FEMALE PELVIS TRANSVAG - IRON + TIBC - TSH BLD Will notify patient of test results. Pt will most likely need to have a hysterectomy, she does not want to do hormonal control due problems with it in the past and mental illness. Iman Gauthier APRN.CNP Medical Decision Making: Problems: Moderate: New problem with uncertain prognosis Data: Unique test(s) ordered: 3+ Risk: Low: Low risk from testing/treatment Medical Decision Making Level: 4 - Moderate documented in this encounter [facility] 11-08-2022 Hospital Discharg e instructions Patient Education 11/08/2022 04:29:13 Ankle Fracture Ankle Fracture You have an ankle fracture. This means that one or more of the bones that make up the ankle joint are broken. This often causes pain, swelling, and bruising. A fracture is treated with a splint, cast, or special boot. It will take about 4 to 6 weeks for the fracture to heal. Surgery may be needed to fix severe injuries. Home care You will be given a splint, cast, or boot to prevent movement at the ankle joint. Unless you were told otherwise, use crutches or a walker. Don t put weight on the injured leg until cleared by your healthcare provider to do so. Crutches and walkers can be rented at many pharmacies and surgical or orthopedic supply stores. Don t put weight on a splint. It will break. Keep your leg raised to reduce pain and swelling. When sleeping, place a pillow under the injured leg. When sitting, support the injured leg so it is often. This is very important during the first 48 hours. Apply an ice pack over the injured area for no more than 15 to 20 minutes. Do this every 3 to 6 hours for the first 24 to 48 hours. Keep using ice packs 3 to 4 times a day for the next 2 to 3 days, then as needed to ease pain and swelling. To make an ice pack, put ice cubes in a plastic bag that seals at the top. Wrap the bag in a clean, thin towel or cloth. Never put ice or an ice pack directly on the skin. You can place the ice pack directly over the cast or splint. As the ice melts, be careful that the cast or splint doesn t get wet. Keep the cast, splint, or boot completely dry at all times. Bathe with your cast, splint, or boot out of the water, protected with [address] 1 bag outside of the other. Tape each bag with duct tape at the top end or use rubber bands. Water can still leak in. So it's best to keep the cast, splint, or boot away from water. If a boot or fiberglass cast or splint gets wet, dry it with a chair spring assembler on a cool setting. You may use uyen-vhe-rqnucoq pain medicine to control pain, unless another pain medicine was prescribed. Talk with your provider before using these medicines if you have chronic liver or kidney disease or ever had a stomach ulcer or GI (gastrointestinal) bleeding. Follow-up care Follow up with your healthcare provider in 1 week, or as advised. This is to be sure the bone is healing correctly. If you were given a splint, it may be changed to a cast or boot at your follow-up visit. If X-rays were taken, you will be told of any new findings that may affect your care. When to seek medical advice Call your healthcare provider right away if any of these occur: The plaster cast or splint becomes wet or soft The fiberglass cast or splint stays wet for more than 24 hours There is increased tightness, sore areas, or pain under the cast or splint Your toes become swollen, cold, blue, numb, or tingly The cast or splint becomes loose The cast or splint has a bad smell The cast or splint develops cracks or breaks [id number] [employer]. [address] [place] [address]. All rights reserved. This information is not intended as a substitute for professional medical care. Always follow your healthcare professional's instructions. Follow Up Care 11/08/2022 03:34:51 With:GILBERTO BRUMFIELD MD Address: [address] [place] [address] [facility] [place] [address]- [phone] When:2-4 days [facility] 07-15-2023 Note Discharge Instructions Thank you for allowing [facility] to assist you with your healthcare needs. The following is important discharge information regarding your hospital visit. Diagnosis from Today's Visit Ankle fracture, Ankle fracture Leg pain Leg pain-swelling What to Do Next Instructions from Your Care Team No qualifying data available. Post Acute Orders No qualifying data available. You Need to Schedule the Following Appointments Follow Up with GILBERTO BRUMFIELD MD When Within 2-4 days Where: [address] [place] [facility] [place] [address]- [phone] Allergies Lanolin (Rash) Medications Please ask your primary doctor or pharmacist before taking any other medication not listed, including over the counter drugs, herbal medications, vitamins and or supplements as they may interact with your home medications. What How Much When Why Instructions Last Dose New morphine (MS Contin 15 mg/ 8-12 hrs oral tablet, extended release) 1 tab(s) by mouth Every 12 hours Leg pain Ankle fracture Duration: 2 Days Printed Prescription Unchanged ARIPiprazole (ARIPiprazole 2 mg oral tablet) 3 tab(s) by mouth Every day Unchanged cetirizine (Zyrtec 10 mg oral tablet) 1 tab(s) by mouth Once a day as needed for as needed for allergy symptoms Unchanged cholecalciferol (Vitamin D3) 100 Microgram by mouth Every day Unchanged herbal/ nutritional product (Probiotic) Unchanged metoprolol (Metoprolol Tartrate 50 mg oral tablet) TAKE 1 TABLET BY MOUTH ONCE DAILY Unchanged multivitamin (Vitamin B Complex oral capsule) 1 cap by mouth Every day Unchanged oxyCODONE (oxyCODONE 5 mg oral tablet ( IMMEDIATE release )) 1 tab(s) by mouth Every 6 hours as needed for for pain Unchanged venlafaxine (Effexor XR 150 mg oral capsule, extended release) 2 cap by mouth Once a day with a meal stop Celexa Please take this list to your next doctor s visit. Bring all medications you take, including over the counter medications, herbals and other supplements with you to your doctor s visit. Patients and families are reminded to discard old lists and to update any records with all medication providers or retail pharmacies. Medication Leaflets morphine (oral) (MOR feeshamir) MS Osiris Contin What is the most important information I should know about morphine? MISUSE OF OPIOID MEDICINE CAN CAUSE ADDICTION, OVERDOSE, OR . Keep the medicine where others cannot get to it. Using opioid medicine during may cause life-threatening withdrawal symptoms in the . Fatal side effects can occur if you use opioid medicine with alcohol, or with other drugs that cause drowsiness or slow your breathing. What is morphine? Morphine is an opioid medicine used to treat moderate to severe pain. Short-acting morphine is taken as needed for pain. The extended-release form of morphine is for zdcqsj-zzl-wmsdv treatment of pain. This form of morphine is not for use on an as-needed basis for pain. Morphine may also be used for purposes not listed in this medication guide. What should I discuss with my healthcare provider before using morphine? You should not take this medicine if you have ever had an allergic reaction to morphine or other narcotic medicines, or if you have: severe asthma or breathing problems; a stomach or bowel obstruction (including paralytic ileus); or if you have taken an MAO inhibitor in the past 14 days, such as isocarboxazid, linezolid, methylene blue injection, phenelzine, or tranylcypromine. Tell your doctor if you have ever had: breathing problems, sleep apnea (breathing stops during sleep); a head injury, brain tumor, or seizures; a drug or alcohol addiction, or mental illness; urination problems; liver or kidney disease; or problems with your gallbladder, pancreas, or thyroid. If you use opioid medicine while you are , your baby could become dependent on the drug. This can cause life-threatening withdrawal symptoms in the baby after it is born. Babies born dependent on opioids may need medical treatment for several weeks. Ask a doctor before using opioid medicine if you are . Tell your doctor if you notice severe drowsiness or slow breathing in the nursing baby. How should I use morphine? Follow the directions on your prescription label and read all medication guides. Never use morphine in larger amounts, or for longer than prescribed. Tell your doctor if you feel an increased urge to take more of this medicine. Never share opioid medicine with another person, especially someone with a history of drug addiction. MISUSE CAN CAUSE ADDICTION, OVERDOSE, OR . Keep the medicine where others cannot get to it. Selling or giving away this medicine is against the law. Stop taking all other mgrifc-fun-cjghp narcotic pain medications when you start taking morphine. Swallow the capsule or tablet whole to avoid exposure to a potentially fatal overdose. Do not crush, chew, break, open, or dissolve. Measure liquid medicine with the supplied syringe or a dose-measuring device (not a kitchen spoon). You may have withdrawal symptoms if you stop using morphine suddenly. Ask your doctor before stopping the medicine. Never crush a pill to inhale the powder or inject it into your vein. This could result in . Store at room temperature, away from heat, moisture, and light. Keep track of your medicine. You should be aware if anyone is using it improperly or without a prescription. Do not keep leftover opioid medication. Just one dose can cause in someone using this medicine accidentally or improperly. Ask your pharmacist where to locate a drug take-back disposal program. If there is no take-back program, flush the unused medicine down the toilet. What happens if I miss a dose? Since morphine is used for pain, you are not likely to miss a dose. If you do miss a dose, take the medicine as soon as you remember. Then take your next dose as follows: If you take morphine 1 time per day: Take your next dose 24 hours after taking the missed dose. If you take morphine 2 times per day: Take your next dose 12 hours after taking the missed dose. If you take morphine 3 times per day: Take your next dose 8 hours after taking the missed dose. Do not take two doses at one time. Do not take more than your prescribed dose in a 24-hour period. What happens if I overdose? Seek emergency medical attention or call the Poison Help line at . An overdose can be fatal, especially in a child or person using opioid medicine without a prescription. Overdose symptoms may include severe drowsiness, pinpoint pupils, slow breathing, or no breathing. Your doctor may recommend you get naloxone (a medicine to reverse an opioid overdose) and keep it with you at all times. A person caring for you can give the naloxone if you stop breathing or don't wake up. Your caregiver must still get emergency medical help and may need to perform CPR (cardiopulmonary resuscitation) on you while waiting for help to arrive. Anyone can buy naloxone from a pharmacy or local health department. Make sure any person caring for you knows where you keep naloxone and how to use it. What should I avoid while using morphine? Do not drink alcohol. Dangerous side effects or could occur. Avoid driving or hazardous activity until you know how this medicine will affect you. Dizziness or drowsiness can cause falls, accidents, or severe injuries. What are the possible side effects of morphine? Get emergency medical help if you have signs of an allergic reaction: hives; difficult breathing; swelling of your face, lips, tongue, or throat. Opioid medicine can slow or stop your breathing, and may occur. A person caring for you should seek emergency medical attention if you have slow breathing with long pauses, blue colored lips, or if you are hard to wake up. Call your doctor at once if you have: slow heart rate, sighing, weak or shallow breathing, breathing that stops; chest pain, fast or pounding heartbeats; extreme drowsiness, feeling like you might pass out; serotonin syndrome--agitation, hallucinations, fever, fast heart rate, muscle stiffness, twitching, loss of coordination, nausea, diarrhea; or low cortisol levels--nausea, vomiting, loss of appetite, dizziness, worsening tiredness or weakness. Serious breathing problems may be more likely in older adults and people who are debilitated or have wasting syndrome or chronic breathing disorders. Common side effects may include: drowsiness, dizziness, tiredness; constipation, stomach pain, nausea, vomiting; sweating; or feelings of extreme happiness or sadness. This is not a complete list of side effects and others may occur. Call your doctor for medical advice about side effects. You may report side effects to FDA at 8-563-GXS-9276. What other drugs will affect morphine? Many other drugs can be dangerous when used with opioid medicine. Tell your doctor if you also use: other opioid medicines; a benzodiazepine sedative like Valium, Klonopin, or Xanax; sleep medicine, muscle relaxers, or other drugs that make you drowsy; or drugs that affect serotonin, such as antidepressants, stimulants, or medicine for migraines or Parkinson's disease. This list is not complete. Many drugs may affect morphine, including prescription and thxv-cwi-nfvpgap medicines, vitamins, and herbal products. Not all possible interactions are listed here. Where can I get more information? Your doctor or pharmacist can provide more information about morphine. Remember, keep this and all other medicines out of the reach of children, never share your medicines with others, and use this medication only for the indication prescribed. Every effort has been made to ensure that the information provided by [employer]. ('[employer]') is accurate, up-to-date, and complete, but no guarantee is made to that effect. Drug information contained herein may be time sensitive. [employer] information has been compiled for use by healthcare practitioners and consumers in the [place] and therefore [employer] does not warrant that uses outside of the [place] are appropriate, unless specifically indicated otherwise. [employer] drug information does not endorse drugs, diagnose patients or recommend therapy. [employer] drug information is an informational resource designed to assist licensed healthcare practitioners in caring for their patients and/or to serve consumers viewing this service as a supplement to, and not a substitute for, the expertise, skill, knowledge and judgment of healthcare practitioners. The absence of a warning for a given drug or drug combination in no way should be construed to indicate that the drug or drug combination is safe, effective or appropriate for any given patient. [employer] does not assume any responsibility for any aspect of healthcare administered with the aid of information [employer] provides. The information contained herein is not intended to cover all possible uses, directions, precautions, warnings, drug interactions, allergic reactions, or adverse effects. If you have questions about the drugs you are taking, check with your doctor, nurse or pharmacist. Copyright 6806-8751 [employer]. Version: 15.02. Revision Date: 10/08/2020. Education Materials Ankle Fracture You have an ankle fracture. This means that one or more of the bones that make up the ankle joint are broken. This often causes pain, swelling, and bruising. A fracture is treated with a splint, cast, or special boot. It will take about 4 to 6 weeks for the fracture to heal. Surgery may be needed to fix severe injuries. Home care You will be given a splint, cast, or boot to prevent movement at the ankle joint. Unless you were told otherwise, use crutches or a walker. Don t put weight on the injured leg until cleared by your healthcare provider to do so. Crutches and walkers can be rented at many pharmacies and surgical or orthopedic supply stores. Don t put weight on a splint. It will break. Keep your leg raised to reduce pain and swelling. When sleeping, place a pillow under the injured leg. When sitting, support the injured leg so it is often. This is very important during the first 48 hours. Apply an ice pack over the injured area for no more than 15 to 20 minutes. Do this every 3 to 6 hours for the first 24 to 48 hours. Keep using ice packs 3 to 4 times a day for the next 2 to 3 days, then as needed to ease pain and swelling. To make an ice pack, put ice cubes in a plastic bag that seals at the top. Wrap the bag in a clean, thin towel or cloth. Never put ice or an ice pack directly on the skin. You can place the ice pack directly over the cast or splint. As the ice melts, be careful that the cast or splint doesn t get wet. Keep the cast, splint, or boot completely dry at all times. Bathe with your cast, splint, or boot out of the water, protected with [address] 1 bag outside of the other. Tape each bag with duct tape at the top end or use rubber bands. Water can still leak in. So it's best to keep the cast, splint, or boot away from water. If a boot or fiberglass cast or splint gets wet, dry it with a chair spring assembler on a cool setting. You may use aepo-rud-mihzbmh pain medicine to control pain, unless another pain medicine was prescribed. Talk with your provider before using these medicines if you have chronic liver or kidney disease or ever had a stomach ulcer or GI (gastrointestinal) bleeding. Follow-up care Follow up with your healthcare provider in 1 week, or as advised. This is to be sure the bone is healing correctly. If you were given a splint, it may be changed to a cast or boot at your follow-up visit. If X-rays were taken, you will be told of any new findings that may affect your care. When to seek medical advice Call your healthcare provider right away if any of these occur: The plaster cast or splint becomes wet or soft The fiberglass cast or splint stays wet for more than 24 hours There is increased tightness, sore areas, or pain under the cast or splint Your toes become swollen, cold, blue, numb, or tingly The cast or splint becomes loose The cast or splint has a bad smell The cast or splint develops cracks or breaks 1204-8502 [employer]. [address] [place] [address], [place] [address]. All rights reserved. This information is not intended as a substitute for professional medical care. Always follow your healthcare professional's instructions. Additional Information VACCINATE! IT SAVES LIVES! Members of the community who have not yet received the COVID-19 vaccine and would like to receive it can visit one of [facility] vaccine clinics. There are many vaccine clinic locations within the [facility]. For locations and available times, please visit [email or web address] [email or web address] It is important to note that some COVID mobile vaccine clinics are held outdoors and may be canceled in rainy or stormy conditions. To learn more about pediatric vaccinations (ages 5-11), we invite you to visit the [facility] webpage. https://www.[employer]s.org/p ages/5253-Tknmu-Zbpksidtezl-Freq zdtagf-Wnjkm-Krwvfcbsm.html To learn more about the COVID-19 vaccine, we invite you to visit the CDC website for a list of frequently asked questions. https://www.cdc.gov/coronavirus/ 2019-ncov/vaccines/faq.html [facility] Patient Portal Access Instructions: Stay connected with your healthcare team and access your personal medical information anytime with the [facility] Patient Portal. If you would like a full copy of your medical records please contact the [facility] Medical Records Department Thursday through Thursday between 8a.m. and 4:30p.m. Please follow the directions below to access the portal: 1.Access the email account you provided upon registration to the hospital.2.Look for an invitation email from [facility].3.Open the email and access the invitation link: Accept Invitation to [facility].Fill in the required oliver to create your account. Sign into [email or web address] with your username and password that you created in the above steps to stay up to date. You can then view a summary of results, a summary of your visits, and the ability to download your summaries to your computer or send the information securely to a physician. Remember that your healthcare information is confidential, so carefully consider who you will allow to register on the [facility] Patient Portal for access to your information. You can also access the [facility] Patient Portal on the [employer]. Simply click on Health Records under Health Data and then click on the [facility] logo. HOW TO SAFELY DISPOSE OF PRESCRIPTION MEDICATIONS Please use one of the following methods to safely dispose of your unused medications. 1.Use a drug disposal kit: the drug disposal pouch allows you to safely discard your old and unused drugs. Ask your nurse to give you one when you are discharged.2.Visit a local take-back location: Many local pharmacies and police departments have programs that collect old and unwanted prescription drugs. Call your local pharmacy or go to http://Information Gateway.[employer]/1H1Ua7i to find one close to you.3.Make use of household items: Use cat litter or old coffee grounds to dispose medications if other options are not available. Mix your drugs with these household products, seal them in an airtight container and throw it into the garbage. Call [facility]: [phone] to be sure your drugs can be disposed of in this way. Some medicines may require a different approach.4.Never flush your medications down the toilet. IF YOU HAVE BEEN PRESCRIBED AN OPIOIDS FOR PAIN If you have been prescribed an opioid (such as hydrocodone, oxycodone or morphine), it is critical to understand the possible side effects and risks of opioid pain medications. Even when taken as directed, opioids can have several side effects including: Tolerance, meaning you might need to take more of a medication for the same pain relief. Nausea, vomiting and/or constipation. Sleepiness, dizziness, dry mouth, confusion, depression or itching. Physical dependence, meaning you have withdrawal symptoms when a medication is stopped ? this can develop within a few days. KNOW YOUR RESPONSIBILITIES It is important to know exactly how much and how often to take the opioid pain medications you are prescribed. Never take opioids in higher amounts or more often than prescribed. Do not combine opioids with alcohol or other drugs that cause drowsiness, such as benzodiazepines, also known as benzos, including diazepam and alprazolam, muscle relaxants or sleep aids. Never sell or share prescription opioids. This is illegal. Store opioids in a secure place and out of reach of others (including children, family, friends and visitors). The last page(s) of this document has been signed and retained as a CHART COPY Signatures Patient Education Materials Ankle Fracture Medication Leaflets morphine (oral) My discharge plan and instructions have been reviewed and explained to me and I,GABY MINOR understand my current condition and have read and understand these discharge instructions. I have received a written copy of the plan/instructions. If I have questions, I am aware that I should contact my doctor. 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 An ankle fracture is a break in one, two, or all three of these sections of bone. Follow these instructions at home: If you have a splint: Wear the splint as told by your doctor. Take it off only as told by your doctor. Loosen the splint if your toes tingle, become numb, or turn cold and blue. Keep the splint clean. If the splint is not waterproof: ?Do not let it get wet. ?Cover it with a watertight covering when you take a bath or a shower. If you have a cast: Do not stick anything inside the cast to scratch your skin. Doing that increases your risk of infection. Check the skin around the cast every day. Tell your doctor about any concerns. You may put lotion on dry skin around the edges of the cast. Do not put lotion on the skin underneath the cast. Keep the cast clean. If the cast is not waterproof: ?Do not let it get wet. ?Cover it with a watertight covering when you take a bath or a shower. Managing pain, stiffness, and swelling If directed, put ice on the injured area: ?If you have a removable splint, remove it as told by your doctor. ?Put ice in a plastic bag. ?Place a towel between your skin and the bag. ?Leave the ice on for 20 minutes, 2 3 times a day. Move your toes often. This prevents stiffness and lessens swelling. Raise (elevate) the injured area above the level of your heart while you are sitting or lying down. General instructions Do not use the injured limb to support your body weight until your doctor says that you can. Use crutches as told by your doctor. Take vtgq-miv-tzfvavt and prescription medicines only as told by your doctor. Ask your doctor when it is safe to drive if you have a cast or splint. Do exercises as told by your doctor. Do not use any products that contain nicotine or tobacco, such as cigarettes and e-cigarettes. These can delay bone healing. If you need help quitting, ask your doctor. Keep all follow-up visits as told by your doctor. This is important. Contact a doctor if: Your pain or swelling gets worse. Your pain or swelling does not get better when you rest or take medicine. Get help right away if: Your cast gets damaged. You continue to have very bad pain. You have new pain or swelling. Your skin or toes below the injured ankle: ?Turn blue or hernandez. ?Feel cold or numb. ?Lose sensitivity to touch. Summary An ankle fracture is a break in one, two, or all three of the bones in your lower leg and lower foot. If you have a splint, wear it as told by your health care provider. Keep it clean and dry. If you have a cast, do not stick anything inside the cast to scratch your skin. This can cause infection. Use ice, take medicines, raise your foot, and avoid tobacco and nicotine products. These steps will lessen pain and swelling and speed up healing. This information is not intended to replace advice given to you by your health care provider. Make sure you discuss any questions you have with your health care provider. Document Released: 02/08/2010 Document Revised: 03/26/2018 Document Reviewed: 05/18/2017 [employer] Patient Education 2020 [employer] 11/07/2022 16:00:16 How to Use a Walker How to Use a Walker This sheet gives you information about how to use a walker. Your health care provider may also: Give you more specific instructions based on your condition. Give you instructions on how to use your legs or arms to support your body weight (weight bearing). What are the risks? Using a walker is generally safe. However, it may cause falls if it is not used correctly. How to walk with a walker The best way to walk with a walker depends on whether you are using a standard walker or a front-wheeled walker. A standard walker has rubber tips on the ends of all four legs. A front-wheeled walker has wheels on the ends of the front legs and rubber tips on the ends of the back legs. Do not use your walker on stairs or an escalator unless you have been trained by a physical therapist and your health care provider approves. Standard walker 1.supervisor forming and tempering your walker. Do not slide your standard walker. 2.Set down your walker, one step-length in front of you. Make sure that all four legs of the walker touch the ground at the same time. Your toes should be farther forward than the back legs of your walker. 3.Hold on to the walker, and press it with your arms for support. 4.Step your weaker leg into the middle of the walker. Step your stronger leg forward to land next to your weaker leg. 5.Repeat this process for each step. Front-wheeled walker 1.Slide your front-wheeled walker one step-length in front of you. Your toes should be farther forward than the back legs of your walker. 2.Hold on to the walker for support and press through the handrails as needed for support. 3.Step your weaker leg into the middle of the walker. Step your stronger leg forward to land next to your weaker leg. 4.Repeat the process for each step. Tips Always keep both feet within the width of the walker's legs or wheels. When using your walker, you should not feel like you need to lean forward or to the side to keep your hands on the handgrips. Make sure you are following any weight-bearing instructions that your health care provider gave you. If you have a standard walker: ?Do not slide your walker when you are moving. If you have a front-wheeled walker: ?Be careful not to let the walker get too far ahead of you as you walk. ?If your walker does not glide well over carpet, consider cutting an X into two tennis balls and placing the balls over the back legs of your walker. How to stand up with a walker 1.Put your walker in front of you. 2.Slide forward in your chair. 3.Position your legs so that your weaker leg is ahead of you and your stronger leg is bent and near your chair. 4.Position your hands. If your chair has armrests, put each hand on an armrest. If there are no armrests, put the hand opposite your weaker leg on the chair seat, and put the other hand on the center of the walker's crossbar. 5.Lean forward and push up from your chair. 6.Rise by straightening your stronger leg. 7.Steady yourself. 8.Carefully move your hands to the handgrips of the walker. Tips Do not pull on the walker when you stand up. This may cause it to tip. Sit in a firm chair whenever you can. A low seat or an overstuffed chair or sofa is hard to get out of. How to sit down with a walker Seat with armrests 1.Back up toward your seat, using your walker, until you feel the back of your legs touch the chair. 2.Carefully reach your hands behind you and put each hand on an armrest. 3.Slowly lower yourself into the seat with your injured leg out in front. Seat without armrests 1.Back up toward the side of the seat, using your walker, until you feel the back of your legs touch the chair. 2.Use one hand to hold on to the back of the chair, and use the other hand to hold on to the front of the seat. 3.Slowly lower yourself into the seat. How to use a walker on a curb or step Stepping up 1.Put all four legs of the walker on the curb or step. 2.Get your feet as close to the curb or step as you can. 3.Test the steadiness of the walker by pressing down on the handgrips. 4.If the walker is steady, press down on it with your hands as you step up with your stronger leg. 5.Step up with your weaker leg. Stepping down 1.Put all four legs of the walker on the surface that is lower than the curb or step. 2.Get your feet as close to the curb or step as you can. 3.Test the steadiness of the walker by pressing down on the handgrips. 4.If the walker is steady, press down on it with your hands as you step down with your weaker leg. 5.Step down with your stronger leg. Summary Follow specific instructions from your health care provider on how to use a walker. Do not use your walker on stairs or an escalator unless you have been trained by a physical therapist and your health care provider approves. Make sure you are following any weight-bearing instructions that your health care provider gave you. This information is not intended to replace advice given to you by your health care provider. Make sure you discuss any questions you have with your health care provider. Document Released: 04/13/2006 Document Revised: 03/09/2019 Document Reviewed: 03/09/2019 [employer] Patient Education 2020 [employer]. 11/07/2022 15:59:11 Spinal Anesthesia and Epidural Anesthesia, Care After, Fshj-no-Bmoi Spinal Anesthesia and Epidural Anesthesia, Care After This sheet gives you information about how to care for yourself after your procedure. Your doctor may also give you more specific instructions. If you have problems or questions, call your doctor. Follow these instructions at home: For at least 24 hours after the procedure: Have a responsible adult stay with you. It is important to have someone help care for you until you are awake and alert. Rest as needed. Do not do activities where you could fall or get hurt (injured). Do not drive. Do not use heavy machinery. Do not drink alcohol. Do not take sleeping pills or medicines that make you sleepy (drowsy). Do not make important decisions. Do not sign legal documents. Do not take care of children on your own. Eating and drinking If you throw up (vomit), drink water, juice, or soup when nausea and vomiting stop. Drink enough fluid to keep your pee (urine) pale yellow. Make sure you do not feel like throwing up (nauseous) before you eat solid foods. Follow the diet that your doctor recommends. General instructions Return to your normal activities as told by your doctor. Ask your doctor what activities are safe for you. Take mcnx-mlm-czzzcxf and prescription medicines only as told by your doctor. If you have sleep apnea, surgery and certain medicines can raise your risk for breathing problems. Follow instructions from your doctor about when to wear your sleep device. Your doctor may tell you to wear your sleep device: ?Anytime you are sleeping, including during daytime naps. ?While taking prescription pain medicines, sleeping pills, or medicines that make you sleepy. Do not use any products that contain nicotine or tobacco. This includes cigarettes and e-cigarettes. ?If you need help quitting, ask your doctor. ?If you smoke, do not smoke by yourself. Make sure someone is nearby in case you need help. Keep all follow-up visits as told by your doctor. This is important. Contact a doctor if: It has been more than one day since your procedure and you feel like throwing up. It has been more than one day since your procedure and you throw up. You have a rash. Get help right away if: You have a fever. You have a headache that lasts a long time. You have a very bad headache. Your vision is blurry. You see two of a single object (double vision). You are dizzy or light-headed. You faint. Your arms or legs tingle, feel weak, or get numb. You have trouble breathing. You cannot pee (urinate). Summary After the procedure, have a responsible adult stay with you at home until you are fully awake and alert. Do not do activities that might get you injured. Do not drive, use heavy machinery, drink alcohol, or make important decisions for 24 hours after the procedure. Take medicines as told by your doctor. Do not use products that contain nicotine or tobacco. Get help right away if you have a fever, blurry vision, difficulty breathing or passing urine, or weakness or numbness in arms or legs. This information is not intended to replace advice given to you by your health care provider. Make sure you discuss any questions you have with your health care provider. Document Released: 08/04/2016 Document Revised: 03/26/2018 Document Reviewed: 08/04/2016 [employer] Patient Education 2020 [employer]. Follow Up Care 10/31/2022 09:35:19 With:GILBERTO BRUMFIELD MD Address: [address] [place] [address] & [place] [address] [phone] When: Unknown Comments:Follow-up as scheduled in two weeks. [facility] 11-07-2022 Note ORIGINAL Images acquired, not reported on this accession number. [facility] 11-07-2022 Note ORIGINAL Images acquired, not reported on this accession number. [facility] 11-07-2022 Summary of episod e note Discharge Instructions Thank you for allowing [facility] to assist you with your healthcare needs. The following is important discharge information regarding your hospital visit. Your Care Team ALAYNA FOY What to do next Follow Up Appointments Follow Up with GILBERTO BRUMFIELD MD When Why: Follow-up as scheduled in two weeks. Where: [address] [place] [address] [facility] [place] [address] [phone] Allergies Lanolin (Rash) Medications Please ask your primary doctor or pharmacist before taking any other medication not listed, including over the counter drugs, herbal medications, vitamins and or supplements as they may interact with your home medications. What How Much When Instructions Last Dose Unchanged ARIPiprazole (ARIPiprazole 2 mg oral tablet) 3 tab(s) by mouth Every day Unchanged cetirizine (Zyrtec 10 mg oral tablet) 1 tab(s) by mouth Once a day as needed for as needed for allergy symptoms Unchanged cholecalciferol (Vitamin D3) 100 Microgram by mouth Every day Unchanged herbal/ nutritional product (Probiotic) Unchanged metoprolol (Metoprolol Tartrate 50 mg oral tablet) TAKE 1 TABLET BY MOUTH ONCE DAILY Unchanged multivitamin (Vitamin B Complex oral capsule) 1 cap by mouth Every day Unchanged oxyCODONE (oxyCODONE 5 mg oral tablet ( IMMEDIATE release )) 1 tab(s) by mouth Every 6 hours as needed for for pain Unchanged venlafaxine (Effexor XR 150 mg oral capsule, extended release) 2 cap by mouth Once a day with a meal stop Celexa Please take this list to your next doctor s visit. Bring all medications you take, including over the counter medications, herbals and other supplements with you to your doctor s visit. Patients and families are reminded to discard old lists and to update any records with all medication providers or retail pharmacies. Education Materials Ankle Fracture The ankle joint is made up of the lower (distal) sections of your lower leg bones(tibia and fibula) along with a bone in your foot (talus). An ankle fracture is a break in one, two, or all three of these sections of bone. Follow these instructions at home: If you have a splint: Wear the splint as told by your doctor. Take it off only as told by your doctor. Loosen the splint if your toes tingle, become numb, or turn cold and blue. Keep the splint clean. If the splint is not waterproof: ? Do not let it get wet. ? Cover it with a watertight covering when you take a bath or a shower. If you have a cast: Do not stick anything inside the cast to scratch your skin. Doing that increases your risk of infection. Check the skin around the cast every day. Tell your doctor about any concerns. You may put lotion on dry skin around the edges of the cast. Do not put lotion on the skin underneath the cast. Keep the cast clean. If the cast is not waterproof: ? Do not let it get wet. ? Cover it with a watertight covering when you take a bath or a shower. Managing pain, stiffness, and swelling If directed, put ice on the injured area: ? If you have a removable splint, remove it as told by your doctor. ? Put ice in a plastic bag. ? Place a towel between your skin and the bag. ? Leave the ice on for 20 minutes, 2 3 times a day. Move your toes often. This prevents stiffness and lessens swelling. Raise (elevate) the injured area above the level of your heart while you are sitting or lying down. General instructions Do not use the injured limb to support your body weight until your doctor says that you can. Use crutches as told by your doctor. Take yaan-fyf-aahlsov and prescription medicines only as told by your doctor. Ask your doctor when it is safe to drive if you have a cast or splint. Do exercises as told by your doctor. Do not use any products that contain nicotine or tobacco, such as cigarettes and e-cigarettes. These can delay bone healing. If you need help quitting, ask your doctor. Keep all follow-up visits as told by your doctor. This is important. Contact a doctor if: Your pain or swelling gets worse. Your pain or swelling does not get better when you rest or take medicine. Get help right away if: Your cast gets damaged. You continue to have very bad pain. You have new pain or swelling. Your skin or toes below the injured ankle: ? Turn blue or hernandez. ? Feel cold or numb. ? Lose sensitivity to touch. Summary An ankle fracture is a break in one, two, or all three of the bones in your lower leg and lower foot. If you have a splint, wear it as told by your health care provider. Keep it clean and dry. If you have a cast, do not stick anything inside the cast to scratch your skin. This can cause infection. Use ice, take medicines, raise your foot, and avoid tobacco and nicotine products. These steps will lessen pain and swelling and speed up healing. This information is not intended to replace advice given to you by your health care provider. Make sure you discuss any questions you have with your health care provider. Document Released: 02/08/2010 Document Revised: 03/26/2018 Document Reviewed: 05/18/2017 [employer] Patient Education 2020 [employer]. How to Use a Walker This sheet gives you information about how to use a walker. Your health care provider may also: Give you more specific instructions based on your condition. Give you instructions on how to use your legs or arms to support your body weight (weight bearing). What are the risks? Using a walker is generally safe. However, it may cause falls if it is not used correctly. How to walk with a walker The best way to walk with a walker depends on whether you are using a standard walker or a front-wheeled walker. A standard walker has rubber tips on the ends of all four legs. A front-wheeled walker has wheels on the ends of the front legs and rubber tips on the ends of the back legs. Do not use your walker on stairs or an escalator unless you have been trained by a physical therapist and your health care provider approves. Standard walker 1. supervisor forming and tempering your walker. Do not slide your standard walker. 2. Set down your walker, one step-length in front of you. Make sure that all four legs of the walker touch the ground at the same time. Your toes should be farther forward than the back legs of your walker. 3. Hold on to the walker, and press it with your arms for support. 4. Step your weaker leg into the middle of the walker. Step your stronger leg forward to land next to your weaker leg. 5. Repeat this process for each step. Front-wheeled walker 1. Slide your front-wheeled walker one step-length in front of you. Your toes should be farther forward than the back legs of your walker. 2. Hold on to the walker for support and press through the handrails as needed for support. 3. Step your weaker leg into the middle of the walker. Step your stronger leg forward to land next to your weaker leg. 4. Repeat the process for each step. Tips Always keep both feet within the width of the walker's legs or wheels. When using your walker, you should not feel like you need to lean forward or to the side to keep your hands on the handgrips. Make sure you are following any weight-bearing instructions that your health care provider gave you. If you have a standard walker: ? Do not slide your walker when you are moving. If you have a front-wheeled walker: ? Be careful not to let the walker get too far ahead of you as you walk. ? If your walker does not glide well over carpet, consider cutting an X into two tennis balls and placing the balls over the back legs of your walker. How to stand up with a walker 1. Put your walker in front of you. 2. Slide forward in your chair. 3. Position your legs so that your weaker leg is ahead of you and your stronger leg is bent and near your chair. 4. Position your hands. If your chair has armrests, put each hand on an armrest. If there are no armrests, put the hand opposite your weaker leg on the chair seat, and put the other hand on the center of the walker's crossbar. 5. Lean forward and push up from your chair. 6. Rise by straightening your stronger leg. 7. Steady yourself. 8. Carefully move your hands to the handgrips of the walker. Tips Do not pull on the walker when you stand up. This may cause it to tip. Sit in a firm chair whenever you can. A low seat or an overstuffed chair or sofa is hard to get out of. How to sit down with a walker Seat with armrests 1. Back up toward your seat, using your walker, until you feel the back of your legs touch the chair. 2. Carefully reach your hands behind you and put each hand on an armrest. 3. Slowly lower yourself into the seat with your injured leg out in front. Seat without armrests 1. Back up toward the side of the seat, using your walker, until you feel the back of your legs touch the chair. 2. Use one hand to hold on to the back of the chair, and use the other hand to hold on to the front of the seat. 3. Slowly lower yourself into the seat. How to use a walker on a curb or step Stepping up 1. Put all four legs of the walker on the curb or step. 2. Get your feet as close to the curb or step as you can. 3. Test the steadiness of the walker by pressing down on the handgrips. 4. If the walker is steady, press down on it with your hands as you step up with your stronger leg. 5. Step up with your weaker leg. Stepping down 1. Put all four legs of the walker on the surface that is lower than the curb or step. 2. Get your feet as close to the curb or step as you can. 3. Test the steadiness of the walker by pressing down on the handgrips. 4. If the walker is steady, press down on it with your hands as you step down with your weaker leg. 5. Step down with your stronger leg. Summary Follow specific instructions from your health care provider on how to use a walker. Do not use your walker on stairs or an escalator unless you have been trained by a physical therapist and your health care provider approves. Make sure you are following any weight-bearing instructions that your health care provider gave you. This information is not intended to replace advice given to you by your health care provider. Make sure you discuss any questions you have with your health care provider. Document Released: 04/13/2006 Document Revised: 03/09/2019 Document Reviewed: 03/09/2019 Elsevier Patient Education 2020 [employer] Spinal Anesthesia and Epidural Anesthesia, Care After This sheet gives you information about how to care for yourself after your procedure. Your doctor may also give you more specific instructions. If you have problems or questions, call your doctor. Follow these instructions at home: For at least 24 hours after the procedure: Have a responsible adult stay with you. It is important to have someone help care for you until you are awake and alert. Rest as needed. Do not do activities where you could fall or get hurt (injured). Do not drive. Do not use heavy machinery. Do not drink alcohol. Do not take sleeping pills or medicines that make you sleepy (drowsy). Do not make important decisions. Do not sign legal documents. Do not take care of children on your own. Eating and drinking If you throw up (vomit), drink water, juice, or soup when nausea and vomiting stop. Drink enough fluid to keep your pee (urine) pale yellow. Make sure you do not feel like throwing up (nauseous) before you eat solid foods. Follow the diet that your doctor recommends. General instructions Return to your normal activities as told by your doctor. Ask your doctor what activities are safe for you. Take kxkv-bkb-dbdaefg and prescription medicines only as told by your doctor. If you have sleep apnea, surgery and certain medicines can raise your risk for breathing problems. Follow instructions from your doctor about when to wear your sleep device. Your doctor may tell you to wear your sleep device: ? Anytime you are sleeping, including during daytime naps. ? While taking prescription pain medicines, sleeping pills, or medicines that make you sleepy. Do not use any products that contain nicotine or tobacco. This includes cigarettes and e-cigarettes. ? If you need help quitting, ask your doctor. ? If you smoke, do not smoke by yourself. Make sure someone is nearby in case you need help. Keep all follow-up visits as told by your doctor. This is important. Contact a doctor if: It has been more than one day since your procedure and you feel like throwing up. It has been more than one day since your procedure and you throw up. You have a rash. Get help right away if: You have a fever. You have a headache that lasts a long time. You have a very bad headache. Your vision is blurry. You see two of a single object (double vision). You are dizzy or light-headed. You faint. Your arms or legs tingle, feel weak, or get numb. You have trouble breathing. You cannot pee (urinate). Summary After the procedure, have a responsible adult stay with you at home until you are fully awake and alert. Do not do activities that might get you injured. Do not drive, use heavy machinery, drink alcohol, or make important decisions for 24 hours after the procedure. Take medicines as told by your doctor. Do not use products that contain nicotine or tobacco. Get help right away if you have a fever, blurry vision, difficulty breathing or passing urine, or weakness or numbness in arms or legs. This information is not intended to replace advice given to you by your health care provider. Make sure you discuss any questions you have with your health care provider. Document Released: 08/04/2016 Document Revised: 03/26/2018 Document Reviewed: 08/04/2016 [employer] Patient Education 2020 [employer]. Additional Information VACCINATE! IT SAVES LIVES! Members of the community who have not yet received the COVID-19 vaccine and would like to receive it can visit one of [facility] vaccine clinics. There are many vaccine clinic locations within the [facility]. For locations and available times, please visit https://gettheshot.coronavirus.o hio.gov/. It is important to note that some COVID mobile vaccine clinics are held outdoors and may be canceled in rainy or stormy conditions. To learn more about pediatric vaccinations (ages 5-11), we invite you to visit the [facility] webpage. [email or web address].[email or web address].org/p ages/3881-Zpunj-Sbadluyyovz-Freq gxdmgu-Rxquz-Klsvnreur.html To learn more about the COVID-19 vaccine, we invite you to visit the CDC website for a list of frequently asked questions.https://www.cdc.gov/co ronavirus/2019-ncov/vaccines/faq .html [facility] Patient Portal Access Instructions: Stay connected with your healthcare team and access your personal medical information anytime with the [facility] Patient Portal. Please follow the directions below to create your [facility] account: 1.Access the email account you provided upon registration to the hospital/physician office.2.Look for an invitation email from [facility].3.Open the email and access the invitation link: Accept Invitation to [facility].4.Fill in the required oliver to create your account. To access your account, visit [email or web address]. Click the blue button labeled Access Patient Portal and then log in with the username and password that you created in the steps above. You will be able to view your test results, lab results, a summary of your visits, upcoming appointments and more. There is also a convenient messaging option where you can send secure messages to your provider. In addition, you will have the ability to download any documents or summaries to your computer and/or send the information securely to a physician. Remember that your healthcare information is confidential, so carefully consider who you will allow to register on the [facility] Patient Portal for access to your information. You can also access the [facility] Patient Portal on the [facility] merari. Simply click on Patient Portal and then log into your account. If you would like to receive a full copy of your medical records, please contact the [facility] Medical Records Department by calling [phone], Thursday through Thursday between 8 a.m. and 4:30 p.m. HOW TO SAFELY DISPOSE OF PRESCRIPTION MEDICATIONS Please use one of the following methods to safely dispose of your unused medications. 1.Use a drug disposal kit: the drug disposal pouch allows you to safely discard your old and unused drugs. Ask your nurse to give you one when you are discharged.2.Visit a local take-back location: Many local pharmacies and police departments have programs that collect old and unwanted prescription drugs. Call your local pharmacy or go to http://Information Gateway.[employer]/9J9Ps3t to find one close to you.3.Make use of household items: Use cat litter or old coffee grounds to dispose medications if other options are not available. Mix your drugs with these household products, seal them in an airtight container and throw it into the garbage. Call [facility]: [phone] to be sure your drugs can be disposed of in this way. Some medicines may require a different approach.4.Never flush your medications down the toilet. IF YOU HAVE BEEN PRESCRIBED AN OPIOID FOR PAIN If you have been prescribed an opioid (such as hydrocodone, oxycodone or morphine), it is critical to understand the possible side effects and risks of opioid pain medications. Even when taken as directed, opioids can have several side effects including: Tolerance, meaning you might need to take more of a medication for the same pain relief. Nausea, vomiting and/or constipation. Sleepiness, dizziness, dry mouth, confusion, depression or itching. Physical dependence, meaning you have withdrawal symptoms when a medication is stopped, can develop within a few days. KNOW YOUR RESPONSIBILITIES It is important to know exactly how much and how often to take the opioid pain medications you are prescribed. Never take opioids in higher amounts or more often than prescribed. Do not combine opioids with alcohol or other drugs that cause drowsiness, such as benzodiazepines, also known as benzos, including diazepam and alprazolam, muscle relaxants or sleep aids. Never sell or share prescription opioids. This is illegal. Store opioids in a secure place and out of reach of others (including children, family, friends and visitors). The last page of this document has been signed and retained as a CHART COPY. Signatures Patient Education Materials Ankle Fracture, Xufp-cl-Fnsn How to Use a Walker Spinal Anesthesia and Epidural Anesthesia, Care After, Zciy-pb-Vyke Medication Leaflets My discharge plan and instructions have been reviewed and explained to me and ISEVEN ALEXANDRA J understand my current condition and have read and understand these discharge instructions. I have received a written copy of the plan/instructions. If I have questions, I am aware that I should contact my doctor. 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 HISTORY: ORDERING SYSTEM PROVIDED HISTORY: Reason for Exam: fracture FINDINGS: There are postoperative changes with an intramedullary duyen and screws in the tibia as well as a fixation plate at the distal fibula. There is an oblique fracture of the distal tibia with approximately 4 mm of anterior displacement of the distal fragment. There is a comminuted fracture of the distal fibula with 6 mm of posterior displacement of one of fragments. There is no dislocation. The joint spaces are maintained. IMPRESSION: Postoperative internal fixation of distal tibia and fibula fractures. Interpreted by: Eric Razo MD Preliminary Report By: Eric Razo MD Electronically signed By Eric Razo MD Dictated Date: 11/07/2022 3:50:31 PM Prelim Date: 11/07/2022 3:53:59 PM Sign Date: 11/07/2022 3:53:59 PM Ordering Provider: [facility] 11-07-2022 Note ORIGINAL EXAMINATION: TWO XRAY VIEWS OF THE LEFT TIBIA/FIBULA 11/07/2022 3:46 pm COMPARISON: None. HISTORY: ORDERING SYSTEM PROVIDED HISTORY: Reason for Exam: fracture FINDINGS: There are postoperative changes with an intramedullary duyen and screws in the tibia as well as a fixation plate at the distal fibula. There is an oblique fracture of the distal tibia with approximately 4 mm of anterior displacement of the distal fragment. There is a comminuted fracture of the distal fibula with 6 mm of posterior displacement of one of fragments. There is no dislocation. The joint spaces are maintained. IMPRESSION: Postoperative internal fixation of distal tibia and fibula fractures. Interpreted by: Eric Razo MD Preliminary Report By: Eric Razo MD Electronically signed By Eric Razo MD Dictated Date: 11/07/2022 3:50:31 PM Prelim Date: 11/07/2022 3:53:59 PM Sign Date: 11/07/2022 3:53:59 PM Ordering Provider: [facility] 11-07-2022 Anesthesiology Consult note Patient: GABY MINOR Age: 27 years Sex: Female : 1995 Associated Diagnoses: None Author: YARA GONZALES APRN-PROGRAM/MUSIC DIRECTOR Preoperative Information Anesthesia history Patient's history: negative. Family's history: negative. Health Status Allergies: Allergic Reactions (Selected) Severity Not Documented Lanolin- Rash., Allergies (1) ActiveReaction LanolinRash Current medications: (Selected) Inpatient Medications Ordered Kefzol: 2 gram(s), 200 mL/hr, IV Piggyback, PREOP pharm LR 1,000 mL: 125 mL/hr, Intravenous, Stop: 11/07/22 23:59:00 EDT Prescriptions Prescribed Effexor XR 150 mg oral capsule, extended release: 300 mg, 2 cap(s), Oral, qDayM, stop Celexa, 60 cap(s), 0 Refill(s) Documented Medications Documented ARIPiprazole 2 mg oral tablet: 6 mg, 3 tab(s), Oral, Daily, 90 tab(s), 0 Refill(s) Metoprolol Tartrate 50 mg oral tablet: TAKE 1 TABLET BY MOUTH ONCE DAILY Probiotic: 0 Refill(s) Vitamin B Complex oral capsule: 1 cap(s), Oral, Daily, 0 Refill(s) Vitamin D3: 100 mcg, 1 tab(s), Oral, Daily, 90 tab(s), 0 Refill(s) Zyrtec 10 mg oral tablet: 10 mg, 1 tab(s), Oral, qDay, PRN: as needed for allergy symptoms, 10 tab(s), 0 Refill(s) oxyCODONE 5 mg oral tablet ( IMMEDIATE release ): 5 mg, 1 tab(s), Oral, q6h, PRN: for pain, 12 tab(s), 0 Refill(s), Medications (2) Active Scheduled: (1) ceFAZolin 2 gram(s), IV Piggyback, PREOP pharm Continuous: (1) Lactated Ringers 1,000 mL 1,000 mL, Intravenous, 125 mL/hr PRN: (0) Problem list: Medical Generalized anxiety disorder / SNOMED CT 55970557 / Confirmed Obesity / SNOMED CT 8297354491 / Confirmed OCD (obsessive compulsive disorder) / SNOMED CT 948677069 / Confirmed Depression, major, recurrent, moderate / SNOMED CT 489526813 / Confirmed, Active Problems (8) Depression, major, recurrent, moderate Epidermolysis bullosa Generalized anxiety disorder Hypertension Obesity OCD (obsessive compulsive disorder) PTSD (post-traumatic stress disorder) Skin abnormalities Histories Past Medical History: No active or resolved past medical history items have been selected or recorded. Family History: Hypertension Father Procedure history: Laparoscopic bilateral female sterilization ([id number]). Ablation ([id number]). Dilation and curettage ([id number]). Social History Social & Psychosocial Habits Alcohol 11/03/2022 Use: Current Frequency: 1-2 times per week Substance Abuse 11/03/2022 Type: Marijuana Frequency: Daily Tobacco 11/03/2022 Tobacco Use: Never (less than 100 in l Home/Environment 11/03/2022 Domestic Concerns None Lives In 1st floor bathroom, Multilevel home Spouse Name SHAHRIAR Marital Status of Patient if Patient Independent Adult: Nutrition/Health 11/03/2022 Type of diet: Regular Eating Difficulties None . Physical Examination Vital Signs 11/07/2022 10:58 EDT Temperature Temporal Artery 36.1 DegC Heart Rate Monitored 112 bpm HI Respiratory Rate 14 br/min Systolic Blood Pressure Non-Invasive 155 mmHg HI Diastolic Blood Pressure Non-Invasive 96 mmHg HI Vital Signs(last 24 hrs) Last Charted Heart Rate MonitoredH 112bpm (NOV 07 10:58) Resp Rate 14 br/min (NOV 07 10:58) SBPH 155mmHg (NOV 07 10:58) DBPH 96mmHg (NOV 07 10:58) Measurements from flowsheet : Measurements 11/07/2022 10:58 EDT Height 175.3 cm Admission Weight 131.8 kg [place] Body Weight 66.24 kg Admission Body Mass Index 42.89 m2 11/07/2022 10:54 EDT Body Mass Index In Error kg/m2 (In Error) Pain assessment: Pain Assessment 11/07/2022 11:27 EDT Primary Pain Intensity Not Done: Other (Not Done) 11/07/2022 10:58 EDT Primary Pain Location Leg Primary Pain Laterality Left Primary Pain Intensity 6 Pain Scale Type 0-10 Pain scale . General: Alert and oriented, Moderate distress. Airway: Normal temporomandibular joint mobility. Mallampati classification: II (soft palate, fauces, uvula visible). Dentition Evaluation: Denies loose/chipped teeth. Respiratory: Lungs are clear to auscultation, Respirations are non-labored. Cardiovascular: Normal rate, Regular rhythm. Neurologic: Alert, Oriented. Review / Management Results review: No qualifying data available , Lab results 11/07/2022 11:47 EDT SN - Irl - Irrigant Normal Saline SN - IrI - Volume In 1,000 mL SN - IrI - Volume Out 1,000 mL 11/07/2022 11:39 EDT SN - XI - X-Ray Type C-Arm 11/07/2022 11:39 EDT SN - CAt - Case Attendee SN - CAt - Case Attendee SN - CAt - Role Performed X-Ray Tech 11/07/2022 11:36 EDT SN - Assess - LOC Alert, Awake SN - Assess - Orientation Oriented X 3 SN - Assess - Post-op Skin Integrity Other See Comments SN - Assess - Abnormality Location UNDER RIGHT BREAST SN - Assess - Abnormality Type OPEN SORES FROM CHRONIC SKIN CONDITION 11/07/2022 11:34 EDT SN - Proc - Anesthesia Type Spinal, Regional SN - Proc - Actual Procedure TIBIAL NAIL LEFT TIBIA, POSSIBLE OPEN REDUCTION INTERNAL FIXATION LEFT DISTAL FIBULA 11/07/2022 11:33 EDT SN - GCD - Post-operative Diagnosis OTHER FRACTURE OF SHAFT OF LEFT TIBIA, INITIAL ENCOUNTER FOR CLOSED FRACTURE; DISPLACED FRACTURE OF LATERAL MALLEOLUS OF LEFT FIBULA, INITIAL ENCOUNTER FOR CLOSED FRACTURE SN - GCD - Case Level Level 4 11/07/2022 11:33 EDT SN - CAt - Case Attendee SN - CAt - Case Attendee SN - CAt - Case Attendee SN - CAt - Case Attendee SN - CAt - Case Attendee SN - CAt - Case Attendee SN - CAt - Case Attendee SN - CAt - Case Attendee SN - CAt - Case Attendee SN - CAt - Case Attendee SN - CAt - Role Performed Primary Surgeon SN - CAt - Role Performed PROGRAM/MUSIC DIRECTOR SN - CAt - Role Performed Prepress Specialist 1 SN - CAt - Role Performed Scrub 1 SN - CAt - Role Performed Hat And Cap Opener 1 11/07/2022 11:32 EDT Time Out Procedure Verified Time Out Procedure Site Verified Yes Time Out Correct Patient Position Yes Consent Form Signed Yes Bedside Procedure Nerve Block Provider #1 Bedside Time Out YARA GONZALES APRN-PROGRAM/MUSIC DIRECTOR Provider #2 Bedside Time Out Courtney Herring RN NPO Status Maintained Patient ID Band on and Verified Yes Anesthesia Consent Signed Yes Blood Consent Signed Yes 11/07/2022 11:31 EDT Ed-Plan of Care Verbalizes/Nonverbally indicates understanding Individuals Taught Patient, Spouse Learning Readiness Willing to learn Pre Procedure/Surgery Education Appropriate expectations 11/07/2022 11:28 EDT Continuous IV Infusions LR Hand Right 11/07/2022 22 gauge Peripheral IV Activity: Insert new site Peripheral IV Site Condition: No complications Peripheral IV Number of Attempts: 2 11/07/2022 11:27 EDT Primary Pain Intensity Not Done: Other (Not Done) oxyCODONE Not Done: Other (Not Done) Lactated Ringers Injection 1,000 mL mL 11/07/2022 10:58 EDT Height 175.3 cm Admission Weight 131.8 kg [place] Body Weight 66.24 kg Admission Body Mass Index 42.89 m2 Temperature Temporal Artery 36.1 DegC Heart Rate Monitored 112 bpm HI Respiratory Rate 14 br/min Systolic Blood Pressure Non-Invasive 155 mmHg HI Diastolic Blood Pressure Non-Invasive 96 mmHg HI Primary Pain Location Leg Primary Pain Laterality Left Primary Pain Intensity 6 Pain Scale Type 0-10 Pain scale Nail Bed Color [place] Capillary Refill < 2 seconds Heart Rhythm Regular Cardiac Rhythm Sinus tachycardia Respirations Unlabored Respiratory Pattern Regular Breath Sounds Auscultated Anterior and posterior All Lobes Breath Sounds Clear Cough None Oxygen Therapy Room air Oxygen Saturation 97 % Abdomen Description Soft, Rounded Bowel Sounds All Quadrants Present Urinary Elimination Voiding, no difficulties Facial Movement Symmetric resting/crying All Extremity Description [place] Skin Temperature Warm Temperature All Extremities Warm Skin Description [place], Normal for ethnicity, Dry Skin Integrity Not intact Skin Moisture General Dry IV Present Present Neurological Language Able to speak clearly, Follows simple commands Neurological Symptoms Patient denies Characteristics of Speech Clear Facial Symmetry Symmetric Level of Consciousness Alert Left Upper Extremity Strength Strong Right Upper Extremity Strength Strong Left Lower Extremity Strength Weak Right Lower Extremity Strength Strong Left Upper Extremity Sensation Intact Right Upper Extremity Sensation Intact Left Lower Extremity Sensation Intact Right Lower Extremity Sensation Intact Allergies Yes Per Diem Registered Nurse On Yes Consent Form Signed Yes Patient Dressed In Hospital gown Pre-op Preparation Glasses removed CHG Skin Prep Completed for Eligible Surgery History & Physical Update On Chart Yes History & Physical On Chart Yes Obstructive Sleep Apnea Assess Completed Yes Orientation Assessment Oriented x 4 Belongings At Bedside Glasses Activity Status ADL Repositions self, Resting Assistive Device None SCD On/Re-applied right knee high Antiembolism Stocking On/Re-applied right thigh high NPO Status More than 8 hours Standard Safety ID band on, Allergy Band on, Call device within reach, Bed in low position, Wheels locked, Safety level maintained Allergy Band on and Verified Yes Patient ID Band on and Verified Yes Implants Verified Yes Pacemaker/AICD Verified Yes Site Verified by Patient/Family Yes Blood Consent Signed Yes Last Fluid Intake 11/07/2022 2:00 Last Food Intake 11/06/2022 22:00 Last Void 11/07/2022 11:01 11/07/2022 10:54 EDT Privacy Restrictions Requested None Body Mass Index In Error kg/m2 (In Error) Sensory Deficits None Safety Brochure Information Reviewed Unable to complete [facility] Video Viewed No Teaching Evaluation No further teaching needed Admission Note-Nursing Same Day Patient History (Modified) 11/07/2022 10:43 EDT SN - Preop - CTm Pt in SDS Room 11/07/2022 10:43 11/06/2022 13:16 EDT ENRIQUEumgoyo PRINGLE . Assessment and Plan [place] [employer] (ASA) physical status classification: Class III. Anesthetic Preoperative Plan Anesthetic technique: Spinal. Regional: Spinal. Postoperative pain management: adductor canal and popliteal block. Risks discussed: nausea, vomiting, headache, sore throat, dental injury, hypotension, allergic reaction, serious complications. Informed consent: signed by patient. Digitally Signed by YARA GONZALES on 11/07/2022 11:52 AM [facility] documented as of this encounter (statuses as of 02/27/2023) [facility]08-27-2021 History of Past illness Narrative* Problem Noted Date Diagnosed Date Resolved Date Muscle tightness 12/21/2020 02/18/2021 documented as of this encounter (statuses as of 03/06/2023) [place] [id number] History of Past illness Narrative* Problem Noted Date Diagnosed Date Resolved Date Muscle tightness 12/21/2020 02/18/2021 documented as of this encounter (statuses as of 03/07/2023) [place] [id number] History of Past illness Narrative* Problem Noted Date Diagnosed Date Resolved Date Muscle tightness 12/21/2020 02/18/2021 documented as of this encounter (statuses as of 03/24/2023) [facility]08-27-2021 History of Past illness Narrative* Problem Noted Date Diagnosed Date Resolved Date Muscle tightness 12/21/2020 02/18/2021 documented as of this encounter (statuses as of 04/08/2023) [facility] + Plan note Future Appointments [facility] Evaluation note* Diagnosis Abnormal uterine bleeding (AUB)- Primary documented in this encounter [facility] note* Diagnosis Abnormal uterine bleeding (AUB) documented in this encounter [facility] note* Diagnosis Menorrhagia with irregular cycle- Primary Excessive or frequent menstruation BMI 45.0-49.9, adult (HCC) Body Mass Index 45.0-49.9, adult Class 3 severe obesity due to excess calories without serious comorbidity with body mass index (BMI) of 45.0 to 49.9 in adult (HCC) Metrorrhagia [facility] Narrative No data available for this section [facility] Hospital Discharge instructions No data available for this section [facility] Progress note No data available for this section [facility] Reason for referral (narrative)* Diagnostic Procedure Only (Routine) - Authorized Specialty Diagnoses / Procedures Referred By Naomi prescott Referred To Contact US IMAGING Diagnoses Abnormal uterine bleeding (AUB) Procedures US FEMALE PELVIS TRANSVAG US TRANSVAGINAL Iman Gauthier APRN.CNP [address] [place] [address] [place] [address] Referral ID Status Reason Start Date Expiration Date Visits Requested Visits Authorized [id number] Authorized Auto-Generat ed Referral 02/27/2023 03/28/2024 1 1 [facility] Summary Purpose Family History No Family History Records FoundNo Family History Records FoundNo Family History Records FoundNo Family History Records FoundNo Family History Records FoundNo Family History Records Found Advance Directives No Advanced Directives Records FoundNo Advanced Directives Records FoundNo Advanced Directives Records FoundNo Advanced Directives Records FoundNo Advanced Directives Records FoundNo Advanced Directives Records Found Additional Source Comments INFORMATION SOURCE (unrecogn ized section and content) DATE CREATED AUTHOR AUTHOR'S ORGANIZ ATION 12/10/2018 [facility] DATE CREATED AUTHOR AUTHOR'S ORGANIZ ATION 11/24/2019 [facility] DATE CREATED AUTHOR AUTHOR'S ORGANIZ ATION 05/05/2020 [facility] DATE CREATED AUTHOR AUTHOR'S ORGANIZ ATION 11/13/2022 [facility] ([place]) DATE CREATED AUTHOR AUTHOR'S ORGANIZ ATION 04/09/2023 [facility] Patient Care team informatio n (unrecognized section and content) Multi Disciplined Language Analyst Relationship Specialty Start Date End Date Shanthi Easley PA-C [address] [place], [place] [id number] PCP - General Family Medicine 09/14/18 Multi Disciplined Language Analyst Relationship Specialty Start Date End Date Shanthi Easley PA-C [address] [place] [address] PCP - General Family Medicine 09/14/18 Multi Disciplined Language Analyst Relationship Specialty Start Date End Date Shanthi Easley PA-C [address] [place] [address] PCP - General Family Medicine 09/14/18 Multi Disciplined Language Analyst Relationship Specialty Start Date End Date Shanthi Easley PA-C [address] [place] [address] PCP - General Family Medicine 09/14/18 Source Comments (unrecognize d section and content) In the event this informatio n is protected by the Federal Confidentiality of Alcohol and Drug Abuse Patient Records regulations: The Federal rules restrict any use of the information to criminally investigate or prosecute any alcohol or drug abuse patient.[facility] the event this information is protected by the Federal Confidentiality of Alcohol and Drug Abuse Patient Records regulations: The Federal rules restrict any use of the information to criminally investigate or prosecute any alcohol or drug abuse patient.[facility] the event this information is protected by the Federal Confidentiality of Alcohol and Drug Abuse Patient Records regulations: The Federal rules restrict any use of the information to criminally investigate or prosecute any alcohol or drug abuse patient.[facility] the event this information is protected by the Federal Confidentiality of Alcohol and Drug Abuse Patient Records regulations: The Federal rules restrict any use of the information to criminally investigate or prosecute any alcohol or drug abuse patient.[facility] the event this information is protected by the Federal Confidentiality of Alcohol and Drug Abuse Patient Records regulations: The Federal rules restrict any use of the information to criminally investigate or prosecute any alcohol or drug abuse patient.[facility] Reason for Visit (unrecogniz ed section and content) Reason Comments Radiology US Specialty Diagnoses / Procedures Referred By Contac t Referred To Contact US IMAGING Diagnoses Abnormal uterine bleeding (AUB) Procedures US FEMALE PELVIS TRANSVAG US TRANSVAGINAL mIan Gauthier APRN.RESTAURANT SERVICE MANAGER [address] [place] [address] [place] [address] Referral ID Status Reason Start Date Expiration Date V isits Requested Visits Authorized [id number] Closed Auto-Generate d Referral 02/27/2023 03/28/2024 1 1 Reason Comments New Patient Discuss hysterectomy FOR RECORDS PERTAINING TO PATIENTS WHO ARE OR HAVE BEEN ENROLLED IN A CHEMICAL DEPENDENCY/SUBSTANCEABUSE PROGRAM, SOME INFORMATION MAY BE OMITTED. This clinical summary was aggregated from multiple sources. Caution should be exercised in using it in the provision of clinical care. This summary normalizes information from multiple sources, and as a consequence, information in this document may materially change the coding, format and clinical context of patient data. In addition, data may be omitted in some cases. CLINICAL DECISIONS SHOULD BE BASED ON THE PRIMARY CLINICAL RECORDS. [employer] [facility]. provides no warranty or guarantee of the accuracy or completeness of information in this document.
[2023-05-14 13:22] LABS: AST(SGOT) 39 U/L (15-37); Alanine Aminotransfer ALT/SGPT 72 U/L (13-56); Albumin, Serum 3.7 g/dL (3.2-5.0); Alkaline Phosphatase 76 U/L (45-117); Bilirubin, Direct 0.07 mg/dL (0.00-0.30); Globulin 4.3 g/dL (2.2-4.2)
== END | disposition home or self-care (01) ==
PROVIDERS: PCP Family Medicine; Visit Provider Family Medicine
DX: R79.89 Other specified abnormal findings of blood chemistry (principal)
CPT/HCPCS: 36415; 80076

== ENCOUNTER → 2023-10-16 | Outpatient (CLI) | payer MEDICAID, SELFPAY ==
[2023-10-16 11:45] LABS: AST(SGOT) 29 U/L (15-37); Alanine Aminotransfer ALT/SGPT 51 U/L (13-56); Albumin, Serum 3.7 g/dL (3.2-5.0); Alkaline Phosphatase 62 U/L (45-117); Bilirubin, Direct 0.08 mg/dL (0.00-0.30); Globulin 4.2 g/dL (2.2-4.2); Protein, Total 7.9 g/dL (6.4-8.2)
== END | disposition home or self-care (01) ==
LOC: LAB 10:54
PROVIDERS: PCP Family Medicine; Referring Provider Family Medicine; Visit Provider Family Medicine
DX: R79.89 Other specified abnormal findings of blood chemistry (principal)
CPT/HCPCS: 36415; 80076

== ENCOUNTER → 2024-05-11 | Outpatient (CLI) | payer MEDICAID, SELFPAY ==
[2024-05-16 10:07] LABS: HPV APTIMA, High Risk Negative (Negative)
== END | disposition home or self-care (01) ==
LOC: LABSPEC 16:38
PROVIDERS: PCP Family Medicine; Referring Provider Advanced Practice Midwife; Visit Provider Advanced Practice Midwife
DX: Z12.4 Encounter for screening for malignant neoplasm of cervix (principal)
CPT/HCPCS: 87624; 88175; G0145

== ENCOUNTER → 2024-05-13 | Outpatient (CLI) | payer MEDICAID, SELFPAY ==
[2024-05-13 12:39] LABS: Protein, Urine (Random) 29.6 mg/dL (<11.9); Protein:Creat Ratio 102 mg/g CRE (0-200)
[2024-05-13 12:50] LABS: Vitamin D,25 Hydroxy 15.4 ng/mL
[2024-05-13 12:56] LABS: ALB/GLOB Ratio 0.8 RATIO (0.9-2.4); AST(SGOT) 46 U/L (15-37); Alanine Aminotransfer ALT/SGPT 90 U/L (13-56); Albumin, Serum 3.7 g/dL (3.2-5.0); Alkaline Phosphatase 77 U/L (45-117); Anion Gap 7 (5-15); BUN 10 mg/dL (7-18); BUN/Creat Ratio 12.3 RATIO (10-20); Calcium,Total 9.7 mg/dL (8.5-10.1); Chloride 103 mmol/L (98-107); Creatinine, Serum 0.81 mg/dL (0.55-1.02); EST Glomerular Filtration Rate 88 mL/min (>60); Est Glom Filt Rate - Afr Amer 107 mL/min (>60); Globulin 4.7 g/dL (2.2-4.2); Glucose 140 mg/dL (74-106); Potassium 3.6 mmol/L (3.5-5.1); Protein, Total 8.4 g/dL (6.4-8.2); Sodium Level 138 mmol/L (136-145)
== END | disposition home or self-care (01) ==
LOC: LAB 11:51
PROVIDERS: PCP Family Medicine; Referring Provider Family Medicine; Visit Provider Advanced Practice Midwife
DX: I10 Essential (primary) hypertension (principal)

== ENCOUNTER → 2024-06-29 | Outpatient (CLI) | payer MEDICAID, SELFPAY ==
--- NOTE | 2024-06-29 15:05 | EMB_PTH ---
PATIENT: GABY AMEZCUA LOC: [facility] U#:[id number] AGE/SX: 29/F ROOM: RE06/29/[address]: Dr. Leatha Sheikh DO : 1995 BED: DIS: 06/29/2024 SPEC #: [id number] RECD: 06/30/24 10:37 STATUS: DANYA OLSONRoberto #: [id number] GERSON: 06/29/24 15:[address]: Leatha Sheikh DEPT: SURGICAL PATHOLOGY RECD BY: Domingo Alvarado ENTERED: 06/30/24 10:37 SP TYPE: ENDOM BX/C MASOOD DR: Dr. Lona Rico MD Tissues: Endometrium, NOS Procedures: Surgery Specimen Level IV HEADER OPERATION: Endometrial biopsy PRE-OP DIAGNOSIS: Menometrorrhagia TISSUE SUBMITTED: Endometrial lining MICROSCOPIC DIAGNOSIS Endometrium, biopsy: * Mildly disordered proliferative endometrium. MICROSCOPIC DESCRIPTION Slides are reviewed. GROSS DESCRIPTION Received in formalin labeled, Mast, Gaby, and not designated, are multiple red-brown, hemorrhagic, soft tissue fragments and mucus that aggregate to 2.0 x 2.0 x 0.2 cm. Totally submitted in 1 cassette.ClemK. 06/30/2024 CPT:90495
== END | disposition home or self-care (01) ==
PROVIDERS: PCP Family Medicine; Referring Provider Obstetrics & Gynecology; Visit Provider Obstetrics & Gynecology
DX: N92.1 Excessive and frequent menstruation with irregular cycle (principal)
CPT/HCPCS: 88305

== ENCOUNTER → 2024-07-05 | Outpatient (CLI) | payer MEDICAID, SELFPAY ==
--- NOTE | 2024-07-05 09:57 | US_ITS ---
PROCEDURE: TRANSVAGINAL NON- REASON FOR EXAM: HEAVY UTERINE BLEEDING TECHNIQUE: Transabdominal and transvaginal pelvic ultrasound COMPARISON: None. FINDINGS: LMP: June 25, 2024 Measurements: Uterus: 8.2 cm x 4.6 cm x 4.1 cm with a volume of 82 mL Endometrial Thickness: 11.6 mm hyperechoic. Right Ovary: 2.5 cm x 2.8 cm x 2.4 cm with a volume of 9.0 cm mL. Left Ovary: 2 cm x 2.1 cm x 2.2 cm with a volume of 4.7 mL. Transvaginal sonography was performed to better visualize the endometrium. TRANSVAGINAL: Uterus: Anteverted. Normal contour and myometrial echotexture. Endometrium: Endometrial thickening measuring 11.6 mm. Clinical correlation recommended. Right ovary: Normal size and echotexture. Left ovary: Normal size and echotexture. Other adnexal findings: None. Cul-de-sac: No free intraperitoneal fluid identified. No tenderness. US/Transvaginal Non- IMPRESSION: Endometrium is thickened measuring 11.6 mm. Clinical correlation recommended. Reading Location: [place] [address]
== END | disposition home or self-care (01) ==
PROVIDERS: PCP Family Medicine; Referring Provider Advanced Practice Midwife; Visit Provider Advanced Practice Midwife
DX: N93.9 Abnormal uterine and vaginal bleeding, unspecified (principal)
CPT/HCPCS: 76830

== ENCOUNTER 2024-08-16 05:30 | Day surgery (SDC) | payer MEDICAID, SELFPAY ==
--- NOTE | 2024-08-03 14:36 | PAT.ANE_ITS ---
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 When Was Last Pacemaker Check QUESTION #4 FULL TEXT: You/Your Family Experience fever (hyperthermia) with Anesthesia Last Oral Intake Last Oral intake: Last Oral Intake NPO since Meds taken in AM with sips of water? Meds patient instructed to take am of surgery PONV PONV - rubber tubing splicer: PONV - rubber tubing splicer Female Yes 08/03/24 14:21 HX of Motion Sickness No 08/03/24 14:21 HX of N/V After Surgery No 08/03/24 14:21 Non-Smoker Yes 08/03/24 14:21 Duration of Surgery greater Yes 08/03/24 14:21 than 60 minutes Number of Risk Factors 3 08/03/24 14:21 PONV Score Moderate Risk 08/03/24 14:21 Height & Weight Height & Weight: Anesthesia: Height & Weight Height 5 ft 9 in 06/29/24 14:19 Respiratory Assessment Respiratory Assessment - rubber tubing splicer: Respiratory Tract Infection Hx - rubber tubing splicer Hx Respiratory Tract Infection No 08/03/24 14:21 STOP Sleep Apnea STOP Sleep Apnea - rubber tubing splicer: STOP Sleep Apnea - rubber tubing splicer Hx Hypertension Yes: CONTROLLED WITH MED/ 08/03/24 14:21 WHITE COAT SYNDROME Hx Sleep Apnea No 08/03/24 14:21 CPAP BIPAP Do you snore loudly (louder Yes 08/03/24 14:21 than talking or can be heard Do you often feel tired/ No 08/03/24 14:21 fatigued/ sleepy during daytime? Has anyone observed you stop No 08/03/24 14:21 breathing during sleep? STOP Results Positive 08/03/24 14:21 QUESTION #5 FULL TEXT : Do you snore loudly (louder than talking or can be heard through closed doors)? 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 Specify any problems Hx of Preganancy in last 3 No 08/03/24 14:21 Months Nurse Filling Out Transfusion DSCHRIBER 08/03/24 14:21 & Questions: Date: 08/03/24 08/03/24 14:21 Time: 14:22 08/03/24 14:21 Patient unable to answer at this time (ie. confused, unrespo /Reproduction History /Reproductive History - rubber tubing splicer: /Reproductive Hx- rubber tubing splicer Hx Now No 08/03/24 14:21 Gestational Age (in weeks): EDC: Hx Hx Para Hx Section SAB No 08/03/24 14:21 [facility] Medical History (Updated 08/03/24 @ 14:28 by Doris Hernandez) Back pain Syncope Heartburn Shortness of breath on exertion History of pain when walking Status post fracture of tibia ADHD MDD (major depressive disorder), recurrent episode, severe Wears glasses Depression Anxiety Marijuana use Low iron Non-smoker Hypertension Encounter for screening for COVID-19 Vacuum-assisted vaginal delivery Gestational diabetes mellitus in childbirth, insulin controlled Lactose intolerance Cystic fibrosis carrier Obsessive compulsive disorder Major depressive disorder, 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 Home Medications ?Medication ?Instructions ?Recorded ?Last Taken ?Type cetirizine 10 mg tablet (Zyrtec) 10 mg PO DAILY 01/29/22 History cholecalciferol (vitamin D3) 50 50 mcg PO DAILY 01/29/22 History mcg (2,000 unit) capsule (Vitamin D3) vitamin B complex 1 cap PO DAILY 01/23/2209/15 History aripiprazole 5 mg tablet 5 mg PO DAILY #90 tabs 05/30 Unknown Rx venlafaxine 150 mg 150 mg PO QHS #90 caps 05/30 Unknown Rx capsule,extended release 24 hr (Effexor XR) lisinopril 20 1 tab PO QDAY 06/29/24 Unkno wn History mg-hydrochlorothiazide 12.5 mg tablet atomoxetine 100 mg capsule 100 mg PO DAILY #30 caps Unknown Rx venlafaxine 75 mg capsule,extended 75 mg PO QHS Unknown History release 24 hr vitamin E 268 mg (400 unit) capsule 268 mg PO DAILY Unknown History Allergy/AdvReac Type Severity Reaction Status Date / Time lanolin AdvReac Rash Verified 08/03/24 14:18 Family History Father Hypertension Grandmother Diabetes Surgical History Tubal ligation status History of endometrial ablation History of dilation and curettage Social History adopted: No household members: spouse and family housing: house number of children: 2 pets and animals: Yes pets and animals: dog(s) history of recent travel: No sexually active: Yes Smoking Status: Never smoker how long ago did patient quit smoking: quit in 2013 alcohol intake: current alcohol intake frequency: a few times a month substance use type: marijuana well-balanced diet: about half the time caffeine: Yes Type: coffee Number of servings: 1 eating out: 1-3 times/week what type of physical activity do you participate in: walking frequency: 1-2 times per week danni/synagogue: None seatbelt use: always do you feel safe at home: Yes additional social history: - [place] Audit: Pertinent Findings Pertinent Findings EKG Perinent findings: 09/25/2022. Sinus tachycardia 111 bpm. Nonspecific T wave abnormality Recommendation Anesthesia Recommendation Anesthesia recommendation: OPTIMIZED for anesthesia
[2024-08-05 17:01] LABS: Hematocrit 40.3 % (37-47); Hemoglobin 13.6 g/dL (12.0-15.0); Mean Corp Hgb Conc 33.7 g/dL (32-36); Mean Corpuscular Hgb 27.9 pg (27.0-32.0); Mean Corpuscular Volume 82.8 fL (81-99); Mean Platelet Vol. 10.2 fl (6.2-12.0); Platelet Count 503 K/mm3 (150-450); RBC Distribution Width CV 13.2 % (11.6-14.6); RBC Distribution Width SD 39.6 fl (35.1-43.9); Red Blood Count 4.87 M/mm3 (4.2-5.4); White Blood Count 8.3 K/mm3 (4.4-11.0)
[2024-08-05 17:20] LABS: Anion Gap 15 (5-15); BUN 14 mg/dL (4-19); BUN/Creat Ratio 19.8 RATIO (10-20); Calcium,Total 9.6 mg/dL (7.6-11.0); Carbon Dioxide 25.4 mmol/L (21.0-32.0); Chloride 100 mmol/L (98-108); Creatinine, Serum 0.71 mg/dL (0.70-1.20); EST Glomerular Filtration Rate 117 (>60); Glucose 110 mg/dL (70-99); Magnesium 2.1 mg/dL (1.5-2.2); Potassium 3.6 mmol/L (3.3-5.1); Sodium Level 141 mmol/L (133-145)
[2024-08-16] VITALS (12 sets, daily range): BP systolic 114–161; BP diastolic 62–103; PULSE 95–120; RESP 11–28; TEMP 36.2–36.8; O2SAT 89–99; BMI 44.8
[2024-08-16 06:10] LABS: Internal QC Validated? YES +Cl - CLEAR BKGD
[2024-08-16 06:11] LABS: Pregnancy, Urine Negative Negative
[2024-08-16] MEDS: Phenazopyridine 95 MG Tablet 190 MG PO (06:39)
[2024-08-16] MEDS: Gabapentin 600 MG Tablet PO (06:40)
[2024-08-16] MEDS: Acetaminophen 500 MG Tablet 1000 MG PO (06:40)
[2024-08-16] MEDS: Celecoxib 200 MG Capsule 400 MG PO (06:40)
[2024-08-16] MEDS: Scopolamine 1mg/72hr Patch 1 PATCH TD (06:40)
--- NOTE | 2024-08-16 06:42 | PCM.HP.BLA ---
History and Physical Date of Admission: 08/16/24 Vital Signs 06/29/2513:19 07/26/2511:57 08/05/2513:52 08/05/2513:54 Height 5 ft 9 in 5 ft 9 in 5 ft 9 in 5 ft 9 in Weight: 301 lb 2 oz BMI 44.4 BP 145/94 H 148/98 H Blood Pressure Location Lt brachial Position Sitting Pulse 111 H Pulse Source Monitor Intake Visit Reasons: TRH BS Cysto Customer Success Associate Required: No Is patient in pain?: No Allergies lanolin Adverse Reaction (Verified 08/05/24 14:52) Rash Medications ?Medication ?Instructions ?Recorded ?Confirmed ?Type cetirizine 10 mg tablet (Zyrtec) 10 mg PO DAILY 01/23/22 08/05/24 History cholecalciferol (vitamin D3) 50 50 mcg PO DAILY 01/23/22 08/05/24 History mcg (2,000 unit) capsule (Vitamin D3) vitamin B complex 1 cap PO DAILY 01/23/22 08/05/24 History aripiprazole 5 mg tablet 5 mg PO DAILY #90 tabs 05/30/24 08/05/24 Rx venlafaxine 150 mg 150 mg PO QHS #90 caps 05/30/24 08/05/24 Rx capsule,extended release 24 hr (Effexor XR) lisinopril 20 1 tab PO QDAY 06/29/24 08/05/24 History mg-hydrochlorothiazide 12.5 mg tablet atomoxetine 100 mg capsule 100 mg PO DAILY #30 caps 07/25/24 08/05/24 Rx venlafaxine 75 mg capsule,extended 75 mg PO QHS 08/03/24 08/05/24 History release 24 hr vitamin E 268 mg (400 unit) capsule 268 mg PO DAILY 08/03/24 08/05/24 History Post menopausal: No Patient : No : No [facility] Medical History Back pain Syncope Heartburn Shortness of breath on exertion History of pain when walking Status post fracture of tibia ADHD MDD (major depressive disorder), recurrent episode, severe Wears glasses Depression Anxiety Marijuana use Low iron Non-smoker Hypertension Encounter for screening for COVID-19 Vacuum-assisted vaginal delivery Gestational diabetes mellitus in childbirth, insulin controlled Lactose intolerance Cystic fibrosis carrier Obsessive compulsive disorder Major depressive disorder, 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 Surgical History Tubal ligation status History of endometrial ablation History of dilation and curettage Family History Father HypertensionGrandmother Diabetes Social History adopted: No household members: spouse and family housing: house number of children: 2 pets and animals: Yes pets and animals: dog(s) history of recent travel: No sexually active: Yes Smoking Status: Never smoker how long ago did patient quit smoking: quit in 2013 alcohol intake: current alcohol intake frequency: a few times a month substance use type: marijuana well-balanced diet: about half the time caffeine: Yes Type: coffee Number of servings: 1 eating out: 1-3 times/week what type of physical activity do you participate in: walking frequency: 1-2 times per week danni/alevism: None seatbelt use: always do you feel safe at home: Yes additional social history: - [place] YING TRH BS Cysto Details: GABY AMEZCUA is a 29 year old who presents for discussion about heavy irregular periods. She had a tubal ligation and ablation procedure when she was 27 years old. This slowed the bleeding slightly but has been heavy again since about 6 months after. She is tearful today stating that she also suffers with severe depression and a history of suicidal ideations (not current) when she has a period and she is ready for a hysterectomy. She states that she has already tried control and TXA. EMB was benign. paps are negative. ultrasound showed the following: TRANSVAGINAL NON- REASON FOR EXAM: HEAVY UTERINE BLEEDING TECHNIQUE: Transabdominal and transvaginal pelvic ultrasound COMPARISON: None. FINDINGS: LMP: June 25, 2024 Measurements: Uterus: 8.2 cm x 4.6 cm x 4.1 cm with a volume of 82 mL Endometrial Thickness: 11.6 mm hyperechoic. Right Ovary: 2.5 cm x 2.8 cm x 2.4 cm with a volume of 9.0 cm mL. Left Ovary: 2 cm x 2.1 cm x 2.2 cm with a volume of 4.7 mL. Transvaginal sonography was performed to better visualize the endometrium. TRANSVAGINAL: Uterus: Anteverted. Normal contour and myometrial echotexture. Endometrium: Endometrial thickening measuring 11.6 mm. Clinical correlation recommended. Right ovary: Normal size and echotexture. Left ovary: Normal size and echotexture. Other adnexal findings: None. Cul-de-sac: No free intraperitoneal fluid identified. No tenderness. US/Transvaginal Non- IMPRESSION: Endometrium is thickened measuring 11.6 mm. Clinical correlation recommended. History 3 Elective abortions Hx Para 2 Spontaneous abortions 1 Hx # Term Pregnancies 1 Ectopic pregnancies Hx # Pregnancies Multiple births # of living children 2 Past Pregnancies Del. Date Name GA/Weeks Outcome Route Bth Weight Gen Labor Lgth Anesthesia Del Locatn Provider FOB 03/28/17 [place] 38 live - full term vacuum 7lb 12oz Female 12 epidural [facility] Benekos Francisco Delivery Date: 03/28/17 Last Updated by: Ema Medina MD IOL for low MEI, PIH ROS Const ROS Unobtainable: All systems reviewed & are unremarkable except as noted in H Resp Resp: Reports system reviewed and no additional complaints, except as documented; Denies cough GI GI: Reports as per HPI Psych Psych: Reports system reviewed and no additional complaints, except as documented Exam Const General: cooperative, healthy appearing, comfortable and no acute distress Resp Effort & Inspection: normal respiratory effort Skin General: no rashes or lesions noted Psych Appearance: grossly normal Speech and Movement: speech and movement normal Coding Level of Care Code Off vis,est,level 4 Diagnoses Abnormal uterine bleeding N93.9 Menometrorrhagia N92.1 Chronic hypertension I10 Assessment and Plan Assessment and Plan (1) Abnormal uterine bleeding: Status: Acute (2) Menometrorrhagia: Status: Acute (3) Chronic hypertension: Status: Chronic Plan After discussing the patient's diagnosis and treatment plan options, patient wishes to proceed with surgical management. I have discussed with the patient the risks, benefits, and alternatives of the procedure which include but are not limited to risks of anesthesia, bleeding, infection, possible damage to bowel, bladder, or surrounding vasculature which could lead to additional surgery to evaluate any complications. Patient agrees to procedure and wishes to proceed. ACOG/uptodate references given for additional information regarding procedure. plan for total robotic hysterectomy, cystoscopy on 08/16/24
[2024-08-16] MEDS: Lactated Ringers 1,000 ML 40 ML IV (06:50)
[2024-08-16] MEDS: Magnesium 1 GM over 15 mins IV (06:50)
[2024-08-16 06:52] LABS: Bedside Glucose 175 mg/dL (74-106)
--- NOTE | 2024-08-16 06:53 | DCINST_ITS ---
Discharge Instructions Diet Discharge Diet: No restrictions DC O2, CPAP, BIPAP needs Home O2 Discharge instructions: No Dressing / Incision Discharge Activity: May Shower May resume sexual activity in: 8 weeks Weight Bearing Status: Full weight bearing Lifting Restrictions: 10 pounds for 2 weeks Dressing / Incision Call your doctor if your incision/area has: Continuous Slow Oozing, Sudden Increased Bleeding, Increased Pain/ Swelling, Increased Redness and Foul Smelling Discharge Call your doctor if you observe: Fever of 101 or Higher, Using more than 1 pad per hour, Shortness of breath, Chest pain and Uncontrolled pain Suture Line Care: Avoid Pulling/Pushing and Avoid Pinching/Bending Remove Dressing in: 1 week (if present) Cleanse incision/area with: Soap & Water and Keep Dressing Clean & Dry Follow Up Care Please Follow Up With: Leatha Sheikh DO When: Call to make an appointment with your doctor for a postop visit in 2 and 6 weeks Test Results: Test results from this visit will be discussed in further detail at your follow- up appointment, if applicable. Discharge Plan Admission Primary Reason for Your Visit: hysterectomy Attending Provider: Leatha Sheikh Primary Care Provider: Lona Rico Instructions Print Language: Belizean Discharge Orders/Prescriptions Prescriptions: New ibuprofen 800 mg tablet 800 mg PO Q8H PRN (Reason: pain) Qty: 30 0RF oxycodone-acetaminophen [Percocet] 5-325 mg tablet 1 tab PO Q4H PRN (Reason: pain) 7 Days Qty: 20 0RF Continued aripiprazole 5 mg tablet 5 mg PO DAILY Qty: 90 1RF venlafaxine [Effexor XR] 150 mg capsule,extended release 24hr 150 mg PO QHS Qty: 90 1RF Rx Instructions: To be taken with 75 mg capsule for total daily dose of 225 mg lisinopril-hydrochlorothiazide 20-12.5 mg tablet 1 tab PO QDAY atomoxetine 100 mg capsule 100 mg PO DAILY Qty: 30 2RF cetirizine [Zyrtec] 10 mg Tablet 10 mg PO DAILY vitamin B complex Capsule 1 cap PO DAILY cholecalciferol (vitamin D3) [Vitamin D3] 50 mcg (2,000 unit) Capsule 50 mcg PO DAILY vitamin E 268 mg (400 unit) capsule 268 mg PO DAILY venlafaxine 75 mg capsule,extended release 24hr 75 mg PO QHS Rx Instructions: To be taken with 150 mg capsule for total daily dose of 225 mg Referrals / Follow Up: Lona Rico MD [Primary Care Provider] - Disposition Disposition (needs filled in before D/C Order can be placed): Home, Self Care
--- NOTE | 2024-08-16 07:14 | PCM.PRE.AN2 ---
ASA Classification* ASA Classification ASA Classification: 3 Assessment & Plan Anesthesia* Anesthesia Assessment Anesthesia Assessment: Discussed sedation and/or anesthesia options, risks, benefits, and alternatives with patient/parents/legal guardian/POA. Questions invited. The patient/parents/legal guardian/POA seems to understand and agrees to proceed with anesthesia plan. Reviewed the physical assessment, medical history, allergy history and patient home medications list prior to surgery/procedure/anesthetic and documented any changes. Performed airway and anesthesia risk assessments. Anesthesia Type Anesthesia Type: General History Source History Obtained from:: Patient and Chart Anesthesia Focused Assessment* Temperature: 97.2 F Pulse Rate: 120 Blood Pressure: 143/99 Respiratory Rate: 18 Pulse Ox: 99 Oxygen Delivery Method: Room Air Airway Assessment Mouth opens: >3 cm Mallampati Score: III Teeth Condition: Intact Neck Range of motion (ROM): Limited ROM (Somewhat decreased extension) Focused Labs Anesthesia Preop lab: CBC WBC 8.3 K/mm3 (4.4-11.0) 08/05/24 15:08/05/24 RBC 4.87 M/mm3 (4.2-5.4) 08/05/24 15:32 08/05/24 Hgb 13.6 g/dL (12.0-15.0) 08/05/24 15:32 08/05/24 Hct 40.3 % (37-47) 08/05/24 15:32 08/05/24 Plt Count 503 K/mm3 (150-450) H 08/05/24 15:32 08/05/24 CHEMISTRY Potassium 3.6 mmol/L (3.3-5.1) 08/05/24 15:08/05/24 Sodium 141 mmol/L (133-145) 08/05/24 15:08/05/24 Magnesium 2.1 mg/dL (1.5-2.2) 08/05/24 15:08/05/24 BUN 14 mg/dL (4-19) 08/05/24 15:08/05/24 Creatinine 0.71 mg/dL (0.70-1.20) 08/05/24 15:08/05/24 Glucose 110 mg/dL (70-99) H 08/05/24 15:08/05/24 POC Glucose 175 mg/dL (74-106) H 08/16/24 06:25 08/16/24 TSH 1.200 uIU/mL (0.358-3.740) 05/13/24 11:59 05/13/24 COAG PT 13.5 SECONDS (11.7-14.9) 09/25/21 12:09 09/25/21 HCG, Quant < 1 mIU/mL (1-3) 09/25/22 14:25 09/25/22 Urine Test Negative Negative 08/16/24 05:56 08/16/24 Pre-Assessment Diagnosis/Proposed Procedure Planned Operative Procedure(s): LAP TOTAL HYSTERECTOMY BSO CYSTO Anesthesia History Anesthesia History - cotton agent: Anesthesia History - cotton agent Hx Hospitalization No 08/03/24 14:21 Any Problems With Anesthesia No 08/03/24 14:21 Cholinesterase deficiency No 08/03/24 14:21 You/Your Family Experience No 08/03/24 14:21 fever (hyperthermia) with Relationship Recent Exposure to Contagious No 08/16/24 06:30 Disease Does patient have nerve No 08/03/24 14:21 stimulator Patient instructed to have device shut off --Does patient have Pacemaker No 08/16/24 06:30 or ICD? When Was Last Pacemaker Check QUESTION #4 FULL TEXT: You/Your Family Experience fever (hyperthermia) with Anesthesia Last Oral Intake Last Oral intake: Last Oral Intake NPO since 04:45 08/16/24 06:30 Meds taken in AM with sips of No 08/16/24 06:30 water? Meds patient instructed to take am of surgery Any additional information?: Yes NPO since: 04:45 (Patient had her preop Ensure at 4:45 AM.) PONV PONV - cotton agent: PONV - cotton agent Female Yes 08/03/24 14:21 HX of Motion Sickness No 08/03/24 14:21 HX of N/V After Surgery No 08/03/24 14:21 Non-Smoker Yes 08/03/24 14:21 Duration of Surgery greater Yes 08/03/24 14:21 than 60 minutes Number of Risk Factors 3 08/03/24 14:21 PONV Score Moderate Risk 08/03/24 14:21 Height & Weight Height & Weight: Anesthesia: Height & Weight Height 5 ft 9 in 08/16/24 06:30 Weight: 137.7 kg 08/16/24 06:30 Body Mass Index (BMI) 44.8 08/16/24 06:30 Respiratory Assessment Respiratory Assessment - cotton agent: Respiratory Tract Infection Hx - cotton agent Hx Respiratory Tract Infection No 08/03/24 14:21 STOP Sleep Apnea STOP Sleep Apnea - cotton agent: STOP Sleep Apnea - cotton agent Hx Hypertension Yes: CONTROLLED WITH MED/ 08/03/24 14:21 WHITE COAT SYNDROME Hx Sleep Apnea No 08/03/24 14:21 CPAP BIPAP Do you snore loudly (louder Yes 08/03/24 14:21 than talking or can be heard Do you often feel tired/ No 08/03/24 14:21 fatigued/ sleepy during daytime? Has anyone observed you stop No 08/03/24 14:21 breathing during sleep? STOP Results Positive 08/03/24 14:21 QUESTION #5 FULL TEXT : Do you snore loudly (louder than talking or can be heard through closed doors)? 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 Specify any problems Hx of Preganancy in last 3 No 08/03/24 14:21 Months Nurse Filling Out Transfusion DSCHRIBER 08/03/24 14:21 & Questions: Date: 08/03/24 08/03/24 14:21 Time: 14:22 08/03/24 14:21 Patient unable to answer at this time (ie. confused, unrespo /Reproduction History /Reproductive History - cotton agent: /Reproductive Hx- cotton agent Hx Now No 08/03/24 14:21 Gestational Age (in weeks): EDC: Hx Hx Para Hx Section SAB No 08/05/24 14:54 Active Medications Active Medications: Current Medications Generic Name Dose Route Start Last Admin Trade Name [place] PRN Reason Stop Dose Admin Acetaminophen 1,000 mg 08/16/24 07:30 08/16/24 06:40 Acetaminophen 500 Mg Tablet PO 08/16/24 07:31 1,000 mg PREOP ONE Administration Celecoxib 400 mg 08/16/24 07:30 08/16/24 06:40 Celecoxib 200 Mg Capsule PO 08/16/24 07:31 400 mg PREOP ONE Administration Gabapentin 600 mg 08/16/24 07:30 08/16/24 06:40 Gabapentin 600 Mg Tablet PO 08/16/24 07:31 600 mg PREOP ONE Administration Lactated Ringer's 1,000 mls @ 40 mls/hr 08/16/24 07:30 08/16/24 06:50 IV 40 mls/hr .Q25H RADHA Administration Cefazolin Sodium 2 gm/ N/A 20 mls @ 400 mls/hr 08/16/24 07:30 IV 08/16/24 07:32 INTRAOP ONE Lactated Ringer's 1,000 mls @ 70 mls/hr 08/16/24 07:30 IV .[id number] RADHA Magnesium Sulfate 1 gm/ 102 mls @ 408 mls/hr 08/16/24 07:30 08/16/24 06:50 Dextrose IV 08/16/24 07:44 408 mls/hr X1 ONE Administration Insulin Human Lispro 0 unit 08/16/24 07:30 Insulin Lispro 100 Unit/Ml Insuln.Pen SC 08/16/24 18:00 Q4H PRN PRN BG >/= 180, SEE PROTOCOL Protocol Ondansetron HCl 4 mg 08/16/24 07:30 Ondansetron 4 Mg/2 Ml Vial IV 08/16/24 07:31 INTRAOP ONE Phenazopyridine HCl 190 mg 08/16/24 07:30 08/16/24 06:39 Phenazopyridine 95 Mg Tablet PO 08/16/24 07:31 190 mg PREOP ONE Administration Scopolamine HBr 1 patch 08/16/24 07:30 08/16/24 06:40 Scopolamine 1mg/72hr Patch TD 08/16/24 07:31 1 patch PREOP ONE Administration ON LICENSE OF [facility] Medical History Back pain Syncope Heartburn Shortness of breath on exertion History of pain when walking Status post fracture of tibia ADHD MDD (major depressive disorder), recurrent episode, severe Wears glasses Depression Anxiety Marijuana use Low iron Non-smoker Hypertension Encounter for screening for COVID-19 Vacuum-assisted vaginal delivery Gestational diabetes mellitus in childbirth, insulin controlled Lactose intolerance Cystic fibrosis carrier Obsessive compulsive disorder Major depressive disorder, 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 Home Medications ?Medication ?Instructions ?Recorded ?Last Taken ?Type cetirizine 10 mg tablet (Zyrtec) 10 mg PO DAILY 01/23/22 08/15/24 History cholecalciferol (vitamin D3) 50 50 mcg PO DAILY 01/23/22 08/15/24 History mcg (2,000 unit) capsule (Vitamin D3) vitamin B complex 1 cap PO DAILY 01/23/22 08/15/24 History aripiprazole 5 mg tablet 5 mg PO DAILY #90 tabs 05/30/24 08/15/24 Rx venlafaxine 150 mg 150 mg PO QHS #90 caps 05/30/24 08/15/24 Rx capsule,extended release 24 hr (Effexor XR) lisinopril 20 1 tab PO QDAY 06/29/24 08/15/24 History mg-hydrochlorothiazide 12.5 mg tablet atomoxetine 100 mg capsule 100 mg PO DAILY #30 caps 07/25/24 08/15/24 Rx venlafaxine 75 mg capsule,extended 75 mg PO QHS 08/03/24 08/15/24 History release 24 hr vitamin E 268 mg (400 unit) capsule 268 mg PO DAILY 08/03/24 08/15/24 History ibuprofen 800 mg tablet 800 mg PO Q8H PRN pain #30 tabs 08/16/24 Unknown Rx oxycodone-acetaminophen 5 mg-325 1 tab PO Q4H PRN pain 7 days #20 08/16/24 Unknown Rx mg tablet (Percocet) tabs Allergy/AdvReac Type Severity Reaction Status Date / Time lanolin AdvReac Rash Verified 08/16/24 06:14 Family History Father Hypertension Grandmother Diabetes Surgical History Tubal ligation status History of endometrial ablation History of dilation and curettage Social History adopted: No household members: spouse and family housing: house number of children: 2 pets and animals: Yes pets and animals: dog(s) history of recent travel: No sexually active: Yes Smoking Status: Never smoker how long ago did patient quit smoking: quit in 2013 alcohol intake: current alcohol intake frequency: a few times a month substance use type: marijuana well-balanced diet: about half the time caffeine: Yes Type: coffee Number of servings: 1 eating out: 1-3 times/week what type of physical activity do you participate in: walking frequency: 1-2 times per week danni/restorationist: None seatbelt use: always do you feel safe at home: Yes additional social history: - [place] Review of Systems (Anesthesia) ROS Narrative System reviewed and no additional complaints, except as documented.
--- NOTE | 2024-08-16 07:30 | UT_PTH ---
PATIENT: GABY AMEZCUA [place] [facility] [place][id number] AGE/SX: 29/F ROOM: RE08/16/[address]: Dr. Leatha Sheikh DO : 1995 BED: DIS: 08/16/2024 SPEC #: [id number] RECD: 08/16/24 11:15 STATUS: DANYA ARGUETA #: [id number] GERSON: 08/16/24 07:[address]: Leatha Sheikh DEPT: SURGICAL PATHOLOGY RECD BY: Domingo Alvarado ENTERED: 08/16/24 11:15 SP TYPE: UTERUS OTHR DR: Dr. Lona Rico MD Tissues: A - Uterus, NOS Procedures: Surgery Specimen Level V HEADER OPERATION: ERAS, laparoscopic total robotic hysterectomy PRE-OP DIAGNOSIS: Abnormal uterine bleeding, menometrorrhagia, chronic hypertension TISSUE SUBMITTED: A- Uterus with cervix MICROSCOPIC DIAGNOSIS A. Uterus and cervix, AUB, hysterectomy: * Cervix: mild hyperkeratosis * Endometrium: disordered proliferative endometrium * Myometrium: no specific pathologic change MICROSCOPIC DESCRIPTION Slides are reviewed. GROSS DESCRIPTION A. Received in formalin in a container labeled with the patient's name, date of , and uterus and cervix is a 128.4 g hysterectomy specimen with attached cervix. The uterus is 10 cm from fundus to ectocervix, 5 cm from cornu to cornu, and 4.5 cm from anterior to posterior. The serosa is fraser-pink, smooth, and glistening. The previously disrupted white-pink ectocervical face is 3.0 x 3.0 cm with a 1.0 cm slit-like os. The specimen is bivalved to reveal an unremarkable endocervical canal. The triangular endometrial cavity is 4.5 cm in length by 3.5 cm in width. There is red-fraser, heaped up endometrium which is poorly adherent to the cavity measuring up to 1 cm in greatest thickness. The fraser-pink myometrium is up to 2.4 cm in thickness and exhibits a coarse trabecular pattern. No myometrial nodules are identified. District Wire Chief sections:A1. Anterior cervix with serosal shaveA2. Posterior cervix with serosal shaveA3. Anterior endomyometrium with thick, poorly adherent endometriumA4. Posterior endomyometrium with trabecular myometrium (superficial) [facility] 08/17/2024 CPT:[id number]
[2024-08-16] MEDS: Cefazolin 2 GM in Syringe 10 ML IV (07:36)
[2024-08-16] MEDS: metroNIDAZOLE 500 MG/100 ML BAG 100 MG IV (08:05)
[2024-08-16] MEDS: Bupivacaine 0.25% 30 ML Vial (08:15)
--- NOTE | 2024-08-16 09:02 | PCM.OPRPT ---
Problems Associated Problem List Diagnoses (1) Abnormal uterine bleeding: (2) Menometrorrhagia: (3) MDD (major depressive disorder), recurrent episode, severe: Multi Select Codes Urinary/Genital Urinary/Genital CPT Codes: 16438 Cystoscopy and 07300 TLH <250gr uterus Operative Report (Standard) Operative Information Date of Procedure: 08/16/24 Pre-Operative Diagnosis: menorrhagia, PMDD, dysmenorrhea Post-Operative Diagnosis: menorrhagia, PMDD, dysmenorrhe Surgery/Procedure Performed: total robotic hysterectomy, cystoscopy summer internship: Yes Pick Up Driver: Kevin Claire Tasks completed by bilingual teacher assistant: Closing, Trocar and Retracting Additional research assistant professor?: No Type of Anesthesia: General RN Documented Start/Stop Times: Operation Date: 08/16/24 07:30 Case Time Into Pre-Op 08/16/24 05:41 Anesthesia Start 08/16/24 07:27 Into Room 08/16/24 07:27 Out of Pre-Op 08/16/24 07:27 Procedure Start 08/16/24 08:12 Procedure Start Time: 08:12 Procedure Stop Time: 09:10 Select all DRAINS/GRAFTS/IMPLANTS that apply: None Estimated Blood Loss: 30cc Specimen collected: Yes Description of specimen(s) removed: uterus and cervix. Description of surgery: Findings: 12 cm size uterus, polycystic appearing ovaries, surgically absent fallopian tubes. On exploration of the abdominal cavity the uterus, adnexa, bowel, and liver were found to be normal. Cystoscopy showed no evidence of leaking at approximately 250 cc of normal saline, positive ureteral orifices and jet flow are seen and no suture material was appreciated in the bladder. Specimens removed: Uterus and cervix Reason for surgery: This is a 29-year-old G3, P2 who presented to my office with history of severe PMDD, pelvic pain, menorrhagia, failed ablation. the planned procedure is for a robotic hysterectomy the risks benefits and alternatives were discussed with the patient the patient had a clear understanding of the procedure and a consent form was signed. Procedure: The patient was placed in the dorsal low lithotomy position and prepped and draped in the normal sterile fashion both abdominally and in the perineum. Her legs were placed in stirrups a Mendez catheter was inserted into the urethra without difficulty. A weighted speculum was placed in the vagina and a single-tooth tenaculum was used to grasp the anterior lip of the cervix. An advincula uterine manipulator was inserted through the cervix without complication. It was then tied into place at the 2 and 10:00 locations on the cervix. Gloves were changed and attention was turned towards the abdomen. Approximately 23 cm above the pubic symphysis in the midline, and after Marcaine injection, a 8 mm incision was made. An 8 mm trocar was inserted through the laparoscope, then inserted into the abdomen under direct visualization using the laparoscope. Good abdominal placement was noted and no complications were appreciated. An air seal device was utilized to create pneumoperitoneum. At 12 cm lateral to the midline on the left and right sides 8 mm accessory ports were placed. Next a left upper quadrant 8 mm research assistant professor port site was placed. The patient was placed in steep Trendelenburg position. The robot was docked. The hysterectomy was initiated first by taking down the round ligament on each side using the vessel sealer device. The broad ligament was then and taken down using the vessel sealer device. Next the bladder flap was taken down without complication. This was done using monopolar cautery to the level of the cervical vaginal junction. After the bladder flap was created, uterine vessels were then isolated and cauterized using the vessel sealer device and EndoShears. At this point the uterine vessels were taken down further starting from the ascending branch, dissecting along the edges of the cervix to the level of the cervical vaginal junction with hemostasis appreciated. The cervical vaginal junction was then using monopolar cautery in a circumferential pattern across the superior aspect of the cervix. The specimen was delivered through the vagina and sent to pathology. The remaining vaginal cuff was then closed using a V lock suture. This was performed in a running technique. Excellent hemostasis was obtained and good closure was noted. Irrigation was then performed. All operative sites were noted to be hemostatic. A cystoscopy was performed with a 70 degree cystoscope through the urethra into the bladder without complication. The bladder was instilled with approximately 250 cc of normal saline. Intraoperative images were made. Ureteral orifices and jets were identified. No suture material was appreciated in the bladder. The bladder was then drained and cystoscope was removed. The abdominal cavity was again examined using the laparoscope after the robot was undocked. All operative sites were noted to be hemostatic. The trochars were removed under direct visualization without complication and pneumoperitoneum was reduced. At this point the skin was then closed using 4-0 Monocryl subcuticular stitch and sealed with surgical glue. The patient tolerated the procedure well sponge lap and needle counts were correct x2 the patient was taken to the recovery room in stable condition. Surgical Findings: polycystic appearing ovaries Complications Complications: No Admit VTE Documentation VTE Present on Admission: No VTE Mechan Device Prophylaxis: SCD's VTE Pharm Prophylaxis ordered?: No
--- NOTE | 2024-08-16 09:39 | PCM.POST.ANE ---
Anesthesia: Postop Eval I Current Vital Signs Temperature: 97.9 F Pulse Rate: 100 Blood Pressure: 114/62 Respiratory Rate: 22 Pulse Ox: 90 Oxygen Delivery Method: Nasal Cannula Oxygen Flow Rate (L/min): 4 Assessment Airway patent: Yes Spontaneous unlabored respirations: Yes Mental status: Awake and Calm nausea: No Vomiting: No Anesthesia Complication: No Fluid Hydration Crystalloid volume administer (ml): 1,000 Total IV fluid infused: 1,000 Progress Note Post-operative progress note: pt pulse ox not great, coaching and HOB elevated 40 degrees, pt following commands Anesthesia document: Postop Eval 1 completed: Yes
[2024-08-16] MEDS: Lactated Ringers @ 70 MLS/HR 70 ML IV (10:38)
--- NOTE | 2024-08-16 11:51 | POSTOPAN2_ITS ---
Anesthesia Postop Eval I Sum Postop Eval Completion status Anesthesia document: Postop Eval 1 completed: Yes Anesthesia Postop Eval I Summary Anesthesia Postop Eval I Summary: Anesthesia Postop Eval I: Assessment Summary Airway patent Yes 08/16/24 09:41 AIRCRAFT DELIVERY CHECKER.BHOS Spontaneous unlabored Yes 08/16/24 09:41 AIRCRAFT DELIVERY CHECKER.NEFTALY respirations Mental status Awake,Calm 08/16/24 09:41 AIRCRAFT DELIVERY CHECKER.BHOS nausea No 08/16/24 09:41 AIRCRAFT DELIVERY CHECKER.BHOS Vomiting No 08/16/24 09:41 AIRCRAFT DELIVERY CHECKER.NEFTALY Anesthesia Postop Eval I: Fluid Summary Crystalloid volume administer 1,000 08/16/24 09:41 AIRCRAFT DELIVERY CHECKER.BHOS (ml) Colloids volume administered ( ml) Blood Product volume administered (ml) Total IV fluid infused 1,000 08/16/24 09:41 AIRCRAFT DELIVERY CHECKER.NEFTALY Anesthesia Postop Eval I: Summary Notes Anesthesia Complication No 08/16/24 09:41 AIRCRAFT DELIVERY CHECKER.NEFTALY Anesthesia Complication Comment: Post-operative progress note pt pulse ox not 08/16/24 09:41 AIRCRAFT DELIVERY CHECKER.BHOS great, coaching and HOB elevated 40 degrees, pt following commands Anesthesia: Postop Eval II Evaluation Mental status: Awake and Calm Pain Level: 0 nausea: No Vomiting: No Complications Anesthesia Complication: No
--- NOTE | 2024-08-16 11:51 | PCM.POSTANE2 ---
Anesthesia Postop Eval I Sum Postop Eval Completion status Anesthesia document: Postop Eval 1 completed: Yes Anesthesia Postop Eval I Summary Anesthesia Postop Eval I Summary: Anesthesia Postop Eval I: Assessment Summary Airway patent Yes 08/16/24 09:41 COLLECTIONS ANALYST.BHOS Spontaneous unlabored Yes 08/16/24 09:41 COLLECTIONS ANALYST.NEFTALY respirations Mental status Awake,Calm 08/16/24 09:41 COLLECTIONS ANALYST.BHOS nausea No 08/16/24 09:41 COLLECTIONS ANALYST.BHOS Vomiting No 08/16/24 09:41 COLLECTIONS ANALYST.NEFTALY Anesthesia Postop Eval I: Fluid Summary Crystalloid volume administer 1,000 08/16/24 09:41 COLLECTIONS ANALYST.BHOS (ml) Colloids volume administered ( ml) Blood Product volume administered (ml) Total IV fluid infused 1,000 08/16/24 09:41 COLLECTIONS ANALYST.NEFTALY Anesthesia Postop Eval I: Summary Notes Anesthesia Complication No 08/16/24 09:41 COLLECTIONS ANALYST.NEFTALY Anesthesia Complication Comment: Post-operative progress note pt pulse ox not 08/16/24 09:41 COLLECTIONS ANALYST.BHOS great, coaching and HOB elevated 40 degrees, pt following commands Anesthesia: Postop Eval II Evaluation Mental status: Awake and Calm Pain Level: 0 nausea: No Vomiting: No Complications Anesthesia Complication: No
[2024-08-16] MEDS: HYDROcodone Bitartrate/Apap 5/325 Tablet PO (11:53)
--- NOTE | 2024-08-16 13:33 | SUR.PHASEII ---
5 small blisters noted on back. Pt states they are from her skin disease and gets them all the time. Has several other areas that are not blistered but look like they will blister. looked at back and states thats nothing
== END 2024-08-16 13:37 | disposition home or self-care (01) ==
LOC: SDC 05:31 → AC 05:33
PROVIDERS: Anesthesiology; PCP Family Medicine; Referring Provider Obstetrics & Gynecology; Visit Provider Obstetrics & Gynecology
PROC: 0UT90ZZ Resection of Uterus, Open Approach (ICD-10-PCS; CPT 58570; principal; 2024-08-16 07:10)
DX: N88.0 Leukoplakia of cervix uteri (principal); F33.2 Major depressive disorder, recurrent severe without psychotic features; I10 Essential (primary) hypertension; N93.9 Abnormal uterine and vaginal bleeding, unspecified; N94.6 Dysmenorrhea, unspecified; N92.1 Excessive and frequent menstruation with irregular cycle; F41.9 Anxiety disorder, unspecified; F42.9 Obsessive-compulsive disorder, unspecified; Z79.899 Other long term (current) drug therapy
CPT/HCPCS: 58570; 00840; 36415; 80048; 81025; 82962; 83735; 85027; 86850; 86900; 86901; 88307; A4216; J2405; J3475

== ENCOUNTER → 2024-08-25 | Outpatient (CLI) | payer MEDICAID, SELFPAY | END | disposition home or self-care (01) | LOC: LABSPEC 11:16 | PROVIDERS: PCP Family Medicine; Referring Provider Obstetrics & Gynecology; Visit Provider Obstetrics & Gynecology | DX: R30.0 Dysuria (principal) | CPT/HCPCS: 87077; 87086; 87088; 87186 ==

== ENCOUNTER → 2024-12-14 | Outpatient (CLI) | payer MEDICAID, SELFPAY ==
[2024-12-14 15:19] LABS: Color, Urine Yellow (Yellow); Glucose, Dipstick Normal (Normal); Ketone-Dipstick Negative (Negative); Leukocyte Esterase-Dipstick Negative /ul (Negative); Nitrite-Dipstick Negative (Negative); Occult Blood-Urine Negative /ul (Negative); Protein-Dipstick 30 mg/dl (Negative); Specific Gravity, Urine 1.020 (1.002-1.030); Urine Bilirubin Dipstick Negative (Negative)
== END | disposition home or self-care (01) ==
LOC: MTLAB 12:38
PROVIDERS: PCP Family Medicine; Referring Provider Family Medicine; Visit Provider Family Medicine
DX: R30.0 Dysuria (principal)
CPT/HCPCS: 81002; 87086; 87088

== ENCOUNTER → 2024-12-21 | Outpatient (CLI) | payer MEDICAID, SELFPAY ==
--- OUTSIDE RECORDS SUMMARY | 2025-03-08 17:27 | XMS RPT_ITS | CCD ---
Author Organization [facility] Care Team Providers Care [employer]p [employer] Name Role Phone NO, DOCTOR ON Consulting Unavailable NO, DOCTOR ON Referring Unavailable ERIC LAYTON DO Admitting Unavailable DIDERIC ROB DO Primary Care Unavailable ERIC LAYTON DO Attending Unavailable CRYSTAL CAMPBELL Attending Unavailable LEILA, DOCTOR ON Consulting Unavailable ADRIANCRYSTAL BALLARD Admitting Unavailable ADRIANCRYSTAL BALLARD Primary Care Unavailable ADRIANCRYSTAL JOSEPH Attending Unavailable LEILA, DOCTOR ON Consulting Unavailable ADRIANCRYSTAL BALLARD Admitting Unavailable ADRIANCRYSTAL BALLARD Primary Care Unavailable DANII, LONA Primary Care Physician PILY LEWIS DO Attending Unavailable MIEDEL, LONA Primary Care Unavailable OCTAVIANO JASSO, DR GILBERTO Grant Attending Unavailab le DANII, LONA Primary Care Unavailable OCTAVIANO JASSO, DR GILBERTO Grant Attending Unavailab le LONA RICO Primary Care Unavailable Kaushal GARCIA, Shanthi Grant Primary Care Provider [phone] Lona Rico MD Primary Care Provider DANII, LONA E Primary Care Unavailable DENG MONGE Attending Unavailable MIEDEL, LONA E Primary Care Unavailable LOURDES IRELAND Referring Unavailable MIEDEL, LONA E Primary Care Unavailable MIEDEL, LONA E Primary Care Unavailable DENG MONGE Referring Unavailable MIEDEL, LONA E Primary Care Unavailable Miedel, Lona Referring Unavailable Leatha Sheikh Attending Unavailabl e Miedel, Lona Primary Care Unavailable Miedel, Lona Primary Care Unavailable Gilberto Lyon Attending Unavailable Snowedel, Lona Referring Unavailable Miedel, Lona Primary Care Unavailable Kenyetta Crisostomo Attending Unavailable Snowedel, Lona Primary Care Unavailable Gilberto Lyon Attending Unavailable Tned, Lona Referring Unavailable Tned, Lona Primary Care Unavailable Yen Ko Attending Unavailable Yen Ko Referring Unavailable [place]ied, [place] Primary Care Unavailable Kierra Deluna Attending Unavailable Tned, [place] Primary Care Unavailable Gilberto Lyon Attending Unavailable Mied, [place] Primary Care Unavailable Gilberto Lyon Attending Unavailable Mied, Lona Referring Unavailable Teresa Giron Attending Unavailable Tned, [place] Primary Care Unavailable Miedel, Lona Primary Care Unavailable Gilberto Lyon Attending Unavailable Miedel, Lona Referring Unavailable Leatha Sheikh Attending Unavailabl e Miedel, [place] Primary Care Unavailable [facility], Lona Attending Unavailable Tned, [place] Primary Care Unavailable [facility], Lona Referring Unavailable Tned, [place] Primary Care Unavailable Kenyetta Crisostomo Referring Unavailable Kenyetta Crisostomo Attending Unavailable Leatha Sheikh Referring Unavailabl Leatha He Attending Unavailabl e Miedel, [place] Primary Care Unavailable Teresa Giron Referring Unavailable Teresa Giron Attending Unavailable Tned, [place] Primary Care Unavailable Tned, Lona Primary Care Unavailable Kenyetta Crisostomo Referring Unavailable Kenyetta Crisostomo Attending Unavailable [facility], [place] Primary Care Unavailable Gilberto Lyon Attending Unavailable [facility], [place] Primary Care Unavailable Yen Ko Attending Unavailable Mied, Lona Referring Unavailable Leatha Sheikh Referring Unavailabl Leatha He Attending Unavailabl e Miedel, [place] Primary Care Unavailable Miedel, Lona Referring Unavailable Tned, Lona Primary Care Unavailable Kenyetta Crisostomo Attending Unavailable [facility], Lona Attending Unavailable [facility], [place] Primary Care Unavailable [facility], [place] Primary Care Unavailable [facility], Lona Referring Unavailable Gilberto Lyon Attending Unavailable Mied, [place] Primary Care Unavailable Gilberto Lyon Attending Unavailable [facility], Lona Referring Unavailable Leatha Sheikh Attending Unavailabl e Miedel, [place] Primary Care Unavailable Miedel, Lona Primary Care Unavailable Leatha Sheikh Attending [facility] [place] Rico [place] Referring Unavailable Leatha Sheikh Attending Leatha Sunshine Consulting Leatha Sunshine Referring [facility] [place] Tnlester [place] Primary Care Unavailable [facility] Primary Care Unavailable Gilberto Lyon Attending Unavailable Allergies Allergy Classification Reported Allergen(s) Allergy Type Date of Onset Reaction(s) Facility (16 sources) Lanolin; Translations: [lanolin topical] Drug Allergy 10-20-2018 [facility] Medications Current Medications Medication Drug Class(es) Dates Sig (Normalized) Sig (Original) amoxicillin 500 mg oral capsule (4 sources) Penicillin-class Antibacterial Start: 2024 End: 05-05-2024 take 1 capsule by mouth twice daily amoxicillin (AMOXIL) 500 mg capsule Take 1 capsule by mouth two times a day for 10 days. 20 capsule 2024 05/05/2024 Active ARIPiprazole 5 mg oral tablet (14 sources) Atypical Antipsychotic Start: 02-11-2023 ARIPiprazole (ABILIFY) 5 mg tablet 02/11/2023 Active Start: 11-03-2022 ARIPiprazole 2 mg oral tablet Dose : 6 mg = 3 tab(s), Oral, Daily, # 90 tab(s), 0 Refill(s) Start Date: 11/03/22 Status: Ordered benzonatate 100 mg oral capsule (1 source) Non-narcotic Antitussive Start: 04-29-2024 End: 05-06-2024 take 1 capsule by mouth every eight hours as needed benzonatate (TESSALON PERLE) 100 mg capsule Take 1 capsule by mouth three times a day as needed for cough for up to 7 days. 21 capsule 04/29/2024 05/06/2024 Active 24 hr buPROPion hydrochloride 150 mg extended release oral tablet (7 sources) Aminoketone Start: 03-14-2023 buPROPion XL (WELLBUTRIN XL) 150 mg 24 hr tablet 03/14/2023 Active cetirizine hydrochloride 10 mg oral tablet (14 sources) Histamine-1 Receptor Antagonist Start: 07-10-2023 cetirizine (ZYRTEC) 10 mg tablet Take 10 mg by mouth. 11/03/2022 Active Comment on above: Take 10 mg by mouth. cholecalciferol 0.125 mg oral tablet (11 sources) Vitamin D take 1 tablet by mouth once daily cholecalciferol (VITAMIN D-3) 5,000 unit tab Take 5,000 Units by mouth once daily. Active Comment on above: Take 5,000 Units by mouth once daily. 24 hr dilTIAZem hydrochloride 120 mg extended release oral capsule (11 sources) Calcium Channel Melba Start: 02-10-2023 dilTIAZem CR (TIAZAC, TAZTIA XT) 120 mg 24 hr capsule 02/10/2023 Active Lactobacillus acidophilus (11 sources) Start: 11-03-2022 Lactobacillus acidophilus (PROBIOTIC ORAL) Probiotic 0 Refill(s) Start Date: 11/03/22 Status: Ordered 11/03/2022 Active Start: 11-03-2022 Lactobacillus acidophilus (PROBIOTIC ORAL) Probiotic 0 Refill(s) Start Date: 11/03/22 Status: Ordered 0 11/03/2022 Active Comment on above: Probiotic 0 Refill(s ) Start Date: 11/03/22 Status: Ordered metoprolol tartrate 50 mg oral tablet (3 sources) beta-Adrenergic Melba Start: take 1 tablet by mouth once daily Metoprolol Tartrate 50 mg oral tablet TAKE 1 TABLET BY MOUTH ONCE DAILY Start Date: 11/03/22 Status: Ordered 12 hr morphine sulfate 15 mg extended release oral tablet (1 source) Opioid Agonist Start: End: take 1 tablet by mouth every hour, then take 1 tablet by mouth every twelve hours MS Contin 15 mg/8-12 hrs oral tablet, extended release Dose : 15 mg = 1 tab(s), Oral, q12h, # 4 tab(s), 0 Refill(s), Leg pain Ankle fracture, 131.8 Start Date: 11/08/22 Stop Date: 11/10/22 Status: Ordered norethindrone acetate 5 mg oral tablet (8 sources) Start: norethindrone (AYGESTIN) 5 mg tablet Indications: abnormal uterine bleeding due to hormonal imbalance Take 1 tablet TID until bleeding stops, the BID x 3 days, the daily x 3 days. 35 tablet 03/23/2023 Active Comment on above: Take 1 tablet TID un til bleeding stops, the BID x 3 days, the daily x 3 days. oxyCODONE hydrochloride 5 mg oral tablet (3 sources) Opioid Agonist Start: oxyCODONE 5 mg oral tablet ( IMMEDIATE release ) Dose : 5 mg = 1 tab(s), Oral, q6h, PRN for pain, # 12 tab(s), 0 Refill(s) Start Date: 11/03/22 Status: Ordered Probiotic (3 sources) Start: Probiotic 0 Refill(s) Start Date: 11/03/22 Status: Ordered tranexamic acid 650 mg oral tablet (7 sources) Antifibrinolytic Agent Start: tranexamic acid (LYSTEDA) 650 mg tablet Take 2 tablets 3 times a day as needed for heavy bleeding up to 5 days. 30 tablet 1 04/02/2023 Active Comment on above: Take 2 tablets 3 judit es a day as needed for heavy bleeding up to 5 days. 24 hr venlafaxine 150 mg extended release oral capsule (11 sources) Serotonin and Norepinephrine Reuptake Inhibitor Start: venlafaxine ER (EFFEXOR XR) 150 mg 24 hr capsule 02/11/2023 Active Vitamin B Complex oral capsule (3 sources) Start: take 1 capsule by mouth once daily Vitamin B Complex oral capsule Dose = 1 cap(s), Oral, Daily, 0 Refill(s) Start Date: 11/03/22 Status: Ordered Vitamin D3 (3 sources) Start: Vitamin D3 Dose : 100 mcg = 1 tab(s), Oral, Daily, # 90 tab(s), 0 Refill(s) Start Date: 11/03/22 Status: Ordered Completed/Discontinued Medications Medication Drug Class(es) Dates Sig (Normalized) Sig (Original) B Complex Vitamins capsule (1 source) End: 02-27-2023 take 1 capsule by mouth once daily B Complex Vitamins capsule Take 1 capsule by mouth once daily. 0 02/27/2023 Discontinued (Other) Comment on above: [facility] busPIRone hydrochloride 5 mg oral tablet (1 source) Start: 11-03-2019 End: 02-27-2023 take 1 tablet by mouth once daily, then take 1 tablet by mouth twice daily busPIRone (BUSPAR) 5 mg tablet TAKE 1 TABLET BY MOUTH ONCE DAILY FOR 3 DAYS THEN 1 TABLET TWICE DAILY 0 11/03/2019 02/27/2023 Discontinued (Other) Comment on above: TAKE 1 TABLET BY JEANETTE TH ONCE DAILY FOR 3 DAYS THEN 1 TABLET TWICE DAILY citalopram 40 mg oral tablet (1 source) Serotonin Reuptake Inhibitor Start: 06-06-2020 End: 02-27-2023 take 1 tablet by mouth once daily citalopram (CELEXA) 40 mg tablet Take 40 mg by mouth once daily. 0 06/06/2020 02/27/2023 Discontinued (Other) Comment on above: Take 40 mg by mouth once daily. fluticasone propionate 0.05 mg/actuat metered dose nasal spray (1 source) Corticosteroid Start: 06-11-2020 End: 02-27-2023 take 2 spray(s) by mouth once daily fluticasone (FLONASE) 50 mcg/actuation nasal spray Use 2 Sprays in each nostril once daily. Rinse mouth after use. 1 Bottle 11 06/11/2020 02/27/2023 Discontinued (Other) Comment on above: Use 2 Sprays in each nostril once daily. Rinse mouth after use. meloxicam 7.5 mg oral tablet (5 sources) Nonsteroidal Anti-inflammatory Drug Start: 02-02-2023 End: 04-07-2023 meloxicam (MOBIC) 7.5 mg tablet minerals ([employer] MINERAL ORAL) (1 source) End: 02-27-2023 take 1000 mg by mouth once daily minerals (JO[employer] HEALTH MINERAL ORAL) Take 1,000 mg by mouth once daily. 0 02/27/2023 Discontinued (Other) Comment on above: Take 1,000 mg by jeanette th once daily. sertraline 50 mg oral tablet (1 source) Serotonin Reuptake Inhibitor Start: 06-09-2019 End: 02-27-2023 take 1.5 tablets by mouth once daily sertraline (ZOLOFT) 50 mg tablet Take 1.5 tablets by mouth once daily. 45 tablet 2 06/09/2019 02/27/2023 Discontinued (Other) Comment on above: Take 1.5 tablets by mouth once daily. traZODone hydrochloride 50 mg oral tablet (1 source) Serotonin Reuptake Inhibitor Start: 04-21-2020 End: 02-27-2023 take 1 tablet by mouth once daily at bedtime as needed traZODone (DESYREL) 50 mg tablet Take 50 mg by mouth daily at bedtime. PRN 0 04/21/2020 02/27/2023 Discontinued (Other) Comment on above: Take 50 mg by mouth daily at bedtime. PRN Problems Active Problems Problem Classification Problem Date Documented Date Episodic/Chronic Anxiety disorders (18 sources) Generalized anxiety disorder; Translations: [Obsessive-compulsiv e disorder] Onset: 10-20-2018 04-06-2020 Chronic Attention-deficit, conduct, and disruptive behavior disorders (1 source) Attention-deficit hyperactivity disorder, unspecified type; Translations: [Attention-deficit hyperactivity disorder, unspecified type] Onset: 01-27-2025 Chronic Essential hypertension (1 source) Essential (primary) hypertension; Translations: [Essential (primary) hypertension] Onset: 08-05-2024 Chronic Fracture of lower limb (3 sources) Closed fracture of lower leg; Translations: [Other fracture of unspecified lower leg, initial encounter for closed fracture] Onset: 11-08-2022 Episodic Genitourinary symptoms and ill-defined conditions (2 sources) Dysuria; Translations: [Dysuria] Onset: 12-21-2024 Episodic Menstrual disorders (3 sources) Menometrorrhagia; Translations: [Excessive and frequent menstruation with irregular cycle] Onset: 08-05-2024 04-07-2023 Chronic Mood disorders (4 sources) Recurrent major depressive episodes, moderate ; Translations: [Major depressive disorder, recurrent severe without psychotic features] Onset: 01-27-2025 04-06-2020 Chronic Nonspecific chest pain (1 source) Other chest pain; Translations: [Other chest pain] Onset: 03-02-2025 Episodic Other circulatory disease (1 source) Elevated blood pressure; Translations: [Elevated blood-pressure reading, without diagnosis of hypertension] 2024 Episodic Other connective tissue disease (1 source) Pain in lower limb; Translations: [Pain in leg, unspecified] Onset: 11-08-2022 Episodic Other female genital disorders (2 sources) Abnormal uterine bleeding; Translations: [Abnormal uterine and vaginal bleeding, unspecified] 02-27-2023 Chronic Other female genital disorders (1 source) Abnormal uterine and vaginal bleeding, unspecified; Translations: [Abnormal uterine and vaginal bleeding, unspecified] Onset: 08-25-2024 Chronic Other lower respiratory disease (2 sources) Cough; Translations: [Acute cough] 2024 Episodic Other non-traumatic joint disorders (6 sources) Arthralgia of the ankle and/or foot; Translations: [Pain in left ankle and joints of left foot] 08-11-2024 Episodic Other non-traumatic joint disorders (1 source) Pain in left ankle and joints of left foot; Translations: [Joint pain of ankle and foot, left] Onset: 08-11-2024 Episodic Other nutritional; endocrine; and metabolic disorders (2 sources) Obesity 11-07-2022 Chronic Other nutritional; endocrine; and metabolic disorders (11 sources) Obese class I; Translations: [Obesity, unspecified] Onset: 09-14-2018 09-14-2018 Chronic Other nutritional; endocrine; and metabolic disorders (11 sources) Obese class II; Translations: [Obesity, unspecified] Onset: 04-11-2019 04-11-2019 Chronic Other nutritional; endocrine; and metabolic disorders (1 source) Body mass index 40+ - severely obese; Translations: [Body mass index (BMI) 45.0-49.9, adult] 04-07-2023 Chronic Other nutritional; endocrine; and metabolic disorders (1 source) Severe obesity; Translations: [Morbid (severe) obesity due to excess calories] 04-07-2023 Chronic Other upper respiratory infections (2 sources) Streptococcal sore throat; Translations: [Streptococcal pharyngitis] 2024 Episodic Unclassified (1 source) Acute cough; Translations: [Acute cough] Onset: 2024 Urinary tract infections (1 source) Urinary tract infection, site not specified; Translations: [Urinary tract infection, site not specified] Onset: 01-24-2025 Episodic Viral infection (1 source) Viral disease; Translations: [Viral infection, unspecified] 04-29-2024 Episodic Past or Other Problems Problem Classification Problem [...] Onset: 11-22-2019 Episodic Other connective tissue disease (11 sources) Pelvic floor dysfunction; Translations: [Other specified disorders of muscle] Onset: 12-21-2020 12-21-2020 Episodic Other connective tissue disease (6 sources) Increased muscle tone; Translations: [Other specified disorders of muscle] Onset: 12-21-2020 Resolved: 02-18-2021 02-18-2021 Episodic Other lower respiratory disease (2 sources) Cough; Translations: [Cough] Onset: 07-30-2019 Episodic Other lower respiratory disease (1 source) Shortness of breath; Translations: [Shortness of breath] Onset: 07-30-2019 Episodic Other screening for suspected conditions (not mental disorders or infectious disease) (3 sources) Encounter for screening for malignant neoplasm of cervix; Translations: [Encounter for screening for other suspected endocrine disorder] Onset: 05-11-2024 Episodic Results Test Name Value Interpretation Reference Range Facility 12 Lead EKGon 02-18-2025 12 Lead EKG [facility] [address] [place] [address] 12 Lead EKG 02/18/25 1646 MR#: [id number] Acct: [id number] Name: GABY MINOR Rep #: [id number] : 1995 29 From: Leah Poole MD Attending Dr: Status: DEP ER Ordering Dr: Kierra Deluna MD Date: 02/18/25 Location: ED Sex: F C Admitted: Test Reason : CP Blood Pressure : */* mmHG Vent. Rate : 136 BPM Atrial Rate : 136 BPM P-R Int : 134 ms QRS Dur : 90 ms QT Int : 292 ms P-R-T Axes : 59 62 39 degrees QTcB Int : 439 ms Sinus tachycardia Otherwise normal ECG Confirmed by LEAH POOLE ([id number]), fan mail editor CRIS LINTON ([id number]) on 02/20/2025 6:57:51 AM Referred By: DESHAUN/KAITLYNN Confirmed By: LEAH POOLE 02/20/25 0657 Date Leah Poole MD CC: Dr. Kierra Deluna MD; Dr. Lona Rico MD Signed Normal [facility] Basic Metabolic Profile (BMP )on 02-18-2025 BUN/CRE 13.4 RATIO Normal 02-13 [facility] Comment on above: Performed By: #### L 501.4021, L500.2500, L100.0100 #### [facility] [address] [place], [address] Calcium [Mass/Vol] 9.7 mg/dL Normal 7.6-11.0 [facility] Comment on above: Performed By: #### L [id number], L500.2500, L100.0100 #### [facility] [address] [place], [address] Chloride [Moles/Vol] 99 mmol/L Normal 98-108 [facility] Comment on above: Performed By: #### L [id number], L500.2500, L100.0100 #### [facility] [address] [place], [address] CO2 [Moles/Vol] 25.4 mmol/L Normal 21.0-32.0 [facility] Comment on above: Performed By: #### L [id number], L500.2500, L100.0100 #### [facility] [address] [place], [address] Creatinine [Mass/Vol] 0.73 mg/dL Normal 0.70-1.20 [facility] Comment on above: Performed By: #### L [id number], L500.2500, L100.0100 #### [facility] [address] [place], [address] ECRCL 172.41 ml/min Normal 50-250 [facility] Comment on above: Performed By: #### L [id number], L500.2500, L100.0100 #### [facility] [address] [place], [address] GAP 14 Normal 5-15 [facility] Comment on above: Performed By: #### L 501.4021, L500.2500, L100.0100 #### [facility] [address] [place], [address] GFR/1.73 sq M.predicted among non-blacks MDRD (S/P/Bld) [Vol rate/Area] 114 mL/min/{1.73_m2} Normal >60 [facility] Comment on above: Result Comment: mL/m in/1.73m2 CKD-EPI Creatinine Equation (2020) Performed By: #### L 501.4021, L500.2500, L100.0100 #### [facility] [address] [place], [address] Glucose [Mass/Vol] 105 mg/dL High 70-99 [facility] Comment on above: Performed By: #### L 501.4021, L500.2500, L100.0100 #### [facility] [address] [place], [address] Potassium [Moles/Vol] 3.4 mmol/L Normal 3.3-5.1 [facility] Comment on above: Performed By: #### L 501.4021, L500.2500, L100.0100 #### [facility] [address] [place], [address] Sodium [Moles/Vol] 138 mmol/L Normal 133-145 [facility] Comment on above: Performed By: #### L 501.4021, L500.2500, L100.0100 #### [facility] [address] [place], [address] Urea nitrogen [Mass/Vol] 10 mg/dL Normal 4-19 [facility] Comment on above: Performed By: #### L 501.4021, L500.2500, L100.0100 #### [facility] [address] [place], [address] CBC W/Diff, Automatedon 10-2 Absolute Lymph 3.23 X10 3/uL Normal 0.83-4.51 [facility] Comment on above: Performed By: #### L 501.4021, L500.2500, L100.0100 #### [facility] [address] [place], [address] Absolute Neut 6.0 X10 3/uL Normal 2.0-7.7 [facility] Comment on above: Performed By: #### L 501.4021, L500.2500, L100.0100 #### [facility] [address] [place], [address] Basophils/100 WBC (Bld) 0.6 % Normal 0-1 [facility] Comment on above: Performed By: #### L 501.4021, L500.2500, L100.0100 #### [facility] [address] [place], [address] Eosinophils/100 WBC (Bld) 1.5 % Normal 0-5 [facility] Comment on above: Performed By: #### L 501.4021, L500.2500, L100.0100 #### [facility] [address] [place], [address] Erythrocyte distribution width (RBC) [Ratio] 12.6 % Normal 11.6-14.6 [facility] Comment on above: Performed By: #### L 501.4021, L500.2500, L100.0100 #### [facility] [address] [place], [address] Hematocrit (Bld) [Volume fraction] 42.2 % Normal 37-47 [facility] Comment on above: Performed By: #### L 501.4021, L500.2500, L100.0100 #### [facility] [address] [place], [address] Hemoglobin (Bld) [Mass/Vol] 14.1 g/dL Normal 12.0-15.0 [facility] Comment on above: Performed By: #### L 501.4021, L500.2500, L100.0100 #### [facility] [address] [place], [address] IG% 0.300 Normal 0.0-0.9 [facility] Comment on above: Result Comment: IG% - Immature Granulocytes (promyelocytes, myelocytes and metamyelocytes) > 1% indicates that a LEFT SHIFT is Present. Performed By: #### L 501.4021, L500.2500, L100.0100 #### [facility] [address] [place], [address] Lymphocytes/100 WBC (Bld) 31.5 % Normal 19-41 [facility] Comment on above: Performed By: #### L 501.4021, L500.2500, L100.0100 #### [facility] [address] [place], [address] MCH (RBC) [Entitic mass] 27.6 pg Normal 27.0-32.0 [facility] Comment on above: Performed By: #### L 501.4021, L500.2500, L100.0100 #### [facility] [address] [place], [address] MCHC (RBC) [Mass/Vol] 33.4 g/dL Normal 32-36 [facility] Comment on above: Performed By: #### L 501.4021, L500.2500, L100.0100 #### [facility] [address] [place], [address] MCV (RBC) [Entitic vol] 82.6 fL Normal 81-99 [facility] Comment on above: Performed By: #### L 501.4021, L500.2500, L100.0100 #### [facility] [address] [place], [address] Monocytes/100 WBC (Bld) 7.3 % Normal 0-10 [facility] Comment on above: Performed By: #### L 501.4021, L500.2500, L100.0100 #### [facility] [address] [place], [address] Neutrophils/100 WBC (Bld) 58.8 % Normal 47-70 [facility] Comment on above: Performed By: #### L 501.4021, L500.2500, L100.0100 #### [facility] [address] [place], [address] Nucleated RBC (Bld) [#/Vol] 0 10*3/uL Normal 0-5 [facility] - [place] Comment on above: Performed By: #### L 501.4021, L500.2500, L100.0100 #### [facility] [address] [place], [address] Platelet mean volume (Bld) [Entitic vol] 9.9 fL Normal 6.2-12.0 [facility] Comment on above: Performed By: #### L 501.4021, L500.2500, L100.0100 #### [facility] [address] [place], [address] Platelets (Bld) [#/Vol] 524 10*3/uL High 150-450 [facility] Comment on above: Performed By: #### L 501.4021, L500.2500, L100.0100 #### [facility] [address] [place], [address] RBC (Bld) [#/Vol] 5.11 10*6/uL Normal 4.2-5.[address] [facility] Comment on above: Performed By: #### L 501.4021, L500.2500, L100.0100 #### [facility] [address] [place], [address] RDW SD 37.7 fl Normal 35.1-43.9 [facility] Comment on above: Performed By: #### L 501.4021, L500.2500, L100.0100 #### [facility] [address] [place], [address] WBC (Bld) [#/Vol] 10.2 10*3/uL Normal 4.4-11.[address] [facility] Comment on above: Performed By: #### L 501.4021, L500.2500, L100.0100 #### [facility] [address] [place], [address] Chest 1 View (Portable)on Chest 1 View (Portable) [facility] Imaging Services [address] [place] [address] Chest 1 View (Portable) MR#: [id number] Acct: [id number] Name: GABY MINOR Rep #: [id number] : 1995 F 29 From: Lindsay Umanzor PCP: Dr. Lona Rico MD Status: [facility] ER Study: Chest 1 View (Portable) Date of Exam: 02/18/25 Exam# [id number] Ordering Dr: Kierra Deluna MD PROCEDURE: CHEST 1 VIEW (PORTABLE) 02/18/2025 REASON FOR EXAM: CHEST PAIN TECHNIQUE: Frontal view of the chest. FINDINGS: No focal consolidation. No pleural effusion or pneumothorax. Cardiac silhouette is within normal limits. No acute fractures. RAD/Chest 1 View (Portable) IMPRESSION: No focal consolidations. Reading Location: [facility] CC: Dr. Kierra Deluna MD; Dr. Lona Rico MD 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: Signed Normal [facility] D-Dimer Quantitative (DVT/PE )on 02-18-2025 D-DIMER QUANT 0.41 FEU/ug/m Normal 0.27-0.49 [facility] Comment on above: Result Comment: NORM AL D-Dimer level (<0.50) indicates no DVT or PE. Performed By: #### L 100.0500, BTSPAT #### [facility] [address] [place], [address] Emergency Department Summary on 02-18-2025 Emergency Department Summary [facility] Medical Records Department [address] [place] [address] Emergency Department Summary 02/18/25 MR#: [id number] Acct: [id number] Name: GABY MINOR Rep #: [id number] : 1995 29 From: Kierra Deluna MD PCP: Dr. Lona Rico MD Status:DEP ER Location: ED HPI History of Present Illness Chief Complaint: Chest Pain Narrative Narrative: This is a 29-year-old female presents to the emergency department chest pain. Patient states that last night she had an episode of sharp midsternal chest pain without any radiation. She had shortness of breath at that time. It resolved. This morning the patient woke up and she had another episode of this sharp chest pain that radiates across her chest. She also felt short of breath this morning. She states she was very anxious. She has had a slight nonproductive cough. No fevers or chills. No congestion or sore throat. No ear pain. The patient states that she tried taking a THC gummy about 4 hours ago without any relief of her anxiety. She is on medication for hypertension, but missed her medications last night. She otherwise takes no medications daily. She states her child has been sick and she has been around others with infectious respiratory symptoms. Patient herself has not had any fevers or chills at home. She denies any nausea, vomiting or abdominal pain. She does endorse some diarrhea. No urinary symptoms. She has had a prior hysterectomy. No prior history of DVT or PE. No recent immobility, travel, or surgery. The patient states that she vapes marijuana. [facility] Medical History Stress incontinence Epidermolysis bullosa simplex Vitamin deficiency Vision problem Neuropathy Back problem Allergies Back pain Syncope Heartburn Shortness of breath on exertion History of pain when walking Status post fracture of tibia ADHD MDD (major depressive disorder), recurrent episode, severe Wears glasses Depression Anxiety Marijuana use Low iron Non-smoker Hypertension Encounter for screening for COVID-19 Vacuum-assisted vaginal delivery Gestational diabetes mellitus in childbirth, insulin controlled Lactose intolerance Cystic fibrosis carrier Obsessive compulsive disorder Major depressive disorder, 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 Home Medications ???Medication ???Instructions ???Recorded ???Last Taken ???Type cetirizine 10 mg tablet (Zyrtec) 10 mg PO DAILY 01/23/22 08/15/24 H istory lisinopril 20 1 tab PO QDAY 06/29/24 08/15/24 Hi story mg-hydrochlorothiazid e 12.5 mg tablet aripiprazole 5 mg tablet 5 mg PO DAILY #90 tabs 11/08/24 Un known Rx venlafaxine 150 mg 150 mg PO QHS #90 caps 11/08/24 Un known Rx capsule,extended release 24 hr (Effexor XR) venlafaxine 75 mg capsule,extended 75 mg PO QDAY #30 caps 11/08/24 Unknown Rx release 24 hr hydroxyzine HCl 10 mg tablet 10 mg PO TID PRN anxiety #90 tabs 01/26/25 Unknown Rx Allergy/AdvReac Type Severity Reaction Status Date / Time lanolin AdvReac Rash Verified 02/18/25 16:37 Family History Father Hypertension Grandmother Diabetes Surgical History H/O foot surgery History of robot-assisted laparoscopic hysterectomy Tubal ligation status History of endometrial ablation History of dilation and curettage Social History adopted: No household members: spouse and family housing: house number of children: 2 pets and animals: Yes pets and animals: dog(s) history of recent travel: No sexually active: Yes Smoking Status: Never smoker how long ago did patient quit smoking: quit in 2013 alcohol intake: current alcohol intake frequency: a few times a month substance use type: marijuana well-balanced diet: about half the time caffeine: Yes Type: coffee Number of servings: 1 eating out: 1-3 times/week what type of physical activity do you participate in: walking frequency: 1-2 times per week danni/mosque: None seatbelt use: always do you feel safe at home: Yes additional social history: - [place] ROS ROS ED Constitutional Constitutional ED: Reports as per HPI; Denies chills, fever(s) or headache(s) ENT ENT ED: Denies ear pain, rhinorrhea or sore throat Cardiovascular Cardiovascular: Reports chest pain and dyspnea; Denies orthopnea Respiratory/Chest Respiratory/Chest: Reports cough and dyspnea; Denies dyspnea on exertion, orthopnea or sputum Gastrointestinal Gastrointestinal: Reports diarrhea; Denies abdominal pain, constipation, nausea or vomiting Genitourinary Genitourinary ED: Denies burnin (more content not included)... Normal [facility] L501.4021on 02-18-2025 Trop T High Sen < 6 Normal <=14 [facility] Comment on above: Performed By: #### L 501.4021, L500.2500, L100.0100 ####[facility] [id number] [facility] [place], [address] M100.678on 02-18-2025 M100.678 Pending SARS-CoV-2 (COVID 19) Negative INFLUENZA A Negative INFLUENZA B Negative RSV PCR Negative Normal [facility] Comment on above: Performed By: #### L 501.080 #### [facility] [address] [place], [address] Troponin T HS 2 HRon 025 Trop T High Sen < 6 Normal <=14 [facility] Comment on above: Performed By: #### L 499.0042 #### [facility] [address] [place], [address] Inital Evaluation (1) - PTon 02-03-2025 Inital Evaluation (1) - PT [facility] Physical Therapy [facility] [address] [place] [address] / REHABILITATION SERVICES INITIAL EVALUATION MR#: [id number] Acct: [id number] Name: GABY MINOR Rep #: [id number] : 1995 29 From: Yudelka Baptiste PT, Cert. MDT Referring Dr.: Dr. Yen Ko MD Status: [facility] Insurance: [facility] SELF PAY INSURANCE Patient's Visit Information Visit Information Visit Information: GABY MINOR is a 29 year old F referred to Physical Therapy by Dr. Yen Ko MD with a diagnosis of MINDI, URGENCY OF MICTURITION AND CYSTOCELE. Date of Evaluation: 02/03/25 Physical Therapist: Yudelka Baptiste, PT, Cert MDT Visit Plan Frequency: 1x/Week Duration: 2-4 Months Plan: PF THERAPY FOR STRENGTHENING, LENGTHENING/RELAXATIO N AND ENDURANCE TRAINING. URINARY URGE AND FREQUENCY EDUCATION. HEALTHY BLADDER, BACK AND POSTURE HABIT EDUCATION. TRAINING IN COORDINATION OF PELVIC FLOOR MUSCULATURE WITH HIP AND CORE (TRANSVERSE ABDOMINUS) MUSCULATURE. CORE STRENGTHENING. ZAN LE ROM, STRETCHING AND STRENGTHENING. TRAINING IN ABDOMINAL CAVITY PRESSURE MGMT WITH ADL'S. 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 PATIENT IS NOT ON DISABILITY. Present symptoms: PATIENT REPORTS HER CHIEF COMPLAINT IS NOT MAKING IT TO THE BATHROOM IN TIME WITH URGE AND UI WITH COUGHING AND SNEEZING. SHE REPORTS SHE NOW LEAKS A LOT, NOT JUST A LITTLE BIT, WHEN SHE COUGHS OR SNEEZES. Present since: Nov - THIS IS WHEN SYMPTOMS WORSENED. (HYSTERECTOMY JULY 2024). Pain Scale: PATIENT REPORTS SHE HAD LOWER ABDOMINAL PRESSURE WHEN SYMPTOMS STARTED BUT THIS HAS GONE AWAY AND SHE DENIES PAIN. Is it getting better, worse or staying the same: STAYING THE SAME. Commenced as a result of: NO APPARENT REASON IN NOVEMBER 2024. Symptoms at onset: FELT LIKE SOMETHING SHIFTED IN LOWER ABDOMEN AND STRESS INCONTINENCE INCREASED AND URGE INCONTINENCE STARTED. Worse: COUGHING, SNEEZING, SOMETIMES RISING FROM LYING OR SITTING, SOMETIMES STRETCHING IN YOGA OR SQUATTING. URGE Better: KEEPING LEGS TOGETHER Previous history/Previous treatment: HYSTERECTOMY, PELVIC FLOOR THERAPY 2020 [facility] FOR DYSPAREUNIA WITH BENEFIT. ABLASION OF UTERUS 2021 FOR BLEEDING Treatment this episode: NO MEDICATION. Gait: PAIN LLE - TIB/FIB AND ANKLE FX FROM FALL 2022 - TROUBLE GOING DOWN STEPS - ONE AT A TIME. How long can you delay the need to urinate: 0-30 MIN Prolapse (Falling out feeling): NO Frequency of Urination: ABOUT EVERY 30 MIN TO EVERY 2 HOURS Ability to stop urine flow: UNSURE Ability to initiate urine stream: YES - NEVER DIFFICULT Dyspareunia: NO Bowel Incontinence: NO Unexplained weight loss: NO Imaging: PATIENT REPORTS SHE WAS TOLD RECENT US SHOWS SHE IS EMPTYING HER BLADDER WITHIN NORMAL RANGE. OTHER: PATIENT REPORTS SHE WANTS TO LET ME KNOW THAT SHE HAS CHRONIC MID AND LOW BACK PAIN THAT WORSENED AT ABOUT THE SAME TIME HER UI WORSENED. PMH/Recent major surgery: Objective Objective: Sitting/Standing Posture: INCREASED LORDOSIS. ANTERIOR PELVIC TILT IN STANDING. NO RELEVANT LATERAL LUMBAR SHIFT Active Correction of posture: ABLE TO PARTIALLY CORRECT. DECREASES PAIN. Other Observations: INDEP Sensory deficit: DECREASED LIGHT TOUCH SENSATION LLE COMPARED TO R ROM deficit: ZAN HIP FLEXOR TIGHTNESS. Motor deficit: R LE 5/5. L LE GROSSLY 4/5 Dural Signs: NEGATIVE ZAN LE'S. Lumbar mvmt loss: flex - NIL ext - ELVA - INCREASES BACK - NW R SG - MIN - INCREASES R BACK - NW L SG - MIN - INCREASES L BACK - NW PATIENT REPORTS INCREASED BACK PAIN FROM 3/10 TO 4/10 POST LUMBAR ROM TESTING. Core strength: POOR Palpation: INCREASED MUSCLE TONE ZAN THORACIC AND LUMBAR PARASPINALS FUNCTIONAL SCREEN: Pelvic Organ Prolapse Distress Inventory Score: 3 Colorectal-Anal Distress Inventory: 1 Urogenital Distress Inventory Score: 7 Goals Goal 1:: INCREASE PELVIC FLOOR STRENGTH AND ENDURANCE FOR BETTER ORGAN SUPPORT AND IMROVE URINARY INCONTINENCE Goal Time Frame: 8-12 Weeks Goal 2:: DEVELOP HEALTHY FLUID INTAKE HABITS WITH FLUID INTAKE OF ??? BODY WEIGHT IN OUNCES PER DAY AND 2/3 BEING WATER AND NORMALIZE VOIDING FREQUENCEY TO EVERY 3-4 HOURS. Goal Time Frame: 4-6 Weeks Goal 3:: INCREASE ABDOMINAL/TRUNK AND LE STRENGTH FOR OPTIMAL ORGAN SUPPORT AND DECREASE LBP Goal Time Frame: 8-12 Weeks Goal 4:: PATIENT WILL SUCCESSFULLY DELAY VOIDING LONG NEEDED WHEN URGENCY OCCURS TO SUCCESSFULLY MAKE IT TO THE BATHROOM AND/OR BE ABLE TO PATIENT ABLE TO STATE 5 OF 5 URGE SUPPRESSION/BLADDER RETRAINING STRATEGIES Goal Time Frame: 2-4 Weeks Goal 5:: PATIENT WILL BE ABLE TO DEMONSTRATE KNOWLEDGE OF HEALTHY POSTURE AND BACK COARSE WIRE DRAWER HABITS. Goal Time Frame: 2-4 Weeks Goal 6:: PATIENT WILL BE INDEP WITH A HEP/HOME INSTRUCTIONS FOR CONTINUED IMP (more content not included)... Normal [facility] MR/BMS.BPon 01-26-2025 MR/BMS.BP [address], [address] [place] [address] OFFICE VISIT Date of Service: 01/26/25 MR#: [id number] Acct: [id number] Name: GABY MINOR Rep #: [id number] : 1995 Provider: Dr. Gilberto Fritz se, DO Age/Sex: 29/F Location: [facility].BPV Status: Signed Intake Vital Signs 01/26/25 07:58 01/26/25 08:14 Height 5 ft 9 in 5 ft 9 in BP Intake Visit Reasons: Acute Allergies lanolin Adverse Reaction (Verified 01/24/25 13:09) Rash [facility] Medical History (Updated 01/24/25 @ 13:[address] Yen Ko MD) Stress incontinence Epidermolysis bullosa simplex Vitamin deficiency Vision problem Neuropathy Back problem Allergies Back pain Syncope Heartburn Shortness of breath on exertion History of pain when walking Status post fracture of tibia ADHD MDD (major depressive disorder), recurrent episode, severe Wears glasses Depression Anxiety Marijuana use Low iron Non-smoker Hypertension Encounter for screening for COVID-19 Vacuum-assisted vaginal delivery Gestational diabetes mellitus in childbirth, insulin controlled Lactose intolerance Cystic fibrosis carrier Obsessive compulsive disorder Major depressive disorder, 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 Surgical History H/O foot surgery History of robot-assisted laparoscopic hysterectomy Tubal ligation status History of endometrial ablation History of dilation and curettage Family History Father Hypertension Grandmother Diabetes Social History adopted: No household members: spouse and family housing: house number of children: 2 pets and animals: Yes pets and animals: dog(s) history of recent travel: No sexually active: Yes Smoking Status: Never smoker how long ago did patient quit smoking: quit in 2013 alcohol intake: current alcohol intake frequency: a few times a month substance use type: marijuana well-balanced diet: about half the time caffeine: Yes Type: coffee Number of servings: 1 eating out: 1-3 times/week what type of physical activity do you participate in: walking frequency: 1-2 times per week danni/mosque: None seatbelt use: always do you feel safe at home: Yes additional social history: - [place] Female Reproductive History Menstrual Ab spontaneous: 1 HPI History of Present Illness History provided by: patient Chief complaint: depression/anxiety HPI: Gaby Minor is a 29 year old female who presents today for follow up evaluation via virtual visit. Reports that she has been very up and down since last appointment. Finds that her anxiety is significantly increased nearly all day. Feeling nearly panicky at times with anxiety levels. Had been having some passive suicidal thoughts earlier this week. Describes continued depressive symptoms. Denies SI at this time. Has decided not to continue in school at this time due to mood symptoms. Describes her symptoms as being amplified over the last few weeks. Sleep has been fair, but otherwise has been doing ok. Has continued to follow in therapy online, which has been somewhat more intensive than it had in the past. Has had a reduced appetite. Denies SI/HI or AVH. Will be doing pelvic floor therapy in near future. This tele-medicine visit was performed via audio/video technology. Review of Systems Constitutional Denies: fever(s), chills, change in weight or fatigue Eyes Denies: change in vision or blurry vision Ears, Nose, Mouth, Throat Denies: throat pain, neck pain or change in hearing Cardiovascular Denies: chest pain, palpitations or dyspnea Respiratory Denies: dyspnea, cough or wheezing Gastrointestinal Reports: nausea; Denies: abdominal pain or vomiting Genitourinary Reports: pelvic pain; Denies: dysuria or urinary frequency Musculoskeletal Denies: back pain, neck pain, joint pain or muscle weakness Integumentary/Breast Denies: rash or new lesions Neurological Reports: headache(s); Denies: dizziness or confusion Endocrine Denies: fatigue or excessive sweating Hematologic/Lymphatic Denies: easy bruising or easy bleeding Allergic/Immunologic Denies: wheezing Exam Mental Status Exam - Psych Appearance adequately groomed and obese Attitude engaged Activity/Motor Behavior psychomotor slowing Speech regular rate, regular volume and regular prosody Mood OK Affect constricted, tearful and anxious Thought Process linear, logical and coherent Thought Content no delusions and no hallucinations Suicidal Ideation none Homicidal Ideation none Attention intact Concen (more content not included)... Normal [facility] MR/BMSCandace 01-24-2025 [facility] [address], [address] [place] [address] OFFICE VISIT Date of Service: 01/24/25 MR#: [id number] Acct: [id number] Name: GABY MINOR Rep #: [id number] : 1995 Provider: Dr. Yen Mercedes i, MD Age/Sex: 29/F Location: [facility] Status: Signed Intake Vital Signs 11/08/24 09:38 01/09/25 10:33 01/24/25 13:12 Height 5 ft 9 in 5 ft 9 in 5 ft 9 in Weight: 305 lb BMI 45.0 BP 122/62 H Pulse 76 Intake Visit Reasons: Bladder pain. Chief Complaint: new patinet- bladder pain [place] Flaker Required: No Accompanied by: self Is patient in pain?: No Allergies lanolin Adverse Reaction (Verified 01/24/25 13:09) Rash Medications ???Medication ???Instructions ???Recorded ???Confirmed ???Type cetirizine 10 mg tablet (Zyrtec) 10 mg PO DAILY 01/23/22 01/24/25 H istory lisinopril 20 1 tab PO QDAY 06/29/24 01/24/25 Hi story mg-hydrochlorothiazid e 12.5 mg tablet aripiprazole 5 mg tablet 5 mg PO DAILY #90 tabs 11/08/24 Rx venlafaxine 150 mg 150 mg PO QHS #90 caps 11/08/24 Rx capsule,extended release 24 hr (Effexor XR) venlafaxine 75 mg capsule,extended 75 mg PO QDAY #30 caps 11/08/24 01/24/25 Rx release 24 hr hydroxyzine HCl 10 mg tablet 10 mg PO TID PRN anxiety #90 tabs 01/26/25 01/26/25 Rx Nurse's Note: Bladder scan PVR:109 cc. hysterectomy in july and now in the last month she feels like her bladder is prolapsed. Her looked and states there is something protruding out. really severe pain a few weeks ago but it went away. She is having urgency and frequency. not sure she empties her bladder fully. [facility] Medical History (Updated 02/08/25 @ 22:[address] Yen Ko MD) Stress incontinence Epidermolysis bullosa simplex Vitamin deficiency Vision problem Neuropathy Back problem Allergies Back pain Syncope Heartburn Shortness of breath on exertion History of pain when walking Status post fracture of tibia ADHD MDD (major depressive disorder), recurrent episode, severe Wears glasses Depression Anxiety Marijuana use Low iron Non-smoker Hypertension Encounter for screening for COVID-19 Vacuum-assisted vaginal delivery Gestational diabetes mellitus in childbirth, insulin controlled Lactose intolerance Cystic fibrosis carrier Obsessive compulsive disorder Major depressive disorder, 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 Surgical History H/O foot surgery History of robot-assisted laparoscopic hysterectomy Tubal ligation status History of endometrial ablation History of dilation and curettage Family History Father Hypertension Grandmother Diabetes Social History adopted: No household members: spouse and family housing: house number of children: 2 pets and animals: Yes pets and animals: dog(s) history of recent travel: No sexually active: Yes Smoking Status: Never smoker how long ago did patient quit smoking: quit in 2013 alcohol intake: current alcohol intake frequency: a few times a month substance use type: marijuana well-balanced diet: about half the time caffeine: Yes Type: coffee Number of servings: 1 eating out: 1-3 times/week what type of physical activity do you participate in: walking frequency: 1-2 times per week danni/mosque: None seatbelt use: always do you feel safe at home: Yes additional social history: - [place] Female Reproductive History Menstrual Ab spontaneous: 1 HPI HPI Urology Chief Complaint: new patinet- bladder pain Details: GABY MINOR, is a 29 F. She is here for evaluation and management of possible prolapse, urgency and frequency of urination. She had a hysterectomy in July for abnormal bleeding with failed ablation. Over the last 6 weeks she can feel her bladder lowering into her vagina. She can feel it with wiping and her can see it. She is having increased urgency, no urge incontinence. She is voiding about 10 times during the day, 0 times at night. There is stress incontinence with cough, laugh, sneeze, lifting, etc. She is using no pads in 24 hours. She has had no urinary tract infections in the last year. She has not had visible blood in her urine. She is anxious to be sexually active. She has the following issues with chronic bowel function: [] There is no pelvic pain except for one episode that resolved with ibuprofen. There is no history of blood clots or easy bleeding. There is not a family history of female cancer. Grandmother did have breast cancer late in life. ROS Const Constitutional: No chills, fatigue, fever(s) (more content not included)... Normal [facility] MR/BMS.BPon 01-09-2025 MR/BMS.BP [facility] [address], [address] [place] [address] OFFICE VISIT Date of Service: 01/09/25 MR#: [id number] Acct: [id number] Name: GABY MINOR Rep #: [id number] : 1995 Provider: Dr. Gilberto Fritz se, DO Age/Sex: 29/F Location: [facility].BP Status: Signed Intake Vital Signs 11/08/24 09:38 01/09/25 10:33 Height 5 ft 9 in 5 ft 9 in BP Intake Visit Reasons: 2 M FU Allergies lanolin Adverse Reaction (Verified 10/13/24 08:29) Rash [facility] Medical History Back pain Syncope Heartburn Shortness of breath on exertion History of pain when walking Status post fracture of tibia ADHD MDD (major depressive disorder), recurrent episode, severe Wears glasses Depression Anxiety Marijuana use Low iron Non-smoker Hypertension Encounter for screening for COVID-19 Vacuum-assisted vaginal delivery Gestational diabetes mellitus in childbirth, insulin controlled Lactose intolerance Cystic fibrosis carrier Obsessive compulsive disorder Major depressive disorder, 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 Surgical History History of robot-assisted laparoscopic hysterectomy Tubal ligation status History of endometrial ablation History of dilation and curettage Family History Father Hypertension Grandmother Diabetes Social History adopted: No household members: spouse and family housing: house number of children: 2 pets and animals: Yes pets and animals: dog(s) history of recent travel: No sexually active: Yes Smoking Status: Never smoker how long ago did patient quit smoking: quit in 2013 alcohol intake: current alcohol intake frequency: a few times a month substance use type: marijuana well-balanced diet: about half the time caffeine: Yes Type: coffee Number of servings: 1 eating out: 1-3 times/week what type of physical activity do you participate in: walking frequency: 1-2 times per week danni/mosque: None seatbelt use: always do you feel safe at home: Yes additional social history: - [place] Female Reproductive History Menstrual Ab spontaneous: 1 HPI History of Present Illness History provided by: patient HPI: Gaby Minor is a 29 year old female who presents today for follow up evaluation. Patient reports that she has been having some health issues in recent past. Specifically has been having pain with urination. Does have concern she is having a prolapse. Has had a night she almost went to ER because of pain. Has established with a new therapist online as her previous therapist stopped doing individual therapy. Her therapist is autistic which is a positive as patient can relate more closely with. Sister did recently reach out to her for the first time in several months. Is somewhat hard to evaluate the efficacy of Concerta given the life stress she has been under. Sleep has been fair, staying up until around 1 am and up around 7-8 am. Doesn't take any naps. Daughter has been having some difficulties with sleep. has been working a new job, which has been somewhat stressful in regards to financial situation. Denies SI/HI or AVH. Review of Systems Constitutional Denies: fever(s), chills, change in weight or fatigue Eyes Denies: change in vision or blurry vision Ears, Nose, Mouth, Throat Denies: throat pain, neck pain or change in hearing Cardiovascular Denies: chest pain, palpitations or dyspnea Respiratory Denies: dyspnea, cough or wheezing Gastrointestinal Denies: abdominal pain or vomiting Genitourinary Reports: pelvic pain; Denies: dysuria or urinary frequency Musculoskeletal Denies: back pain, neck pain, joint pain or muscle weakness Integumentary/Breast Denies: rash or new lesions Neurological Reports: headache(s); Denies: dizziness or confusion Endocrine Denies: fatigue or excessive sweating Hematologic/Lymphatic Denies: easy bruising or easy bleeding Allergic/Immunologic Denies: wheezing Exam Mental Status Exam - Psych Appearance casually dressed, no apparent distress and obese Attitude engaged Activity/Motor Behavior MSE activity/motor behavior finding no adventitious movements Speech regular rate, regular volume and regular prosody Mood OK Affect constricted, tearful and anxious Thought Process linear, logical and coherent Thought Content no delusions and no hallucinations Suicidal Ideation none Homicidal Ideation none Attention intact Concentration intact Sensorium/Orientation awake, alert and oriented x3 Memory/Cognition other (appropria (more content not included)... Normal [facility] Urine Cultureon 12-25-2024 URC #1, 2 Below infectio n level. Urine Culture Urine Culture Staphylococcus aureus [place] Count <1000 GNR lactose tub puller GNR lactose tub puller MIXGP [place] Count 11,000-25,000 Mixed Gram Positive Organisms Staphylococcus aureus: REACTION cefOXitin Susc Islt NEG Doxycycline Islt MOLLY <=0.5 Clindamycin.induced Susc Islt NEG Gentamicin Islt MOLLY <=0.5 Linezolid Islt MOLLY 2 S Moxifloxacin Islt MOLLY <=0.25 S Nitrofurantoin Islt MOLLY <=16 S Oxacillin Susc Islt 0.5 S Tetracycline Islt MOLLY >=16 R TMP SMX Islt MOLLY <=10 S Vancomycin Islt MOLLY 1 S Normal [facility] Comment on above: Performed By: #### L 100.0500, BTSPAT #### [facility] [address] [place], [address] Urine Cultureon 12-16-2024 URC Mixed Gram Positive Organisms [place] Count 11,000-25,000 MIXC Mixed contaminants. Submit a new specimen if indicated. Normal [facility] Comment on above: Performed By: #### M 100.2199, L4 ####[facility] [address] [place], [address] Urinalysis, Routine (Dipstic k)on 12-14-2024 BILIRUBIN URINE Negative Normal Negative [facility] Comment on above: Order Comment: Urine , Random Performed By: #### M 100.2199, L4 ####[facility] [id number] [place], [address] Clarity (U) Clear Normal Clear [facility] Comment on above: Order Comment: Urine , Random Performed By: #### M 100.2199, L4 ####[facility] [id number] [place], [address] Color (U) Yellow Normal Yellow [facility] Comment on above: Order Comment: Urine , Random Performed By: #### M 100.2199, L4 ####[facility] [id number] [place], [address] GLUCOSE, UR Normal Normal Normal [facility] Comment on above: Order Comment: Urine , Random Performed By: #### M 100.2199, L4 ####[facility] [id number] [place], [address] KETONE UR Negative Normal Negative [facility] Comment on above: Order Comment: Urine , Random Performed By: #### M 100.2199, L4 ####[facility] [address] [place], [address] LEUK ESTERASE Negative Normal Negative [facility] Comment on above: Order Comment: Urine , Random Performed By: #### M .2199, ####[facility] [address] [place], [address] Nitrite Ql (U) Negative Normal Negative [facility] Comment on above: Order Comment: Urine , Random Performed By: #### M .2199, ####[facility] [id number] [place], [address] OCCULT BLOOD-UR Negative Normal Negative [facility] Comment on above: Order Comment: Urine , Random Performed By: #### M , ####[facility] [address] [place], [address] pH UR 6.0 Normal 5.0 - 8.0 [facility] Comment on above: Order Comment: Urine , Random Performed By: #### M , ####[facility] [address] [place], [address] PROT DIPSTX 30 mg/dl Abnormal Negative [facility] Comment on above: Order Comment: Urine , Random Performed By: #### M , L4 ####[facility] [address] [place], [address] SP.GR. DIPSTX 1.020 Normal 1.002-1.030 [facility] Comment on above: Order Comment: Urine , Random Performed By: #### M 100, L4 ####[facility] [address] [place], [address] UROBILI Normal Normal Normal [facility] Comment on above: Order Comment: Urine , Random Performed By: #### M 100, L4 ####[facility] [address] [place], [address] MR/BMS.BPon 11-08-2024 MR/BMS.BP [facility] [address], [address] [place] [address] OFFICE VISIT Date of Service: 11/08/24 MR#: [id number] Acct: [id number] Name: GABY MINOR Rep #: [id number] : 1995 Provider: Dr. Gilberto Fritz se, DO Age/Sex: 29/F Location: [facility].BPV Status: Signed Intake Vital Signs 11/08/24 09:29 11/08/24 09:38 Height 5 ft 9 in 5 ft 9 in BP Intake Visit Reasons: f/u Allergies lanolin Adverse Reaction (Verified 10/13/24 08:29) Rash PFSH Medical History Back pain Syncope Heartburn Shortness of breath on exertion History of pain when walking Status post fracture of tibia ADHD MDD (major depressive disorder), recurrent episode, severe Wears glasses Depression Anxiety Marijuana use Low iron Non-smoker Hypertension Encounter for screening for COVID-19 Vacuum-assisted vaginal delivery Gestational diabetes mellitus in childbirth, insulin controlled Lactose intolerance Cystic fibrosis carrier Obsessive compulsive disorder Major depressive disorder, 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 Surgical History History of robot-assisted laparoscopic hysterectomy Tubal ligation status History of endometrial ablation History of dilation and curettage Family History Father Hypertension Grandmother Diabetes Social History adopted: No household members: spouse and family housing: house number of children: 2 pets and animals: Yes pets and animals: dog(s) history of recent travel: No sexually active: Yes Smoking Status: Never smoker how long ago did patient quit smoking: quit in 2013 alcohol intake: current alcohol intake frequency: a few times a month substance use type: marijuana well-balanced diet: about half the time caffeine: Yes Type: coffee Number of servings: 1 eating out: 1-3 times/week what type of physical activity do you participate in: walking frequency: 1-2 times per week danni/mosque: None seatbelt use: always do you feel safe at home: Yes additional social history: - [place] Female Reproductive History Menstrual Ab spontaneous: 1 HPI History of Present Illness History provided by: patient Chief complaint: ADHD/anxiety HPI: Gaby Minor is a 29 year old female who presents today for follow up evaluation via virtual visit. Patient reports that she has been "ok." Reports that she has noticed some improvements in her focus/concentration since last appointment. Feels like she has been able to more easily stay on task and concentration is improved. Does at times feel like she struggles to take the second tablet in the day, and has only done so about half the time. Generally gets about 5 hours out of the first dose of medication. Does feel "a little more anxious" but it is still very manageable. Blood pressure has remained consistent. Sleep can be more difficult if she forgets to take medication earlier in day. Relationship with sister has been essentially the same, which is not necessarily a positive. has gotten a new job which has been an adjustment. Has been somewhat cooped up with children at home without a vehicle. Will be going back to school in the fall online for associates degree for business. Has been working on setting up habits before this happens. Denies any SI HI or AVH. This tele-medicine visit was performed via audio/video technology. Review of Systems Constitutional Denies: fever(s), chills, change in weight or fatigue Eyes Denies: change in vision or blurry vision Ears, Nose, Mouth, Throat Denies: throat pain, neck pain or change in hearing Cardiovascular Denies: chest pain, palpitations or dyspnea Respiratory Denies: dyspnea, cough or wheezing Gastrointestinal Reports: nausea; Denies: abdominal pain or vomiting Genitourinary Denies: dysuria or urinary frequency Musculoskeletal Denies: back pain, neck pain, joint pain or muscle weakness Integumentary/Breast Denies: rash or new lesions Neurological Reports: headache(s); Denies: dizziness or confusion Endocrine Denies: fatigue or excessive sweating Hematologic/Lymphatic Denies: easy bruising or easy bleeding Allergic/Immunologic Denies: wheezing Exam Mental Status Exam - Psych Appearance casually dressed, no apparent distress and obese Attitude engaged Activity/Motor Behavior MSE activity/motor behavior finding no adventitious movements Speech regular rate, regular volume and regular prosody Mood OK Affect congruent Thought Process linear, logical and coherent Thought Content no delusions and no hallucinations Suicidal Ideatio (more content not included)... Normal [facility] MR/BMS.BPon 10-13-2024 MR/BMS.BP [facility] [address], [address] [place] [address] OFFICE VISIT Date of Service: 10/13/24 MR#: [id number] Acct: [id number] Name: GABY MINOR Rep #: [id number] : 1995 Provider: Dr. Gilberto Fritz se, Age/Sex: 29/F Location: [facility].BP Status: Signed Intake Vital Signs 08/30/24 14:04 09/21/24 09:02 10/13/24 08:26 Height 5 ft 9 in 5 ft 9 in 5 ft 9 in Weight: 298 lb 304 lb BMI 43.9 44.9 BP 143/83 H 160/83 H Blood Pressure Location Lt radial Position Sitting Respiration 16 Pulse 109 H Pulse Source Monitor BP Intake Visit Reasons: follow up Accompanied by: Self Allergies lanolin Adverse Reaction (Verified 10/13/24 08:29) Rash Medications ???Medication ???Instructions ???Recorded ???Confirmed ???Type cetirizine 10 mg tablet (Zyrtec) 10 mg PO DAILY 01/23/22 10/13/24 H istory cholecalciferol (vitamin D3) 50 50 mcg PO DAILY 01/23/22 10/13/24 History mcg (2,000 unit) capsule (Vitamin D3) vitamin B complex 1 cap PO DAILY 01/23/22 10/13/24 H istory aripiprazole 5 mg tablet 5 mg PO DAILY #90 tabs 05/30/24 Rx venlafaxine 150 mg 150 mg PO QHS #90 caps 05/30/24 Rx capsule,extended release 24 hr (Effexor XR) lisinopril 20 1 tab PO QDAY 06/29/24 10/13/24 Hi story mg-hydrochlorothiazid e 12.5 mg tablet vitamin E 268 mg (400 unit) capsule 268 mg PO DAILY 08/03/24 History venlafaxine 75 mg capsule,extended 75 mg PO QDAY #30 caps 09/12/24 10/13/24 Rx release 24 hr methylphenidate HCl 5 mg tablet 5 mg PO BID 30 days #60 tabs 10/1310/13/24 Rx PFSH Medical History Back pain Syncope Heartburn Shortness of breath on exertion History of pain when walking Status post fracture of tibia ADHD MDD (major depressive disorder), recurrent episode, severe Wears glasses Depression Anxiety Marijuana use Low iron Non-smoker Hypertension Encounter for screening for COVID-19 Vacuum-assisted vaginal delivery Gestational diabetes mellitus in childbirth, insulin controlled Lactose intolerance Cystic fibrosis carrier Obsessive compulsive disorder Major depressive disorder, 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 Surgical History History of robot-assisted laparoscopic hysterectomy Tubal ligation status History of endometrial ablation History of dilation and curettage Family History Father Hypertension Grandmother Diabetes Social History adopted: No household members: spouse and family housing: house number of children: 2 pets and animals: Yes pets and animals: dog(s) history of recent travel: No sexually active: Yes Smoking Status: Never smoker how long ago did patient quit smoking: quit in 2013 alcohol intake: current alcohol intake frequency: a few times a month substance use type: marijuana well-balanced diet: about half the time caffeine: Yes Type: coffee Number of servings: 1 eating out: 1-3 times/week what type of physical activity do you participate in: walking frequency: 1-2 times per week danni/mosque: None seatbelt use: always do you feel safe at home: Yes additional social history: - [place] Female Reproductive History Menstrual Ab spontaneous: 1 HPI History of Present Illness History provided by: patient HPI: Gaby Minor is a 29 year old female who presents today for follow up evaluation. Patient reports that there is a "Lot going on personally." Sister recently moved in with parents after a big break up. She has been very close with sister, but now she essentially has told her that she doesn't want to be friends with her and would be ok just seeing her a few times per year. Did have a hysterectomy in July, and did very well in this regard. Does admit to healing up very well. Feels like her focus has been very poor. Did stop atomoxetine after running out of medication and did feel somewhat worse but was having symptoms even prior to this. Sleep has been rough, and either goes to bed early and wakes up early or vice versa. Follows with Dr. Rico for PCP. is not working, but hopes to be hired in the near future. Denies any SI HI or AVH. Review of Systems Constitutional Denies: fever(s), chills, change in weight or fatigue Eyes Denies: change in vision or blurry vision Ears, Nose, Mouth, Throat Denies: throat pain, neck pain or change in hearing Cardiovascular Denies: chest pain, palpitations or dyspnea Respiratory Denies: dyspnea, cough or wheezing Gastrointestinal Reports: nausea; Denies: abdominal pain or vomiting (more content not included)... Normal [facility] Food Tester Office Visit Reporton 09-21-2024 Food Tester Office Visit Report [facility] [address], [address] [place] [address] OFFICE VISIT Date of Service: 09/21/24 MR#: [id number] Acct: [id number] Name: GABY MINOR Rep #: [id number] : 1995 Provider: Dr. Leatha Jeffery, Age/Sex: 29/F Location: [facility] [place] [place] Status: Signed Intake Vital Signs 06/29/24 14:19 08/25/24 09:58 08/30/24 14:04 09/21/24 09:01 09/21/24 09:02 Height 5 ft 9 in 5 ft 9 in 5 ft 9 in 5 ft 9 in 5 ft 9 in Weight: 303 lb 4 oz 298 lb 305 lb 8 oz BMI 44.7 43.9 45.1 BP 143/83 H 132/83 H Intake Visit Reasons: 6 wk TRH BS Cysto Potash Flaker Required: No Is patient in pain?: No Allergies lanolin Adverse Reaction (Verified 09/21/24 09:00) Rash Medications ???Medication ???Instructions ???Recorded ???Confirmed ???Type cetirizine 10 mg tablet (Zyrtec) 10 mg PO DAILY 01/23/22 09/21/24 H istory cholecalciferol (vitamin D3) 50 50 mcg PO DAILY 01/23/22 09/21/24 History mcg (2,000 unit) capsule (Vitamin D3) vitamin B complex 1 cap PO DAILY 01/23/22 09/21/24 H istory aripiprazole 5 mg tablet 5 mg PO DAILY #90 tabs 05/30/24 Rx venlafaxine 150 mg 150 mg PO QHS #90 caps 05/30/24 Rx capsule,extended release 24 hr (Effexor XR) lisinopril 20 1 tab PO QDAY 06/29/24 09/21/24 Hi story mg-hydrochlorothiazid e 12.5 mg tablet atomoxetine 100 mg capsule 100 mg PO DAILY #30 caps 07/25/24 09/21/24 Rx vitamin E 268 mg (400 unit) capsule 268 mg PO DAILY 08/03/24 History venlafaxine 75 mg capsule,extended 75 mg PO QDAY #30 caps 09/12/24 09/21/24 Rx release 24 hr Post menopausal: No Patient : No : No [facility] Medical History Back pain Syncope Heartburn Shortness of breath on exertion History of pain when walking Status post fracture of tibia ADHD MDD (major depressive disorder), recurrent episode, severe Wears glasses Depression Anxiety Marijuana use Low iron Non-smoker Hypertension Encounter for screening for COVID-19 Vacuum-assisted vaginal delivery Gestational diabetes mellitus in childbirth, insulin controlled Lactose intolerance Cystic fibrosis carrier Obsessive compulsive disorder Major depressive disorder, 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 Surgical History History of robot-assisted laparoscopic hysterectomy Tubal ligation status History of endometrial ablation History of dilation and curettage Family History Father Hypertension Grandmother Diabetes Social History adopted: No household members: spouse and family housing: house number of children: 2 pets and animals: Yes pets and animals: dog(s) history of recent travel: No sexually active: Yes Smoking Status: Never smoker how long ago did patient quit smoking: quit in 2013 alcohol intake: current alcohol intake frequency: a few times a month substance use type: marijuana well-balanced diet: about half the time caffeine: Yes Type: coffee Number of servings: 1 eating out: 1-3 times/week what type of physical activity do you participate in: walking frequency: 1-2 times per week danni/mosque: None seatbelt use: always do you feel safe at home: Yes additional social history: - [place] HPI 6 wk TRH BS Cysto Details: GABY MINOR is a 29 year old who presents for 6 week post op robotic hysterectomy. Her only complaint is problems sleeping through the night. History 3 Elective abortions Hx Para 2 Spontaneous abortions 1 Hx # Term Pregnancies 1 Ectopic pregnancies Hx # Pregnancies Multiple births # of living children 2 Past Pregnancies Del. Date Name GA/Weeks Outcome Route Bth Weight Infant Gen Labor Lgth Anesthesia Del Locatn Provider FOB 03/28/17 [place] 38 live - full term vacuum 7lb 12oz Female 12 epidural [facility] Benekos [place] Delivery Date: 03/28/17 Last Updated by: Ema Medina MD IOL for low MEI, PIH ROS ENT ENT: Reports system reviewed and no additional complaints, except as documented Cardio Card: Reports system reviewed and no additional complaints, except as documented Resp Resp: Denies cough, dyspnea or dyspnea on exertion GI GI: Denies abdominal pain, bloating or change in bowel habits : Denies vaginal odor or vaginal pruritus Details: lochia is mild Musc Musc: Reports system reviewed and no additional complaints, except as documented Exam Const General: cooperative, healthy appearing and comfortable Resp Effort Inspection: normal respiratory eff (more content not included)... Normal [facility] Food Tester Office Visit Reporton 08-30-2024 Food Tester Office Visit Report [facility] [address], [address] [place] [address] OFFICE VISIT Date of Service: 08/30/24 MR#: [id number] Acct: [id number] Name: GABY MINOR MATT Rep #: [id number] : 1995 Provider: Dr. Leatha Jeffery DO Age/Sex: 29/F Location: [facility] Status: Signed Intake Vital Signs 06/29/24 14:19 08/25/24 09:58 08/30/24 14:04 Height 5 ft 9 in 5 ft 9 in 5 ft 9 in Weight: 298 lb BMI 43.9 BP 143/83 H Intake Visit Reasons: 2 wk TRH BS Cysto Chief Complaint: 2w incision check Potash Flaker Required: No Is patient in pain?: No Allergies lanolin Adverse Reaction (Verified 08/30/24 14:09) Rash Medications ???Medication ???Instructions ???Recorded ???Confirmed ???Type cetirizine 10 mg tablet (Zyrtec) 10 mg PO DAILY 01/23/22 08/30/24 H istory cholecalciferol (vitamin D3) 50 50 mcg PO DAILY 01/23/22 08/30/24 History mcg (2,000 unit) capsule (Vitamin D3) vitamin B complex 1 cap PO DAILY 01/23/22 08/30/24 H istory aripiprazole 5 mg tablet 5 mg PO DAILY #90 tabs 05/30/24 Rx venlafaxine 150 mg 150 mg PO QHS #90 caps 05/30/24 Rx capsule,extended release 24 hr (Effexor XR) lisinopril 20 1 tab PO QDAY 06/29/24 08/30/24 Hi story mg-hydrochlorothiazid e 12.5 mg tablet atomoxetine 100 mg capsule 100 mg PO DAILY #30 caps 07/25/24 08/30/24 Rx venlafaxine 75 mg capsule,extended 75 mg PO QHS 08/03/24 08/30/24 H istory release 24 hr vitamin E 268 mg (400 unit) capsule 268 mg PO DAILY 08/03/24 History nitrofurantoin 100 mg PO Q12H 7 days #14 caps 05/2108/30/24 Rx monohydrate/macrocrys tals 100 mg capsule (Macrobid) Post menopausal: No Patient : No : No PFSH Medical History Back pain Syncope Heartburn Shortness of breath on exertion History of pain when walking Status post fracture of tibia ADHD MDD (major depressive disorder), recurrent episode, severe Wears glasses Depression Anxiety Marijuana use Low iron Non-smoker Hypertension Encounter for screening for COVID-19 Vacuum-assisted vaginal delivery Gestational diabetes mellitus in childbirth, insulin controlled Lactose intolerance Cystic fibrosis carrier Obsessive compulsive disorder Major depressive disorder, 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 Surgical History History of robot-assisted laparoscopic hysterectomy Tubal ligation status History of endometrial ablation History of dilation and curettage Family History Father Hypertension Grandmother Diabetes Social History adopted: No household members: spouse and family housing: house number of children: 2 pets and animals: Yes pets and animals: dog(s) history of recent travel: No sexually active: Yes Smoking Status: Never smoker how long ago did patient quit smoking: quit in 2013 alcohol intake: current alcohol intake frequency: a few times a month substance use type: marijuana well-balanced diet: about half the time caffeine: Yes Type: coffee Number of servings: 1 eating out: 1-3 times/week what type of physical activity do you participate in: walking frequency: 1-2 times per week danni/mosque: None seatbelt use: always do you feel safe at home: Yes additional social history: - [place] HPI 2 wk TRH BS Cysto Details: GABY MINOR is a 29 year old who presents for 2 week robotic hyst for pelvic congestion syndrome. She states that since her surgery her sweating disorder has stopped. her lower back pain is also improved. History 3 Elective abortions Hx Para 2 Spontaneous abortions 1 Hx # Term Pregnancies 1 Ectopic pregnancies Hx # Pregnancies Multiple births # of living children 2 Past Pregnancies Del. Date Name GA/Weeks Outcome Route Bth Weight Gen Labor Lgth Anesthesia Del Locatn Provider FOB 03/28/17 Christie 38 live - full term vacuum 7lb 12oz Female 12 epidural [facility] Landon Singh Delivery Date: 03/28/17 Last Updated by: Ema Medina MD IOL for low MEI, PIH ROS ENT ENT: Reports system reviewed and no additional complaints, except as documented Cardio Card: Reports system reviewed and no additional complaints, except as documented Resp Resp: Denies cough, dyspnea or dyspnea on exertion GI GI: Denies abdominal pain, bloating or change in bowel habits : Denies vaginal odor or vaginal pruritus Musc Musc: Reports system reviewed and no additional complaints, except as documented Exam Const (more content not included)... Normal [facility] Urine Cultureon 08-28-2024 URC #3,4 Below infection level. Urine Culture Enterobacter cloacae complex [place] Count 25,000-50,000 Escherichia coli Escherichia coli GPCENT [place] Count 1000-10,000 GPC Poss Enterococcus sp [place] Count <1000 Enterobacter cloacae complex: REACTION Streptococcus group B Ciprofloxacin Islt MOLLY <=0.06 Gentamicin Islt MOLLY <=1 S levoFLOXacin Islt MOLLY <=0.12 Meropenem Islt MOLLY <=0.25 S Nitrofurantoin Islt MOLLY 32 S Pip+Tazo Islt MOLLY <=4 S TMP SMX Islt MOLLY <=20 S Escherichia coli: REACTION Ampicillin Islt MOLLY 4 S Ampicillin+Sulbac Islt MOLLY <=2 S Cefepime Islt MOLLY <=0.12 S cefTRIAXone Islt MOLLY <=0.25 Ciprofloxacin Islt MOLLY <=0.06 S B-Lactamase Extended Susc Islt NEG Gentamicin Islt MOLLY <=1 S levoFLOXacin Islt MOLLY <=0.12 S Meropenem Islt MOLLY <=0.25 S Nitrofurantoin Islt MOLLY <=16 S Pip+Tazo Islt MOLLY <=4 S TMP SMX Islt MOLLY <=20 S Normal [facility] Comment on above: Performed By: #### M 100.9820 ####[facility] [address] [place], [address] Office Visit Reporton 2024 Office Visit Report [facility] [address] [place] [address] OFFICE VISIT Date of Service: 08/25/24 MR#: [id number] Acct: [id number] Patient: GABY MINOR Rep #: [id number] : 1995 Provider: Dr. Teresa dumont MD Age/Sex: 29/F Location: [facility] Status: Signed Intake Vital Signs 08/16/24 06:30 08/25/24 09:58 Height 5 ft 9 in 5 ft 9 in Weight: 303 lb 4 oz BMI 44.7 Intake Visit Reasons: UTI SX post surgery Potash Flaker Required: No Allergies lanolin Adverse Reaction (Verified 08/25/24 09:58) Rash Medications ???Medication ???Instructions ???Recorded ???Confirmed ???Type cetirizine 10 mg tablet (Zyrtec) 10 mg PO DAILY 01/23/22 08/25/24 H istory cholecalciferol (vitamin D3) 50 50 mcg PO DAILY 01/23/22 08/25/24 History mcg (2,000 unit) capsule (Vitamin D3) vitamin B complex 1 cap PO DAILY 01/23/22 08/25/24 H istory aripiprazole 5 mg tablet 5 mg PO DAILY #90 tabs 05/30/24 Rx venlafaxine 150 mg 150 mg PO QHS #90 caps 05/30/24 Rx capsule,extended release 24 hr (Effexor XR) lisinopril 20 1 tab PO QDAY 06/29/24 08/25/24 Hi story mg-hydrochlorothiazid e 12.5 mg tablet atomoxetine 100 mg capsule 100 mg PO DAILY #30 caps 07/25/24 08/25/24 Rx venlafaxine 75 mg capsule,extended 75 mg PO QHS 08/03/24 08/25/24 H istory release 24 hr vitamin E 268 mg (400 unit) capsule 268 mg PO DAILY 08/03/24 History ibuprofen 800 mg tablet 800 mg PO Q8H PRN pain #30 tabs 08/25/24 Rx oxycodone-acetaminoph en 5 mg-325 1 tab PO Q4H PRN pain 7 days #20 0 08/16/24 08/25/24 Rx mg tablet (Percocet) tabs nitrofurantoin 100 mg PO Q12H 7 days #14 caps 05/21 Rx monohydrate/macrocrys tals 100 mg capsule (Macrobid) Post menopausal: No Patient : No Have you fallen in the past year?: No Nurse's Note: Patient was here today complaining dysuria. She did have hysterectomy a little over 1 week ago. I tried to do a UA, however, results were skewed due to a vitamin she takes. I advised based off her complaint we may send antibiotic but will call and let her know. We will also send urine culture. Assessment and Plan Assessment and Plan (1) UTI (urinary tract infection): Status: Acute Orders: Orders Culture, Urine Today R30.0 - Dysuria Clinical Quality Measures Falls Risk Screening/Assistive Devices Have you fallen in the past year?: No 08/25/24 2340 Date [facility] Signature: Date (if applicable) CC: Normal [facility] Bedside Glucoseon 08-16-2024 FINGERSTICK GLU 175 mg/dL High 74-106 [facility] Comment on above: Result Comment: [place]TON OF PATIENT CARE PER NURSING PROTOCOL Performed By: #### L 501.080 #### [facility] Laboratory [address] [place], [address] Discharge Instructionon 07-27 Discharge Instruction [facility] Medical Records Department [address] [place] [address] Instructions for Home/Discharge Instructions 08/16/24 0653 MR#: [id number] Acct: [id number] Name: GABY MINOR Rep #: [id number] : 1995 29 From: Leatha Sheikh DO PCP: Dr. Lona Rico MD Status:REG [facility] [place]charge Instructions Diet Discharge Diet: No restrictions DC O2, CPAP, BIPAP needs Home O2 Discharge instructions: No Dressing / Incision Discharge Activity: May Shower May resume sexual activity in: 8 weeks Weight Bearing Status: Full weight bearing Lifting Restrictions: 10 pounds for 2 weeks Dressing / Incision Call your doctor if your incision/area has: Continuous Slow Oozing, Sudden Increased Bleeding, Increased Pain/ Swelling, Increased Redness and Foul Smelling Discharge Call your doctor if you observe: Fever of 101 or Higher, Using more than 1 pad per hour, Shortness of breath, Chest pain and Uncontrolled pain Suture Line Care: Avoid Pulling/Pushing and Avoid Pinching/Bending Remove Dressing in: 1 week (if present) Cleanse incision/area with: Soap Water and Keep Dressing Clean Dry Follow Up Care Please Follow Up With: Leatha Sheikh DO When: Call to make an appointment with your doctor for a postop visit in 2 and 6 weeks Test Results: Test results from this visit will be discussed in further detail at your follow-up appointment, if applicable. Discharge Plan Admission Primary Reason for Your Visit: hysterectomy Attending Provider: Leatha Sheikh Primary Care Provider: Lona Rico Instructions Print Language: [place] Discharge Orders/Prescriptions Prescriptions: New ibuprofen 800 mg tablet 800 mg PO Q8H PRN (Reason: pain) Qty: 30 0RF oxycodone-acetaminoph en [Percocet] 5-325 mg tablet 1 tab PO Q4H PRN (Reason: pain) 7 Days Qty: 20 0RF Continued aripiprazole 5 mg tablet 5 mg PO DAILY Qty: 90 1RF venlafaxine [Effexor XR] 150 mg capsule,extended release 24hr 150 mg PO QHS Qty: 90 1RF Rx Instructions: To be taken with 75 mg capsule for total daily dose of 225 mg lisinopril-hydrochlor othiazide 20-12.5 mg tablet 1 tab PO QDAY atomoxetine 100 mg capsule 100 mg PO DAILY Qty: 30 2RF cetirizine [Zyrtec] 10 mg Tablet 10 mg PO DAILY vitamin B complex Capsule 1 cap PO DAILY cholecalciferol (vitamin D3) [Vitamin D3] 50 mcg (2,000 unit) Capsule 50 mcg PO DAILY vitamin E 268 mg (400 unit) capsule 268 mg PO DAILY venlafaxine 75 mg capsule,extended release 24hr 75 mg PO QHS Rx Instructions: To be taken with 150 mg capsule for total daily dose of 225 mg Referrals / Follow Up: Lona Rico MD [Primary Care Provider] - Disposition Disposition (needs filled in before D/C Order can be placed): Home, Self Care 08/16/24 0658 Leatha Zenon Kumar DO CC: Dr. Lona Rico MD Signed [facility] MR/POSTOP.ANEon 08-16-2024 MR/POSTOP.[facility] Medical Records Department [address] [place] [address] Anesthesia Postop Eval I 08/16/24 0939 MR#: [id number] Acct: [id number] Name: GABY MINOR Rep #: [id number] : 1995 29 From: Dm Joe CRNA PCP: Dr. Lona Rico MD Status:REG SDC Y Race: C Location: [facility] Anesthesia: Postop Eval I Current Vital Signs Temperature: 97.9 F Pulse Rate: 100 Blood Pressure: 114/62 Respiratory Rate: 22 Pulse Ox: 90 Oxygen Delivery Method: Nasal Cannula Oxygen Flow Rate (L/min): 4 Assessment Airway patent: Yes Spontaneous unlabored respirations: Yes Mental status: Awake and Calm nausea: No Vomiting: No Anesthesia Complication: No Fluid Hydration Crystalloid volume administer (ml): 1,000 Total IV fluid infused: 1,000 Progress Note Post-operative progress note: pt pulse ox not great, coaching and HOB elevated 40 degrees, pt following commands Anesthesia document: Postop Eval 1 completed: Yes 08/16/24940 Date Dm Joe SENIOR JAVA WEB APPLICATION DEVELOPER Cosigner Signature: Date CC: Signed [facility] MR/SNEUMIBE3ov 08-16-2024 MR/POSTOPAN2 [facility] Medical Records Department [address] [place] [address] Anesthesia Postop Eval II 08/16/24 1151 MR#: [id number] Acct: [id number] Name: GABY MINOR Rep #: [id number] : 1995 29 From: Madison Delacruz PCP: Dr. Lona Rico MD Status:REG SDC Y Race: C Location: [facility] Anesthesia Postop Eval I Sum Postop Eval Completion status Anesthesia document: Postop Eval 1 completed: Yes Anesthesia Postop Eval I Summary Anesthesia Postop Eval I Summary: Anesthesia Postop Eval I: Assessment Summary Airway patent Yes 08/16/24 09:41 SENIOR JAVA WEB APPLICATION DEVELOPER.BHOS Spontaneous unlabored Yes 08/16/24 09:41 SENIOR JAVA WEB APPLICATION DEVELOPER.BHOS respirations Mental status Awake,Calm 08/16/24 09:41 SENIOR JAVA WEB APPLICATION DEVELOPER.BHOS nausea No 08/16/24 09:41 SENIOR JAVA WEB APPLICATION DEVELOPER.BHOS Vomiting No 08/16/24 09:41 SENIOR JAVA WEB APPLICATION DEVELOPER.BHOS Anesthesia Postop Eval I: Fluid Summary Crystalloid volume administer 1,000 08/16/24 09:41 SENIOR JAVA WEB APPLICATION DEVELOPER.BHOS (ml) Colloids volume administered ( ml) Blood Product volume administered (ml) Total IV fluid infused 1,000 08/16/24 09:41 SENIOR JAVA WEB APPLICATION DEVELOPER.BHOS Anesthesia Postop Eval I: Summary Notes Anesthesia Complication No 08/16/24 09:41 SENIOR JAVA WEB APPLICATION DEVELOPER.BHOS Anesthesia Complication Comment: Post-operative progress note pt pulse ox not 08/16/24 09:41 SENIOR JAVA WEB APPLICATION DEVELOPER.BHOS great, coaching and HOB elevated 40 degrees, pt following commands Anesthesia: Postop Eval II Evaluation Mental status: Awake and Calm Pain Level: 0 nausea: No Vomiting: No Complications Anesthesia Complication: No 08/16/24 1152 Date Madison Delacruz Cosigner Signature: Date CC: Signed Normal [facility] Operative Reporton 5 Operative Report [facility] Medical Records Department [address] [place] [address] Operative Report 08/16/24 0902 MR#: [id number] Acct: [id number] Name: GABY MINOR Rep #: [id number] : 1995 29 From: Leatha Sheikh DO PCP: Dr. Lona Rico MD Status:[facility] Location: [place] [address] Problems Associated Problem List Diagnoses (1) Abnormal uterine bleeding: (2) Menometrorrhagia: (3) MDD (major depressive disorder), recurrent episode, severe: Multi Select Codes Urinary/Genital Urinary/Genital CPT Codes: 34008 Cystoscopy and 09994 TLH <250gr uterus Operative Report (Standard) Operative Information Date of Procedure: 08/16/24 Pre-Operative Diagnosis: menorrhagia, PMDD, dysmenorrhea Post-Operative Diagnosis: menorrhagia, PMDD, dysmenorrhe Surgery/Procedure Performed: total robotic hysterectomy, cystoscopy store clerk: Yes Tractor Trailer Truck Driver: Kevin Claire Tasks completed by assistant professor: Closing, Trocar and Retracting Additional assistant financial accountant?: No Type of Anesthesia: General RN Documented Start/Stop Times: Operation Date: 08/16/24 07:30 Case Time Into Pre-Op 08/16/24 05:41 Anesthesia Start 08/16/24 07:27 Into Room 08/16/24 07:27 Out of Pre-Op 08/16/24 07:27 Procedure Start 08/16/24 08:12 Procedure Start Time: 08:12 Procedure Stop Time: 09:10 Select all DRAINS/GRAFTS/IMPLANT S that apply: None Estimated Blood Loss: 30cc Specimen collected: Yes Description of specimen(s) removed: uterus and cervix. Description of surgery: Findings: 12 cm size uterus, polycystic appearing ovaries, surgically absent fallopian tubes. On exploration of the abdominal cavity the uterus, adnexa, bowel, and liver were found to be normal. Cystoscopy showed no evidence of leaking at approximately 250 cc of normal saline, positive ureteral orifices and jet flow are seen and no suture material was appreciated in the bladder. Specimens removed: Uterus and cervix Reason for surgery: This is a 29-year-old G3, P2 who presented to my office with history of severe PMDD, pelvic pain, menorrhagia, failed ablation. the planned procedure is for a robotic hysterectomy the risks benefits and alternatives were discussed with the patient the patient had a clear understanding of the procedure and a consent form was signed. Procedure: The patient was placed in the dorsal low lithotomy position and prepped and draped in the normal sterile fashion both abdominally and in the perineum. Her legs were placed in stirrups a Mendez catheter was inserted into the urethra without difficulty. A weighted speculum was placed in the vagina and a single-tooth tenaculum was used to grasp the anterior lip of the cervix. An advincula uterine manipulator was inserted through the cervix without complication. It was then tied into place at the 2 and 10:00 locations on the cervix. Gloves were changed and attention was turned towards the abdomen. Approximately 23 cm above the pubic symphysis in the midline, and after Marcaine injection, a 8 mm incision was made. An 8 mm trocar was inserted through the laparoscope, then inserted into the abdomen under direct visualization using the laparoscope. Good abdominal placement was noted and no complications were appreciated. An air seal device was utilized to create pneumoperitoneum. At 12 cm lateral to the midline on the left and right sides 8 mm accessory ports were placed. Next a left upper quadrant 8 mm assistant financial accountant port site was placed. The patient was placed in steep Trendelenburg position. The robot was docked. The hysterectomy was initiated first by taking down the round ligament on each side using the vessel sealer device. The broad ligament was then and taken down using the vessel sealer device. Next the bladder flap was taken down without complication. This was done using monopolar cautery to the level of the cervical vaginal junction. After the bladder flap was created, uterine vessels were then isolated and cauterized using the vessel sealer device and EndoShears. At this point the uterine vessels were taken down further starting from the ascending branch, dissecting along the edges of the cervix to the level of the cervical vaginal junction with hemostasis appreciated. The cervical vaginal junction was then using monopolar cautery in a circumferential pattern across the superior aspect of the cervix. The specimen was delivered through the vagina and sent to pathology. The remaining vaginal cuff was then closed using a V lock suture. This was performed in a running technique. Excellent hemostasis was obtained and good closure was noted. Irrigation was then performed. All operative sites were noted to be hemostatic. A cystoscopy was performed with a 70 degree cystoscope through the urethra into the bladder without complication. The bladder was instilled wi (more content not included)... Normal [facility] ,Urineon 08-16-2024 Beta HCG ( test) Ql (U) Negative Normal [facility] Comment on above: Result Comment: Very dilute urine specimens, as indicated by a low specific gravity, may not contain guest experience representative levels of hCG. If is still suspected, a first morning urine specimen should be collected 48 hours later and tested. Performed By: #### L 100.0500, BTSPAT #### [facility] Laboratory [address] [place], [address] Surgery Specimen Level Von 0 08-16-2024 Surgery Specimen Level V -------- Patient Age/Sex Location Account Attending Physician -------- GABY MINOR [place] [facility] [id number] Noé Haney -------- Specimen: [id number] Received: 08/16/24 Status: DANYA Gutierrez Num: [id number] Spec Type: UTERUS Subm Dr: Dr. Leatha Sheikh, DO HEADER OPERATION: ERAS, laparoscopic total robotic hysterectomy PRE-OP DIAGNOSIS: Abnormal uterine bleeding, menometrorrhagia, chronic hypertension TISSUE SUBMITTED: A- Uterus with cervix -------- MICROSCOPIC DIAGNOSIS A. Uterus and cervix, "AUB", hysterectomy: * Cervix: mild hyperkeratosis * Endometrium: disordered proliferative endometrium * Myometrium: no specific pathologic change MICROSCOPIC DESCRIPTION Slides are reviewed. GROSS DESCRIPTION A. Received in formalin in a container labeled with the patient's name, date of , and uterus and cervix is a 128.4 g hysterectomy specimen with attached cervix. The uterus is 10 cm from fundus to ectocervix, 5 cm from cornu to cornu, and 4.5 cm from anterior to posterior. The serosa is fraser-pink, smooth, and glistening. The previously disrupted white-pink ectocervical face is 3.0 x 3.0 cm with a 1.0 cm slit-like os. The specimen is bivalved to reveal an unremarkable endocervical canal. The triangular endometrial cavity is 4.5 cm in length by 3.5 cm in width. There is red-fraser, heaped up endometrium which is poorly adherent to the cavity measuring up to 1 cm in greatest thickness. The fraser-pink myometrium is up to 2.4 cm in thickness and exhibits a coarse trabecular pattern. No myometrial nodules are identified. Weight Loss Counselor sections:A1. Anterior cervix with serosal shaveA2. Posterior cervix with serosal shaveA3. Anterior endomyometrium with thick, poorly adherent endometriumA4. Posterior endomyometrium with trabecular myometrium (superficial) [facility] 08/17/2024 CPT:87761 -------- Patient Age/Sex Location Account Attending Physician -------- GABY MINOR [place] [facility] [id number] Noé Haney -------- Signed (signature on file) Dr. Jo Ann Borjas MD 08/17/24 1644 -------- Normal [facility] Comment on above: Performed By: #### L 501.080 #### [facility] [place], [address] KWADWOOVevi 08-11-2024 CNOV Office Visit (UCWSTR ) GABY MINOR ([id number]) 1995 F Date Time Provider Department 08/11/24 5:15 PM [facility] During your visit today, we recorded the following information about you: Temperature Pulse Respiration Blood pressure 97.9 degrees 101/minute 18/minute 152/100 Weight 137.5 kg Deng Monge, BENNIE.FURNACE CLERK 08/11/2024 5:54 PM Signed [facility] Subjective Gaby Minor is a 29 year old female. Patient presents with: Ankle Pain: L ankle pain x today, twisted wrong, has previous surgical history and hardware HPI Nontoxic-appearing 29-year-old female presents urgent care chief complaint foot and ankle pain left. Duration of symptoms 1 day. Associated symptoms pain midfoot medial aspect. States was walking with her yesterday when she inverted her foot. Presents today for evaluation. Minor swelling to the foot. Has some increasing discomfort as the day progressed. Presents today for evaluation. Risk factors surgeries foot and ankle in the past due to previous fracture. No other concerns. No numbness or tingling that is new. Past medical history prescription medications allergies reviewed Review of Systems Constitutional: Negative for activity change, diaphoresis, fatigue and fever. Musculoskeletal: Positive for joint swelling. Negative for arthralgias, back pain, myalgias, neck pain and neck stiffness. Skin: Negative for pallor, rash and wound. Neurological: Negative for dizziness, seizures, syncope, weakness, light-headedness and numbness. Psychiatric/Behaviora l: Negative for confusion. Objective BP 152/100 Pulse 101 Temp 36.6 ?C (97.9 ?F) Resp 18 Wt (!) 137.5 kg (303 lb 2.1 oz) SpO2 98% BMI 44.76 kg/m? Physical Exam Constitutional: Appearance: Normal appearance. She is normal weight. HENT: Head: Normocephalic. Eyes: Conjunctiva/sclera: Conjunctivae normal. Cardiovascular: Rate and Rhythm: Normal rate. Pulmonary: Effort: Pulmonary effort is normal. Musculoskeletal: Cervical back: Normal range of motion. Left lower leg: Normal. Left ankle: No swelling, deformity, ecchymosis or lacerations. Tenderness present over the lateral malleolus and medial malleolus. Left foot: Normal range of motion and normal capillary refill. Swelling and bony tenderness present. No deformity, laceration or tenderness. Normal pulse. Legs: Comments: Surgical scar noted medial lateral aspect of the ankle. Tenderness with palpation over highlighted area Skin: Findings: No rash. Neurological: General: No focal deficit present. Mental Status: She is alert and oriented to person, place, and time. Mental status is at baseline. {ASSESSMENT/PLAN: 1. Joint pain of ankle and foot, left - ICD9: 719.47, ICD10: M25.572 - XR FOOT GENERAL 3V AP/LAT/OBL LEFT - XR ANKLE GENERAL 3V AP/LAT/OBL LEFT No acute findings noted on x-ray. Suspicious ligament tendon injury. Referred to orthopedicsI Patient was educated on supportive therapies. Patient will follow up with primary care provider as needed. Patient was instructed to immediately proceed to emergency room for any new, worsening, or symptoms lasting longer than anticipated. The patient's clinical presentation is otherwise unremarkable at this time. Based on exam and clinical finding, the patient is stable for discharge. Plan of care was discussed with patient. Patient verbalizes understanding and agrees to plan of care. This note was generated using Manifact software. It may contain errors in wording, punctuation, or spelling. . MPRESSION: Postoperative changes of distal tibial and fibular fixation with intact hardware. No acute fracture or dislocation. Type II accessory navicular. Ankle mortise is maintained. Joint spaces are maintained as well. No other significant abnormality. Deng Monge APRN.[facility] History and Record Review Clinical information obtained from an independent historian. History obtained from or confirmed by: parent. External record(s) reviewed: prior outpatient record. Disposition The patient was discharged. OTC Medications were advised: Procedures Allergies As of Date: 08/11/2024 Noted Allergy Reaction LANOLIN 10/20/2018 2 - Rash Date Reviewed: 08/11/2024 Reviewed by: Deng Monge APRN.FURNACE CLERK - Fully Assessed Reason for Visit: Ankle Pain [1036] Cmt: L ankle pain x today, twisted wrong, has previous surgical history and hardware Primary Visit Diagnosis:Joint pain of ankle and foot, left [M25.572] Order(s):XR FOOT GENERAL 3V AP/LAT/OBL LEFT [[id number]] Order #: [id number] FUTURE XR ANKLE GENERAL 3V AP/LAT/OBL LEFT [[id number]] Order #: [id number] FUTURE Prescriptions as of 08/11/2024 - buPROPion XL (WELLBUTRIN XL) 150 mg 24 hr tablet - tranexamic acid (LYSTEDA) 650 mg tablet Take 2 tablets 3 times a day as needed for heavy bleeding (more content not included)... Normal [facility] No Panel Informationon 08-11 IMPRESSION: Postoperative changes of distal tibial and fibular fixation with intact hardware. No acute fracture or dislocation. Type II accessory navicular. Ankle mortise is maintained. Joint spaces are maintained as well. No other significant abnormality. 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: GEOVANI Transcribe Date/Time: Aug 11 2024 5:47P Dictated by : JIMENEZ WATTERS MD This examination was interpreted and the report reviewed and electronically signed by: JIMENEZ WATTERS MD on Aug 11 2024 5:50PM [facility] DIVISION OF RADIOLOGY Radiology Study observation (narrative) [facility] No Panel InformationOrdered By: Ccf Provider on 08-11-2024 [facility] XR ANKLE 3V AP/LAT/OBL LTon 08-11-2024 XR ANKLE 3V AP/LAT/OBL LT * * *Final Report* * * DATE OF EXAM: Aug 11 2024 5:36PM WOX 5298 - XR ANKLE 3V AP/LAT/OBL LT / PROCEDURE REASON: Joint pain of ankle and foot, left * * * * Physician Interpretation * * * * EXAMINATION: XR FOOT 3V AP/LAT/OBL LT, XR ANKLE 3V AP/LAT/OBL LT HISTORY: Pain in medial left ankle after twisting ankle today. Joint pain of ankle and foot, left . TECHNIQUE: XR FOOT 3V AP/LAT/OBL LT, XR ANKLE 3V AP/LAT/OBL LT Laterality: LEFT Number of different views (projections): 3 M: XB_1 COMPARISON: None RESULT/ IMPRESSION: Postoperative changes of distal tibial and fibular fixation with intact hardware. No acute fracture or dislocation. Type II accessory navicular. Ankle mortise is maintained. Joint spaces are maintained as well. No other significant abnormality. 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: GEOVANI Transcribe Date/Time: Aug 11 2024 5:47P Dictated by : JIMENEZ WATTERS MD This examination was interpreted and the report reviewed and electronically signed by: JIMENEZ WATTERS MD on Aug 11 2024 5:50PM EST [id number] [facility] XR Ankle - left AP and Later al and obliqueon 08-11-2024 * * *Final Report* * * DATE OF EXAM: Aug 11 2024 5:36PM WOX 5298 - XR ANKLE 3V AP/LAT/OBL LT / PROCEDURE REASON: Joint pain of ankle and foot, left * * * * Physician Interpretation * * * * EXAMINATION: XR FOOT 3V AP/LAT/OBL LT, XR ANKLE 3V AP/LAT/OBL LT HISTORY: Pain in medial left ankle after twisting ankle today. Joint pain of ankle and foot, left . TECHNIQUE: XR FOOT 3V AP/LAT/OBL LT, XR ANKLE 3V AP/LAT/OBL LT Laterality: LEFT Number of different views (projections): 3 M: XB_1 COMPARISON: None RESULT/ DIVISION OF RADIOLOGY Provider, [facility] - 08/11/2024 * * *Final Report* * * DATE OF EXAM: Aug 11 2024 5:36PM WOX 5298 - XR ANKLE 3V AP/LAT/OBL LT / PROCEDURE REASON: Joint pain of ankle and foot, left * * * * Physician Interpretation * * * * EXAMINATION: XR FOOT 3V AP/LAT/OBL LT, XR ANKLE 3V AP/LAT/OBL LT HISTORY: Pain in medial left ankle after twisting ankle today. Joint pain of ankle and foot, left . TECHNIQUE: XR FOOT 3V AP/LAT/OBL LT, XR ANKLE 3V AP/LAT/OBL LT Laterality: LEFT Number of different views (projections): 3 M: XB_1 COMPARISON: None RESULT/ IMPRESSION IMPRESSION: Postoperative changes of distal tibial and fibular fixation with intact hardware. No acute fracture or dislocation. Type II accessory navicular. Ankle mortise is maintained. Joint spaces are maintained as well. No other significant abnormality. 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: [email or web address].st [employer] Transcribe Date/Time: Aug 11 2024 5:47P Dictated by : JIMENEZ WATTERS MD This examination was interpreted and the report reviewed and electronically signed by: JIMENEZ WATTERS MD on Aug 11 2024 5:50PM EST [facility] XR FOOT 3V AP/LAT/OBL LTon 0 08-11-2024 XR FOOT 3V AP/LAT/OBL LT * * *Final Report* * * DATE OF EXAM: Aug 11 2024 5:36PM WOX 5336 - XR FOOT 3V AP/LAT/OBL LT / PROCEDURE REASON: Joint pain of ankle and foot, left * * * * Physician Interpretation * * * * EXAMINATION: XR FOOT 3V AP/LAT/OBL LT, XR ANKLE 3V AP/LAT/OBL LT HISTORY: Pain in medial left ankle after twisting ankle today. Joint pain of ankle and foot, left . TECHNIQUE: XR FOOT 3V AP/LAT/OBL LT, XR ANKLE 3V AP/LAT/OBL LT Laterality: LEFT Number of different views (projections): 3 M: XB_1 COMPARISON: None RESULT/ IMPRESSION: Postoperative changes of distal tibial and fibular fixation with intact hardware. No acute fracture or dislocation. Type II accessory navicular. Ankle mortise is maintained. Joint spaces are maintained as well. No other significant abnormality. 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: PSCB Transcribe Date/Time: Aug 11 2024 5:47P Dictated by : JIMENEZ WATTERS MD This examination was interpreted and the report reviewed and electronically signed by: JIMENEZ WATTERS MD on Aug 11 2024 5:50PM EST [id number] [facility] XR Foot - left AP and Latera l and obliqueon 08-11-2024 * * *Final Report* * * DATE OF EXAM: Aug 11 2024 5:36PM WOX 5336 - XR FOOT 3V AP/LAT/OBL LT / PROCEDURE REASON: Joint pain of ankle and foot, left * * * * Physician Interpretation * * * * EXAMINATION: XR FOOT 3V AP/LAT/OBL LT, XR ANKLE 3V AP/LAT/OBL LT HISTORY: Pain in medial left ankle after twisting ankle today. Joint pain of ankle and foot, left . TECHNIQUE: XR FOOT 3V AP/LAT/OBL LT, XR ANKLE 3V AP/LAT/OBL LT Laterality: LEFT Number of different views (projections): 3 M: XB_1 COMPARISON: None RESULT/ DIVISION OF RADIOLOGY Provider, Bernard Charles - 08/11/2024 * * *Final Report* * * DATE OF EXAM: Aug 11 2024 5:36PM WOX 5336 - XR FOOT 3V AP/LAT/OBL LT / PROCEDURE REASON: Joint pain of ankle and foot, left * * * * Physician Interpretation * * * * EXAMINATION: XR FOOT 3V AP/LAT/OBL LT, XR ANKLE 3V AP/LAT/OBL LT HISTORY: Pain in medial left ankle after twisting ankle today. Joint pain of ankle and foot, left . TECHNIQUE: XR FOOT 3V AP/LAT/OBL LT, XR ANKLE 3V AP/LAT/OBL LT Laterality: LEFT Number of different views (projections): 3 M: XB_1 COMPARISON: None RESULT/ IMPRESSION IMPRESSION: Postoperative changes of distal tibial and fibular fixation with intact hardware. No acute fracture or dislocation. Type II accessory navicular. Ankle mortise is maintained. Joint spaces are maintained as well. No other significant abnormality. 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: [facility] Transcribe Date/Time: Aug 11 2024 5:47P Dictated by : JIMENEZ WATTERS MD This examination was interpreted and the report reviewed and electronically signed by: JIMENEZ WATTERS MD on Aug 11 2024 5:50PM [facility] Basic Metabolic Profile (BMP )on 08-05-2024 BUN/CRE 19.8 RATIO Normal 10-20 [facility] Comment on above: Performed By: #### L 501.5200, L500.2500 ####[facility] [address] [place], [address] Calcium [Mass/Vol] 9.6 mg/dL Normal 7.6-11.0 [facility] Comment on above: Performed By: #### L 501.5200, L500.2500 ####[facility] [address] [place], [address] Chloride [Moles/Vol] 100 mmol/L Normal 98-108 [facility] Comment on above: Performed By: #### L 501.5200, L500.2500 ####[facility] [address] [place], [address] CO2 [Moles/Vol] 25.4 mmol/L Normal 21.0-32.0 [facility] Comment on above: Performed By: #### L 501.5200, L500.2500 ####[facility] [address] [place], [address] Creatinine [Mass/Vol] 0.71 mg/dL Normal 0.70-1.20 [facility] Comment on above: Performed By: #### L 501.5200, L500.2500 ####[facility] [address] [place], [address] GAP 15 Normal 5-15 [facility] Comment on above: Performed By: #### L 501.5200, L500.2500 ####[facility] [address] [place], [address] GFR/1.73 sq M.predicted among non-blacks MDRD (S/P/Bld) [Vol rate/Area] 117 mL/min/{1.73_m2} Normal >60 [facility] Comment on above: Result Comment: mL/m in/1.73m2 CKD-EPI Creatinine Equation (2020) Performed By: #### L 501.5200, L500.2500 ####[facility] [address] [place], [address] Glucose [Mass/Vol] 110 mg/dL High 70-99 [facility] Comment on above: Performed By: #### L 501.5200, L500.2500 ####[facility] [address] [place], [address] Potassium [Moles/Vol] 3.6 mmol/L Normal 3.3-5.1 [facility] Comment on above: Performed By: #### L 501.5200, L500.2500 ####[facility] [address] [place], [address] Sodium [Moles/Vol] 141 mmol/L Normal 133-145 [facility] Comment on above: Performed By: #### L 501.5200, L500.2500 ####[facility] [address] [place], [address] Urea nitrogen [Mass/Vol] 14 mg/dL Normal 4-19 [facility] Comment on above: Performed By: #### L 501.5200, L500.2500 ####[facility] [address] [place], [address] CBC-Complete Blood Cnt No Di ffon 08-05-2024 Erythrocyte distribution width (RBC) [Ratio] 13.2 % Normal 11.6-14.6 [facility] Comment on above: Performed By: #### L 100.0500, BTSPAT #### [facility] [address] [place], [address] Hematocrit (Bld) [Volume fraction] 40.3 % Normal 37-47 [facility] Comment on above: Performed By: #### L 100.0500, BTSPAT #### [facility] [address] [place], [address] Hemoglobin (Bld) [Mass/Vol] 13.6 g/dL Normal 12.0-15.0 [facility] Comment on above: Performed By: #### L 100.0500, BTSPAT #### [facility] [address] [place], [address] MCH (RBC) [Entitic mass] 27.9 pg Normal 27.0-32.0 [facility] Comment on above: Performed By: #### L 100.0500, BTSPAT #### [facility] [address] [place], [address] MCHC (RBC) [Mass/Vol] 33.7 g/dL Normal 32-36 [facility] Comment on above: Performed By: #### L 100.0500, BTSPAT #### [facility] [address] [place], [address] MCV (RBC) [Entitic vol] 82.8 fL Normal 81-99 [facility] Comment on above: Performed By: #### L 100.0500, BTSPAT #### [facility] [address] [place], [address] Platelet mean volume (Bld) [Entitic vol] 10.2 fL Normal 6.2-12.0 [facility] Comment on above: Performed By: #### L 100.0500, BTSPAT #### [facility] [address] [place], [address] Platelets (Bld) [#/Vol] 503 10*3/uL High 150-450 [facility] Comment on above: Performed By: #### L 100.0500, BTSPAT #### [facility] [address] [place], [address] RBC (Bld) [#/Vol] 4.87 10*6/uL Normal 4.2-5.[address] [facility] Comment on above: Performed By: #### L 100.0500, BTSPAT #### [facility] [address] [place], [address] RDW SD 39.6 fl Normal 35.1-43.9 [facility] Comment on above: Performed By: #### L 100.0500, BTSPAT #### [facility] [address] [place], [address] WBC (Bld) [#/Vol] 8.3 10*3/uL Normal 4.4-11.0 [facility] Comment on above: Performed By: #### L 100.0500, BTSPAT #### [facility] [address] [place], [address] Magnesiumon 08-05-2024 Magnesium [Mass/Vol] 2.1 mg/dL Normal 1.5-2.2 [facility] Comment on above: Performed By: #### L 501.5200, L500.2500 ####[facility] [address] [place], [address] Food Tester Office Visit Reporton 08-05-2024 Food Tester Office Visit Report [facility] [address], [address] [place] [address] OFFICE VISIT Date of Service: 08/05/24 MR#: [id number] Acct: [id number] Name: GABY MINOR Rep #: [id number] : 1995 Provider: Dr. 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: TRH BS Cysto Potash Flaker Required: No Is patient in pain?: No Allergies lanolin Adverse Reaction (Verified 08/05/24 14:52) Rash Medications ???Medication ???Instructions ???Recorded ???Confirmed ???Type cetirizine 10 mg tablet (Zyrtec) 10 mg PO DAILY 01/23/22 08/05/24 H istory cholecalciferol (vitamin D3) 50 50 mcg PO DAILY 01/23/22 08/05/24 History mcg (2,000 unit) capsule (Vitamin D3) vitamin B complex 1 cap PO DAILY 01/23/22 08/05/24 H istory aripiprazole 5 mg tablet 5 mg PO DAILY #90 tabs 05/30/24 Rx venlafaxine 150 mg 150 mg PO QHS #90 caps 05/30/24 Rx capsule,extended release 24 hr (Effexor XR) lisinopril 20 1 tab PO QDAY 06/29/24 08/05/24 Hi story mg-hydrochlorothiazid e 12.5 mg tablet atomoxetine 100 mg capsule 100 mg PO DAILY #30 caps 07/25/24 08/05/24 Rx venlafaxine 75 mg capsule,extended 75 mg PO QHS 08/03/24 08/05/24 H istory release 24 hr vitamin E 268 mg (400 unit) capsule 268 mg PO DAILY 08/03/24 History Post menopausal: No Patient : No : [facility] History Back pain Syncope Heartburn Shortness of breath on exertion History of pain when walking Status post fracture of tibia ADHD MDD (major depressive disorder), recurrent episode, severe Wears glasses Depression Anxiety Marijuana use Low iron Non-smoker Hypertension Encounter for screening for COVID-19 Vacuum-assisted vaginal delivery Gestational diabetes mellitus in childbirth, insulin controlled Lactose intolerance Cystic fibrosis carrier Obsessive compulsive disorder Major depressive disorder, 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 Surgical History Tubal ligation status History of endometrial ablation History of dilation and curettage Family History Father Hypertension Grandmother Diabetes Social History adopted: No household members: spouse and family housing: house number of children: 2 pets and animals: Yes pets and animals: dog(s) history of recent travel: No sexually active: Yes Smoking Status: Never smoker how long ago did patient quit smoking: quit in 2013 alcohol intake: current alcohol intake frequency: a few times a month substance use type: marijuana well-balanced diet: about half the time caffeine: Yes Type: coffee Number of servings: 1 eating out: 1-3 times/week what type of physical activity do you participate in: walking frequency: 1-2 times per week danni/mosque: None seatbelt use: always do you feel safe at home: Yes additional social history: - [place] YING TRH BS Cysto Details: GABY MINOR is a 29 year old who presents for discussion about heavy irregular periods. She had a tubal ligation and ablation procedure when she was 27 years old. This slowed the bleeding slightly but has been heavy again since about 6 months after. She is tearful today stating that she also suffers with severe depression and suicidal ideations when she has a period and she is ready for a hysterectomy. She states that she has already tried control and TXA. EMB was benign. paps are negative. ultrasound showed the following: TRANSVAGINAL NON- REASON FOR EXAM: HEAVY UTERINE BLEEDING TECHNIQUE: Transabdominal and transvaginal pelvic ultrasound COMPARISON: None. FINDINGS: LMP: June 25, 2024 Measurements: Uterus: 8.2 cm x 4.6 cm x 4.1 cm with a volume of 82 mL Endometrial Thickness: 11.6 mm hyperechoic. Right Ovary: 2.5 cm x 2.8 cm x 2.4 cm with a volume of 9.0 cm mL. Left Ovary: 2 cm x 2.1 cm x 2.2 cm with a volume of 4.7 mL. Transvaginal sonography was performed to better visualize the endometrium. TRANSVAGINAL: Uterus: Anteverted. Normal contour and myometrial echotexture. Endometrium: Endometrial thickening measuring 11.6 mm. Clinical correlation recommended. Right ovary: Normal size and echotexture. Left ovary: Normal s (more content not included)... Normal [facility] Type AND Screen - PAT ONLYon 08-05-2024 Ab SCREEN GEL Negative Normal [facility] Comment on above: Order Comment: Surge ry Date: 08/16/24 Reason for Laboratory Test PREOP [id number] No N N S TOTAL HYSTERECTOMY Performed By: #### L 100.0500, BTSPAT #### [facility] Laboratory [address] [place], [place], [id number] MR/PAT.Rocky 08-03-2024 MR/PAT.[facility] Medical Records Department [address] [place] [address] PAT - Anesthesia 08/03/24 1436 MR#: [id number] Acct: [id number] Name: GABY MINOR Rep #: [id number] : 1995 29 From: Smooth Capone MD PCP: Dr. 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 When Was Last Pacemaker Check QUESTION #4 FULL TEXT: You/Your Family Experience fever (hyperthermia) with Anesthesia Last Oral Intake Last Oral intake: Last Oral Intake NPO since Meds taken in AM with sips of water? 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 Female Yes 08/03/24 14:21 HX of Motion Sickness No 08/03/24 14:21 HX of N/V After Surgery No 08/03/24 14:21 Non-Smoker Yes 08/03/24 14:21 Duration of Surgery greater Yes 08/03/24 14:21 than 60 minutes Number of Risk Factors 3 08/03/24 14:21 PONV Score Moderate Risk 08/03/24 14:21 Height Weight Height Weight: Anesthesia: Height Weight Height 5 ft 9 in 06/29/24 14:19 Respiratory Assessment Respiratory Assessment - window air conditioner installer: Respiratory Tract Infection Hx - window air conditioner installer Hx Respiratory Tract Infection No 08/03/24 14:21 STOP Sleep Apnea STOP Sleep Apnea - window air conditioner installer: STOP Sleep Apnea - window air conditioner installer Hx Hypertension Yes: CONTROLLED WITH MED/ 08/03/24 14:21 WHITE COAT SYNDROME Hx Sleep Apnea No 08/03/24 14:21 CPAP BIPAP Do you snore loudly (louder Yes 08/03/24 14:21 than talking or can be heard Do you often feel tired/ No 08/03/24 14:21 fatigued/ sleepy during daytime? Has anyone observed you stop No 08/03/24 14:21 breathing during sleep? STOP Results Positive 08/03/24 14:21 QUESTION #5 FULL TEXT : Do you snore loudly (louder than talking or can be heard through closed doors)? 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 Specify any problems Hx of Preganancy in last 3 No 08/03/24 14:21 Months Nurse Filling Out Transfusion DSCHRIBER 08/03/24 14:21 Questions: Date: 08/03/24 08/03/24 14:21 Time: 14:22 08/03/24 14:21 Patient unable to answer at this time (ie. confused, unrespo /Reproductio n History /Reproductiv e History - window air conditioner installer: /Reproductiv e Hx- window air conditioner installer Hx Now No 08/03/24 14:21 Gestational Age (in weeks): EDC: Hx Hx Para Hx Section SAB No 08/03/24 14:21 PFSH Medical History (Updated 08/03/24 @ 14:28 by Doris Hernandez) Back pain Syncope Heartburn Shortness of breath on exertion History of pain when walking Status post fracture of tibia ADHD MDD (major depressive disorder), recurrent episode, severe Wears glasses Depression Anxiety Marijuana use Low iron Non-smoker Hypertension Encounter for screening for COVID-19 Vacuum-assisted vaginal delivery Gestational diabetes mellitus in childbirth, insulin controlled Lactose intolerance Cystic fibrosis carrier Obsessive compulsive disorder Major depressive disorder, 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 Normal [facility] MR/BMS.BPon 07-25-2024 MR/BMS.BP [facility] [address], [address] [place] [id number] OFFICE VISIT Date of Service: 07/25/24 MR#: [id number] Acct: [id number] Name: GABY MINOR Rep #: [id number] : 1995 Provider: Dr. Gilberto Fritz se, DO Age/Sex: 29/F Location: [facility] [place] Status: Signed Intake Vital Signs 06/29/24 14:19 07/25/24 12:57 Height 5 ft 9 in 5 ft 9 in Weight: 301 lb 2 oz BMI 44.4 BP 161/87 H 145/94 H Blood Pressure Location Lt brachial Position Sitting Pulse 111 H Pulse Source Monitor BP Intake Visit Reasons: follow up Potash Flaker Required: No Accompanied by: Self Is patient in pain?: No Allergies lanolin Adverse Reaction (Verified 07/25/24 12:56) Rash Medications ???Medication ???Instructions ???Recorded ???Confirmed ???Type cetirizine 10 mg tablet (Zyrtec) 10 mg PO DAILY 01/23/22 07/25/24 H istory cholecalciferol (vitamin D3) 50 50 mcg PO DAILY 01/23/22 07/25/24 History mcg (2,000 unit) capsule (Vitamin D3) vitamin B complex 1 cap PO DAILY 01/23/22 07/25/24 H istory aripiprazole 5 mg tablet 5 mg PO DAILY #90 tabs 05/30/24 Rx venlafaxine 150 mg 150 mg PO QHS #90 caps 05/30/24 Rx capsule,extended release 24 hr (Effexor XR) venlafaxine 75 mg capsule,extended 75 mg PO DAILY #90 caps 05/30/24 07/25/24 Rx release 24 hr lisinopril 20 1 tab PO QDAY 06/29/24 07/25/24 Hi story mg-hydrochlorothiazid e 12.5 mg tablet atomoxetine 100 mg capsule 100 mg PO DAILY #30 caps 07/25/24 07/25/24 Rx PFSH Medical History Chronic hypertension Status post fracture of tibia ADHD MDD (major depressive disorder), recurrent episode, severe Wears glasses Depression Anxiety Marijuana use Blister Low iron Non-smoker Hypertension Encounter for screening for COVID-19 Vacuum-assisted vaginal delivery Oligohydramnios Hypertension affecting Gestational diabetes mellitus in childbirth, insulin controlled Lactose intolerance Cystic fibrosis carrier Obsessive compulsive disorder Major depressive disorder, 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 Surgical History History of endometrial ablation Tubal ligation status History of dilation and curettage Family History Father Hypertension Grandmother Diabetes Social History adopted: No household members: spouse and family housing: house number of children: 2 pets and animals: Yes pets and animals: dog(s) history of recent travel: No sexually active: Yes Smoking Status: Never smoker how long ago did patient quit smoking: quit in 2013 alcohol intake: current alcohol intake frequency: a few times a month substance use type: marijuana well-balanced diet: about half the time caffeine: Yes Type: coffee Number of servings: 1 eating out: 1-3 times/week what type of physical activity do you participate in: walking frequency: 1-2 times per week danni/mosque: None seatbelt use: always do you feel safe at home: Yes additional social history: - [place] Female Reproductive History Menstrual Ab spontaneous: 1 HPI History of Present Illness History provided by: patient HPI: Gaby Minor is a 29 year old female who presents today for follow up evaluation. Will be having a hysterectomy on the 16 of August. Reports that her mood symptoms have improved, but her physical symptoms are getting worse. Has had some worsening bleeding symptoms. Initially noticed some benefit with atomoxetine at increased dose but this tended to fade overtime. Is able to be productive but still doesn't feel like where she would want to be. recently lost his job after being let go. Is somewhat stressed from a financial standpoint. Sleep has been "fine." Is still somewhat broken but not worse. BP remains elevated, however she reports it generally is better at home when she does readings. Review of Systems Constitutional Denies: fever(s), chills, change in weight or fatigue Eyes Denies: change in vision or blurry vision Ears, Nose, Mouth, Throat Denies: throat pain, neck pain or change in hearing Cardiovascular Denies: chest pain, palpitations or dyspnea Respiratory Denies: dyspnea, cough or wheezing Gastrointestinal Reports: nausea; Denies: abdominal pain or vomiting Genitourinary Denies: dysuria or urinary frequency Musculoskeletal Denies: back pain, neck pain, joint pain or muscle weakness Integumentary/Breast Denies: rash or new lesions Neurological Reports: headache(s); Denies: dizziness or confusion Endocrine Denies: fatigue or excess (more content not included)... Normal [facility] Transvaginal Non-on 07-05-2024 Transvaginal Non- [facility] [address] [place] [address] [id number] Transvaginal Non- MR#: [id number] Acct: [id number] Name: GABY MINOR Rep #: [id number] : 1995 29 From: Jeremy puga MD PCP: Dr. Lona Rico MD Status: REG CLI Study: Transvaginal Non- Date of Exam: Exam# [id number] Ordering Dr: Kenyetta Crisostomo CNM PROCEDURE: TRANSVAGINAL NON- REASON FOR EXAM: HEAVY UTERINE BLEEDING TECHNIQUE: Transabdominal and transvaginal pelvic ultrasound COMPARISON: None. FINDINGS: LMP: June 25, 2024 Measurements: Uterus: 8.2 cm x 4.6 cm x 4.1 cm with a volume of 82 mL Endometrial Thickness: 11.6 mm hyperechoic. Right Ovary: 2.5 cm x 2.8 cm x 2.4 cm with a volume of 9.0 cm mL. Left Ovary: 2 cm x 2.1 cm x 2.2 cm with a volume of 4.7 mL. Transvaginal sonography was performed to better visualize the endometrium. TRANSVAGINAL: Uterus: Anteverted. Normal contour and myometrial echotexture. Endometrium: Endometrial thickening measuring 11.6 mm. Clinical correlation recommended. Right ovary: Normal size and echotexture. Left ovary: Normal size and echotexture. Other adnexal findings: None. Cul-de-sac: No free intraperitoneal fluid identified. No tenderness. US/Transvaginal Non- IMPRESSION: Endometrium is thickened measuring 11.6 mm. Clinical correlation recommended. Reading Location: [facility] CC: AYMILA Crisostomo; Dr. 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 Leatha Jeffery DO Age/Sex: 29/F Location: [facility] [place] [place] Status: Signed with Addenda ADDENDUM by Dr. Leatha Sheikh DO on 07/11/24 at 1314 Assessment and Plan Assessment and Plan (1) Abnormal uterine bleeding: Status: Acute (2) Chronic hypertension: Status: Chronic (3) Obsessive compulsive disorder: Status: Acute (4) ADHD: Status: Acute (5) MDD (major depressive disorder), recurrent episode, severe: Status: Acute Comment: increased sx around time of menses. not eligible for combined OCP due to BP. (6) Menometrorrhagia: Status: Acute Orders: Orders Endometrial Biopsy 06/29/24 N92.1 - Excessive and frequent menstruation with irregular cycle Comments Comments: EMB documentation: The cervix was prepped using betadine and a single tooth tenaculum was placed on the anterior lip of the cervix. The pipelle was inseted into the uterus without difficulty and adequate specimen was removed. The single tooth tenaculum was removed. excellent hemostasis was noted. 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 Potash Flaker Required: No Is patient in pain?: No Allergies lanolin Adverse Reaction (Verified 06/29/24 14:33) Rash Medications ???Medication ???Instructions ???Recorded ???Confirmed ???Type cetirizine 10 mg tablet (Zyrtec) 10 mg PO DAILY 01/23/22 06/29/24 H istory cholecalciferol (vitamin D3) 50 50 mcg PO DAILY 01/23/22 06/29/24 History mcg (2,000 unit) capsule (Vitamin D3) vitamin B complex 1 cap PO DAILY 01/23/22 06/29/24 H istory aripiprazole 5 mg tablet 5 mg PO DAILY #90 tabs 05/30/24 Rx atomoxetine 100 mg capsule 100 mg PO DAILY #30 caps 05/30/24 06/29/24 Rx venlafaxine 150 mg 150 mg PO QHS #90 caps 05/30/24 Rx capsule,extended release 24 hr (Effexor XR) venlafaxine 75 mg capsule,extended 75 mg PO DAILY #90 caps 05/30/24 06/29/24 Rx release 24 hr lisinopril 20 1 tab PO QDAY 06/29/24 06/29/24 Hi story mg-hydrochlorothiazid e 12.5 mg tablet Post menopausal: No Patient : No : No [facility] Medical History Chronic hypertension Status post fracture of tibia ADHD MDD (major depressive disorder), recurrent episode, severe Wears glasses Depression Anxiety Marijuana use Blister Low iron Non-smoker Hypertension Encounter for screening for COVID-19 Vacuum-assisted vaginal delivery Oligohydramnios Hypertension affecting Gestational diabetes mellitus in childbirth, insulin controlled Lactose intolerance Cystic fibrosis carrier Obsessive compulsive disorder Major depressive disorder, 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 Surgical History (Updated 06/29/24 @ 15:02 by Lona Bond) History of endometrial ablation Tubal ligation status History of dilation and curettage Family History Father Hypertension Grandmother Diabetes Social History adopted: No household members: spouse and family housing: house number of children: 2 pets and animals: Yes pets and animals: dog(s) history of recent travel: No sexually active: Yes Smoking Status: Never smoker how long ago did patient quit smoking: quit in 2013 alcohol intake: current alcohol intake frequency: a few times a month substance use type: marijuana well-balanced diet: about half the time caffeine: Yes Type: coffee Number of servings: 1 eating out: 1-3 times/week what type of physical activity do you participate in: walking frequency: 1-2 times per week danni/mosque: None seatbelt use: always do you feel safe at home: Yes additional social history: - [place] 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 She had a tubal ligation and ablation procedure when she was 27 years old. This slowed the bleeding slightly but has been heavy again since about 6 months after. She is tearful today stating that she also suffers with severe depression and suicidal idea (more content not included)... Normal [facility] Surgery Specimen Level Jimmy 06-29-2024 Surgery Specimen Level IV -------- Patient Age/Sex Location Account Attending Physician -------- GABY MINOR 29/ [facility] [id number] Dr. Leatha Sheikh, Noé -------- Specimen: [id number] Received: 06/30/24 Status: DANYA Brenda Num: [id number] Spec Type: ENDOM BX/C Saúl Dr: Dr. Leatha Sheikh, DO [facility] OPERATION: Endometrial biopsy PRE-OP DIAGNOSIS: Menometrorrhagia TISSUE SUBMITTED: Endometrial lining -------- MICROSCOPIC DIAGNOSIS Endometrium, biopsy: * Mildly disordered proliferative endometrium. MICROSCOPIC DESCRIPTION Slides are reviewed. GROSS DESCRIPTION Received in formalin labeled, Gaby Minor, and not designated, are multiple red-brown, hemorrhagic, soft tissue fragments and mucus that aggregate to 2.0 x 2.0 x 0.2 cm. Totally submitted in 1 cassette.KAREY. 06/30/2024 CPT:37425 -------- Patient Age/Sex Location Account Attending Physician -------- GABY MINOR / [facility] [id number] Noé Haney -------- Signed (signature on file) Dr. Jo Ann Borjas MD 07/05/24 1139 -------- Normal [facility] Comment on above: Performed By: #### P SUIV ####[facility] [id number] [place], [address] /on 05-30-2024 MR/BMS.[address], [address] [address] OFFICE VISIT Date of Service: 05/30/24 MR#: [id number] Acct: [id number] Name: GABY MINOR Rep #: [id number] : 1995 Provider: Dr. Gilberto Fritz se, DO Age/Sex: 29/F Location: [facility] [place].BP Status: Signed Intake Vital Signs 03/08/24 11:03 05/11/24 10:55 05/30/24 07:37 Height 5 ft 9 in 5 ft 9 in 5 ft 9 in Weight: 298 lb BMI 43.9 BP 168/113 H Blood Pressure Location Lt radial Position Sitting Respiration 18 Pulse 112 H Pulse Source Monitor BP Intake Visit Reasons: 4mfu Allergies lanolin Adverse Reaction (Verified 05/11/24 10:50) Rash PFSH Medical History (Updated 05/12/24 @ 15:44 by Kenyetta Crisostomo CNM) Chronic hypertension Status post fracture of tibia ADHD MDD (major depressive disorder), recurrent episode, severe Wears glasses Depression Anxiety Marijuana use Blister Low iron Non-smoker Hypertension Encounter for screening for COVID-19 Vacuum-assisted vaginal delivery Oligohydramnios Hypertension affecting Gestational diabetes mellitus in childbirth, insulin controlled Lactose intolerance Cystic fibrosis carrier Obsessive compulsive disorder Major depressive disorder, 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 Surgical History History of dilation and curettage Family History (Updated 05/11/24 @ 10:57 by Margaux Kline) Father Hypertension Grandmother Diabetes Social History (Updated 05/11/24 @ 10:56 by Margaux Kline) adopted: No household members: spouse and family housing: house number of children: 2 pets and animals: Yes pets and animals: dog(s) history of recent travel: No sexually active: Yes Smoking Status: Never smoker how long ago did patient quit smoking: quit in 2013 alcohol intake: current alcohol intake frequency: a few times a month substance use type: marijuana well-balanced diet: about half the time caffeine: Yes Type: coffee Number of servings: 1 eating out: 1-3 times/week what type of physical activity do you participate in: walking frequency: 1-2 times per week danni/mosque: None seatbelt use: always do you feel safe at home: Yes additional social history: - [place] Female Reproductive History Menstrual Ab spontaneous: 1 HPI History of Present Illness History provided by: patient HPI: Gaby Minor is a 29 year old female who presents today for follow up evaluation. Patient reports that things have been "not great." Feels like her focus has been much worse. Has also been much more stressed in regards to financial stress which has added a great deal of stress. Feels like at the onset of period she has been having some significant worsening of mood symptoms. Had been feeling on and off suicidal when starting her menstrual cycle. Denies having a plan of suicide around this time, but did feel markedly worse. Has been taking an OTC sleep medication most nights. Does get 7-8 hours with this, but without will only get a few hours of broken sleep. Appetite is normal, but this is not "great" for her. Feels like nearly all her motivation is gone. Feels like atomoxetine has essentially stopped working. Blood pressure is elevated today and at last appointment. Just started taking a new blood pressure medication last night, which is lisinopril and HCTZ. Review of Systems Constitutional Denies: fever(s), chills, change in weight or fatigue Eyes Denies: change in vision or blurry vision Ears, Nose, Mouth, Throat Denies: throat pain, neck pain or change in hearing Cardiovascular Denies: chest pain, palpitations or dyspnea Respiratory Denies: dyspnea, cough or wheezing Gastrointestinal Reports: nausea; Denies: abdominal pain or vomiting Genitourinary Denies: dysuria or urinary frequency Musculoskeletal Denies: back pain, neck pain, joint pain or muscle weakness Integumentary/Breast Denies: rash or new lesions Neurological Reports: headache(s); Denies: dizziness or confusion Endocrine Denies: fatigue or excessive sweating Hematologic/Lymphatic Denies: easy bruising or easy bleeding Allergic/Immunologic Denies: wheezing Exam Mental Status Exam - Psych Appearance casually dressed, no apparent distress and obese Attitude engaged Activity/Motor Behavior MSE activity/motor behavior finding no adventitious movements Speech regular rate, regular volume and regular prosody Mood depressed Affect tearful Thought Process linear, logical and coherent Thought Content no delusions and no hallucinations Suicidal Ideation none Homicidal Ideation none Attention intact Concentration intact Sensorium/Orientation awake, alert and oriented x3 Memory/Cognition (more content not included)... Normal [facility] PAP IG HPV APTIMA 16/18,45on 05-16-2024 ADEQ Comment Normal . [facility] Comment on above: Order Comment: Speci men Comment: [id number] Specimen Comment: Source.............Cervix Specimen Comment: No. of containers..01 ThinPrep Vial Result Comment: Sati sfactory for evaluation. Endocervical and/or squamous metaplastic cells (endocervical component) are present. Performed By: #### L 7400.0280 #### [facility] [address] [place], [place], [id number] COMM . Normal . [facility] Comment on above: Order Comment: Speci men Comment: [id number] Specimen Comment: Source.............Cervix Specimen Comment: No. of containers..01 ThinPrep Vial Performed By: #### L 7400.0280 #### [facility] [address] [place], [place], [id number] COMMENT Comment Normal . [facility] Comment on above: Order Comment: Speci men Comment: [id number] Specimen Comment: Source.............Cervix Specimen Comment: No. of containers..01 ThinPrep Vial Result Comment: This liquid based ThinPrep(R) pap test was screened with the use of an image guided system. Performed By: #### L 7400.0280 #### [facility] [address] [place], [place], [id number] DIAG Comment Normal . [facility] Comment on above: Order Comment: Speci men Comment: [id number] Specimen Comment: Source.............Cervix Specimen Comment: No. of containers..01 ThinPrep Vial Result Comment: NEGA TIVE FOR INTRAEPITHELIAL LESION OR MALIGNANCY. Performed By: #### L 7400.0280 #### [facility] [address] [place], [place], [id number] HPV APTIMA, HR Negative Normal Negative [facility] Comment on above: Order Comment: Speci men Comment: [id number] Specimen Comment: Source.............Cervix Specimen Comment: No. of containers..01 ThinPrep Vial Result Comment: This nucleic acid amplification test detects fourteen high- risk HPV types (16,18,31,33,35,39,45,51,52,56,58,59,66,68) without differentiation. Performed By: #### L 7400.0280 #### [facility] [address] [place], [place], [id number] HPV Rosemarie Rfx Comment Normal . [facility] Comment on above: Order Comment: Speci men Comment: [id number] Specimen Comment: Source.............Cervix Specimen Comment: No. of containers..01 ThinPrep Vial Result Comment: Crit eria not met, HPV Genotype not performed. Performed at: - [facility] [id number] Piece Cutter: Jocelyn Jolly MD, Phone: [phone] Performed at: = - [facility] [id number] Piece Cutter: Jocelyn Jolly MD, Phone: [phone] Performed By: #### L 7400.0280 #### [facility] [address] [place], [place], [id number] PAPSMR Comment Normal . [facility] Comment on above: Order Comment: Speci men Comment: [id number] Specimen Comment: Source.............Cervix Specimen Comment: No. of containers..01 ThinPrep Vial Result Comment: The Pap smear is a screening test designed to aid in the detection of premalignant and malignant conditions of the uterine cervix. It is not a diagnostic procedure and should not be used as the sole means of detecting cervical cancer. Both false-positive and false-negative reports do occur. Performed By: #### L 7400.0280 #### [facility] [address] [place], [address] PERFORM Comment Normal . [facility] Comment on above: Order Comment: Speci men Comment: [id number] Specimen Comment: Source.............Cervix Specimen Comment: No. of containers..01 ThinPrep Vial Result Comment: Jarett Donis, Cylinder Die Machine Operator (ASCP) Performed By: #### L 7400.0280 #### [facility] [address] [place], [address] Comprehensive Metabolic Prof ilon 05-13-2024 Albumin [Mass/Vol] 3.7 g/dL Normal 3.2-5.0 [facility] Comment on above: Order Comment: YAMILA CRISOSTOMO ORDERED TSH VIT DDR LONA MIEDEL ORDERED CMP PROCRER Performed By: #### L 100.0500, BTSPAT #### [facility] [address] [place], [address] Albumin/Globulin [Mass ratio] 0.8 {ratio} Low 0.9-2.4 [facility] Comment on above: Order Comment: YAMILA CRISOSTOMO ORDERED TSH VIT DDR LONA MIEDEL ORDERED CMP PROCRER Performed By: #### L 100.0500, BTSPAT #### [facility] [address] [place], [address] ALK P 77 U/L Normal 45-117 [facility] Comment on above: Order Comment: YAMILA CRISOSTOMO ORDERED TSH VIT DDR LONA MIEDEL ORDERED CMP PROCRER Performed By: #### L 100.0500, BTSPAT #### [facility] [address] [place], [address] ALT [Catalytic activity/Vol] 90 U/L High 13-56 [facility] Comment on above: Order Comment: YAMILA CRISOSTOMO ORDERED TSH VIT DDR LONA MIEDEL ORDERED CMP PROCRER Performed By: #### L 100.0500, BTSPAT #### [facility] [address] [place], [address] AST [Catalytic activity/Vol] 46 U/L High 15-37 [facility] Comment on above: Order Comment: YAMILA Hitchcock KAREN ANDRESSA ORDERED TSH VIT DDR LONA MIEDEL ORDERED CMP PROCRER Performed By: #### L 100.0500, BTSPAT #### [facility] [address] [place], [address] Bilirubin [Mass/Vol] 0.30 mg/dL Normal 0.20-1.00 [facility] Comment on above: Order Comment: YAMILA CRISOSTOMO ORDERED TSH VIT DDR LONA MIEDEL ORDERED CMP PROCRER Result Comment: For patients on eltrombopag therapy, use of Dimension Tully TBIL is not recommended. Performed By: #### L 100.0500, BTSPAT #### [facility] [address] [place], [address] BUN/CRE 12.3 RATIO Normal 10-20 [facility] Comment on above: Order Comment: YAMILA CRISOSTOMO ORDERED TSH VIT DDR LONA MIEDEL ORDERED CMP PROCRER Performed By: #### L 100.0500, BTSPAT #### [facility] [address] [place], [address] CA,Total 9.7 mg/dL Normal 8.5-10.1 [facility] Comment on above: Order Comment: YAMILA CRISOSTOMO ORDERED TSH VIT DDR LONA MIEDEL ORDERED CMP PROCRER Performed By: #### L 100.0500, BTSPAT #### [facility] [address] [place], [address] Chloride [Moles/Vol] 103 mmol/L Normal 98-107 [facility] Comment on above: Order Comment: YAMILA CRISOSTOMO ORDERED TSH VIT DDR LONA MIEDEL ORDERED CMP PROCRER Performed By: #### L 100.0500, BTSPAT #### [facility] [address] [place], [address] CO2 [Moles/Vol] 28.0 mmol/L Normal 21.0-32.0 [facility] Comment on above: Order Comment: YAMILA CRISOSTOMO ORDERED TSH VIT DDR LONA MIEDEL ORDERED CMP PROCRER Performed By: #### L 100.0500, BTSPAT #### [facility] [address] [place], [address] Creatinine [Mass/Vol] 0.81 mg/dL Normal 0.55-1.02 [facility] Comment on above: Order Comment: YAMILA CRISOSTOMO ORDERED TSH VIT DDR LONA MIEDEL ORDERED CMP PROCRER Result Comment: The validity of the calculated GFR GFRAA in patients over 70 years has not been determined. Clinical correlation is essential. Performed By: #### L 100.0500, BTSPAT #### [facility] [address] [place], [address] EST GFR - AA 107 mL/min Normal >60 [facility] Comment on above: Order Comment: YAMILA CRISOSTOMO ORDERED TSH VIT DDR LONA MIEDEL ORDERED CMP PROCRER Result Comment: Afri can Grenadian GFR Calc Performed By: #### L 100.0500, BTSPAT #### [facility] [address] [place], [address] GAP 7 Normal 5-15 [facility] Comment on above: Order Comment: YAMILA CRISOSTOMO ORDERED TSH VIT DDR LONA MIEDEL ORDERED CMP PROCRER Performed By: #### L 100.0500, BTSPAT #### [facility] [address] [place], [address] GFR/1.73 sq M.predicted among non-blacks MDRD (S/P/Bld) [Vol rate/Area] 88 mL/min/{1.73_m2} Normal >60 [facility] Comment on above: Order Comment: YAMILA CRISOSTOMO ORDERED TSH VIT DDR LONA MIEDEL ORDERED CMP PROCRER Result Comment: Non- GFR Calc Performed By: #### L 100.0500, BTSPAT #### [facility] [address] [place], [address] Globulin (S) [Mass/Vol] 4.7 g/dL High 2.2-4.2 [facility] Comment on above: Order Comment: YAMILA CRISOSTOMO ORDERED TSH VIT DDR LONA MIEDEL ORDERED CMP PROCRER Performed By: #### L 100.0500, BTSPAT #### [facility] [address] [place], [address] Glucose [Mass/Vol] 140 mg/dL High 74-106 [facility] Comment on above: Order Comment: YAMILA CRISOSTOMO ORDERED TSH VIT DDR LONA MIEDEL ORDERED CMP PROCRER Result Comment: Fast ing Glucose result greater than or equal to 126 mg/dL suggests DIABETES MELLITUS per A.D.A. criteria. Performed By: #### L 100.0500, BTSPAT #### [facility] [address] [place], [address] Potassium [Moles/Vol] 3.6 mmol/L Normal 3.5-5.1 [facility] Comment on above: Order Comment: YAMILA CRISOSTOMO ORDERED TSH VIT DDR LONA MIEDEL ORDERED CMP PROCRER Performed By: #### L 100.0500, BTSPAT #### [facility] [address] [place], [address] Sodium [Moles/Vol] 138 mmol/L Normal 136-145 [facility] Comment on above: Order Comment: YAMILA CRISOSTOMO ORDERED TSH VIT DDR LONA MIEDEL ORDERED CMP PROCRER Performed By: #### L 100.0500, BTSPAT #### [facility] [address] [place], [address] T PROT 8.4 g/dL High 6.4-8.2 [facility] Comment on above: Order Comment: YAMILA Hitchcock KAREN ANDRESSA ORDERED TSH VIT DDR LONA MIEDEL ORDERED CMP PROCRER Performed By: #### L 100.0500, BTSPAT #### [facility] [address] [place], [address] Urea nitrogen [Mass/Vol] 10 mg/dL Normal 7-18 [facility] Comment on above: Order Comment: YAMILA DE ANDAY ANDRESSA ORDERED TSH VIT DDR LONA MIEDEL ORDERED CMP PROCRER Performed By: #### L 100.0500, BTSPAT #### [facility] [address] [place], [address] Protein+Creatinine Ratio,Uri neon 05-13-2024 PROT:CRE RATIO 102 mg/g CRE Normal 0-200 [facility] Comment on above: Order Comment: YAMILA Hitchcock KAREN CRISOSTOMO ORDERED TSH VIT DDR LONA MIEDEL ORDERED CMP PROCRER Performed By: #### L 100.0500, BTSPAT #### [facility] [address] [place], [address] Protein (U) [Mass/Vol] 29.6 mg/dL High <11.9 [facility] Comment on above: Order Comment: YAMILA Hitchcock KAREN ANDRESSA ORDERED TSH VIT DDR LONA MIEDEL ORDERED CMP PROCRER Performed By: #### L 100.0500, BTSPAT #### [facility] [address] [place], [address] UR CREAT 289.00 mg/dL Normal NO RANGE EST. [facility] Comment on above: Order Comment: YAMILA Hitchcock KAREN CRISOSTOMO ORDERED TSH VIT DDR LONA MIEDEL ORDERED CMP PROCRER Performed By: #### L 100.0500, BTSPAT #### [facility] [address] [place], [address] Thyroid Stim Hormone (TSH)on 05-13-2024 TSH 1.200 uIU/mL Normal 0.358-3.740 [facility] Comment on above: Order Comment: YAMILA CRISOSTOMO ORDERED TSH VIT DDR LONAAGUSTÍN RICO ORDERED CMP PROCRER Performed By: #### L 100.0500, BTSPAT #### [facility] [address] [place], [address] Vitamin D,25 Hydroxyon 05-13 Vitamin D 25-OH 15.4 ng/mL Normal [facility] Comment on above: Order Comment: YAMILA CRISOSTOMO ORDERED TSH VIT DDR LONA MIEDEL ORDERED CMP PROCRER Result Comment: Rebecca min D 25(OH) Status Range Deficiency <20 ng/mL (50nmol/L) Insufficiency 20 - 30 ng/mL (50 - 75 nmol/L) Sufficiency 30 - 100 ng/mL (75 - 250 nmol/L) Toxicity >100 ng/mL (>250 nmol/L) Performed By: #### L 100.0500, BTSPAT #### [facility] [address] [place], [address] Food Tester Office Visit Reporton 05-11-2024 Food Tester Office Visit Report [facility]'[address], [address] [place] [address] OFFICE VISIT Date of Service: 05/11/24 MR#: [id number] Acct: [id number] Name: GABY MINORUD Rep #: [id number] : 1995 Provider: YAMILA Mckoy ams Age/Sex: 29/F Location: [facility] Status: Signed Intake Vital Signs 12/23/23 10:29 03/08/24 11:03 05/11/24 10:49 05/11/24 10:55 Height 5 ft 9 in 5 ft 9 in 5 ft 9 in 5 ft 9 in Weight: 304 lb BMI 44.9 BP 84/59 L 166/111 H Blood Pressure Location Rt brachial Lt brachial Position Sitting Sitting Respiration 16 Pulse 118 H Pulse Source Monitor Intake Visit 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) Potash Flaker Required: No Is patient in pain?: No Allergies lanolin Adverse Reaction (Verified 05/11/24 10:50) Rash Medications ???Medication ???Instructions ???Recorded ???Confirmed ???Type ibuprofen 800 mg tablet 800 mg PO TID PRN pain #30 tabs 09/26/21 05/11/24 Rx cetirizine 10 mg tablet (Zyrtec) 10 mg PO DAILY 01/23/22 05/11/24 History cholecalciferol (vitamin D3) 50 50 mcg PO DAILY 01/23/22 05/11/24 History mcg (2,000 unit) capsule (Vitamin D3) lactobacillus combination no.4 3 3,000 mmu cells PO DAILY 01/23/22 05/11/24 History billion cell capsule (Probiotic) vitamin B complex 1 cap PO DAILY 01/23/22 05/11/24 History metoprolol tartrate 50 mg tablet 50 mg PO DAILY #30 tabs 09/25/22 05/11/24 Rx diltiazem HCl 120 mg capsule,24 120 mg PO DAILY 02/11/23 05/11/24 History hr,extended release aripiprazole 5 mg tablet 5 mg PO DAILY #90 tabs 03/08/24 05/11/24 Rx atomoxetine 80 mg capsule 80 mg PO DAILY #90 caps 03/08/24 05/11/24 Rx venlafaxine 150 mg 150 mg PO QHS #90 caps 03/08/24 05/11/24 Rx capsule,extended release 24 hr (Effexor XR) venlafaxine 75 mg capsule,extended 75 mg PO DAILY #90 caps 03/08/24 05/11/24 Rx release 24 hr Is last menstrual period known: Yes Last Menstrual Period: 05/02/24 Post menopausal: No Patient : No : No PFSH Medical History (Updated 05/12/24 @ 15:44 by Kenyetta Crisostomo CNM) Chronic hypertension Status post fracture of tibia ADHD MDD (major depressive disorder), recurrent episode, severe Wears glasses Depression Anxiety Marijuana use Blister Low iron Non-smoker Hypertension Encounter for screening for COVID-19 Vacuum-assisted vaginal delivery Oligohydramnios Hypertension affecting Gestational diabetes mellitus in childbirth, insulin controlled Lactose intolerance Cystic fibrosis carrier Obsessive compulsive disorder Major depressive disorder, 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 Surgical History History of dilation and curettage Family History (Updated 05/11/24 @ 10:57 by Margaux Kline) Father Hypertension Grandmother Diabetes Social History (Updated 05/11/24 @ 10:56 by Margaux Kline) adopted: No household members: spouse and family housing: house number of children: 2 pets and animals: Yes pets and animals: dog(s) history of recent travel: No sexually active: Yes Smoking Status: Never smoker how long ago did patient quit smoking: quit in 2013 alcohol intake: current alcohol intake frequency: a few times a month substance use type: marijuana well-balanced diet: about half the time caffeine: Yes Type: coffee Number of servings: 1 eating out: 1-3 times/week what type of physical activity do you participate in: walking frequency: 1-2 times per week danni/mosque: None seatbelt use: always do you feel safe at home: Yes additional social history: - [place] History 3 Elective abortions Hx Para 1 Spontaneous abortions 1 Hx # Term Pregnancies 1 Ectopic pregnancies Hx # Pregnancies Multiple births # of living children 1 Past Pregnancies Del. Date Name GA/Weeks Outcome Route Bth Weight Gen Labor Lgth Anesthesia Del Locatn Provider FOB 03/28/17 [place] 38 live - full term vacuum 7lb 12oz Female 12 epidural [facility] Benekos [place] Delivery Date: 03/28/17 Last Updated by: Ema Medina MD IOL for low MEI, PIH HPI Encounter for routine gynecological examination Details: GABY MINOR is a 29 year old who presents for annual exam. Had ablation in 2021 and is still having regular menses. Bleeding is manageable currently but is concerned that she may need hysterectomy at some point in the future. Concerns that her last 2 menses she has felt SI the first 2-3 days of menses. Does not have depressive sx prior to menses that would indicate PMDD. Has needed to stay home to be with her due to safety concerns. Has been in contact with counselor and Dr Lyon about sx. Last PAP: 2023 History of abnormal P (more content not included)... Normal [facility] CNOVon 04-29-2024 CNOV Office Visit ([facility] ) GABY MINOR ([id number]) 1995 F Date Time Provider Department 04/29/24 7:15 AM DANIEL DENG [facility] During your visit today, we recorded the following information about you: Temperature Pulse Respiration Blood pressure 97.1 degrees 101/minute 18/minute 138/114 Weight 138.9 kg Deng Monge, CITY PLANNER.FURNACE CLERK 04/29/2024 7:57 AM Signed Subjective HPI Nontoxic-appearing female presents urgent care chief complaint cough chest congestion. Duration of symptoms 2 weeks. Associated symptoms listed above. Presents today with persistent cough. OTC medications none. Was seen here on 25 April. Chest x-ray normal. Strep positive. Is currently on amoxicillin. No fevers denies any chest pain or hemoptysis. Past medical history prescription medications allergies reviewed. Denies chance of . .Patient presents with: Cough: Chest congestion x2 weeks, seen 04/25 for strep and CXR was negative but chest congestion worsened yesterday PAST MEDICAL HISTORY Diagnosis Date COVID 08/2022 Depression Epidermolysis bullosa simplex Essential hypertension 09/2022 after covid CARTER (generalized anxiety disorder) MDD (major depressive disorder) OCD (obsessive compulsive disorder) Post depression PAST SURGICAL HISTORY Procedure Laterality Date DANDC, DIAG AND/OR THERAPEUTIC 09/2021 LEG SURGERY HX Left 10/2022 broke tibula fibula and ankle LIGATE FALLOPIAN TUBE 01/30/2022 S BALLOON,UTERINE ABLATION [id number] 01/30/2022 ALLERGIES Lanolin MEDICATIONS amoxicillin (AMOXIL) 500 mg capsule Take 1 capsule by mouth two times a day for 10 days. tranexamic acid (LYSTEDA) 650 mg tablet Take 2 tablets 3 times a day as needed for heavy bleeding up to 5 days. Lactobacillus acidophilus (PROBIOTIC ORAL) Probiotic 0 Refill(s) Start Date: 11/03/22 Status: Ordered cetirizine (ZYRTEC) 10 mg tablet Take 10 mg by mouth. ARIPiprazole (ABILIFY) 5 mg tablet dilTIAZem CR (TIAZAC, TAZTIA XT) 120 mg 24 hr capsule venlafaxine ER (EFFEXOR XR) 150 mg 24 hr capsule cholecalciferol (VITAMIN D-3) 5,000 unit tab Take 5,000 Units by mouth once daily. buPROPion XL (WELLBUTRIN XL) 150 mg 24 hr tablet (Patient not taking: Reported on 2024) norethindrone (AYGESTIN) 5 mg tablet Take 1 tablet TID until bleeding stops, the BID x 3 days, the daily x 3 days. (Patient not taking: Reported on 2024) FAMILY HISTORY Problem Relation Age of Onset No Known Problems Mother Hypertension Father No Known Problems Sister Social History Tobacco Use Smoking status: Never Smokeless tobacco: Never Vaping Use Vaping status: Never Used Substance Use Topics Alcohol use: Yes Drug use: Never BP 138/114 Pulse 101 Temp 36.2 ?C (97.1 ?F) Resp 18 Wt (!) 138.9 kg (306 lb 3.5 oz) SpO2 99% BMI 45.22 kg/m? Review of Systems Constitutional: Negative for chills, fever and malaise/fatigue. HENT: Positive for congestion. Negative for ear discharge, ear pain, sinus pain and sore throat. Eyes: Negative for blurred vision, pain, discharge and redness. Respiratory: Positive for cough. Negative for hemoptysis, sputum production, shortness of breath, wheezing and stridor. Cardiovascular: Negative for chest pain. Gastrointestinal: Negative for abdominal pain, diarrhea, nausea and vomiting. Musculoskeletal: Negative for myalgias. Skin: Negative for itching and rash. Neurological: Negative for dizziness and headaches. Objective Physical Exam Constitutional: General: She is not in acute distress. Appearance: She is not diaphoretic. HENT: Head: Normocephalic. Jaw: No trismus, tenderness, swelling or pain on movement. Nose: Congestion present. Mouth/Throat: Mouth: Mucous membranes are moist. Pharynx: Oropharynx is clear. Uvula midline. No pharyngeal swelling, oropharyngeal exudate, posterior oropharyngeal erythema or uvula swelling. Eyes: Conjunctiva/sclera: Conjunctivae normal. Pupils: Pupils are equal, round, and reactive to light. Cardiovascular: Rate and Rhythm: Normal rate and regular rhythm. Heart sounds: Normal heart sounds. Pulmonary: Effort: Pulmonary effort is normal. No tachypnea, accessory muscle usage or respiratory distress. Breath sounds: Normal breath sounds. No stridor. No wheezing, rhonchi or rales. Musculoskeletal: Cervical back: Normal range of motion and neck supple. No edema, erythema, rigidity or tenderness. No pain with movement. Normal range of motion. Lymphadenopathy: Cervical: No cervical adenopathy. Skin: General: Skin is warm and dry. Neurological: Mental Status: She is alert and oriented to person, place, and time. ASSESSMENT/PLAN: 1. Viral illness - ICD9: 079.99, ICD10: B34.9 - Discussed viral etiology and rationale for treatment. - Symptomatic treatment with prn analgesia - Supportive care with fluids and rest (more content not included)... Normal [facility] CNOVon 2024 CNOV Office Visit ([facility] ) GABY MINOR ([id number]) 1995 F Date Time Provider Department 04/25/24 10:00 AM LOURDES IRELAND [facility] During your visit today, we recorded the following information about you: Temperature Pulse Respiration Blood pressure 97.3 degrees 108/minute 21/minute 178/122 Weight 139.1 kg Lourdes Ireland APRN.CNP 2024 10:26 AM Signed This note was created using [employer]. Subjective Gaby Minor is a 29 year old female. 29 year old female with PMH HTN, COVID, anxiety and depression presents for illness. Acute onset X 1 day +sore throat +chest congestion +cough +productive +ears clogged +fever (yesterday ) Denies N/V/D Denies CP Denies SOB Denies abdominal pain +feelings of winded Denies tobacco usage Has used Daytime/Nighttime medicine + ill contacts, citing her daughter has strep and pneumonia The history is provided by the patient. No superintendent production was used. URI She complains of cough. There is no chest tightness, difficulty breathing, frequent throat clearing, hemoptysis, hoarse voice, shortness of breath, sputum production or wheezing. This is a new problem. The current episode started yesterday. The problem occurs constantly. The problem has been unchanged. The cough is productive of sputum. Associated symptoms include ear congestion, ear pain, a fever, headaches, malaise/fatigue, myalgias, rhinorrhea, sneezing and a sore throat. Pertinent negatives include no appetite change, chest pain, dyspnea on exertion, heartburn, nasal congestion, orthopnea, PND, postnasal drip, sweats, trouble swallowing or weight loss. Her symptoms are aggravated by nothing. Her symptoms are alleviated by nothing. She reports no improvement on treatment. There are no known risk factors for lung disease. There is no history of asthma, bronchiectasis, bronchitis, COPD, emphysema or pneumonia. PAST MEDICAL HISTORY Diagnosis Date COVID 08/2022 Depression Epidermolysis bullosa simplex Essential hypertension 09/2022 after covid CARTER (generalized anxiety disorder) MDD (major depressive disorder) OCD (obsessive compulsive disorder) Post depression PAST SURGICAL HISTORY Procedure Laterality Date DANDC, DIAG AND/OR THERAPEUTIC 09/2021 LEG SURGERY HX Left 10/2022 broke tibula fibula and ankle LIGATE FALLOPIAN TUBE 01/30/2022 S BALLOON,UTERINE ABLATION [id number] 01/30/2022 ALLERGIES Lanolin MEDICATIONS tranexamic acid (LYSTEDA) 650 mg tablet Take 2 tablets 3 times a day as needed for heavy bleeding up to 5 days. Lactobacillus acidophilus (PROBIOTIC ORAL) Probiotic 0 Refill(s) Start Date: 11/03/22 Status: Ordered cetirizine (ZYRTEC) 10 mg tablet Take 10 mg by mouth. ARIPiprazole (ABILIFY) 5 mg tablet dilTIAZem CR (TIAZAC, TAZTIA XT) 120 mg 24 hr capsule venlafaxine ER (EFFEXOR XR) 150 mg 24 hr capsule cholecalciferol (VITAMIN D-3) 5,000 unit tab Take 5,000 Units by mouth once daily. amoxicillin (AMOXIL) 500 mg capsule Take 1 capsule by mouth two times a day for 10 days. buPROPion XL (WELLBUTRIN XL) 150 mg 24 hr tablet (Patient not taking: Reported on 2024) norethindrone (AYGESTIN) 5 mg tablet Take 1 tablet TID until bleeding stops, the BID x 3 days, the daily x 3 days. (Patient not taking: Reported on 2024) FAMILY HISTORY Problem Relation Age of Onset No Known Problems Mother Hypertension Father No Known Problems Sister Social History Tobacco Use Smoking status: Never Smokeless tobacco: Never Vaping Use Vaping status: Never Used Substance Use Topics Alcohol use: Yes Drug use: Never Review of Systems Constitutional: Positive for fatigue, fever and malaise/fatigue. Negative for appetite change and weight loss. HENT: Positive for congestion, ear pain, rhinorrhea, sneezing and sore throat. Negative for hoarse voice, postnasal drip and trouble swallowing. Eyes: Negative for pain, discharge and itching. Respiratory: Positive for cough. Negative for hemoptysis, sputum production, shortness of breath and wheezing. Cardiovascular: Negative for chest pain, dyspnea on exertion and PND. Gastrointestinal: Negative for abdominal pain, diarrhea, heartburn and nausea. Musculoskeletal: Positive for myalgias. Negative for arthralgias and back pain. Skin: Negative for color change, pallor, rash and wound. Allergic/Immunologic: Negative for environmental allergies, food allergies and immunocompromised state. Neurological: Positive for headaches. Negative for dizziness, seizures, facial asymmetry and speech difficulty. Hematological: Negative for adenopathy. Does not bruise/bleed easily. Psychiatric/Behaviora l: Negative for agitation and behavioral problems. Objective BP (!) 178/122 Pulse 108 Temp 36.3 ?C (97.3 ?F) Resp 21 Wt (!) 139.1 kg (306 lb 10.6 oz) SpO2 96% BMI 45.29 kg/m? Physica (more content not included)... Normal [facility] 2024 [facility] Telephone ([facility]) GABY MINOR ([id number]) 1995 F Date Time Provider Department 04/25/24 LOURDES IRELAND [facility] During your visit today, we recorded the following information about you: Lourdes Ireland APRN.CNP 2024 12:12 PM Signed CXR NEGATIVE Please notify patient. Follow up with primary care doctor. Please advise patient Barbara Titus MA 2024 2:53 PM Signed Patient given results and verbalized understanding of instructions given. Barbara Titus MA Allergies As of Date: 2024 Noted Allergy Reaction LANOLIN 10/20/2018 2 - Rash Date Reviewed: 2024 Reviewed by: Lola Cook MA - Fully Assessed Reason for Visit: Results [95] Prescriptions as of 2024 - amoxicillin (AMOXIL) 500 mg capsule Take 1 capsule by mouth two times a day for 10 days. - buPROPion XL (WELLBUTRIN XL) 150 mg 24 hr tablet - tranexamic acid (LYSTEDA) 650 mg tablet Take 2 tablets 3 times a day as needed for heavy bleeding up to 5 days. - norethindrone (AYGESTIN) 5 mg tablet Take 1 tablet TID until bleeding stops, the BID x 3 days, the daily x 3 days. - Lactobacillus acidophilus (PROBIOTIC ORAL) Probiotic 0 Refill(s) Start Date: 11/03/22 Status: Ordered - cetirizine (ZYRTEC) 10 mg tablet Take 10 mg by mouth. - ARIPiprazole (ABILIFY) 5 mg tablet - dilTIAZem CR (TIAZAC, TAZTIA XT) 120 mg 24 hr capsule - venlafaxine ER (EFFEXOR XR) 150 mg 24 hr capsule - cholecalciferol (VITAMIN D-3) 5,000 unit tab Take 5,000 Units by mouth once daily. Problem List As Of Date 2024 Noted Resolved Obesity, Class I, BMI 30-34.9 [E66.811] 09/14/2018 Anxiety with depression [F41.8] 10/20/2018 Obesity, Class II, BMI 35-39.9 [E66.812] 04/11/2019 Pelvic floor dysfunction [M62.89] 12/21/2020 Muscle tightness [M62.89] 12/21/2020 02/18/2021 Encounter Status:Closed by BARBARA TITUS on 04/25/24 [facility] COVID AND INFLUENZA A/B AND RSV PCR, ROUTINEon 2024 SARS-CoV-2 (COVID-19) RNA COLEEN+probe Ql (Unsp spec) SARS-COV-2 (AGENT OF COVID-19) RNA: Not detected INFLUENZA A RNA: Not detected INFLUENZA B RNA: Not detected RESPIRATORY SYNCYTIAL VIRUS (RSV) RNA: Not detected Normal [facility] Comment on above: Performed By: #### C VFLRS #### [facility] CLIA [id number] [address] [place] [address] [place] STREP A MOLECULAR (POC)on Interpretation and review of laboratory results Abnormal [facility] Procedural Control Valid [facility] Strep A (POCT) Positive Abnormal Negative [facility] XR CHEST 2V FRONTAL/LATon XR CHEST 2V FRONTAL/LAT * * *Final Report* * * DATE OF EXAM: 2024 11:37AM [id number] - XR CHEST 2V FRONTAL/LAT / PROCEDURE REASON: Acute cough * * * * Physician Interpretation * * * * EXAMINATION: CHEST RADIOGRAPH (2 VIEW FRONTAL and LATERAL) CLINICAL HISTORY: Acute cough MQ: XC2_6 EXAM DATE/TIME: 2024 11:37 AM COMPARISON: No relevant prior studies available. RESULT: Lines, tubes, and devices: None. Lungs and pleura: No consolidation. No lung mass. No pleural effusion. No pneumothorax. Cardiomediastinal silhouette: Normal cardiomediastinal silhouette. Bones and soft tissues: Unremarkable. IMPRESSION: No acute radiographic abnormality. 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 RESULT: Lines, tubes, and devices: None. Lungs and pleura: No consolidation. No lung mass. No pleural effusion. No pneumothorax. Cardiomediastinal silhouette: Normal cardiomediastinal silhouette. Bones and soft tissues: Unremarkable. DIVISION OF RADIOLOGY Provider, [facility] - 2024 * * *Final Report* * * DATE OF EXAM: 2024 11:37AM [id number] - XR CHEST 2V FRONTAL/LAT / PROCEDURE REASON: Acute cough * * * * Physician Interpretation * * * * EXAMINATION: CHEST RADIOGRAPH (2 VIEW FRONTAL & LATERAL) CLINICAL HISTORY: Acute cough MQ: XC2_6 EXAM DATE/TIME: 2024 11:37 AM COMPARISON: No relevant prior studies available. RESULT: Lines, tubes, and devices: None. Lungs and pleura: No consolidation. No lung mass. No pleural effusion. No pneumothorax. Cardiomediastinal silhouette: Normal cardiomediastinal silhouette. Bones and soft tissues: Unremarkable. IMPRESSION IMPRESSION: No acute radiographic abnormality. 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: PSCB Transcribe Date/Time: 2024 12:06P Dictated by : FLORENCIA ROLDAN MD This examination was interpreted and the report reviewed and electronically signed by: FLORENCIA ROLDAN MD on 2024 12:06PM EST [facility] Radiology Study observation (narrative) [facility] XR Chest PA and LateralOrder ed By: [facility]cf Provider on 2024 [facility] MR/BMS.BPon 03-08-2024 MR/BMS.BP [address], [address] [place] [address] OFFICE VISIT Date of Service: 03/08/24 MR#: [id number] Acct: [id number] Name: GABY MINOR Rep #: [id number] : 1995 Provider: Dr. Gilberto Fritz se, DO Age/Sex: 28/F Location: [facility].BP Status: Signed Intake Vital Signs 12/23/23 10:29 03/08/24 11:03 Height 5 ft 9 in 5 ft 9 in BP 84/59 L Blood Pressure Location Rt brachial Position Sitting Respiration 16 Pulse 118 H Pulse Source Monitor BP Intake Visit Reasons: 2-3months Accompanied by: Daughter Allergies lanolin Adverse Reaction (Verified 03/08/24 11:10) Rash Medications ???Medication ???Instructions ???Recorded ???Confirmed ???Type ibuprofen 800 mg tablet 800 mg PO TID PRN pain #30 tabs 09/26/21 03/08/24 Rx cetirizine 10 mg tablet (Zyrtec) 10 mg PO DAILY 01/23/22 03/08/24 History cholecalciferol (vitamin D3) 50 50 mcg PO DAILY 01/23/22 03/08/24 History mcg (2,000 unit) capsule (Vitamin D3) lactobacillus combination no.4 3 3,000 mmu cells PO DAILY 01/23/22 03/08/24 History billion cell capsule (Probiotic) vitamin B complex 1 cap PO DAILY 01/23/22 03/08/24 History metoprolol tartrate 50 mg tablet 50 mg PO DAILY #30 tabs 09/25/22 03/08/24 Rx diltiazem HCl 120 mg capsule,24 120 mg PO DAILY 02/11/23 03/08/24 History hr,extended release aripiprazole 5 mg tablet 5 mg PO DAILY #90 tabs 03/08/24 03/08/24 Rx atomoxetine 80 mg capsule 80 mg PO DAILY #90 caps 03/08/24 03/08/24 Rx venlafaxine 150 mg 150 mg PO QHS #90 caps 03/08/24 03/08/24 Rx capsule,extended release 24 hr (Effexor XR) venlafaxine 75 mg capsule,extended 75 mg PO DAILY #90 caps 03/08/24 03/08/24 Rx release 24 hr PFSH Medical History ADHD MDD (major depressive disorder), recurrent episode, severe Wears glasses Depression Anxiety Marijuana use Blister Low iron Non-smoker Hypertension Encounter for screening for COVID-19 Vacuum-assisted vaginal delivery Oligohydramnios Hypertension affecting Gestational diabetes mellitus in childbirth, insulin controlled Lactose intolerance Cystic fibrosis carrier Obsessive compulsive disorder Major depressive disorder, 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 Surgical History History of dilation and curettage Family History Father Hypertension Social History Smoking Status: Never smoker how long ago did patient quit smoking: quit in 2013 Female Reproductive History Menstrual Ab spontaneous: 1 HPI History of Present Illness History provided by: patient HPI: Gaby Minor is a 28 year old female who presents today for follow up evaluation. Patient reports that she has been doing "super good." Recently her started a new job working longer hours. She has adjusted well to this and this sort of suprises her. She is tired at the end of the day, but is able to function well to this point. Focus has been largely good. Denies any significant side effects from medication. Sleep has been "better" because she is tired at the end of the day. Mood is overall "much better." Has been better able to take care of things at home and things are not as overwhelming. Is no longer taking victoza. Is set to follow with [facility] in April. Cequens alexander has been doing largely better. Review of Systems Constitutional Denies: fever(s), chills, change in weight or fatigue Eyes Denies: change in vision or blurry vision Ears, Nose, Mouth, Throat Denies: throat pain, neck pain or change in hearing Cardiovascular Denies: chest pain, palpitations or dyspnea Respiratory Denies: dyspnea, cough or wheezing Gastrointestinal Reports: nausea; Denies: abdominal pain or vomiting Genitourinary Denies: dysuria or urinary frequency Musculoskeletal Denies: back pain, neck pain, joint pain or muscle weakness Integumentary/Breast Denies: rash or new lesions Neurological Reports: headache(s); Denies: dizziness or confusion Endocrine Denies: fatigue or excessive sweating Hematologic/Lymphatic Denies: easy bruising or easy bleeding Allergic/Immunologic Denies: wheezing Exam Mental Status Exam - Psych Appearance casually dressed, no apparent distress and obese Attitude engaged Activity/Motor Behavior MSE activity/motor behavior finding no adventitious movements Speech regular rate, regular volume and regular prosody Mood OK Affect full range Thought Process linear, logical and coherent Thought Content no delusions and no hallucinations Suicidal Ideation none Homicidal Ideation none (more content not included)... Normal [facility] CBC W Auto Differential pane l (Bld)on 02-27-2023 Basophils (Bld) [#/Vol] 0.06 10*3/uL <0.11 k/uL [facility] Basophils/100 WBC (Bld) 0.7 % [facility] Differential cell count method Nom (Bld) Auto [facility] Eosinophils (Bld) [#/Vol] 0.32 10*3/uL <0.46 k/uL [facility] Eosinophils/100 WBC (Bld) 3.7 % [facility] Erythrocyte distribution width (RBC) [Ratio] 13.8 % 11.5 - 15.0 % [facility] Hematocrit (Bld) [Volume fraction] 43.2 % 36.0 - 46.0 % [facility] Hemoglobin (Bld) [Mass/Vol] 14.0 g/dL 11.5 - 15.5 g/dL [facility] Immature granulocytes (Bld) [#/Vol] 0.03 10*3/uL <0.10 k/uL [facility] Immature granulocytes/100 WBC (Bld) 0.4 % [facility] Lymphocytes (Bld) [#/Vol] 2.23 10*3/uL 1.00 - 4.00 k/uL [facility] Lymphocytes/100 WBC (Bld) 26.1 % [facility] MCH (RBC) [Entitic mass] 26.3 pg 26.0 - 34.0 pg [facility] MCHC (RBC) [Mass/Vol] 32.4 g/dL 30.5 - 36.0 g/dL [facility] MCV (RBC) [Entitic vol] 81.1 fL 80.0 - 100.0 fL [facility] Monocytes (Bld) [#/Vol] 0.60 10*3/uL <0.87 k/uL [facility] Monocytes/100 WBC (Bld) 7.0 % [facility] Neutrophils (Bld) [#/Vol] 5.32 10*3/uL 1.45 - 7.50 k/uL [facility] Neutrophils/100 WBC (Bld) 62.1 % [facility] Nucleated RBC (Bld) [#/Vol] <0.01 k/uL [facility] Nucleated RBC/100 WBC (Bld) [Ratio] 0.0 /100 WBC [facility] Platelet mean volume (Bld) [Entitic vol] 9.5 fL 9.0 - 12.7 fL [facility] Platelets (Bld) [#/Vol] 424 10*3/uL High 150 - 400 k/uL [facility] RBC (Bld) [#/Vol] 5.33 10*6/uL High 3.90 - 5.2 0 m/uL [facility] WBC (Bld) [#/Vol] 8.56 10*3/uL 3.70 - 11. 00 k/uL [facility] Iron and Iron binding capaci ty panelon 02-27-2023 Iron [Mass/Vol] 59 ug/dL 41 - 186 ug/dL [facility] Iron binding capacity [Mass/Vol] 472 ug/dL High 232 - 386 ug/dL [facility] Iron/TIBC [Molar ratio] 12.5 % Low 15.0 - 57.0 % [facility] TSH BLDon 02-27-2023 TSH Qn 1.740 m[IU]/L 0.270 - 4.200 mIU/L [facility] XR FLUORO 1-2 HRS TECH TIMEo n 11-07-2022 XR FLUORO 1-2 HRS TECH TIME ORIGINAL Images acquired, not reported on this accession number. Normal [facility] ([place] XR TIBIA/FIBULA 2 VIEWS LEFT on 11-07-2022 XR TIBIA/FIBULA 2 VIEWS LEFT ORIGINAL EXAMINATION: TWO XRAY VIEWS OF THE [...] Sign Date: 11/07/2022 3:53:59 PM Ordering Provider: GILBERTO Watson [facility] ([place]) .Auto Diffon 11-03-2022 Basophil, Absolute 0.0 10 3/mcL Normal 0.0-0.2 [facility] ([place] Comment on above: Performed By: #### A LEW, ADIFF, GFR, CBC, BMP #### [address] [address] Basophils/100 WBC (Bld) 0.5 % Normal 0.0-2.5 [facility] ([place] Comment on above: Performed By: #### A LEW, ADIFF, GFR, CBC, BMP #### [address] [address] Eosinophil, Absolute 0.3 10 3/mcL [facility]-0.[facility] Comment on above: Performed By: #### A LEW, ADIFF, GFR, CBC, BMP #### [address] [address] Eosinophils/100 WBC (Bld) 2.8 % Normal 0.0-7.0 [facility] ([place] Comment on above: Performed By: #### A LEW, ADIFF, GFR, CBC, BMP #### [address] [address] Lymphocyte, Absolute 1.6 10 3/mcL [facility] 0[facility]8-3.9 [facility] Comment on above: Performed By: #### A LEW, ADIFF, GFR, CBC, BMP #### [address] [address] Lymphocytes/100 WBC (Bld) 18.0 % Normal 10.0-50.0 [facility] ([place] Comment on above: Performed By: #### A LEW, ADIFF, GFR, CBC, BMP #### [address] [address] Monocyte, Absolute 0.5 10 3/mcL Normal 0.2-1.0 [facility] ([place] Comment on above: Performed By: #### A LEW, ADIFF, GFR, CBC, BMP #### [address] [address] Monocytes/100 WBC (Bld) 5.1 % Normal 1.7-13.0 [facility] ([place] Comment on above: Performed By: #### A LEW, ADIFF, GFR, CBC, BMP #### [address] [address] Neutrophils/100 WBC (Bld) 73.6 % Normal 37.0-80.0 [facility] ([place] Comment on above: Performed By: #### A LEW, ADIFF, GFR, CBC, BMP #### [address] [address] .GFRon 11-03-2022 GFR 160 ml/min/1.73sqm Normal [facility] ([place] Comment on above: Result Comment: GFR Population mean for , Non- Americans Ages 20-29 = 116 mL/min/1.73 sq.m. Ages 30-39 = 107 mL/min/1.73 sq.m. Ages 40-49 = 99 mL/min/1.73 sq.m. Ages 50-59 = 93 mL/min/1.73 sq.m. Ages 60-69 = 85 mL/min/1.73 sq.m. Ages 70+ = 75 mL/min/1.73 sq.m. Chronic Kidney Disease: Less than 60 mL/min/1.73 square meters End Stage Renal Disease: Less than 15 mL/min/1.73 square meters Performed By: #### A LEW, ADIFF, GFR, CBC, BMP #### [address] [address] GFR Non- 132 ml/min/1.73sqm Normal [facility] ([place] Comment on above: Result Comment: GFR Population mean for , Non- Americans Ages 20-29 = 116 mL/min/1.73 sq.m. Ages 30-39 = 107 mL/min/1.73 sq.m. Ages 40-49 = 99 mL/min/1.73 sq.m. Ages 50-59 = 93 mL/min/1.73 sq.m. Ages 60-69 = 85 mL/min/1.73 sq.m. Ages 70+ = 75 mL/min/1.73 sq.m. Chronic Kidney Disease: Less than 60 mL/min/1.73 square meters End Stage Renal Disease: Less than 15 mL/min/1.73 square meters Performed By: #### A LEW, ADIFF, GFR, CBC, BMP #### [address] [address] .NEUABSon 11-03-2022 Neutrophil, Absolute 6.6 10 3/mcL [facility] 2.9-6.2 [facility] Comment on above: Performed By: #### A LEW, ADIFF, GFR, CBC, BMP #### [address] [address] BMPon 11-03-2022 BUN/Creatinine Ratio 25 ratio Normal 7-27 [facility] ([place] Comment on above: Performed By: #### A LEW, ADIFF, GFR, CBC, BMP #### [address] [address] Calcium [Mass/Vol] 9.4 mg/dL Normal 8.4-10.2 [facility] ([place]) Comment on above: Performed By: #### A LEW, ADIFF, GFR, CBC, BMP #### [address] [address] Chloride [Moles/Vol] 102 mmol/L Normal 98-107 [facility] ([place] Comment on above: Performed By: #### A LEW, ADIFF, GFR, CBC, BMP #### [address] [address] CO2 [Moles/Vol] 27 mmol/L Normal 22-29 [facility] ([place] Comment on above: Performed By: #### A LEW, ADIFF, GFR, CBC, BMP #### [address] [address] Creatinine [Mass/Vol] 0.55 mg/dL Normal 0.55-1.02 [facility] ([place] Comment on above: Performed By: #### A LEW, ADIFF, GFR, CBC, BMP #### [address] [address] Electrolyte Balance 11.0 mEq/L Normal 4.0-15.0 [facility] ([place]) Comment on above: Performed By: #### A LEW, ADIFF, GFR, CBC, BMP #### [address] [address] Glucose [Mass/Vol] 120 mg/dL High 70-105 [facility] ([place] Comment on above: Performed By: #### A LEW, ADIFF, GFR, CBC, BMP #### [address] [address] Potassium [Moles/Vol] 4.8 mmol/L Normal 3.5-5.1 [facility] ([place] Comment on above: Performed By: #### A LEW, ADIFF, GFR, CBC, BMP #### [address] [address] Sodium [Moles/Vol] 140 mmol/L Normal 136-145 [facility] ([place] Comment on above: Performed By: #### A LEW, ADIFF, GFR, CBC, BMP #### [address] [address] Urea nitrogen [Mass/Vol] 14 mg/dL Normal 7-18 [facility] ([place] Comment on above: Performed By: #### A LEW, ADIFF, GFR, CBC, BMP #### [address] [address] CBCon 11-03-2022 Erythrocyte distribution width (RBC) [Ratio] 13.7 % Normal 11.5-14.5 [facility] ([place]) Comment on above: Order Comment: Pre-A dmission Testing. ORDERED BY Clem GONZALES CRNA Performed By: #### A LEW, ADIFF, GFR, CBC, BMP #### [address] [address] Hematocrit (Bld) [Volume fraction] 37.3 % Normal 37.0-47.0 [facility] ([place] Comment on above: Order Comment: Pre-A dmission Testing. ORDERED BY Clem GONZALES CRNA Performed By: #### A LEW, ADIFF, GFR, CBC, BMP #### [address] [address] Hgb 12.6 G/dL Normal 12.0-16.0 [facility] ([place] Comment on above: Order Comment: Pre-A dmission Testing. ORDERED BY Clem GONZALES CRNA Performed By: #### A LEW, ADIFF, GFR, CBC, BMP #### [address] [address] MCH (RBC) [Entitic mass] 28.1 pg Normal 27.0-31.2 [facility] ([place] Comment on above: Order Comment: Pre-A dmission Testing. ORDERED BY Clem GONZALES CRNA Performed By: #### A LEW, ADIFF, GFR, CBC, BMP #### [address] [address] MCHC 33.9 G/dL Normal 33.0-37.0 [facility] ([place] Comment on above: Order Comment: Pre-A dmission Testing. ORDERED BY Clem GONZALES CRNA Performed By: #### A LEW, ADIFF, GFR, CBC, BMP #### [address] [address] MCV (RBC) [Entitic vol] 82.9 fL Normal 80.0-94.0 [facility] ([place] Comment on above: Order Comment: Pre-A dmission Testing. ORDERED BY Clem GONZALES CRNA Performed By: #### A LEW, ADIFF, GFR, CBC, BMP #### [address] [address] Platelet 447 10 3/mcL High 130-400 [facility] ([place]) Comment on above: Order Comment: Pre-A dmission Testing. ORDERED BY Celm GONZALES CRNA Performed By: #### A LEW, ADIFF, GFR, CBC, BMP #### [address] [address] Platelet mean volume (Bld) [Entitic vol] 8.0 fL Normal 7.4-10.4 [facility] ([place]) Comment on above: Order Comment: Pre-A dmission Testing. ORDERED BY Clem GONZALES CRNA Performed By: #### A LEW, ADIFF, GFR, CBC, BMP #### [address] [address] RBC 4.50 10 6/mcL Normal 4.20-5.40 [facility] ([place]) Comment on above: Order Comment: Pre-A dmission Testing. ORDERED BY Clem GONZALES CRNA Performed By: #### A LEW, ADIFF, GFR, CBC, BMP #### [address] [address] WBC 9.0 10 3/mcL Normal 4.6-10.8 [facility] ([place]) Comment on above: Order Comment: Pre-A dmission Testing. ORDERED BY Clem GONZALES CRNA Performed By: #### A LEW, ADIFF, GFR, CBC, BMP #### [address] [address] LABORATORYOrdered By: SYSTEM SYSTEM on 11-03-2022 Basophil, Absolute 0.0 103/mcL Invalid Interpretation Code 0.0 - 0.2 10^3/mcL AO Workflow SS Basophils/100 WBC (Bld) 0.5 % Invalid Interpretation Code 0.0 - 2.5 % AO Workflow SS Calcium [Mass/Vol] 9.4 mg/dL Invalid Interpretation Code 8.4 - 10.2 mg/dL AO ADM SS Chloride [Moles/Vol] 102 mmol/L Invalid Interpretation Code 98 - 107 mmol/L AO ADM SS CO2 [Moles/Vol] 27 mmol/L Invalid Interpretation Code 22 - 29 mmol/L AO ADM SS Creatinine [Mass/Vol] 0.55 mg/dL Invalid Interpretation Code 0.55 - 1.02 mg/dL AO ADM SS Electrolyte Balance 11.0 mEq/L Invalid Interpretation Code 4.0 - 15.0 mEq/L AO ADM SS Eosinophil, Absolute 0.3 103/mcL Invalid Interpretation Code 0.0 - 0.4 10^3/mcL AO Workflow SS Eosinophils/100 WBC (Bld) 2.8 % Invalid Interpretation Code 0.0 - 7.0 % AO Workflow SS Erythrocyte distribution width (RBC) [Ratio] 13.7 % Invalid Interpretation Code 11.5 - 14.5 % AO Workflow SS GFR/1.73 sq M.predicted among blacks MDRD (S/P/Bld) [Vol rate/Area] 160 ml/min/1.73sqm Invalid Interpretation Code AO Chemistry S GFR/1.73 sq M.predicted among non-blacks MDRD (S/P/Bld) [Vol rate/Area] 132 ml/min/1.73sqm Invalid Interpretation Code AO Chemistry S Glucose [Mass/Vol] 120 mg/dL Invalid Interpretation Code 70 - 105 mg/dL AO ADM SS Hematocrit (Bld) [Volume fraction] 37.3 % Invalid Interpretation Code 37.0 - 47.0 % AO Workflow SS Hemoglobin (Bld) [Mass/Vol] 12.6 G/dL Invalid Interpretation Code 12.0 - 16.0 G/dL AO Workflow SS Lymphocyte, Absolute 1.6 103/mcL Invalid Interpretation Code 0.8 - 3.9 10^3/mcL AO Workflow SS Lymphocytes/100 WBC (Bld) 18.0 % Invalid Interpretation Code 10.0 - 50.0 % AO Workflow SS MCH (RBC) [Entitic mass] 28.1 pg Invalid Interpretation Code 27.0 - 31.2 pg AO Workflow SS MCHC 33.9 G/dL Invalid Interpretation Code 33.0 - 37.0 G/dL AO Workflow SS MCV (RBC) [Entitic vol] 82.9 fL Invalid Interpretation Code 80.0 - 94.0 fL AO Workflow SS Monocyte, Absolute 0.5 103/mcL Invalid Interpretation Code 0.2 - 1.0 10^3/mcL AO Workflow SS Monocytes/100 WBC (Bld) 5.1 % Invalid Interpretation Code 1.7 - 13.0 % AO Workflow SS Neutrophil, Absolute 6.6 103/mcL Invalid Interpretation Code 2.9 - 6.2 10^3/mcL AO Workflow SS Neutrophils/100 WBC (Bld) 73.6 % Invalid Interpretation Code 37.0 - 80.0 % AO Workflow SS Platelet mean volume (Bld) [Entitic vol] 8.0 fL Invalid Interpretation Code 7.4 - 10.4 fL AO Workflow SS Platelets (Bld) [#/Vol] 447 103/mcL Invalid Interpretation Code 130 - 400 10^3/mcL AO Workflow SS Potassium [Moles/Vol] 4.8 mmol/L Invalid Interpretation Code 3.5 - 5.1 mmol/L AO ADM SS RBC (Bld) [#/Vol] 4.50 106/mcL Invalid Interpretation Code 4.20 - 5.40 10^6/mcL AO Workflow SS Sodium [Moles/Vol] 140 mmol/L Invalid Interpretation Code 136 - 145 mmol/L AO ADM SS Urea nitrogen [Mass/Vol] 14 mg/dL Invalid Interpretation Code 7 - 18 mg/dL AO ADM SS Urea nitrogen/Creatinine [Mass ratio] 25 ratio Invalid Interpretation Code 7 - 27 ratio AO ADM SS WBC (Bld) [#/Vol] 9.0 103/mcL Invalid Interpretation Code 4.6 - 10.8 10^3/mcL AO Workflow SS CORONAVIRUS PCR [CCL]on 10-27 COVID 19 Result FOOD SERVICE TECHNICIAN Negative Normal [facility] Comment on above: Result Comment: Nega tive for COVID19 (SARS CoV2) by PCR. This test was developed and its performance characteristics determined by [facility] [place]. This test has been authorized by FDA under an Emergency Use Authorization (EUA). This test has been validated in accordance with the FDA's Guidance Document Policy for Diagnostics Testing in Laboratories Certified to Perform High Complexity Testing under CLIA prior to Emergency use Authorization for Coronavirus Disease 2019 during the Public Health Emergency" issued on June 25, [place] [address] Rommel Snell III, M.D. [id number] Performed By: #### 2 [id number] #### [facility],[address] [place] [id number] COVID 19 Source FOOD SERVICE TECHNICIAN Nasopharyngeal Swab Normal [facility] Comment on above: Performed By: #### 2 [id number] #### [facility],[address] [place] [id number] Coronavirus 2019 0 COVID 19 Result FOOD SERVICE TECHNICIAN Normal Negative for COVID19 (SARS CoV2) by PCR. [facility] Comment on above: Result Comment: Nega tive for This test was developed and its performance characteristics determined by [facility]'s [facility] [place]. This test has been authorized by FDA under an Emergency Use Authorization (EUA). This test has been validated in accordance with the FDA's Guidance Document "Policy for Diagnostics Testing in Laboratories Certified to Perform High Complexity Testing under CLIA prior to Emergency use Authorization for Coronavirus Disease 2019 during the Public Health Emergency" issued on June 25, 2019. COVID19 (SARS This test was developed and its performance characteristics determined by [facility]'s [facility] [place]. This test has been authorized by FDA under an Emergency Use Authorization (EUA). This test has been validated in accordance with the FDA's Guidance Document "Policy for Diagnostics Testing in Laboratories Certified to Perform High Complexity Testing under CLIA prior to Emergency use Authorization for Coronavirus Disease 2019 during the Public Health Emergency" issued on June 25, 2019. CoV2) by PCR. This test was developed and its performance characteristics determined by [facility]'s [facility] [place]. This test has been authorized by FDA under an Emergency Use Authorization (EUA). This test has been validated in accordance with the FDA's Guidance Document "Policy for Diagnostics Testing in Laboratories Certified to Perform High Complexity Testing under CLIA prior to Emergency use Authorization for Coronavirus Disease 2019 during the Public Health Emergency" issued on June 25, 2019. Coronavirus 2019 0 COVID 19 Source FOOD SERVICE TECHNICIAN FOOD SERVICE TECHNICIAN Normal [facility] EMERGENCY REPORTon 0 EMERGENCY REPORT [facility] EMERGENCY ROOM REPORT NAME ACCOUNT SEX AGE ADMIT DISCHARGE PT MED. RECORD# NUMBER DATE DATE TYPE MAST, [id number] F 24 07/12/19 07/13/19 3 [facility] [id number] ROOM: ER DATE OF : 1995 DICTATING PHYSICIAN: Eric Layton ADDENDUM: DIAGNOSTIC DATA: TSH came back normal at 3.32 Dictated By: Eric Layton DO 07/13/19 04:52 JOB #: [id number] Transcribed By: jam 07/13/19 10:21 Electronically signed by: E-Sign: Dr. Eric Layton D.O. 07/14/19 00:48 Page 1 of 1 [facility] Emergency Room Report Normal [facility] EMERGENCY REPORT [facility] EMERGENCY ROOM REPORT NAME ACCOUNT SEX AGE ADMIT DISCHARGE PT MED. RECORD# NUMBER DATE DATE TYPE SEVEN [id number] F 24 07/12/19 07/13/19 3 [facility] [id number] ROOM: ER DATE OF : 1995 DICTATING PHYSICIAN: Eric Layton ADDENDUM: DIAGNOSTIC DATA: WBC 9.2, hemoglobin 13.8, hematocrit 41.2, platelets 418,000. BNP was normal at 5. CPK was normal at 47. Troponin was less than 0.01. Sodium 140, potassium 3.5, chloride 104, CO2 27.9, BUN 11, creatinine 0.6. Glucose 119. AST 16, ALT 20, alk phos 47, total bilirubin 0.3, anion gap was normal at 12. Serum test was negative. D-dimer was elevated at 265, so we did do a CT chest and it was negative for pulmonary embolism. The thoracic aorta appears normal in caliber. There was no focal consolidation. No pericardial or pleural effusion. No pneumothorax. No acute osseous abnormality. Present, I do have a TSH pending as well. EMERGENCY DEPARTMENT COURSE AND TREATMENT: I reviewed all the results with the patient. Palpitations is listed as an adverse reaction with Zoloft. I explained to her that it could possibly be medication, but at this point I did not see any medical problem. Her workup was negative. DIAGNOSIS: Palpitations. PLAN/DISPOSITION: I did suggest that she could get an echocardiogram to rule out mitral valve prolapse. At some point she could talk to her primary care provider about this. At this point, the patient was discharged in a clinically stable condition. Her questions were answered. She is aware that the TSH is pending. The patient is discharged in a clinically stable condition. I did instruct her to follow up with her primary care provider, Maria M Valdes NP in [place], in the next 3-5 days. Rest with no heavy lifting or other exertional activities. If her symptoms become worse or any other problems develop, return to the emergency department. The patient was discharged in a clinically stable condition. Nurses' notes reviewed. Dictated By: Eric Layton DO 07/13/19 01:45 JOB #: [id number] Transcribed By: jam 07/13/19 09:54 Page 1 of 2 [facility] Emergency Room Report [facility] : 1995 Electronically signed by: E-Sign: Dr. Eric Layton D.O. 07/14/19 00:47 Page 2 of 2 [facility] Emergency Room Report Normal [facility] EMERGENCY REPORT [facility] EMERGENCY ROOM REPORT NAME ACCOUNT SEX AGE ADMIT DISCHARGE PT MED. RECORD# NUMBER DATE DATE TYPE SEVEN [id number] F 24 07/12/19 07/13/19 3 [facility] ROOM: ER DATE OF : 1995 DICTATING PHYSICIAN: Eric Layton Time Seen: 2340 hours HISTORY OF PRESENT ILLNESS: This is a 24-year-old white female complaining of heart palpitations. She states that they started about 5 days ago and she has never had them before. She will describe it as her heart is fluttering and at times it skips beats and at other times it feels like it has extra beats. She has also complained of some chest tightness off and on for the past several days. She does admit to some shortness of breath. She has had a little bit of a cough productive of questionable color. She states that the fluttering will sometimes last for hours and hours. She notices it more in the late afternoons or evening; that is when the day is a little quieter for her. She feels more out of breath than she usually does. She did start taking Zyrtec about a week ago when the symptoms started. She stopped it yesterday and started Claritin instead. She does take Zoloft for depression and anxiety and has been on that for about 3 years. PAST MEDICAL HISTORY: Depression and anxiety. She does take Zoloft 75 mg daily. PAST SURGICAL HISTORY: Denies. ALLERGIES: No known drug allergies. SOCIAL HISTORY: She is not a smoker. She denies use of alcohol or illicit drugs. She lives at home with family. PCP is Maria M Valdes NP in [place]. REVIEW OF SYSTEMS: Does admit to chest pain and shortness of breath. She does admit to a cough. She denies any wheezing. She does admit to a small amount of sputum, but she does not know what color it is. She denies any abdominal pain, nausea, vomiting, diarrhea, constipation, melena, hematochezia, headache, numbness, unsteady gait, weakness, neck or back pain, joint pain, skin rash or swelling, hives, hayfever, swollen glands. She does complain of heart palpitations. Further review of systems is negative. PHYSICAL EXAMINATION: Blood pressure 149/91, pulse 99, respiratory rate 18, pulse ox 97%, weight 230 pounds. The patient is alert and oriented x 3. Appears in no acute distress. Pleasant and cooperative. HEENT: Head appears atraumatic. Pupils are equal and reactive to light. Red reflex intact bilaterally. Extraocular muscles intact. No conjunctival injection. No scleral icterus or lid edema. Ears: Tympanic Page 1 of 2 [facility] Emergency Room Report [facility] : 1995 membranes intact bilaterally. No erythema noted. No external auditory canal, edema or bleeding. Nose: No rhinorrhea or epistaxis. Mouth: Mucous membranes are moist. No pharyngeal erythema. Uvula is midline and elevates. Neck is supple. Trachea is midline. No JVD or lymphadenopathy. No posterior cervical tenderness. No nuchal rigidity. Lungs are clear to auscultation in all lung oliver. No adventitious sounds are noted. No accessory muscle use. CVS: Heart rate and rhythm is regular without murmur. I do not note any ectopic beats presently when I listen to her heart. Abdomen is soft, obese, nontender with normoactive bowel sounds x4 quadrants. No guarding or rigidity. No rebound. No palpable abdominal mass. No hepatosplenomegaly. Back exhibits no midline or paraspinal region tenderness. No increased paraspinal muscle rigidity. Negative Travis sign. Extremities: No edema or cyanosis. Peripheral pulses are intact. No motor or sensory deficits noted. Hand analytic manager is strong and symmetric. Skin is warm and dry. No diaphoresis or rash. Neurologic: The patient is alert and oriented x4. No motor sensory deficits noted. Normal voice. No conversational dyspnea. DIAGNOSTIC DATA: EKG done at 2340 hours and does show a sinus tachycardia at a rate of [address] segment changes noted. [facility] is approximately 60 degrees. PLAN/DISPOSITION: Presently, I do have a cardiac workup pending along with a test, TSH. Zoloft can cause rhabdomyolysis so I did order a CK as well. She denies any recent travel history, but I did order a D-dimer as well and then we will reevaluate. Dictated By: Eric Layton DO 07/13/19 00:27 JOB #: [id number] Transcribed By: sp 07/13/19 09:22 Electronically signed by: E-Sign: Dr. Eric Layton D.O. 07/14/19 00:46 Page 2 of 2 [facility] Emergency Room Report Normal [facility] BNP (B-TYPE NATRIURETIC PEPT MITESH)on 07-13-2019 Natriuretic peptide B (Bld) [Mass/Vol] 5 pg/mL Normal 1 - 100 [facility] Comment on above: Performed By: #### 2 28505 #### [facility],[address] [place] [address] CBC + DIFFon 07-13-2019 Basophils (Bld) [#/Vol] 0.10 x10EE3/UL Normal 0.00 - 0.10 [facility] Comment on above: Performed By: #### 2 11055 #### [facility],[address] [place] [address] 92083 Basophils/100 WBC (Bld) 0.7 % Normal 0.0 - 2.0 [facility] Comment on above: Performed By: #### 2 79586 #### [facility],[address] [place] [address] 73570 CBC + DIFF Normal [facility] Comment on above: Result Comment: CBC- COMPLETE BLOOD COUNT Performed By: #### 2 28648 #### [facility],[address] [place] [address] 21333 Eosinophils (Bld) [#/Vol] 0.50 x10EE3/UL Normal 0.00 - 0.50 [facility] Comment on above: Performed By: #### 2 40364 #### [facility],[address] [place] [address] 26664 Eosinophils/100 WBC (Bld) 5.7 % Normal 0.0 - 7.0 [facility] Comment on above: Performed By: #### 2 80365 #### [facility],[address] [place] [address] 51598 Erythrocyte distribution width (RBC) [Ratio] 13.0 % Normal 12.0 - 15.6 [facility] Comment on above: Performed By: #### 2 37524 #### [facility],[address] [place] [address] Hematocrit (Bld) [Volume fraction] 41.2 % Normal 34.0 - 46.0 [facility] Comment on above: Performed By: #### 2 80496 #### [facility],[address] [place] [address] 14480 Hemoglobin (Bld) [Mass/Vol] 13.8 g/dL Normal 12.0 - 16.0 [facility] Comment on above: Performed By: #### 2 51279 #### [facility],[address] [place] [address] 16435 Lymphocytes (Bld) [#/Vol] 2.60 x10EE3/UL Normal 0.80 - 2.80 [facility] Comment on above: Performed By: #### 2 13102 #### [facility],[address] [place] [address] 73271 Lymphocytes/100 WBC (Bld) 28.5 % Normal 20.0 - 45.0 [facility] Comment on above: Performed By: #### 2 56843 #### [facility],[address] [place] [address] 09258 MANUAL DIFF N/A Normal [facility] Comment on above: Performed By: #### 2 34540 #### [facility],[address] [place] [address] 55853 MCH (RBC) [Entitic mass] 28 pg Normal 27 - 33 [facility] Comment on above: Performed By: #### 2 79457 #### [facility],[address] [place], [place] [id number] MCHC (RBC) [Mass/Vol] 34 X10 3 Normal 32 - 36 [facility] Comment on above: Performed By: #### 2 85650 #### [facility],[address] [place], [place] [address] MCV (RBC) [Entitic vol] 85 fL Normal 80 - 99 [facility] Comment on above: Performed By: #### 2 85759 #### [facility],[address] [place] [address] Monocytes (Bld) [#/Vol] 0.80 x10EE3/UL Normal 0.20 - 1.00 [facility] Comment on above: Performed By: #### 2 11424 #### [facility],[address] [place], [place] [id number] MONOS % 8.7 % Normal 0.0 - 10.0 [facility] Comment on above: Performed By: #### 2 46536 #### [facility],[address] [place], [place] [address] Morphology Claus (Bld) [Interp] N/A Normal [facility] Comment on above: Performed By: #### 2 51076 #### [facility],[address] [place] [address] 58517 Neutrophils (Bld) [#/Vol] 5.20 x10EE3/UL Normal 1.50 - 7.10 [facility] Comment on above: Performed By: #### 2 40806 #### [facility],[address] [place], [place] [address] Neutrophils/100 WBC (Bld) 56.4 % Normal 46.0 - 76.0 [facility] Comment on above: Performed By: #### 2 08602 #### [facility],[address],[place] [address] Platelet mean volume (Bld) [Entitic vol] 7.9 fL Normal 6.6 - 10.5 [facility] Comment on above: Result Comment: AUTO MATED DIFFERENTIAL Performed By: #### 2 01399 #### [facility],[address] [place] [address] 11570 Platelets (Bld) [#/Vol] 418 x10EE3/UL Normal 150 - 450 [facility] Comment on above: Performed By: #### 2 68112 #### [facility],[address] [place] [address] 72677 RBC (Bld) [#/Vol] 4.87 x 10EE6/UL Normal 4.10 - 5.30 [facility] Comment on above: Performed By: #### 2 36140 #### [facility],[address] [place] [address] 27032 WBC (Bld) [#/Vol] 9.2 x 10EE3/UL Normal 4.5 - 10.8 [facility] Comment on above: Performed By: #### 2 57822 #### [facility],[address] [place] [address] 94075 CMP with eGFRon 07-13-2019 Age - Reported 24 years Normal [facility] Comment on above: Performed By: #### 2 75496 #### [facility],[address] [place] [address] 33432 Albumin [Mass/Vol] 4.3 g/dL Normal 3.4 - 4.8 [facility] Comment on above: Performed By: #### 2 97899 #### [facility],[address] [place] [address] 12220 Albumin/Globulin [Mass ratio] 1.4 {ratio} Normal 0.9 - 1.6 [facility] Comment on above: Performed By: #### 2 32267 #### [facility],[address] [place] [address] 22375 ALK PHOS 47 U/L Normal 38 - 126 [facility] Comment on above: Performed By: #### 2 83344 #### [facility],[address] [place] [address] 62376 ALT/SGPT 20 U/L Normal 8 - 35 [facility] Comment on above: Performed By: #### 2 97474 #### [facility],[address] [place] [address] 19490 Anion gap [Moles/Vol] 12 mmol/L Normal 10 - 20 [facility] Comment on above: Performed By: #### 2 11514 #### [facility],[address] [place] [address] 39517 AST/SGOT 16 U/L Normal 13 - 39 [facility] Comment on above: Performed By: #### 2 59749 #### [facility],[address] [place] [address] 95092 B/C RATIO 18 ratio Normal 0 - 30 [facility] Comment on above: Performed By: #### 2 41235 #### [facility],[address] [place] [address] 27951 Bilirubin [Mass/Vol] 0.3 mg/dL Normal 0.0 - 1.5 [facility] Comment on above: Performed By: #### 2 73449 #### [facility],[address] [place] [address] 21687 Calcium [Mass/Vol] 9.4 mg/dL Normal 8.6 - 10.2 [facility] Comment on above: Performed By: #### 2 33995 #### [facility],[address] [place] [address] 83392 Chloride [Moles/Vol] 104 mmol/L Normal 98 - 107 [facility] Comment on above: Performed By: #### 2 69029 #### [facility],[address] [place] [address] 69954 CO2 [Moles/Vol] 27.9 mmol/L Normal 21.0 - 31.[address] [facility] Comment on above: Performed By: #### 2 74242 #### [facility],[address] [place] [address] Creatinine [Mass/Vol] 0.6 mg/dL Normal 0.6 - 1.2 [facility] Comment on above: Performed By: #### 2 37674 #### [facility],[address] [place], [place] [address] GFR/1.73 sq M predicted among non-blacks MDRD (S/P/Bld) [Vol rate/Area] Normal [facility] Comment on above: Result Comment: COMP REHENSIVE METABOLIC PANEL Performed By: #### 2 43155 #### [facility],[address] [place] [address] GFR/1.73 sq M predicted among non-blacks MDRD (S/P/Bld) [Vol rate/Area] mL/min/{1.73_m2} Normal 60 - 999 [facility] Comment on above: Performed By: #### 2 63942 #### [facility],[address] [place] [address] Result Comment: ACCO RDING TO THE NATIONAL KIDNEY DISEASE EDUCATION PROGRAM(NKDE), A NORMAL eGFR IS A VALUE GREATER THAN OR EQUAL TO 60 ML/MIN/1.73 SQ METERS. CHRONIC KIDNEY DISEASE: <60mL/MIN/1.73 SQ METERS KIDNEY FAILURE: <15mL/MIN/1.73 SQ METERS THIS TEST SHOULD ONLY BE USED FOR PATIENTS 18 YEARS OF AGE AND OLDER. Globulin (S) [Mass/Vol] 3.1 g/dL Normal 1.5 - 3.8 [facility] Comment on above: Performed By: #### 2 63995 #### [facility],[address] [place], [place] [address] Glucose [Mass/Vol] 119 mg/dL High 74 - 106 [facility] Comment on above: Performed By: #### 2 36049 #### [facility],[address] [place] [address] 43429 Potassium [Moles/Vol] 3.5 mmol/L Normal 3.5 - 5.1 [facility] Comment on above: Performed By: #### 2 95550 #### [facility],[address] [place] [address] 10302 Protein [Mass/Vol] 7.4 g/dL Normal 6.4 - 8.3 [facility] Comment on above: Performed By: #### 2 32295 #### [facility],[address] [place] [address] 52423 Sodium [Moles/Vol] 140 mmol/L Normal 136 - 145 [facility] Comment on above: Performed By: #### 2 47372 #### [facility],[address] [place] [address] Urea nitrogen [Mass/Vol] 11 mg/dL Normal 6 - 20 [facility] Comment on above: Performed By: #### 2 37917 #### [facility],[address] [place] [address] 24970 CPKon 07-13-2019 CPK 47 U/L Normal 26 - 140 [facility] Comment on above: Performed By: #### 2 46194 ####[facility],[address] [place] [address] CHEST (PE PROTOCOL)on CT CHEST (PE PROTOCOL) [place] [address] Patient: GABY MINOR Phone#: : 1995 Age: 24 Gender: F Pt. Type: ER Account: [id number] Location: [facility] Ordering: ERIC LAYTON Exam Date: 07/13/2019/1:13 Family Phys: NO DOCTOR Charge Code: 853015 Physician: Patrick Order #: [id number] DLP Dose#: PROCEDURE: CT CHEST WITH CONTRAST FOR PE COMPARISON: None. INDICATIONS: Elevated D-Dimer TECHNIQUE: After obtaining the patient's consent, CT images were obtained with non-ionic intravenous contrast material. Multi-planar images were created to optimize visualization of vascular anatomy with MPR/MIPS and 3D imaging. All CT scans at this facility use dose modulation, iterative reconstruction, and/or weight based dosing when appropriate to reduce radiation dose to as low as reasonably achievable. IV CONTRAST: Omnipaque 350,80ml TOTAL DOSE: 9.0 CTDIvol(mGy) FINDINGS: VASCULATURE: Normal. No visible pulmonary arterial thrombus or attenuation. AORTA: No aortic aneurysm. LUNGS: Normal. No visible pulmonary disease. ARGELIA: Normal. No mass or adenopathy. MEDIASTINUM: Normal. No mass or adenopathy. CARDIAC: Normal. No enlargement, pericardial thickening, or significant calcification. PLEURA: Normal. No mass or effusion. CHEST WALL: Normal. No mass or axillary adenopathy. LIMITED ABDOMEN: Normal. Limited images of the upper abdomen are unremarkable. BONES: Normal. No bony lesion or fracture. OTHER: Negative. CONCLUSION: 1. No pulmonary embolism. No acute pulmonary parenchymal abnormality. Continued Report - Page 2 of 2 Patient: GABY MINOR Phone#: : 1995 Age: 24 Gender: F Pt. Type: ER Account: [id number] Location: 052 Ordering: ERIC LAYTON Exam Date: 07/13/2019/1:13 Family Phys: NO DOCTOR Charge Code: 199621 Physician: Patrick Order #: [id number] DLP Dose#: Dictated by: Supriya Sandoval MD on 07/13/2019 at 9:29 Approved by: Supriya Sandoval MD on 07/13/2019 at 9:29 Normal [facility] D-DIMER, QUANTITATIVEon 03- D-DIMER QUANT 265 ng/ml High 0 - 230 [facility] Comment on above: Performed By: #### 2 88572 #### [facility],[address] [place] [address] D-DIMER, QUANTITATIVE Normal [facility] Comment on above: Result Comment: RUTHANN T D-DIMER Performed By: #### 2 43770 #### [facility],[address] [place] [address] SERUM QUALon 07-12 EXTERNAL QC DONE? YES Normal [facility] Comment on above: Performed By: #### 2 54193 #### [facility],[address] [place] [address] INTERNAL QC PASS Normal [facility] Comment on above: Performed By: #### 2 85786 #### [facility],[address] [place] [address] SER Negative Normal NEGATIVE [facility] Comment on above: Performed By: #### 2 94888 #### [facility],[address] [place] [address] TROPONINon 07-13-2019 Troponin I.cardiac [Mass/Vol] ng/mL Normal 0.00 - 0.05 [facility] Comment on above: Result Comment: Elev ated troponin (above the 99th percentile) usually indicates myocardial ischemia. Results must be interpreted within the clinical setting. 1.Non-ischemic pathology can also cause elevated troponin levels (e.g., acute pulmonary embolism, myocarditis, pericarditis, heart failure, intracranial injury, rhabdomyolisis, sepsis, shock and renal insufficiency). 2.Approximately 1% of healthy adults have elevated troponin levels. 3.Analytical false positive results rarely occur(due to multiple interferences such as heterophile antibodies). Performed By: #### 2 43898 #### [facility],[address] [place] [address] TSHon 07-13-2019 TSH Qn 3.32 uIU/ml Normal 0.34 - 5.60 [facility] Comment on above: Performed By: #### 2 89816 #### [facility],[address] [place] [address] FC HAND 3 VIEWSon 10-20-2018 FC HAND 3 VIEWS [place] [address] Name: GABY MINOR Phys: SHANTHI VALDES PA-C : [birth year] Age: 23 Sex: F Acct: [id number] Loc: RAD FC Exam Date: 10/20/18 Status: REG CLI Radiology No.: [id number] Unit Number: [id number] Exam # Type/Exam [id number] [facility] / FC HAND 3 VIEWS RT XR FC HAND 3 VIEWS CLINICAL STATEMENT: COMPARISON: None FINDINGS: No acute fracture or dislocation is identified. The joint spaces are maintained. There is no radiopaque foreign body. IMPRESSION: No acute fracture or dislocation. Electronically signed by: Sharla Grossamn MD 10/20/2018 1:39 PM CDT < > Reported By: SOREN WILLS MD Signed In PowerScribe By: SOREN WILLS MD << Signature on File>> Reported By: SOREN WILLS MD Signed By: SOREN WILLS MD Tests performed at: [address] [address] Normal [facility] CBCon 10-13-2018 Basophils (Bld) [#/Vol] 0.10 x10(3) Normal 0.00-0.10 [facility] Comment on above: Performed By: #### L 200.0010 #### [facility]AT[facility] [address] [place] [address] 83422 Basophils/100 WBC (Bld) 0.8 % Normal 0.0-1.0 [facility] Comment on above: Performed By: #### L 200.0010 #### [facility] [address] [place] [address] 92141 Eosinophils (Bld) [#/Vol] 0.30 x10(3) Normal 0.00-0.54 [facility] Comment on above: Performed By: #### L 200.0010 #### [facility] [address] [place] [address] 85059 Eosinophils/100 WBC (Bld) 4.7 % Normal 0.5-4.9 [facility] Comment on above: Performed By: #### L 200.0010 #### [facility] [address] [place] [address] 42554 Erythrocyte distribution width (RBC) [Ratio] 13.4 % Normal 12.5-15.7 [facility] Comment on above: Performed By: #### L 200.0010 #### [facility] [address] [place] [address] 11954 Hematocrit (Bld) [Volume fraction] 41.1 % Normal 36.0-48.0 [facility] Comment on above: Performed By: #### L 200.0010 #### [facility] [address] [place] [address] 70864 Hemoglobin (Bld) [Mass/Vol] 14.0 g/dL Normal 12.0-16.0 [facility] Comment on above: Performed By: #### L 200.0010 #### [facility] [address] [place] [address] 03490 Lymphocytes (Bld) [#/Vol] 1.80 x10(3) Normal 1.00-3.50 [facility] Comment on above: Performed By: #### L 200.0010 #### [facility] [address] [place] [address] 48485 Lymphocytes/100 WBC (Bld) 25.8 % Normal 16.0-48.0 [facility] Comment on above: Performed By: #### L 200.0010 #### [facility] [address] [place] [address] 33352 MCH (RBC) [Entitic mass] 29.1 pg Normal 28.5-32.9 [facility] Comment on above: Performed By: #### L 200.0010 #### [facility] [address] [place] [address] 06044 MCHC (RBC) [Mass/Vol] 34.0 g/dL Normal 33.0-36.0 [facility] Comment on above: Performed By: #### L 200.0010 #### [facility] [address] [place] [address] 15352 MCV (RBC) [Entitic vol] 85.4 fL Normal 80.0-99.0 [facility] Comment on above: Performed By: #### L 200.0010 #### [facility] [address] [place] [address] 43783 Monocytes (Bld) [#/Vol] 0.50 x10(3) Normal 0.30-0.80 [facility] Comment on above: Performed By: #### L 200.0010 #### [facility] [address] [place] [address] 66508 Monocytes/100 WBC (Bld) 7.1 % Normal 4.3-11.2 [facility] Comment on above: Performed By: #### L 200.0010 #### [facility] [address] [place] [address] 01853 Neutrophils (Bld) [#/Vol] 4.40 x10(3) Normal 1.40-6.50 [facility] Comment on above: Performed By: #### L 200.0010 #### [facility] [address] [place] [address] 65146 Neutrophils/100 WBC (Bld) 61.6 % Normal 45.0-73.0 [facility] Comment on above: Performed By: #### L 200.0010 #### [facility] [address] [place] [address] 42014 Platelet mean volume (Bld) [Entitic vol] 8.7 fL Normal 7.5-9.5 [facility] Comment on above: Performed By: #### L 200.0010 #### [facility] [address] [place] [address] 40781 Platelets (Bld) [#/Vol] 327 X10(3) Normal 150-450 [facility] Comment on above: Performed By: #### L 200.0010 #### [facility] [address] [place] [address] 54308 RBC (Bld) [#/Vol] 4.81 x10(6) Normal 3.30-5.00 [facility] Comment on above: Performed By: #### L 200.0010 #### [facility] [address] [place] [address] 95371 WBC (Bld) [#/Vol] 7.1 x10(3) Normal 4.5-10.0 [facility] Comment on above: Performed By: #### L 200.0010 #### - LABORATORY [address] [place] [address] 62504 CMPon 10-13-2018 A:G RATIO 1.53 Normal 1.1-2.5 [facility] Comment on above: Performed By: #### L 100.0005, L100.0040, L304.0140 #### - LABORATORY [address] [place] [address] 52557 Albumin [Mass/Vol] 4.3 g/dL Normal 3.5-5.2 [facility] Comment on above: Performed By: #### L 100.0005, L100.0040, L304.0140 #### - LABORATORY [address] [place] [address] 28006 ALK. PHOS 63 U/L Normal 35-105 [facility] Comment on above: Performed By: #### L 100.0005, L100.0040, L304.0140 #### [facility] [address] [place] [address] 77279 ALT [Catalytic activity/Vol] 14 U/L Normal 5-33 [facility] Comment on above: Performed By: #### L 100.0005, L100.0040, L304.0140 #### - LABORATORY [address] [place] [address] 55183 Anion gap [Moles/Vol] 17.5 mmol/L Normal 15-22 [facility] Comment on above: Performed By: #### L 100.0005, L100.0040, L304.0140 #### - LABORATORY [address] [place] [address] 38872 AST [Catalytic activity/Vol] 17 U/L Normal 5-32 [facility] Comment on above: Performed By: #### L 100.0005, L100.0040, L304.0140 #### - LABORATORY [address] [place] [address] 44416 Bilirubin Ql (U) 0.3 mg/dL Normal 0.2-1.2 [facility] Comment on above: Performed By: #### L 100.0005, L100.0040, L304.0140 #### [facility] [address] [place] [address] Calcium [Mass/Vol] 9.8 mg/dL Normal 8.6-10.0 [facility] Comment on above: Performed By: #### L 100.0005, L100.0040, L304.0140 #### [facility] [address] [place] [address] 12538 Chloride [Moles/Vol] 100 mmol/L Normal 98-107 [facility] Comment on above: Performed By: #### L 100.0005, L100.0040, L304.0140 #### [facility] [address] [place] [address] 13059 CO2 [Moles/Vol] 28 mmol/L Normal 22-29 [facility] Comment on above: Performed By: #### L 100.0005, L100.0040, L304.0140 #### [facility] [address] [place] [address] 03307 Creatinine [Mass/Vol] 0.55 mg/dL Normal 0.50-0.90 [facility] Comment on above: Performed By: #### L 100.0005, L100.0040, L304.0140 #### [facility] [address] [place] [address] 45557 eGFR if AFR THU > 60 ml/min/1.73m2 Normal [facility] Comment on above: Result Comment: eGFR >= 60 Indicates normal kidney function. * eGFR IS AN ESTIMATE * (AFR THU = ) (non-AFR AM = NON-) MDRD calculation used in the eGFR should not be used to dose medications. For further limitations of the eGFR please refer to the Physician Website or the National Kidney Disease Education Program website (www.nkdep.nih.gov). Performed By: #### L 100.0005, L100.0040, L304.0140 #### [facility] [address] [place] [address] 91323 eGFR nonAFR Thu > 60 ml/Min/1.73m2 Normal U [facility] Comment on above: Performed By: #### L 100.0005, L100.0040, L304.0140 #### [facility] [address] [place] [address] 22027 Globulin (S) [Mass/Vol] 2.8 g/dL Normal 1.5-4.5 [facility] Comment on above: Performed By: #### L 100.0005, L100.0040, L304.0140 #### [facility] - LABORATORY [address] [place] [address] 89367 Glucose [Mass/Vol] 91 mg/dL Normal 74-106 [facility] Comment on above: Performed By: #### L 100.0005, L100.0040, L304.0140 #### [facility] - LABORATORY [address] [place] [address] 26738 Potassium [Moles/Vol] 4.5 mmol/L Normal 3.5-5.0 [facility] Comment on above: Performed By: #### L 100.0005, L100.0040, L304.0140 #### [facility] - LABORATORY [address] [place] [address] 87871 Protein [Mass/Vol] 7.1 g/dL Normal 6.4-8.3 [facility] Comment on above: Performed By: #### L 100.0005, L100.0040, L304.0140 #### [facility] - LABORATORY [address] [place] [address] 70336 Sodium [Moles/Vol] 141 mmol/L Normal 135-145 [facility] Comment on above: Performed By: #### L 100.0005, L100.0040, L304.0140 #### [facility] - LABORATORY [address] [place] [address] 73458 Urea nitrogen [Mass/Vol] 12 mg/dL Normal 6-20 [facility] Comment on above: Performed By: #### L 100.0005, L100.0040, L304.0140 #### [facility] - LABORATORY [address] [place] [address] 16911 LIPID PANELon 10-13-2018 Cholesterol [Mass/Vol] 181 mg/dL Normal 130-200 [facility] Comment on above: Performed By: #### L 100.0005, L100.0040, L304.0140 #### [facility] - LABORATORY [address] [place] [address] 65526 Cholesterol in HDL [Mass/Vol] 50 mg/dL [facility] Comment on above: Result Comment: Evita onal Cholesterol Education Program (NCEP) guidelines: <40 mg/dL: Low HDL-Cholesterol(major risk factor for CHD) > or = 60 mg/dL: High HDL-Cholesterol(negative risk factor for CHD) HDL-cholesterol is affected by a number of factors, e.g., smoking, exercise, hormones, sex, and age. 4th Generation Test; Results may be approximately 7% lower than previous values. Performed By: #### L 100.0005, L100.0040, L304.0140 #### [facility] - LABORATORY [address] [place] [address] 05169 Cholesterol in LDL [Mass/Vol] 94 mg/dL [facility] Comment on above: Result Comment: LDL: OPTIMAL FOR PEOPLE AT VERY HIGH RISK <70 OPTIMAL <100 NEAR OPTIMAL 100-129 BORDERLINE HIGH 130-159 HIGH 160-189 VERY HIGH >=190 Source: 2009 NCEP ATP III, ADA Guidelines Reviewed: July, Performed By: #### L 100.0005, L100.0040, L304.0140 #### [facility] - LABORATORY [address] [place] [address] 96155 Cholesterol in LDL/Cholesterol in HDL [Mass ratio] 1.9 [facility] Comment on above: Performed By: #### L 100.0005, L100.0040, L304.0140 #### [facility] - LABORATORY [address] [place] [address] 11278 Cholesterol in VLDL [Mass/Vol] 37 mg/dL Normal 6-40 [facility] Comment on above: Performed By: #### L 100.0005, L100.0040, L304.0140 #### [facility] - LABORATORY [address] [place] [address] 52411 Triglyceride [Mass/Vol] 186 mg/dL Normal [facility] Comment on above: Result Comment: TRIG : DESIRABLE: <150 mg/dL Performed By: #### L 100.0005, L100.0040, L304.0140 #### [facility] - LABORATORY [address] [place] [address] 38170 TSHon 10-13-2018 TSH Qn 1.04 uIU/mL Normal 0.27-4.20 [facility] Comment on above: Result Comment: NOTE : NEW REFERENCE RANGE FOR TSH EFFECTIVE 4.12.19 Performed By: #### L 100.0005, L100.0040, L304.0140 #### [facility] - LABORATORY [address] [place] [address] 90950 VITAMIN Don 05-08-2018 VITAMIN D 30.0 ng/mL Normal 30-100 [facility] Comment on above: Performed By: #### L 304.0470 #### [facility] - LABORATORY [address] [place] [address] 21747 FCANKLE 3 VIEWSon 04-07-2018 FCANKLE [address] [address] Name: GABY MINOR Phys: RINA PINEDO C.N.P. : [birth year] Age: 22 Sex: F Acct: [id number] Loc: Exam Date: 04/07/18 Status: REG POV Radiology No.: [id number] Unit Number: [id number] Exam # Type/Exam [id number] [facility] / FCANKLE 3 VIEWS LT Three-view evaluation of the left ankle Clinical statement: Fall with injury one day ago. Ankle pain Comparison study: None Findings: The alignment appears normal. Lateral soft tissue swelling seen. There is no fracture. Impression: Soft tissue swelling. No visualized fracture. Professional interpretation provided by [facility] [place], [place] on [id number]. Thank you for this referral. < > Reported By: AUSTIN DELCID M.D. Signed In NovaPro By: AUSTIN DELCID M.D. << Signature on File>> Reported By: AUSTIN DELCID M.D. Signed By: AUSTIN DELCID M.D. Tests performed at: [address] [address] Normal [facility] Vital Signs Date Time Vital Sign Value Performing Clinician Facility 08-11-2024 17:17-0400 Body mass index (BMI) [Ratio] 44.76 kg/m2 Deng Monge [employer]FURNACE CLERK Work Phone: [facility] 08-11-2024 17:17-0400 Body temperature 97.9 [degF] Deng Monge [employer]FURNACE CLERK Work Phone: [facility] 08-11-2024 17:17-0400 Body weight 137.5 kg Deng Monge [employer].FURNACE CLERK Work Phone: [facility] 08-11-2024 17:17-0400 Diastolic blood pressure 100 mm[Hg] Deng Monge [employer].FURNACE CLERK Work Phone: [facility] 08-11-2024 17:17-0400 Heart rate 101 /min Deng Monge [employer]NER.FURNACE CLERK Work Phone: [facility] 08-11-2024 17:17-0400 Respiratory rate 18 /min Deng Monge [employer]NER.FURNACE CLERK Work Phone: [facility] 08-11-2024 17:17-0400 SaO2% (BldA) [Mass fraction] 98 % Deng Monge [employer]NER.FURNACE CLERK Work Phone: [facility] 08-11-2024 17:17-0400 Systolic blood pressure 152 mm[Hg] Deng Monge [employer]NER.FURNACE CLERK Work Phone: [facility] 04-29-2024 07:14-0500 Body mass index (BMI) [Ratio] 45.22 kg/m2 Deng Monge [employer]NER.FURNACE CLERK Work Phone: [facility] 04-29-2024 07:14-0500 Body temperature 97.11 [degF] Deng Monge [employer] PL[employer]NER.FURNACE CLERK Work Phone: [facility] 04-29-2024 07:14-0500 Body weight 138.9 [facility]FURNACE CL[facility] Work Phone: [facility] 04-29-2024 07:14-0500 Diastolic blood pressure 114 mm[Hg] [facility]FURNACE CL[facility] Work Phone: [facility] 04-29-2024 07:14-0500 Heart rate 101 /min Deng [place] [employer]NER.FURNACE CLERK Work Phone: [facility] 04-29-2024 07:14-0500 Respiratory rate 18 /min [facility].FURNACE CLERK Work Phone: [facility] 04-29-2024 07:14-0500 SaO2% (BldA) [Mass fraction] 99 % [facility] [employer] [facility].FURNACE CLERK Work Phone: [facility] 04-29-2024 07:14-0500 Systolic blood pressure 138 mm[Hg] [facility] [employer] [facility].FURNACE CLERK Work Phone: [facility] 2024 09:58-0500 Body mass index (BMI) [Ratio] 45.29 kg/m2 Lourdes Ireland [employer]NER.FURNACE CLERK Work Phone: [facility] 2024 09:58-0500 Body temperature 97.3 [degF] Lourdes Ireland [employer]NER.FURNACE CLERK Work Phone: [facility] 2024 09:58-0500 Body weight 139.1 kg Lourdes Ireland [employer] PL[employer]NER.FURNACE CLERK Work Phone: [facility] 2024 09:58-0500 Diastolic blood pressure 122 mm[Hg] Lourdes Ireland [employer] PL[employer]NER.FURNACE CLERK Work Phone: [facility] 2024 09:58-0500 Heart rate 108 /min Lourdes Ireland [employer] PL[employer]NER.FURNACE CLERK Work Phone: [facility] 2024 09:58-0500 Respiratory rate 21 /min Lourdes Ireland [employer] PLANNER.FURNACE CLERK Work Phone: [facility] 2024 09:58-0500 SaO2% (BldA) [Mass fraction] 96 % Lourdes Ireland [employer] PL[employer]NER.FURNACE CLERK Work Phone: [facility] 2024 09:58-0500 Systolic blood pressure 178 mm[Hg] Lourdes Ireland [employer] PL[employer]NER.FURNACE CLERK Work Phone: [facility] 04-07-2023 11:24-0500 Body weight 141.79 kg Cassy Lynn MD Work Phone: [facility] 04-07-2023 11:24-0500 Diastolic blood pressure 80 mm[Hg] Cassy Lynn MD Work Phone: [facility] 04-07-2023 11:24-0500 Systolic blood pressure 106 mm[Hg] Cassy Lynn MD Work Phone: [facility] 02-27-2023 08:12-0400 Body height 175.3 cm Iman Disha [employer]NER.FURNACE CLERK Work Phone: [facility] 02-27-2023 08:12-0400 Body weight 144.7 kg Iman [place] [employer].FURNACE CLERK Work Phone: [facility] 02-27-2023 08:12-0400 Diastolic blood pressure 94 mm[Hg] Iman Disha [employer] PL[employer]NER.FURNACE CLERK Work Phone: [facility] 02-27-2023 08:12-0400 Systolic blood pressure 146 mm[Hg] Iman Disha [employer] PL[employer]NER.FURNACE CLERK Work Phone: [facility] 11-08-2022 04:47-0400 Body temperature 98.24 [degF] PILY LEWIS DO [facility] 11-08-2022 04:47-0400 Diastolic Blood Pressure Non-Invasive [address] [facility] 11-08-2022 04:47-0400 Heart rate 89 /min PILY DURESKA DO [facility] 11-08-2022 04:47-0400 Respiratory rate 18 /min PILY DURESKA DO [facility] 11-08-2022 04:47-0400 Systolic Blood Pressure Non-Invasive [address] [facility] 11-08-2022 03:41-0400 Body height 175.3 cm PILY BLEDSOEESKA DO [facility] 11-08-2022 03:41-0400 Body temperature 98.06 [degF] PILY BLEDSOEESKA DO [facility] 11-08-2022 03:41-0400 Body weight 131.8 kg PILY LADIESKA DO [facility] 11-08-2022 03:41-0400 Diastolic Blood Pressure Non-Invasive 80 [address] [facility] 11-08-2022 03:41-0400 Heart rate 125 /min PILY BLEDSOEESKA DO [facility] 11-08-2022 03:41-0400 Respiratory rate 20 /min PILY BLEDSOEESKA DO [facility] 11-08-2022 03:41-0400 Systolic Blood Pressure Non-Invasive 145 [address] [facility] 11-07-2022 16:02-0400 Diastolic Blood Pressure Non-Invasive [address]ILBERTO BRUMFIELD MD [facility] 11-07-2022 16:02-0400 Heart rate 97 /min DR GILBERTO BRUMFIELD MD [facility] 11-07-2022 16:02-0400 Respiratory rate 17 /min DR GILBERTO BRUMFIELD MD [facility] 11-07-2022 16:02-0400 Systolic Blood Pressure Non-Invasive [address]ILBERTO BRUMFIELD MD [facility] 11-07-2022 15:45-0400 Diastolic Blood Pressure Non-Invasive [address]ILBERTO BRUMFIELD MD [facility] 11-07-2022 15:45-0400 Heart rate 94 /min DR GILBERTO BRUMFIELD MD [facility] 11-07-2022 15:45-0400 Respiratory rate 17 /min DR GILBERTO BRUMFIELD MD [facility] 11-07-2022 15:45-0400 Systolic Blood Pressure Non-Invasive [address]O BRUMFIELD MD [facility] 11-07-2022 15:25-0400 Diastolic Blood Pressure Non-Invasive [address]ILBERTO BRUMFIELD MD [facility] 11-07-2022 15:25-0400 Heart rate 94 /min DR GILBERTO BRUMFIELD MD [facility] 11-07-2022 15:25-0400 Respiratory rate 21 /min DR GILBERTO BRUMFIELD MD [facility] 11-07-2022 15:25-0400 Systolic Blood Pressure Non-Invasive [address]ILBERTO BRUMFIELD MD [facility] 11-07-2022 14:51-0400 Body temperature 96.8 [degF] DR GILBERTO BRUMFIELD MD [facility] 11-07-2022 14:45-0400 Respiratory Rate - Anes 22 br/min DR GILBERTO BRUMFIELD MD [facility] 11-07-2022 14:40-0400 Respiratory Rate - Anes 21 br/min DR GILBERTO BRUMFIELD MD [facility] 11-07-2022 14:35-0400 Respiratory Rate - Anes 22 br/min DR GILBERTO BRUMFIELD MD [facility] 11-07-2022 10:58-0400 Body height 175.[address] GILBERTO BRUMFIELD MD [facility] 11-07-2022 10:58-0400 Body temperature 96.98 [degF] DR GILBERTO BRUMFIELD MD [facility] 11-07-2022 10:58-0400 Body weight 131.[address] GILBERTO BRUMFIELD MD [facility] 11-03-2022 08:25-[address] GILBERTO BRUMFIELD MD [facility] 11-03-2022 08:25-[address]BERTO Umanzor [facility] 11-03-2022 08:25-0400 Body height 175.[address] GILBERTO BRUMFIELD MD [facility] 11-03-2022 08:25-0400 Body weight 131.[address] GILBERTO BRUMFIELD MD [facility] 11-03-2022 08:25-0400 Body weight 42.89 kg/m2 DR GILBERTO BRUMFIELD MD [facility] 11-03-2022 08:25-0400 Diastolic Blood Pressure Non-Invasive [address]BERTO BRUMFIELD MD [facility] 11-03-2022 08:25-0400 Heart rate 106 /min DR GILBERTO BRUMFIELD MD [facility] 11-03-2022 08:25-0400 Respiratory rate 18 /min DR GILBERTO BRUMFIELD MD [facility] 11-03-2022 08:25-0400 Systolic Blood Pressure Non-Invasive [address] BRUM[address] MD [facility] Encounters Encounter Date Encounter Type Care Provider Facility Start: 02-18-2025 End: 02-18-2025 Emergency department patient visit Lona Miedel Facility:[facility] Start: 02-10-2025 ambulatory Lona Miedel Facility: [facility] Start: 01-26-2025 End: 01-26-2025 ambulatory Lona Miedel Facility:[facility] Start: 01-24-2025 End: 01-24-2025 ambulatory Lona Miedel Facility:[facility] Start: 01-09-2025 End: 01-09-2025 ambulatory Lona Miedel Facility:[facility] Start: 12-21-2024 ambulatory Lona Miedel Facility: [facility] Start: 12-14-2024 End: 12-14-2024 ambulatory Lona Miedel Facility:[facility] Start: 11-08-2024 End: 11-08-2024 ambulatory Lona Miedel Facility:[facility] Start: 10-13-2024 End: 10-13-2024 ambulatory Lona Miedel Facility:[facility] Start: 09-21-2024 End: 09-21-2024 ambulatory Lona Miedel Facility:[facility] Start: 09-20-2024 ambulatory Lona Miedel Facility: [facility] Start: 08-30-2024 End: 08-30-2024 ambulatory Lona Miedel Facility:[facility] Start: 08-25-2024 Encounter for other preprocedural examination Leatha Sheikh [facility] Start: 08-25-2024 End: 08-25-2024 ambulatory Lona Miedel Facility:[facility] Start: 08-25-2024 End: 08-25-2024 ambulatory Teresaevi Giron Facility:[facility] Start: 08-16-2024 ambulatory Leatharakel Yarbrough José Fa cility:[facility] Start: 08-16-2024 End: 08-16-2024 ambulatory Leatha Zenon Kumar Facility:[facility] Start: 08-11-2024 End: 08-11-2024 Subsequent hospital visit by physician Xr [facility] Work Phone: Radiology Comment on above: Joint pain of ankle and foot, left [M25.572] Start: 08-11-2024 End: 08-11-2024 Office outpatient visit 15 minutes Deng Monge APRN.CNP Work Phone: [facility] Comment on above: Joint pain of ankle and foot, left (Primary Dx) Start: 08-11-2024 End: 08-11-2024 ambulatory LONA E MIEDEL Facility:[facility] Start: 08-05-2024 End: 08-05-2024 ambulatory Lona Miedel Facility:[facility] Start: 07-25-2024 End: 07-25-2024 ambulatory Lona Miedel Facility:[facility] Start: 07-05-2024 End: 07-05-2024 ambulatory Lona Miedel Facility:[facility] Start: 06-29-2024 End: 06-29-2024 ambulatory Lona Miedel Facility:[facility] Start: 06-29-2024 End: 06-29-2024 ambulatory Leatha Payalcarolina Kumar Facility:[facility] Start: 05-30-2024 End: 05-30-2024 ambulatory Lona Miedel Facility:[facility] Start: 05-13-2024 End: 05-13-2024 ambulatory Lona Miedel Facility:[facility] Start: 05-11-2024 End: 05-11-2024 ambulatory Lona Miedel Facility:[facility] Start: 05-11-2024 End: 05-11-2024 ambulatory Lona Miedel Facility:[facility] Start: 04-29-2024 End: 04-29-2024 ambulatory [facility] Facility:[facility] Start: 04-29-2024 End: 04-29-2024 Office outpatient visit 25 minutes Deng Monge [employer]FURNACE CLERK Work Phone: [facility] Comment on above: Viral illness (Prima ry Dx) Start: 2024 End: 2024 Telephone encounter Lourdes Ireland [employer]NER.FURNACE CLERK Work Phone: [facility] Comment on above: Results Start: 2024 End: 2024 Subsequent hospital visit by physician [facility] Ynes Mob Work Phone: Radiology Comment on above: Acute cough [R05.1] Start: 2024 End: 2024 ambulatory LOURDES IRELAND Facility:[facility] Start: 2024 End: 2024 Patient encounter procedure Lourdes Ireland [employer].FURNACE CLERK Work Phone: [facility] Comment on above: Strep pharyngitis (P rimary Dx); Acute cough; URI, acute; Elevated blood pressure reading Start: 03-08-2024 End: 03[facility]08[facility] Start: 04-07-2023 End: 04-07-2023 Patient encounter procedure Cassy Lynn MD Work Phone: OB/Gynecology Comment on above: Menorrhagia with irr egular cycle (Primary Dx); BMI 45.0-49.9, adult ([facility]); Class 3 severe obesity due to excess calories without serious comorbidity with body mass index (BMI) of 45.0 to 49.9 in adult ([facility]); Metrorrhagia Start: 03-23-2023 ambulatory Iman Gauthier [employer]FURNACE CLERK Work Phone: OB/Gynecology Comment on above: Bleeding Start: 03-06-2023 End: 03-06-2023 Subsequent hospital visit by physician [facility] Work Phone: Radiology Comment on above: Abnormal uterine ble eding (AUB) [N93.9] Start: 03-04-2023 ambulatory Iman Gauthier APRN.CNP Work Phone: OB/Gynecology Comment on above: Uterine pains Start: 02-27-2023 End: 02-27-2023 Patient encounter procedure Iman Gauthier APRN.CNP Work Phone: OB/Gynecology Comment on above: Abnormal uterine ble eding (AUB) (Primary Dx) Start: 11-08-2022 End: 11-08-2022 Emergency department patient visit PILY LEWIS DO Facility:[facility] Start: 11-08-2022 End: 11-08-2022 [facility] Start: 11-07-2022 End: 11-07-[address] GILBERTO BRUMFIELD MD Facility:[facility] Start: 11-07-2022 End: 11-07-[address] GILBERTO BRUMFIELD MD [facility] Start: 11-03-2022 End: 11-04-[address] GILBERTO BRUMFIELD MD Facility:[facility] Start: 11-03-2022 End: 11-03-[address] GILBERTO BRUMFIELD MD [facility] Start: 11-22-2019 End: 11-22-2019 Patient encounter procedure [facility] Start: 07-30-2019 End: 07-30-2019 Patient encounter procedure [facility] Start: 07-13-2019 End: 07-13-2019 Emergency department patient visit DOCTOR EVI DEE [facility] Procedures Date Procedure Procedure Detail Performing Clinician Start: 08-11-2024 Radex ankle complete minimum 3 views Deng Monge APRN.FURNACE CLERK Work Phone: Start: 2024 Radiologic exam ches t 2 views Lourdes Ireland [employer]NER.FURNACE CLERK Work Phone: Start: 2024 STREP A MOLECULAR (POC) Samy Moore MD Work Phone: Start: 11-07-2022 Bone structure of cici zambrano (body structure) DR GILBERTO BRUMFIELD MD Comment on above: ORIF, TIBIAL NAILING Bilateral endoscopic occlusion of fallopian tubes DR GILBERTO BRUMFIELD MD Destructive procedure DR MELANI JASSO Dilation and curettage DR PORTER JASSO Plan of Treatment Date Care Activity Detail Author Start: 09-18-2030 Urine microalbumin profile DTaP,Tdap,Td Vaccine (2 - Td or Tdap) [facility] Start: 12-27-2023 Covid-19 Vaccine ( season) Covid-19 Vaccine ( season) [facility] Start: 12-27-2023 Influenza vaccination Influenza Vacc ine (#1) [facility] Start: 12-26-2022 Covid-19 Vaccine ( season) Covid-19 Vaccine (2 - season) [facility] Start: 12-26-2022 Covid-19 Vaccine ( season) Covid-19 Vaccine ( season) [facility] Start: 12-26-2022 Influenza vaccination Influenza Vacc ine (#1) [facility] Start: 2015 Pap Testing Pap Testing [facility] Start: 2015 Screening for malign ant neoplasm of cervix [facility] Start: 2013 Hepatitis B Vaccine (1 of 3 - 19+ 3-dose series) Hepatitis B Vaccine (1 of 3 - 19+ 3-dose series) [facility] Start: 2012 Hepatitis C Screening Hepatitis C [facility] Start: 2012 Hepatitis C screening Hepatitis C [facility] Start: 2012 HIV Screening HIV Screening [facility] Start: 2012 HIV screening HIV Screening [facility] Start: 1994 Hepatitis B Vaccine (1 of 3 - 3-dose series) Hepatitis B Vaccine (1 of 3 - 3-dose series) [facility] COVID & INFLUENZA A/ B & RSV PCR, ROUTINE COVID & INFLUENZA A/B & RSV PCR, ROUTINE Microbiology Routine URI, acute 2024 11:20 AM EST [facility] Work Phone: End: 03-28-2024 Us transvaginal US FEMALE PELVIS TRANSVAG Radiology Routine Abnormal uterine bleeding (AUB) 1 Occurrences starting 02/27/2023 until 03/28/2024 [facility] Work Phone: Comment on above: 1 Occurrences starti ng 02/27/2023 until 03/28/2024 Us transvaginal US FEMALE PELVIS TRANSVAG Radiology Routine Abnormal uterine bleeding (AUB) 03/06/2023 10:57 AM EST [facility] Work Phone: [facility] Immunizations Immunization Date Immunization Notes Care Provider Fa [facility] 04-05-2021 influenza virus vacc ine, unspecified formulation Cassy Lynn MD Work Phone: [facility] 03-17-2020 influenza virus vacc ine, unspecified formulation Iman Gauthier APRN.CNP Work Phone: [facility] Payers Date Payer Category Payer Self-pay 2022 Medicaid [id number] 2022 Unknown [id number] 1994 Unknown [id number] 2.16.84 0.1.867246.3.579.2.651 1994 Unknown [id number] 2.16.84 0.1.113838.3.579.2.651 1994 Unknown [id number] 2.16.84 0.1.956531.3.579.2.651 1994 Unknown [id number] 2.16.8 40.1.946102.3.579.2.627 1994 Unknown [id number] 2.16.8 40.1.756109.3.579.2.627 1994 Unknown [id number] 2.16.8 40.1.492192.3.579.2.627 Unknown [id number] Unknown [id number] 2.16.8 40.1.713448.3.579.2.462 Unknown [id number] 2.16.8 40.1.704405.3.579.2.462 Unknown [id number] 2.16.8 40.1.988523.3.579.2.462 Unknown [id number] 2..8 40.1.418041.3.579.2.462 Unknown [id number] 2.. 40.1.029886.3.579.2.462 Unknown [id number] 2.16. 40.1.936185.3.579.2.462 Unknown [id number] 2.16.8 40.1.453229.3.579.2.462 Unknown [id number] 2.16.8 40.1.472406.3.579.2.462 Unknown [id number] 2.16.8 40.1.548111.3.579.2.462 Unknown [id number] 2.16.8 40.1.005982.3.579.2.462 Unknown [id number] 2.16.8 40.1.373572.3.579.2.462 Unknown [id number] 2.16.8 40.1.483690.3.579.2.462 Unknown [id number] 2.16.8 40.1.905722.3.579.2.462 Unknown [id number] 2.16.8 40.1.816123.3.579.2.462 Unknown [id number] 2.16.8 40.1.645196.3.579.2.462 Unknown [id number] 2.16.8 40.1.331130.3.579.2.462 Unknown [id number] 2.16.8 40.1.208571.3.579.2.462 Unknown [id number] 2.16.8 40.1.639738.3.579.2.462 Unknown [id number] 2.16.8 40.1.106063.3.579.2.462 Unknown [id number] 2.16.8 40.1.827243.3.579.2.462 Unknown [id number] 2.16.8 40.1.610074.3.579.2.462 Unknown [id number] 2.16.8 40.1.025337.3.579.2.462 Unknown [id number] 2.16.8 40.1.619534.3.579.2.462 Unknown [id number] 2.16.8 [id number] Unknown [id number] Unknown [id number] Unknown [id number] Social History Date Type Detail Facility Start: 11-03-2022 End: 04-07-2023 Tobacco smoking status Never smoked tobacco (finding) [facility] Sex Assigned At Sex [facility] Start: 09-14-2018 End: 04-07-2023 Tobacco use and exposure Smokeless tobacco non-user [facility] Start: 02-27-2023 End: 08-11-2024 Alcohol intake Current drinker of alcohol (finding) [facility] Start: 04-11-2019 End: 04-07-2023 [facility] Start: 04-11-2019 End: 04-07-2023 Alcohol Use Disorder Identification Test - Consumption [AUDIT-C] [facility] How often to you hav e a drink containing alcohol? 2-4 times a month [facility] Average Number of Drinks Not on file [facility] Start: 1995 Sex Assigned At Not on file C [facility] Functional Status Date Assessment Result Facility 11-08-2022 Functional Status Activity Carlos Alberto solorio Maximum assistance [facility] 11-07-2022 Functional Status right knee high [facility] 11-07-2022 Functional Status ice on [facility] 11-07-2022 Functional Status Maintained [facility] Mental Status Date Assessment Result Facility 11-08-2022 Mental Status Orientation Oriented x 4 [facility] 11-07-2022 Mental Status Oriented x 4 [facility] 11-07-2022 Mental Status [facility] Clinical Notes 12-21-2020 to 08-16-2024 Rosa M Wolff, RT(R) - 08/11/2024 5:30 PM Deng Masterson APRN.FURNACE CLERK - 08/11/2024 5:18 PM Deng Masterson APRN.FURNACE CLERK - 04/29/2024 7:18 AM EST Note Date & Type Note Facility 08-16-2024 Note [facility] Medical Records Department [address] [place] [id number] History Physical Exam 08/16/24 0642 MR#: [id number] Acct: [id number] Name: GABY MINOR Rep #: [id number] : 1995 29 From: Leatha Sheikh DO PCP: Dr. Lona Rico MD [place] [facility] [place] [address] History and Physical Date of Admission: 08/16/24 Vital Signs 06/29/2513:19 07/26/2511:57 08/05/2513:52 08/05/2513:54 Height 5 ft 9 in 5 ft 9 in 5 ft 9 in 5 ft 9 in Weight: 301 lb 2 oz BMI 44.4 BP 145/94 H 148/98 H Blood Pressure Location Lt brachial Position Sitting Pulse 111 H Pulse Source Monitor Intake Visit Reasons: TRH BS Cysto Potash Flaker Required: No Is patient in pain?: No Allergies lanolin Adverse Reaction (Verified 08/05/24 14:52) Rash Medications ???Medication ???Instructions ???Recorded ???Confirmed ???Type cetirizine 10 mg tablet (Zyrtec) 10 mg PO DAILY 01/23/22 08/05/24 History cholecalciferol (vitamin D3) 50 50 mcg PO DAILY 01/23/22 08/05/24 History mcg (2,000 unit) capsule (Vitamin D3) vitamin B complex 1 cap PO DAILY 01/23/22 08/05/24 History aripiprazole 5 mg tablet 5 mg PO DAILY #90 tabs 05/30/24 08/05/24 Rx venlafaxine 150 mg 150 mg PO QHS #90 caps 05/30/24 08/05/24 Rx capsule,extended release 24 hr (Effexor XR) lisinopril 20 1 tab PO QDAY 06/29/24 08/05/24 History mg-hydrochlorothiazide 12.5 mg tablet atomoxetine 100 mg capsule 100 mg PO DAILY #30 caps 07/25/24 08/05/24 Rx venlafaxine 75 mg capsule,extended 75 mg PO QHS 08/03/24 08/05/24 History release 24 hr vitamin E 268 mg (400 unit) capsule 268 mg PO DAILY 08/03/24 08/05/24 History Post menopausal: No Patient : No : No [facility] History Back pain Syncope Heartburn Shortness of breath on exertion History of pain when walking Status post fracture of tibia ADHD MDD (major depressive disorder), recurrent episode, severe Wears glasses Depression Anxiety Marijuana use Low iron Non-smoker Hypertension Encounter for screening for COVID-19 Vacuum-assisted vaginal delivery Gestational diabetes mellitus in childbirth, insulin controlled Lactose intolerance Cystic fibrosis carrier Obsessive compulsive disorder Major depressive disorder, 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 Surgical History Tubal ligation status History of endometrial ablation History of dilation and curettage Family History Father HypertensionGrandmother Diabetes Social History adopted: No household members: spouse and family housing: house number of children: 2 pets and animals: Yes pets and animals: dog(s) history of recent travel: No sexually active: Yes Smoking Status: Never smoker how long ago did patient quit smoking: quit in 2013 alcohol intake: current alcohol intake frequency: a few times a month substance use type: marijuana well-balanced diet: about half the time caffeine: Yes Type: coffee Number of servings: 1 eating out: 1-3 times/week what type of physical activity do you participate in: walking frequency: 1-2 times per week danni/mosque: None seatbelt use: always do you feel safe at home: Yes additional social history: - [place] HPI TRH BS Cysto Details: GABY MINOR is a 29 year old who presents for discussion about heavy irregular periods. She had a tubal ligation and ablation procedure when she was 27 years old. This slowed the bleeding s lightly but has been heavy again since about 6 months after. She is tearful today stating that she also suffers with severe depression and a history of suicidal ideations (not current) when she has a period and she is ready for a hysterectomy. She states that she has already tried control and TXA. EMB was benign. paps are negative. ultrasound showed the following: TRANSVAGINAL NON- REASON FOR EXAM: HEAVY UTERINE BLEEDING TECHNIQUE: Transabdominal and transvaginal pelvic ultrasound COMPARISON: None. FINDINGS: LMP: June 25, 2024 Measurements: Uterus: 8.2 cm x 4.6 cm x 4.1 cm with a volume of 82 mL Endometrial Thickness: 11.6 mm hyperechoic. Right Ovary: 2.5 cm x 2.8 cm x 2.4 cm with a volume of 9.0 cm mL. Left Ovary: 2 cm x 2.1 cm x 2.2 cm with a volume of 4.7 mL. Transvaginal sonography was performed to better visualize the endometrium. TRANSVAGINAL: Uterus: Anteverted. Normal contour and myometrial echotexture. Endometrium: Endometrial thickening measuring 11.6 mm. Clinical correlation recommended. Right ovary: Normal size and echotexture. (more content not included)... [facility] 08-11-2024 History of Presen t illness Narrative Radiology Service Progress Note PATIENT NAME: Gaby Minor DATE OF SERVICE: August 11, 2024 TIME: 5:26 PM PATIENT IDENTITY VERIFICATION COMPLETED USING TWO (2) IDENTIFIERS: Name and Date of confirmed by patient verbally. FALL SCREENING: Has the patient had 2 falls in the last year or 1 fall with injury or currently using an Ambulatory Assistive Device (Walker, Cane, Wheelchair, Crutches, etc.)? No PATIENT GENDER DATA: Assigned female at . status: : No status: NO. PATIENT RELEVANT IMPLANT DATA REVIEWED: Yes PATIENT PRESENTS WITH AN IMPLANTABLE OR ATTACHED OUT OF SCHOOL HOURS CARE WORKER: No RADIOLOGY DEPARTMENT: General X-ray: Exam(s) Completed: Lower Extremity X-Ray(s): Ankle, Left and Foot, Left PERIPHERAL IV DATA: Not applicable SIGNED BY: RT Bhumi([place]) August 11, 2024 5:26 PM documented in this encounter [facility] 08-11-2024 Note HNO ID: [id number] Author: ROSA M WOLFF RT(R) Service: ? Author Type: Stave Cutter Type: Progress Notes Filed: 08/11/2024 17:35 Note Text: Radiology Service Progress Note PATIENT NAME: Gaby Minor DATE OF SERVICE: August 11, 2024 TIME: 5:26 PM PATIENT IDENTITY VERIFICATION COMPLETED USING TWO (2) IDENTIFIERS: Name and Date of confirmed by patient verbally. FALL SCREENING: Has the patient had 2 falls in the last year or 1 fall with injury or currently using an Ambulatory Assistive Device (Walker, Cane, Wheelchair, Crutches, etc.)? No PATIENT GENDER DATA: Assigned female at . status: : No status: NO. PATIENT RELEVANT IMPLANT DATA REVIEWED: Yes PATIENT PRESENTS WITH AN IMPLANTABLE OR ATTACHED OUT OF SCHOOL HOURS CARE WORKER: No RADIOLOGY DEPARTMENT: General X-ray: Exam(s) Completed: Lower Extremity X-Ray(s): Ankle, Left and Foot, Left PERIPHERAL IV DATA: Not applicable SIGNED BY: RT Bhumi([place]) August 11, 2024 5:26 PM [facility] 08-11-2024 Note HNO ID: [id number] Author: DENG MONGE APRN.FURNACE CLERK Service: ? Author Type: Nurse Practitioner Type: Progress Notes Filed: 08/11/2024 17:54 Note Text: [employer] Subjective Gaby Minor is a 29 year old female. Patient presents with: Ankle Pain: L ankle pain x today, twisted wrong, has previous surgical history and hardware HPI Nontoxic-appearing 29-year-old female presents urgent care chief complaint foot and ankle pain left. Duration of symptoms 1 day. Associated symptoms pain midfoot medial aspect. States was walking with her yesterday when she inverted her foot. Presents today for evaluation. Minor swelling to the foot. Has some increasing discomfort as the day progressed. Presents today for evaluation. Risk factors surgeries foot and ankle in the past due to previous fracture. No other concerns. No numbness or tingling that is new. Past medical history prescription medications allergies reviewed Review of Systems Constitutional: Negative for activity change, diaphoresis, fatigue and fever. Musculoskeletal: Positive for joint swelling. Negative for arthralgias, back pain, myalgias, neck pain and neck stiffness. Skin: Negative for pallor, rash and wound. Neurological: Negative for dizziness, seizures, syncope, weakness, light-headedness and numbness. Psychiatric/Behavioral: Negative for confusion. Objective BP 152/100 Pulse 101 Temp 36.6 ?C (97.9 ?F) Resp 18 Wt (!) 137.5 kg (303 lb 2.1 oz) SpO2 98% BMI 44.76 kg/m? Physical Exam Constitutional: Appearance: Normal appearance. She is normal weight. HENT: Head: Normocephalic. Eyes: Conjunctiva/sclera: Conjunctivae normal. Cardiovascular: Rate and Rhythm: Normal rate. Pulmonary: Effort: Pulmonary effort is normal. Musculoskeletal: Cervical back: Normal range of motion. Left lower leg: Normal. Left ankle: No swelling, deformity, ecchymosis or lacerations. Tenderness present over the lateral malleolus and medial malleolus. Left foot: Normal range of motion and normal capillary refill. Swelling and bony tenderness present. No deformity, laceration or tenderness. Normal pulse. Legs: Comments: Surgical scar noted medial lateral aspect of the ankle. Tenderness with palpation over highlighted area Skin: Findings: No rash. Neurological: General: No focal deficit present. Mental Status: She is alert and oriented to person, place, and time. Mental status is at baseline. {ASSESSMENT/PLAN: 1. Joint pain of ankle and foot, left - ICD9: 719.47, ICD10: M25.572 - XR FOOT GENERAL 3V AP/LAT/OBL LEFT - XR ANKLE GENERAL 3V AP/LAT/OBL LEFT No acute findings noted on x-ray. Suspicious ligament tendon injury. Referred to orthopedicsI Patient was educated on supportive therapies. Patient will follow up with primary care provider as needed. Patient was instructed to immediately proceed to emergency room for any new, worsening, or symptoms lasting longer than anticipated. The patient's clinical presentation is otherwise unremarkable at this time. Based on exam and clinical finding, the patient is stable for discharge. Plan of care was discussed with patient. Patient verbalizes understanding and agrees to plan of care. This note was generated using Manifact software. It may contain errors in wording, punctuation, or spelling. . MPRESSION: Postoperative changes of distal tibial and fibular fixation with intact hardware. No acute fracture or dislocation. Type II accessory navicular. Ankle mortise is maintained. Joint spaces are maintained as well. No other significant abnormality. Deng Monge APRN.FURNACE CLERK History and Record Review Clinical information obtained from an independent historian. History obtained from or confirmed by: parent. External record(s) reviewed: prior outpatient record. Disposition The patient was discharged. OTC Medications were advised: Procedures [facility] 08-11-2024 History of Presen t illness Narrative Images from the original note were not included. [facility] Gaby Minor is a 29 year old female. Patient presents with: Ankle Pain: L ankle pain x today, twisted wrong, has previous surgical history and hardware HPI Nontoxic-appearing 29-year-old female presents urgent care chief complaint foot and ankle pain left. Duration of symptoms 1 day. Associated symptoms pain midfoot medial aspect. States was walking with her yesterday when she inverted her foot. Presents today for evaluation. Minor swelling to the foot. Has some increasing discomfort as the day progressed. Presents today for evaluation. Risk factors surgeries foot and ankle in the past due to previous fracture. No other concerns. No numbness or tingling that is new. Past medical history prescription medications allergies reviewed Review of Systems Constitutional: Negative for activity change, diaphoresis, fatigue and fever. Musculoskeletal: Positive for joint swelling. Negative for arthralgias, back pain, myalgias, neck pain and neck stiffness. Skin: Negative for pallor, rash and wound. Neurological: Negative for dizziness, seizures, syncope, weakness, light-headedness and numbness. Psychiatric/Behavioral: Negative for confusion. Objective BP 152/100 Pulse 101 Temp 36.6 C (97.9 F) Resp 18 Wt (!) 137.5 kg (303 lb 2.1 oz) SpO2 98% BMI 44.76 kg/m Physical Exam Constitutional: Appearance: Normal appearance. She is normal weight. HENT: Head: Normocephalic. Eyes: Conjunctiva/sclera: Conjunctivae normal. Cardiovascular: Rate and Rhythm: Normal rate. Pulmonary: Effort: Pulmonary effort is normal. Musculoskeletal: Cervical back: Normal range of motion. Left lower leg: Normal. Left ankle: No swelling, deformity, ecchymosis or lacerations. Tenderness present over the lateral malleolus and medial malleolus. Left foot: Normal range of motion and normal capillary refill. Swelling and bony tenderness present. No deformity, laceration or tenderness. Normal pulse. Legs: Comments: Surgical scar noted medial lateral aspect of the ankle. Tenderness with palpation over highlighted area Skin: Findings: No rash. Neurological: General: No focal deficit present. Mental Status: She is alert and oriented to person, place, and time. Mental status is at baseline. {ASSESSMENT/PLAN: 1. Joint pain of ankle and foot, left - ICD9: 719.47, ICD10: M25.572 - XR FOOT GENERAL 3V AP/LAT/OBL LEFT - XR ANKLE GENERAL 3V AP/LAT/OBL LEFT No acute findings noted on x-ray. Suspicious ligament tendon injury. Referred to orthopedicsI Patient was educated on supportive therapies. Patient will follow up with primary care provider as needed. Patient was instructed to immediately proceed to emergency room for any new, worsening, or symptoms lasting longer than anticipated. The patient's clinical presentation is otherwise unremarkable at this time. Based on exam and clinical finding, the patient is stable for discharge. Plan of care was discussed with patient. Patient verbalizes understanding and agrees to plan of care. This note was generated using Manifact software. It may contain errors in wording, punctuation, or spelling. . MPRESSION: Postoperative changes of distal tibial and fibular fixation with intact hardware. No acute fracture or dislocation. Type II accessory navicular. Ankle mortise is maintained. Joint spaces are maintained as well. No other significant abnormality. Deng Monge APRN.ALBERTO History and Record Review Clinical information obtained from an independent historian. History obtained from or confirmed by: parent. External record(s) reviewed: prior outpatient record. Disposition The patient was discharged. OTC Medications were advised: Procedures documented in this encounter [facility] 04-29-2024 Note HNO ID: [id number] Author: DENG MONGE APRN.FURNACE CLERK Service: ? Author Type: Nurse Practitioner Type: Progress Notes Filed: 04/29/2024 07:57 Note Text: Subjective HPI Nontoxic-appearing female presents urgent care chief complaint cough chest congestion. Duration of symptoms 2 weeks. Associated symptoms listed above. Presents today with persistent cough. OTC medications none. Was seen here on 25 April. Chest x-ray normal. Strep positive. Is currently on amoxicillin. No fevers denies any chest pain or hemoptysis. Past medical history prescription medications allergies reviewed. Denies chance of . .Patient presents with: Cough: Chest congestion x2 weeks, seen 04/25 for strep and CXR was negative but chest congestion worsened yesterday PAST MEDICAL HISTORY Diagnosis Date COVID 08/2022 Depression Epidermolysis bullosa simplex Essential hypertension 09/2022 after covid CARTER (generalized anxiety disorder) MDD (major depressive disorder) OCD (obsessive compulsive disorder) Post depression PAST SURGICAL HISTORY Procedure Laterality Date DANDC, DIAG AND/OR THERAPEUTIC 09/2021 LEG SURGERY HX Left 10/2022 broke tibula fibula and ankle LIGATE FALLOPIAN TUBE 01/30/2022 S BALLOON,UTERINE ABLATION [id number] 01/30/2022 ALLERGIES Lanolin MEDICATIONS amoxicillin (AMOXIL) 500 mg capsule Take 1 capsule by mouth two times a day for 10 days. tranexamic acid (LYSTEDA) 650 mg tablet Take 2 tablets 3 times a day as needed for heavy bleeding up to 5 days. Lactobacillus acidophilus (PROBIOTIC ORAL) Probiotic 0 Refill(s) Start Date: 11/03/22 Status: Ordered cetirizine (ZYRTEC) 10 mg tablet Take 10 mg by mouth. ARIPiprazole (ABILIFY) 5 mg tablet dilTIAZem CR (TIAZAC, TAZTIA XT) 120 mg 24 hr capsule venlafaxine ER (EFFEXOR XR) 150 mg 24 hr capsule cholecalciferol (VITAMIN D-3) 5,000 unit tab Take 5,000 Units by mouth once daily. buPROPion XL (WELLBUTRIN XL) 150 mg 24 hr tablet (Patient not taking: Reported on 2024) norethindrone (AYGESTIN) 5 mg tablet Take 1 tablet TID until bleeding stops, the BID x 3 days, the daily x 3 days. (Patient not taking: Reported on 2024) FAMILY HISTORY Problem Relation Age of Onset No Known Problems Mother Hypertension Father No Known Problems Sister Social History Tobacco Use Smoking status: Never Smokeless tobacco: Never Vaping Use Vaping status: Never Used Substance Use Topics Alcohol use: Yes Drug use: Never BP 138/114 Pulse 101 Temp 36.2 ?C (97.1 ?F) Resp 18 Wt (!) 138.9 kg (306 lb 3.5 oz) SpO2 99% BMI 45.22 kg/m? Review of Systems Constitutional: Negative for chills, fever and malaise/fatigue. HENT: Positive for congestion. Negative for ear discharge, ear pain, sinus pain and sore throat. Eyes: Negative for blurred vision, pain, discharge and redness. Respiratory: Positive for cough. Negative for hemoptysis, sputum production, shortness of breath, wheezing and stridor. Cardiovascular: Negative for chest pain. Gastrointestinal: Negative for abdominal pain, diarrhea, nausea and vomiting. Musculoskeletal: Negative for myalgias. Skin: Negative for itching and rash. Neurological: Negative for dizziness and headaches. Objective Physical Exam Constitutional: General: She is not in acute distress. Appearance: She is not diaphoretic. HENT: Head: Normocephalic. Jaw: No trismus, tenderness, swelling or pain on movement. Nose: Congestion present. Mouth/Throat: Mouth: Mucous membranes are moist. Pharynx: Oropharynx is clear. Uvula midline. No pharyngeal swelling, oropharyngeal exudate, posterior oropharyngeal erythema or uvula swelling. Eyes: Conjunctiva/sclera: Conjunctivae normal. Pupils: Pupils are equal, round, and reactive to light. Cardiovascular: Rate and Rhythm: Normal rate and regular rhythm. Heart sounds: Normal heart sounds. Pulmonary: Effort: Pulmonary effort is normal. No tachypnea, accessory muscle usage or respiratory distress. Breath sounds: Normal breath sounds. No stridor. No wheezing, rhonchi or rales. Musculoskeletal: Cervical back: Normal range of motion and neck supple. No edema, erythema, rigidity or tenderness. No pain with movement. Normal range of motion. Lymphadenopathy: Cervical: No cervical adenopathy. Skin: General: Skin is warm and dry. Neurological: Mental Status: She is alert and oriented to person, place, and time. ASSESSMENT/PLAN: 1. Viral illness - ICD9: 079.99, ICD10: B34.9 - Discussed viral etiology and rationale for treatment. - Symptomatic treatment with prn analgesia - Supportive care with fluids and rest Lungs clear to auscultation. No fever. Hemodynamically stable. Suspicious of postviral cough. Patient was educated on supportive therapies. Patient will follow up with primary care provider as needed. Patient was instructed to immediately proceed to emergency room for any new, worsening (more content not included)... [facility] 04-29-2024 History of Presen t illness Narrative Subjective HPI Nontoxic-appearing female presents urgent care chief complaint cough chest congestion. Duration of symptoms 2 weeks. Associated symptoms listed above. Presents today with persistent cough. OTC medications none. Was seen here on 25 April. Chest x-ray normal. Strep positive. Is currently on amoxicillin. No fevers denies any chest pain or hemoptysis. Past medical history prescription medications allergies reviewed. Denies chance of . .Patient presents with: Cough: Chest congestion x2 weeks, seen 04/25 for strep and CXR was negative but chest congestion worsened yesterday PAST MEDICAL HISTORY Diagnosis Date COVID 08/2022 Depression Epidermolysis bullosa simplex Essential hypertension 09/2022 after covid CARTER (generalized anxiety disorder) MDD (major depressive disorder) OCD (obsessive compulsive disorder) Post depression PAST SURGICAL HISTORY Procedure Laterality Date D&C, DIAG AND/OR THERAPEUTIC 09/2021 LEG SURGERY HX Left 10/2022 broke tibula fibula and ankle LIGATE FALLOPIAN TUBE 01/30/2022 S BALLOON,UTERINE ABLATION [id number] 01/30/2022 ALLERGIES Lanolin MEDICATIONS amoxicillin (AMOXIL) 500 mg capsule Take 1 capsule by mouth two times a day for 10 days. tranexamic acid (LYSTEDA) 650 mg tablet Take 2 tablets 3 times a day as needed for heavy bleeding up to 5 days. Lactobacillus acidophilus (PROBIOTIC ORAL) Probiotic 0 Refill(s) Start Date: 11/03/22 Status: Ordered cetirizine (ZYRTEC) 10 mg tablet Take 10 mg by mouth. ARIPiprazole (ABILIFY) 5 mg tablet dilTIAZem CR (TIAZAC, TAZTIA XT) 120 mg 24 hr capsule venlafaxine ER (EFFEXOR XR) 150 mg 24 hr capsule cholecalciferol (VITAMIN D-3) 5,000 unit tab Take 5,000 Units by mouth once daily. buPROPion XL (WELLBUTRIN XL) 150 mg 24 hr tablet (Patient not taking: Reported on 2024) norethindrone (AYGESTIN) 5 mg tablet Take 1 tablet TID until bleeding stops, the BID x 3 days, the daily x 3 days. (Patient not taking: Reported on 2024) FAMILY HISTORY Problem Relation Age of Onset No Known Problems Mother Hypertension Father No Known Problems Sister Social History Tobacco Use Smoking status: Never Smokeless tobacco: Never Vaping Use Vaping status: Never Used Substance Use Topics Alcohol use: Yes Drug use: Never BP 138/114 Pulse 101 Temp 36.2 C (97.1 F) Resp 18 Wt (!) 138.9 kg (306 lb 3.5 oz) SpO2 99% BMI 45.22 kg/m Review of Systems Constitutional: Negative for chills, fever and malaise/fatigue. HENT: Positive for congestion. Negative for ear discharge, ear pain, sinus pain and sore throat. Eyes: Negative for blurred vision, pain, discharge and redness. Respiratory: Positive for cough. Negative for hemoptysis, sputum production, shortness of breath, wheezing and stridor. Cardiovascular: Negative for chest pain. Gastrointestinal: Negative for abdominal pain, diarrhea, nausea and vomiting. Musculoskeletal: Negative for myalgias. Skin: Negative for itching and rash. Neurological: Negative for dizziness and headaches. Objective Physical Exam Constitutional: General: She is not in acute distress. Appearance: She is not diaphoretic. HENT: Head: Normocephalic. Jaw: No trismus, tenderness, swelling or pain on movement. Nose: Congestion present. Mouth/Throat: Mouth: Mucous membranes are moist. Pharynx: Oropharynx is clear. Uvula midline. No pharyngeal swelling, oropharyngeal exudate, posterior oropharyngeal erythema or uvula swelling. Eyes: Conjunctiva/sclera: Conjunctivae normal. Pupils: Pupils are equal, round, and reactive to light. Cardiovascular: Rate and Rhythm: Normal rate and regular rhythm. Heart sounds: Normal heart sounds. Pulmonary: Effort: Pulmonary effort is normal. No tachypnea, accessory muscle usage or respiratory distress. Breath sounds: Normal breath sounds. No stridor. No wheezing, rhonchi or rales. Musculoskeletal: Cervical back: Normal range of motion and neck supple. No edema, erythema, rigidity or tenderness. No pain with movement. Normal range of motion. Lymphadenopathy: Cervical: No cervical adenopathy. Skin: General: Skin is warm and dry. Neurological: Mental Status: She is alert and oriented to person, place, and time. ASSESSMENT/PLAN: 1. Viral illness - ICD9: 079.99, ICD10: B34.9 - Discussed viral etiology and rationale for treatment. - Symptomatic treatment with prn analgesia - Supportive care with fluids and rest Lungs clear to auscultation. No fever. Hemodynamically stable. Suspicious of postviral cough. Patient was educated on supportive therapies. Patient will follow up with primary care provider as needed. Patient was instructed to immediately proceed to emergency room for any new, worsening, or symptoms lasting longer than anticipated. The patient's clinical presentation is otherwise unremarkable at this time. Based on exam and clinical finding, the patient is stable for discharge. Plan of care was discussed with patient. Patient verbalizes understanding and agrees to plan of care. This note was generated using Manifact software. It may contain errors in wording, punctuation, or spelling. Deng Monge APRN.ALBERTO documented in this encounter [facility] 2024 Telephone encounter Note Patient given results and verbalized understanding of instructions given. Barbara Titus MA [facility] 2024 Miscellaneous Notes Patient given results and verbalized understanding of instructions given. Barbara Titus MA CXR NEGATIVE Please notify patient. Follow up with primary care doctor. Please advise patient documented in this encounter [facility] 2024 Telephone encounter Note CXR NEGATIVE Please notify patient. Follow up with primary care doctor. Please advise patient [facility] 2024 History of Presen t illness Narrative Radiology Service Progress Note PATIENT NAME: Gaby Minor DATE OF SERVICE: 2024 TIME: 3:31 PM PATIENT IDENTITY VERIFICATION COMPLETED USING TWO (2) IDENTIFIERS: Name and Date of confirmed by patient verbally. FALL SCREENING: Has the patient had 2 falls in the last year or 1 fall with injury or currently using an Ambulatory Assistive Device (Walker, Cane, Wheelchair, Crutches, etc.)? No PATIENT GENDER DATA: Female. status: : No status: NO. PATIENT RELEVANT IMPLANT DATA REVIEWED: Not Applicable PATIENT PRESENTS WITH AN IMPLANTABLE OR ATTACHED OUT OF SCHOOL HOURS CARE WORKER: No RADIOLOGY DEPARTMENT: General X-ray: Exam(s) Completed: Chest X-Ray PERIPHERAL IV DATA: Not applicable SIGNED BY: RT Jenna([place]) 2024 3:31 PM documented in this encounter [facility] 2024 Note HNO ID: [id number] Author: BARBARA NEIL RT([place]) Service: ? Author Type: Technologist Type: Progress Notes Filed: 2024 15:32 Note Text: Radiology Service Progress Note PATIENT NAME: Gaby Minor DATE OF SERVICE: 2024 TIME: 3:31 PM PATIENT IDENTITY VERIFICATION COMPLETED USING TWO (2) IDENTIFIERS: Name and Date of confirmed by patient verbally. FALL SCREENING: Has the patient had 2 falls in the last year or 1 fall with injury or currently using an Ambulatory Assistive Device (Walker, Cane, Wheelchair, Crutches, etc.)? No PATIENT GENDER DATA: Female. status: : No status: NO. PATIENT RELEVANT IMPLANT DATA REVIEWED: Not Applicable PATIENT PRESENTS WITH AN IMPLANTABLE OR ATTACHED OUT OF SCHOOL HOURS CARE WORKER: No RADIOLOGY DEPARTMENT: General X-ray: Exam(s) Completed: Chest X-Ray PERIPHERAL IV DATA: Not applicable SIGNED BY: RT Jenna(R) 2024 3:31 PM [facility] 2024 Note HNO ID: [id number] Author: LOURDES IRELAND APRN.FURNACE CLERK Service: ? Author Type: Nurse Practitioner Type: Progress Notes Filed: 2024 10:26 Note Text: This note was created using NoteWriter. Subjective Gaby Minor is a 29 year old female. 29 year old female with PMH HTN, COVID, anxiety and depression presents for illness. Acute onset X 1 day +sore throat +chest congestion +cough +productive +ears clogged +fever (yesterday ) Denies N/V/D Denies CP Denies SOB Denies abdominal pain +feelings of winded Denies tobacco usage Has used Daytime/Nighttime medicine + ill contacts, citing her daughter has strep and pneumonia The history is provided by the patient. No superintendent production was used. URI She complains of cough. There is no chest tightness, difficulty breathing, frequent throat clearing, hemoptysis, hoarse voice, shortness of breath, sputum production or wheezing. This is a new problem. The current episode started yesterday. The problem occurs constantly. The problem has been unchanged. The cough is productive of sputum. Associated symptoms include ear congestion, ear pain, a fever, headaches, malaise/fatigue, myalgias, rhinorrhea, sneezing and a sore throat. Pertinent negatives include no appetite change, chest pain, dyspnea on exertion, heartburn, nasal congestion, orthopnea, PND, postnasal drip, sweats, trouble swallowing or weight loss. Her symptoms are aggravated by nothing. Her symptoms are alleviated by nothing. She reports no improvement on treatment. There are no known risk factors for lung disease. There is no history of asthma, bronchiectasis, bronchitis, COPD, emphysema or pneumonia. PAST MEDICAL HISTORY Diagnosis Date COVID 08/2022 Depression Epidermolysis bullosa simplex Essential hypertension 09/2022 after covid CARTER (generalized anxiety disorder) MDD (major depressive disorder) OCD (obsessive compulsive disorder) Post depression PAST SURGICAL HISTORY Procedure Laterality Date DANDC, DIAG AND/OR THERAPEUTIC 09/2021 LEG SURGERY HX Left 10/2022 broke tibula fibula and ankle LIGATE FALLOPIAN TUBE 01/30/2022 S BALLOON,UTERINE ABLATION 01/30/2022 ALLERGIES Lanolin MEDICATIONS tranexamic acid (LYSTEDA) 650 mg tablet Take 2 tablets 3 times a day as needed for heavy bleeding up to 5 days. Lactobacillus acidophilus (PROBIOTIC ORAL) Probiotic 0 Refill(s) Start Date: 11/03/22 Status: Ordered cetirizine (ZYRTEC) 10 mg tablet Take 10 mg by mouth. ARIPiprazole (ABILIFY) 5 mg tablet dilTIAZem CR (TIAZAC, TAZTIA XT) 120 mg 24 hr capsule venlafaxine ER (EFFEXOR XR) 150 mg 24 hr capsule cholecalciferol (VITAMIN D-3) 5,000 unit tab Take 5,000 Units by mouth once daily. amoxicillin (AMOXIL) 500 mg capsule Take 1 capsule by mouth two times a day for 10 days. buPROPion XL (WELLBUTRIN XL) 150 mg 24 hr tablet (Patient not taking: Reported on 2024) norethindrone (AYGESTIN) 5 mg tablet Take 1 tablet TID until bleeding stops, the BID x 3 days, the daily x 3 days. (Patient not taking: Reported on 2024) FAMILY HISTORY Problem Relation Age of Onset No Known Problems Mother Hypertension Father No Known Problems Sister Social History Tobacco Use Smoking status: Never Smokeless tobacco: Never Vaping Use Vaping status: Never Used Substance Use Topics Alcohol use: Yes Drug use: Never Review of Systems Constitutional: Positive for fatigue, fever and malaise/fatigue. Negative for appetite change and weight loss. HENT: Positive for congestion, ear pain, rhinorrhea, sneezing and sore throat. Negative for hoarse voice, postnasal drip and trouble swallowing. Eyes: Negative for pain, discharge and itching. Respiratory: Positive for cough. Negative for hemoptysis, sputum production, shortness of breath and wheezing. Cardiovascular: Negative for chest pain, dyspnea on exertion and PND. Gastrointestinal: Negative for abdominal pain, diarrhea, heartburn and nausea. Musculoskeletal: Positive for myalgias. Negative for arthralgias and back pain. Skin: Negative for color change, pallor, rash and wound. Allergic/Immunologic: Negative for environmental allergies, food allergies and immunocompromised state. Neurological: Positive for headaches. Negative for dizziness, seizures, facial asymmetry and speech difficulty. Hematological: Negative for adenopathy. Does not bruise/bleed easily. Psychiatric/Behavioral: Negative for agitation and behavioral problems. Objective BP (!) 178/122 Pulse 108 Temp 36.3 ?C (97.3 ?F) Resp 21 Wt (!) 139.1 kg (306 lb 10.6 oz) SpO2 96% BMI 45.29 kg/m? Physical Exam Vitals and nursing note reviewed. Constitutional: General: She is not in acute distress. Appearance: Normal appearance. She is obese. She is not ill-appearing, toxic-appearing or diaphoretic. HENT: Head: Normocephalic and atraumatic. Right Ear: Ear canal and external ear norm (more content not included)... [facility] 2024 History of Presen t illness Narrative This note was created using [employer] Concepts[employer]. Subjective Gaby Minor is a 29 year old female. 29 year old female with PMH HTN, COVID, anxiety and depression presents for illness. Acute onset X 1 day +sore throat +chest congestion +cough +productive +ears clogged +fever (yesterday ) Denies N/V/D Denies CP Denies SOB Denies abdominal pain +feelings of winded Denies tobacco usage Has used Daytime/Nighttime medicine + ill contacts, citing her daughter has strep and pneumonia The history is provided by the patient. No superintendent production was used. URI She complains of cough. There is no chest tightness, difficulty breathing, frequent throat clearing, hemoptysis, hoarse voice, shortness of breath, sputum production or wheezing. This is a new problem. The current episode started yesterday. The problem occurs constantly. The problem has been unchanged. The cough is productive of sputum. Associated symptoms include ear congestion, ear pain, a fever, headaches, malaise/fatigue, myalgias, rhinorrhea, sneezing and a sore throat. Pertinent negatives include no appetite change, chest pain, dyspnea on exertion, heartburn, nasal congestion, orthopnea, PND, postnasal drip, sweats, trouble swallowing or weight loss. Her symptoms are aggravated by nothing. Her symptoms are alleviated by nothing. She reports no improvement on treatment. There are no known risk factors for lung disease. There is no history of asthma, bronchiectasis, bronchitis, COPD, emphysema or pneumonia. PAST MEDICAL HISTORY Diagnosis Date COVID 08/2022 Depression Epidermolysis bullosa simplex Essential hypertension 09/2022 after covid CARTER (generalized anxiety disorder) MDD (major depressive disorder) OCD (obsessive compulsive disorder) Post depression PAST SURGICAL HISTORY Procedure Laterality Date D&C, DIAG AND/OR THERAPEUTIC 09/2021 LEG SURGERY HX Left 10/2022 broke tibula fibula and ankle LIGATE FALLOPIAN TUBE 01/30/2022 S BALLOON,UTERINE ABLATION [id number] 01/30/2022 ALLERGIES Lanolin MEDICATIONS tranexamic acid (LYSTEDA) 650 mg tablet Take 2 tablets 3 times a day as needed for heavy bleeding up to 5 days. Lactobacillus acidophilus (PROBIOTIC ORAL) Probiotic 0 Refill(s) Start Date: 11/03/22 Status: Ordered cetirizine (ZYRTEC) 10 mg tablet Take 10 mg by mouth. ARIPiprazole (ABILIFY) 5 mg tablet dilTIAZem CR (TIAZAC, TAZTIA XT) 120 mg 24 hr capsule venlafaxine ER (EFFEXOR XR) 150 mg 24 hr capsule cholecalciferol (VITAMIN D-3) 5,000 unit tab Take 5,000 Units by mouth once daily. amoxicillin (AMOXIL) 500 mg capsule Take 1 capsule by mouth two times a day for 10 days. buPROPion XL (WELLBUTRIN XL) 150 mg 24 hr tablet (Patient not taking: Reported on 2024) norethindrone (AYGESTIN) 5 mg tablet Take 1 tablet TID until bleeding stops, the BID x 3 days, the daily x 3 days. (Patient not taking: Reported on 2024) FAMILY HISTORY Problem Relation Age of Onset No Known Problems Mother Hypertension Father No Known Problems Sister Social History Tobacco Use Smoking status: Never Smokeless tobacco: Never Vaping Use Vaping status: Never Used Substance Use Topics Alcohol use: Yes Drug use: Never Review of Systems Constitutional: Positive for fatigue, fever and malaise/fatigue. Negative for appetite change and weight loss. HENT: Positive for congestion, ear pain, rhinorrhea, sneezing and sore throat. Negative for hoarse voice, postnasal drip and trouble swallowing. Eyes: Negative for pain, discharge and itching. Respiratory: Positive for cough. Negative for hemoptysis, sputum production, shortness of breath and wheezing. Cardiovascular: Negative for chest pain, dyspnea on exertion and PND. Gastrointestinal: Negative for abdominal pain, diarrhea, heartburn and nausea. Musculoskeletal: Positive for myalgias. Negative for arthralgias and back pain. Skin: Negative for color change, pallor, rash and wound. Allergic/Immunologic: Negative for environmental allergies, food allergies and immunocompromised state. Neurological: Positive for headaches. Negative for dizziness, seizures, facial asymmetry and speech difficulty. Hematological: Negative for adenopathy. Does not bruise/bleed easily. Psychiatric/Behavioral: Negative for agitation and behavioral problems. Objective BP (!) 178/122 Pulse 108 Temp 36.3 C (97.3 F) Resp 21 Wt (!) 139.1 kg (306 lb 10.6 oz) SpO2 96% BMI 45.29 kg/m Physical Exam Vitals and nursing note reviewed. Constitutional: General: She is not in acute distress. Appearance: Normal appearance. She is obese. She is not ill-appearing, toxic-appearing or diaphoretic. HENT: Head: Normocephalic and atraumatic. Right Ear: Ear canal and external ear normal. Left Ear: Ear canal and external ear normal. Nose: Congestion present. No rhinorrhea. Mouth/Throat: Mouth: Mucous membranes are moist. Pharynx: Posterior oropharyngeal erythema present. No oropharyngeal exudate. Eyes: General: Right eye: No discharge. Left eye: No discharge. Extraocular Movements: Extraocular movements intact. Conjunctiva/sclera: Conjunctivae normal. Pupils: Pupils are equal, round, and reactive to light. Cardiovascular: Rate and Rhythm: Normal rate and regular rhythm. Pulses: Normal pulses. Heart sounds: Normal heart sounds. No murmur heard. No friction rub. Pulmonary: Effort: Pulmonary effort is normal. No respiratory distress. Breath sounds: No stridor. No wheezing, rhonchi or rales. Comments: Lower lung oliver limited related to habitus Chest: Chest wall: No tenderness. Abdominal: General: Abdomen is flat. There is no distension. Palpations: Abdomen is soft. There is no mass. Tenderness: There is no abdominal tenderness. There is no right CVA tenderness, left CVA tenderness, guarding or rebound. Hernia: No hernia is present. Musculoskeletal: General: No swelling, tenderness, deformity or signs of injury. Normal range of motion. Cervical back: Normal range of motion and neck supple. No rigidity. Right lower leg: No edema. Left lower leg: No edema. Lymphadenopathy: Cervical: Cervical adenopathy present. Skin: General: Skin is warm and dry. Coloration: Skin is not jaundiced or pale. Findings: No bruising, erythema, lesion or rash. Neurological: General: No focal deficit present. Mental Status: She is alert and oriented to person, place, and time. Cranial Nerves: No cranial nerve deficit. Sensory: No sensory deficit. Motor: No weakness. Coordination: Coordination normal. Gait: Gait normal. Psychiatric: Mood and Affect: Mood normal. Behavior: Behavior normal. Thought Content: Thought content normal. Judgment: Judgment normal. Assessment and Plan ASSESSMENT/PLAN: 1. Strep pharyngitis - ICD9: 034.0, ICD10: J02.0 (primary diagnosis) - Group A strep molecular testing positive - antibiotic as written - Discussed supportive care treatment with fluids, rest and analgesia. - The patient may also use OTC cough and cold meds as needed and warm salt water gargles, throat lozenges and/or OTC throat spray as needed. - Contagious dz precautions discussed- including considered contagious until on antibiotics for 24 hours - The patient should follow up in 3-5 days if symptoms persist or worsen - Call back if drooling, increased temperature, symptoms of dehydration and/or still sick in one week - STREP A MOLECULAR (POC) 2. Acute cough - ICD9: 786.2, ICD10: R05.1 X one day +exposure to pneumonia Lung sounds limited to habitus - XR CHEST 2V FRONTAL/LAT-will obtain and call with results 3. URI, acute - ICD9: 465.9, ICD10: J06.9 - Symptomatic treatment with prn analgesia - Supportive care with fluids and rest - The patient may also use OTC cough and cold meds as needed, warm salt water gargles, throat lozenges and/or OTC throat spray as needed, and nasal saline gtts and suction prn. - Follow up in 3-5 days if symptoms persist or sooner if worsening of symptoms - COVID & INFLUENZA A/B & RSV PCR, ROUTINE 4. Elevated blood pressure reading - ICD9: 796.2, ICD10: R03.0 Patient has been using OTC cough and cold SHe has been taking her medicines Denies CP, headache weakness, visual disturbances, etc. - Recommend home blood pressure monitoring, to bring results in on next visit - Recheck in 1 days, sooner if needed. - Discussed red flags and reasons to seek ED - Goal of BP <130/80 Lourdes Ireland APRN.FURNACE CLERK documented in this encounter [facility] 04-07-2023 History of Presen t illness Narrative Gaby Minor is a 27 year old female who presents for problem visit for abnormal uterine bleeding. HPI: 27 YOF here w/ c./o heavy and prolonged menses. Had an endometrial ablation and tubal in 2021 at age 26. 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 Changes [...] L2 SAB1 IAB0 Ectopic0 Multiple0 Live Births2 Education Associate History LMP: Ablation Age at Menarche: Age at First : Age at Menopause: Education Associate History Comments: Sexual Activity: Yes; Male; ablation [...] LIGATE FALLOPIAN TUBE 01/30/2022 S BALLOON,UTERINE ABLATION [id number] 01/30/2022 FAMILY HISTORY Problem Relation Age of [...] external genitalia normal, normal Bartholin's glands, urethra, [place]'s glands, no vulvar lesions, no cervical lesions, good vaginal support, physiologic discharge present, normal appearing perineal body and perianal region BIMANUAL: uterus normal size, shape and consistency, no adnexal masses, and non-tender ASSESSMENT AND PLAN: menorrhagia, failed OCPs in the past, hesitant to retry due to mood side effects in the past. D/ wher short and buttermaker risks to hyst. Has previous ablation and sterilization so conception is contraindicated already. However, d/w her would recommend trial of hormonal therapy. Has tried lysteda and it did lighten bleeding but still having prolonged bleeding. Mirena contraindicated due to previous ablation. If surgery would be TVH. Obesity-offered obesity medicine consult, will consider. Cassy Lynn MD I spent a total of 36 minutes on the date of the service which included preparing to see the patient, kyem-bt-whpa patient care, completing clinical documentation, obtaining and/or reviewing separately obtained history, performing a medically appropriate examination, and independently interpreting results (not separately reported). documented in this encounter [facility] 03-06-2023 History of Presen t illness [...] 2023 10:57 AM documented in this encounter [facility] 02-27-2023 History of Presen t illness [...] L2 SAB1 IAB0 Ectopic0 Multiple0 Live Births2 Education Associate History LMP: Unknown Age at Menarche: Age at First : Age at Menopause: Education Associate History Comments: Sexual Activity: Yes; Male; ablation [...] LIGATE FALLOPIAN TUBE 01/30/2022 S BALLOON,UTERINE ABLATION [id number] 01/30/2022 FAMILY HISTORY Problem Relation Age of [...] taking: Reported on 06/11/2020 ) minerals (JOINT Balanced MINERAL ORAL) Take 1,000 mg by mouth [...] 4 - Moderate documented in this encounter [facility] 11-08-2022 Hospital Discharg e instructions Patient [...] splint gets wet, dry it with a academic department chair on a cool setting. You may use fpjh-yha-jnhzqrb pain medicine to control pain, unless another [...] cast or splint develops cracks or breaks [id number] [employer]. [address] [place] [address]. All rights reserved. This information is not intended as a substitute for professional medical care. Always follow your healthcare professional's instructions. Follow Up Care 11/08/2022 03:34:51 With:GILBERTO BRUMFIELD MD Address: [address] [place] [phone]- [phone] When:2-[address] [facility] 11-08-2022 Note Discharge Instructions Thank you for allowing [facility] to assist you with your healthcare needs. [...] BRUMFIELD MD When Within 2-4 days Where: [address] [place] [address] [place] [address]- [phone] Allergies Lanolin (Rash) Medications Please ask your [...] or retail pharmacies. Medication Leaflets morphine (oral) (LORA liriano) MS Angel Newell What is the most important information I [...] The extended-release form of morphine is for lupivw-wdv-pnchh treatment of pain. This form of morphine [...] against the law. Stop taking all other dcdtyx-ghj-dnrnw narcotic pain medications when you start taking [...] may report side effects to FDA at [phone]. What other drugs will affect morphine? Many [...] drugs may affect morphine, including prescription and hjxf-fou-ufrdncg medicines, vitamins, and herbal products. Not all [...] to ensure that the information provided by [employer]. ('[employer]') is accurate, up-to-date, and complete, but no guarantee is made to that effect. Drug information contained herein may be time sensitive. [employer] information has been compiled for use by healthcare practitioners and consumers in the [place] and therefore [employer] does not warrant that uses outside of the [place] are appropriate, unless specifically indicated otherwise. [employer]'s drug information does not endorse drugs, diagnose patients or recommend therapy. [employer] drug information is an informational resource designed [...] effective or appropriate for any given patient. [employer] does not assume any responsibility for any aspect of healthcare administered with the aid of information [employer] provides. The information contained herein is not intended to cover all possible uses, directions, precautions, warnings, drug interactions, allergic reactions, or adverse effects. If you have questions about the drugs you are taking, check with your doctor, nurse or pharmacist. Copyright 8096-3403 [employer]. Version: 15.02. Revision Date: 10/08/2020. Education Materials [...] splint gets wet, dry it with a academic department chair on a cool setting. You may use kcrv-byx-khyfque pain medicine to control pain, unless another [...] cast or splint develops cracks or breaks [phone] [employer]. [address] [place] [address]. All rights reserved. This information is not intended as a substitute for professional medical care. Always follow your healthcare professional's instructions. Additional Information VACCINATE! IT SAVES LIVES! Members of the community who have not yet received the COVID-19 vaccine and would like to receive it can visit one of [facility] vaccine clinics. There are many vaccine clinic locations within the [facility]. For locations and available times, please visit [email or web address] It is important to note that some COVID mobile vaccine clinics are held outdoors and may be canceled in rainy or stormy conditions. To learn more about pediatric vaccinations (ages 5-11), we invite you to visit the [facility] webpage. [email or web address]/p [email or web address]-Hqilh-Ohyznkluads-Freq [email or web address]-[email or web address].[email or web address] To learn more about the COVID-19 vaccine, we invite you to visit the CDC website for a list of frequently asked questions. https://www.cdc.gov/coronavirus/ 2019-ncov/vaccines/faq.html [facility] Patient Portal Access Instructions: Stay connected with your healthcare team and access your personal medical information anytime with the [facility] Patient Portal. If you would like a full copy of your medical records please contact the [facility] Medical Records Department Thursday through Thursday between 8a.m. and 4:30p.m. Please follow the directions below to access the portal: 1.Access the email account you provided upon registration to the [facility].2.Look for an invitation email from [facility].3.Open the email and access the invitation link: Accept Invitation to [facility]4.Fill in the required oliver to create your account. Sign into [email or web address] with your username and password that you [...] you will allow to register on the [facility] Patient Portal for access to your information. You can also access the [facility] Patient Portal on the [employer] merari. Simply click on "Health Records" under "Health Data" and then click on the [facility] logo. HOW TO SAFELY DISPOSE OF PRESCRIPTION [...] Call your local pharmacy or go to http://bit.[email or web address]/[email or web address] to find one close to you.3.Make use of household items: Use cat litter or old coffee grounds to dispose medications if other options are not available. Mix your drugs with these household products, seal them in an airtight container and throw it into the garbage. Call [facility]: [phone] to be sure your drugs can be [...] aware that I should contact my doctor. Patient/Weight Loss Counselor Signature: Date/Time: Relationship to Patient: Witness Name/Signature: Date/Time: [facility] 11-07-2022 Hospital Discharg e instructions Patient Education 11/07/2022 16:01:18 Ankle Fracture, Wgnx-cs-Jmqq Ankle Fracture The ankle joint is made [...] crutches as told by your doctor. Take fzcu-eug-ygighgh and prescription medicines only as told by [...] 02/08/2010 Document Revised: 03/26/2018 Document Reviewed: 05/18/2017 [employer] Patient Education 2020 [employer]. 11/07/2022 16:00:16 How to Use a Walker [...] your health care provider approves. Standard walker 1.maintenance mechanic supervisor your walker. Do not slide your standard [...] glide well over carpet, consider cutting an "X" into two tennis balls and placing the [...] 04/13/2006 Document Revised: 03/09/2019 Document Reviewed: 03/09/2019 [employer] Patient Education 2020 [employer] 11/07/2022 15:59:11 Spinal Anesthesia and Epidural Anesthesia, Care After, Nyyx-ob-Myrp Spinal Anesthesia and Epidural Anesthesia, Care After [...] what activities are safe for you. Take ekui-kgo-iqvriqm and prescription medicines only as told by [...] 08/04/2016 Document Revised: 03/26/2018 Document Reviewed: 08/04/2016 [employer] Patient Education [employer] Follow Up Care 10/31/2022 09:35:19 With:GILBERTO BRUMFIELD MD Address: [address] [place] [address] [employer] [place] [address] [phone] When: Unknown Comments:Follow-up as scheduled in two weeks. [facility] 11-07-2022 Note ORIGINAL Images acquired, not reported on this accession number. [facility] 11-07-2022 Note ORIGINAL Images acquired, not reported on this accession number. [facility] 11-07-2022 Summary of episod e note Discharge Instructions Thank you for allowing [facility] to assist you with your healthcare needs. The following is important discharge information regarding your hospital visit. Your Care Team [place] What to do next Follow Up Appointments Follow Up with GILBERTO BRUMFIELD MD When Why: Follow-up as scheduled in two weeks. Where: [address] [place] [address] [address] [place] [address]- [phone] Allergies Lanolin (Rash) Medications Please ask your [...] crutches as told by your doctor. Take majo-err-xlgqjxk and prescription medicines only as told by [...] 02/08/2010 Document Revised: 03/26/2018 Document Reviewed: 05/18/2017 [employer] Patient Education 2020 [employer] How to Use a Walker This sheet [...] health care provider approves. Standard walker 1. maintenance mechanic supervisor your walker. Do not slide your standard [...] glide well over carpet, consider cutting an "X" into two tennis balls and placing the [...] 04/13/2006 Document Revised: 03/09/2019 Document Reviewed: 03/09/2019 [employer] Patient Education 2020 [employer]. Spinal Anesthesia and Epidural Anesthesia, Care After [...] what activities are safe for you. Take xzog-grd-eeytsxn and prescription medicines only as told by [...] 08/04/2016 Document Revised: 03/26/2018 Document Reviewed: 08/04/2016 [employer] Patient Education 2020 [employer] Additional Information VACCINATE! IT SAVES LIVES! Members of the community who have not yet received the COVID-19 vaccine and would like to receive it can visit one of [facility] vaccine clinics. There are many vaccine clinic locations within the [facility]. For locations and available times, please visit [email or web address].o hio.gov/. It is important to note that some COVID mobile vaccine clinics are held outdoors and may be canceled in rainy or stormy conditions. To learn more about pediatric vaccinations (ages 5-11), we invite you to visit the [facility] webpage. https://www.[email or web address].org/p ages/1332-Zksip-Dleqltpnmwm-Freq jmvjlg-Lktkq-Codscchpf.html To learn more about the COVID-19 vaccine, we invite you to visit the CDC website for a list of frequently asked questions.https://www.cdc.gov/co ronavirus/2019-ncov/vaccines/faq .html [facility] Patient Portal Access Instructions: Stay connected with your healthcare team and access your personal medical information anytime with the [facility] Patient Portal. Please follow the directions below to create your [facility] account: 1.Access the email account you provided upon registration to the hospital/physician office.2.Look for an invitation email from [facility].3.Open the email and access the invitation link: Accept Invitation to [facility].4.Fill in the required oliver to create your account. To access your account, visit [employer]Carmolex,OneChart. Click the blue button labeled "Access Patient Portal" and then log in with the username [...] you will allow to register on the [facility] Patient Portal for access to your information. You can also access the [facility] Patient Portal on the [employer] merari. Simply click on "Patient Portal" and then log into your account. If you would like to receive a full copy of your medical records, please contact the [facility] Medical Records Department by calling [phone], Thursday through Thursday between 8 a.m. and [...] Call your local pharmacy or go to [email or web address] to find one close to you.3.Make use of household items: Use cat litter or old coffee grounds to dispose medications if other options are not available. Mix your drugs with these household products, seal them in an airtight container and throw it into the garbage. Call [facility]: [phone] to be sure your drugs can be [...] COPY. Signatures Patient Education Materials Ankle Fracture, Wdsn-iq-Hscr How to Use a Walker Spinal Anesthesia and Epidural Anesthesia, Care After, Yali-ec-Aywo Medication Leaflets My discharge plan and instructions have been reviewed and explained to me and I,GABY MINOR understand my current condition and have read and understand these discharge instructions. I have received a written copy of the plan/instructions. If I have questions, I am aware that I should contact my doctor. Patient/Weight Loss Counselor Signature: Date/Time: Relationship to Patient: Witness Name/Signature: Date/Time: [facility] 11-07-2022 Note ORIGINAL EXAMINATION: TWO XRAY VIEWS [...] Sign Date: 11/07/2022 3:53:59 PM Ordering Provider: GILBERTO BRUMFIELD [facility] 11-07-2022 Note ORIGINAL EXAMINATION: TWO XRAY VIEWS [...] Sign Date: 11/07/2022 3:53:59 PM Ordering Provider: [facility] 11-07-2022 Anesthesiology Consult note Patient: GABY MINOR Age: 27 years Sex: Female : 1995 Associated Diagnoses: None Author: YARA GONZALES APRN-SENIOR JAVA WEB APPLICATION DEVELOPER Preoperative Information Anesthesia history Patient's history: negative. [...] Medical Generalized anxiety disorder / SNOMED CT 00841960 / Confirmed Obesity / SNOMED CT 5011529037 / Confirmed OCD (obsessive compulsive disorder) / SNOMED CT 371444615 / Confirmed Depression, major, recurrent, moderate / SNOMED CT 778261973 / Confirmed, Active Problems (8) Depression, major, recurrent, moderate Epidermolysis bullosa Generalized anxiety disorder Hypertension Obesity OCD (obsessive compulsive disorder) PTSD (post-traumatic stress disorder) Skin abnormalities Histories Past Medical History: No active or resolved past medical history items have been selected or recorded. Family History: Hypertension Father Procedure history: Laparoscopic bilateral female sterilization (757572543). Ablation (802612742). Dilation and curettage (59328152). Social History Social & Psychosocial Habits Alcohol 11/03/2022 Use: Current Frequency: 1-2 times per week Substance Abuse 11/03/2022 Type: Marijuana Frequency: Daily Tobacco 11/03/2022 Tobacco Use: Never (less than 100 in l Home/Environment 11/03/2022 Domestic Concerns None Lives In 1st floor bathroom, Multilevel home Spouse Name FRANCISCO Marital Status of Patient if Patient Independent [...] Height 175.3 cm Admission Weight 131.8 kg [place] Body Weight 66.24 kg Admission Body Mass [...] Surgeon SN - CAt - Role Performed SENIOR JAVA WEB APPLICATION DEVELOPER SN - CAt - Role Performed Tool Planer Set Up Operator 1 SN - CAt - Role Performed Scrub 1 SN - CAt - Role Performed Yard Specialist 1 11/07/2022 11:32 EDT Time Out Procedure Verified Time Out Procedure Site Verified Yes Time Out Correct Patient Position Yes Consent Form Signed Yes Bedside Procedure Nerve Block Provider #1 Bedside Time Out YARA GONZALES APRN-SENIOR JAVA WEB APPLICATION DEVELOPER Provider #2 Bedside Time Out Courtney Herring [...] Height 175.3 cm Admission Weight 131.8 kg [place] Body Weight 66.24 kg Admission Body Mass Index 42.89 m2 Temperature Temporal Artery 36.1 DegC Heart Rate Monitored 112 bpm HI Respiratory Rate 14 br/min Systolic Blood Pressure Non-Invasive 155 mmHg HI Diastolic Blood Pressure Non-Invasive 96 mmHg HI Primary Pain Location Leg Primary Pain Laterality Left Primary Pain Intensity 6 Pain Scale Type 0-10 Pain scale Nail Bed Color [place] Capillary Refill < 2 seconds Heart Rhythm Regular Cardiac Rhythm Sinus tachycardia Respirations Unlabored Respiratory Pattern Regular Breath Sounds Auscultated Anterior and posterior All Lobes Breath Sounds Clear Cough None Oxygen Therapy Room air Oxygen Saturation 97 % Abdomen Description Soft, Rounded Bowel Sounds All Quadrants Present Urinary Elimination Voiding, no difficulties Facial Movement Symmetric resting/crying All Extremity Description [place] Skin Temperature Warm Temperature All Extremities Warm Skin Description [place], Normal for ethnicity, Dry Skin Integrity Not [...] Right Lower Extremity Sensation Intact Allergies Yes Imaging Engineer On Yes Consent Form Signed Yes Patient [...] Safety Brochure Information Reviewed Unable to complete [facility] Video Viewed No Teaching Evaluation No further teaching needed Admission Note-Nursing Same Day Patient History (Modified) 11/07/2022 10:43 EDT SN - Preop - CTm Pt in SDS Room 11/07/2022 10:43 11/06/2022 13:16 EDT Susan PRINGLE . Assessment and Plan [place] [employer] Anesthesiologists (ASA) physical status classification: Class III. Anesthetic Preoperative Plan Anesthetic technique: Spinal. Regional: Spinal. Postoperative pain management: adductor canal and popliteal block. Risks discussed: nausea, vomiting, headache, sore throat, dental injury, hypotension, allergic reaction, serious complications. Informed consent: signed by patient. Digitally Signed by YARA GONZALES APRN-BEATRICE on 11/07/2022 11:[address] [facility] 12-21-2020 History of Past i llness Narrative Problem Noted Date Diagnosed Date Resolved Date Muscle tightness 12/21/2020 02/18/2021 documented as of this encounter (statuses as of 02/27/2023) [facility]08-27-2021 History of Past illness Narrative* Problem Noted Date Diagnosed Date Resolved Date Muscle tightness 12/21/2020 02/18/2021 documented as of this encounter (statuses as of 03/06/2023) [facility]21 History of Past illness Narrative* Problem Noted Date Diagnosed Date Resolved Date Muscle tightness 12/21/2020 02/18/2021 documented as of this encounter (statuses as of 03/07/2023) [facility] History of Past illness Narrative* Problem Noted Date Diagnosed Date Resolved Date Muscle tightness 12/21/2020 02/18/2021 documented as of this encounter (statuses as of 03/24/2023) [facility] History of Past illness Narrative* Problem Noted Date Diagnosed Date Resolved Date Muscle tightness 12/21/2020 02/18/2021 documented as of this encounter (statuses as of 04/08/2023) [facility] Future Appointments [facility] Evaluation note* Diagnosis Abnormal uterine bleeding (AUB)- Primary [facility] [place] Diagnosis Abnormal uterine bleeding (AUB) [facility] [place] [facility]* Diagnosis Menorrhagia with irregular cycle- Primary Excessive or frequent menstruation BMI 45.0-49.9, adult ([facility]) Body Mass Index 45.0-49.9, adult Class 3 severe obesity due to excess calories without serious comorbidity with body mass index (BMI) of 45.0 to 49.9 in adult ([facility]) Metrorrhagia documented in this encounter [facility] [place] [facility]* Diagnosis Strep pharyngitis- Primary Streptococcal sore throat Acute cough URI, acute Acute upper respiratory infections of unspecified site Elevated blood pressure reading Elevated blood pressure reading without diagnosis of hypertension Acute cough [facility] Acute cough documented in this encounter [facility] note* Diagnosis Viral illness- Primary Unspecified viral infection, in conditions classified elsewhere and of unspecified site documented in this encounter [facility] note* Diagnosis Joint pain of ankle and foot, left- Primary Joint pain of ankle and foot, left documented in this encounter [facility] note* Diagnosis Joint pain of ankle and foot, left [facility] Narrative No data available for this section [facility] Hospital Discharge instructions No data available for this section [facility] Progress note No data available for this section [facility] Reason for referral (narrative)* Diagnostic Procedure Only (Routine) - Authorized Specialty Diagnoses / Procedures Referred By Naomi t Referred To Contact US IMAGING Diagnoses Abnormal uterine bleeding (AUB) Procedures US FEMALE PELVIS TRANSVAG US TRANSVAGINAL Iman Gauthier APRN.CNP [address] [place] [address] [place] [address] Referral ID Status Reason Start Date Expiration Date Visits Requested Visits Authorized [id number] Authorized Auto-Generat ed Referral 02/27/2023 03/28/2024 1 1 [facility] for visit Narrative* Diagnostic Procedure Only (Urgent) - Closed Specialty Diagnoses / Procedures Referred By Contac t Referred To Contact XR IMAGING Diagnoses Joint pain of ankle and foot, left Procedures XR ANKLE GENERAL 3V AP/LAT/OBL LEFT RADEX ANKLE COMPLETE MINIMUM 3 VIEWS Deng Monge APRN.CNP [address] [place] [address] Phone: tel: fax: [place] [address] Referral ID Status Reason Start Date Expiration Date V isits Requested Visits Authorized [id number] Closed Auto-Generate d Referral 08/11/2024 09/10/2025 1 1 [facility] Summary Purpose Family History No Family [...] ized section and content) DATE CREATED AUTHOR 11/07/2018 [facility] DATE CREATED AUTHOR AUTHOR'S ORGANIZ ATION 12/10/2018 [facility] DATE CREATED AUTHOR AUTHOR'S ORGANIZ ATION 11/24/2019 [facility] DATE CREATED AUTHOR AUTHOR'S ORGANIZ ATION 05/05/2020 [facility] DATE CREATED AUTHOR AUTHOR'S ORGANIZ ATION 11/13/2022 [facility] ([place]) DATE CREATED AUTHOR AUTHOR'S ORGANIZ ATION 08/31/2024 [facility] DATE CREATED AUTHOR AUTHOR'S ORGANIZ ATION 03/04/2025 [facility] Patient Care team informatio n (unrecognized section and content) [employer] Relationship Specialty Start Date End Date Shanthi Valdes PA-C [address] [place] [address] PCP - General Family Medicine 09/14/18 [employer] Relationship Specialty Start Date End Date Shanthi Valdes PA-C [address] [place] [address] PCP - General Family Medicine 09/14/18 [employer] Relationship Specialty Start Date End Date Shanthi Valdes PA-C [address] [place], [place] [address] PCP - General Family Medicine 09/14/18 [employer] Relationship Specialty Start Date End Date Shanthi Valdes PA-C [address] [place], [place] [address] PCP - General Family Medicine 09/14/18 [employer] Relationship Specialty Start Date End Date Shanthi Valdes PA-C [address] [place] [address] [place] [address] PCP - General Family Medicine 09/14/18 [employer] Relationship Specialty Start Date End Date Lona Rico MD [address] [place], [place] [id number] PCP - General Family Medicine 04/25/24 [employer] Relationship Specialty Start Date End Date Lona Rico MD [address] [place], [place] [id number] PCP - General Family Medicine 04/25/24 [employer] Relationship Specialty Start Date End Date Lona Rico MD [address] [place] [address] PCP - General Family Medicine 04/25/24 [employer] Relationship Specialty Start Date End Date Lona Rico MD [address] [place] [address] PCP - General Family Medicine 04/25/24 [employer] Relationship Specialty Start Date End Date Lona Rico MD [address] [place] [address] PCP - General Family Medicine 04/25/24 [employer] Relationship Specialty Start Date End Date Lona Rico MD [address] [place] [address] PCP - General Family Medicine 04/25/24 Source Comments (unrecognize d section and content) In the event this informatio n is protected by the Federal Confidentiality of Alcohol and Drug Abuse Patient Records regulations: The Federal rules restrict any use of the information to criminally investigate or prosecute any alcohol or drug abuse patient.[facility] the event this information is protected by the Federal Confidentiality of Alcohol and Drug Abuse Patient Records regulations: The Federal rules restrict any use of the information to criminally investigate or prosecute any alcohol or drug abuse patient.[facility] the event this information is protected by the Federal Confidentiality of Alcohol and Drug Abuse Patient Records regulations: The Federal rules restrict any use of the information to criminally investigate or prosecute any alcohol or drug abuse patient.[facility] the event this information is protected by the Federal Confidentiality of Alcohol and Drug Abuse Patient Records regulations: The Federal rules restrict any use of the information to criminally investigate or prosecute any alcohol or drug abuse patient.[facility] the event this information is protected by the Federal Confidentiality of Alcohol and Drug Abuse Patient Records regulations: The Federal rules restrict any use of the information to criminally investigate or prosecute any alcohol or drug abuse patient.[facility] the event this information is protected by the Federal Confidentiality of Alcohol and Drug Abuse Patient Records regulations: The Federal rules restrict any use of the information to criminally investigate or prosecute any alcohol or drug abuse patient.[facility] the event this information is protected by the Federal Confidentiality of Alcohol and Drug Abuse Patient Records regulations: The Federal rules restrict any use of the information to criminally investigate or prosecute any alcohol or drug abuse patient.[facility] the event this information is protected by the Federal Confidentiality of Alcohol and Drug Abuse Patient Records regulations: The Federal rules restrict any use of the information to criminally investigate or prosecute any alcohol or drug abuse patient.[facility] the event this information is protected by the Federal Confidentiality of Alcohol and Drug Abuse Patient Records regulations: The Federal rules restrict any use of the information to criminally investigate or prosecute any alcohol or drug abuse patient.[facility] the event this information is protected by the Federal Confidentiality of Alcohol and Drug Abuse Patient Records regulations: The Federal rules restrict any use of the information to criminally investigate or prosecute any alcohol or drug abuse patient.[facility] the event this information is protected by the Federal Confidentiality of Alcohol and Drug Abuse Patient Records regulations: The Federal rules restrict any use of the information to criminally investigate or prosecute any alcohol or drug abuse patient.[facility] Reason for Visit (unrecogniz ed section and content) Reason Comments Discussion Long menses Reason Comments Radiology US Specialty Diagnoses / Procedures Referred By Naomi prescott Referred To Contact US IMAGING Diagnoses Abnormal uterine bleeding (AUB) Procedures US FEMALE PELVIS TRANSVAG US TRANSVAGINAL Iman Gauthier APRN.FURNACE CLERK [address] [place] [address] [place] [address] Referral ID Status Reason Start Date Expiration Date V isits Requested Visits Authorized [id number] Closed Auto-Generate d Referral 02/27/2023 03/28/2024 1 1 Reason Comments New Patient Discuss hysterectomy Reason Comments Sore Throat Chest congestion, co ugh, ZAN ears feel clogged x 1 day Reason Comments Results Reason Comments Cough Chest congestion x2 weeks, seen 04/25 for strep and CXR was negative but chest congestion worsened yesterday Reason Comments Ankle Pain L ankle pain x today , twisted wrong, has previous surgical history and hardware FOR RECORDS PERTAINING TO PATIENTS WHO ARE [...] BE BASED ON THE PRIMARY CLINICAL RECORDS. [employer] provides no warranty or guarantee of the accuracy or completeness of information in this document.
== END | disposition home or self-care (01) ==
LOC: LABSPEC 03-08 12:08
PROVIDERS: PCP Family Medicine; Visit Provider Family Medicine
DX: R30.0 Dysuria (principal)
CPT/HCPCS: 87077; 87086; 87088; 87186

== ENCOUNTER 2025-02-10 11:00 | Outpatient (RCR) | payer MEDICAID, SELFPAY ==
--- NOTE | 2025-02-03 16:41 | HP.PTEVAL_ITS ---
Patient's Visit Information Visit Information Visit Information: GABY AMEZCUA is a 29 year old F referred to Physical Therapy by Dr. Yen Ko MD with a diagnosis of MINDI, URGENCY OF MICTURITION AND CYSTOCELE. Date of Evaluation: 02/03/25 Physical Therapist: Yudelka Baptiste PT, Cert MDT Visit Plan Frequency: 1x/Week Duration: 2-4 Months Plan: PF THERAPY FOR STRENGTHENING, LENGTHENING/RELAXATION AND ENDURANCE TRAINING. URINARY URGE AND FREQUENCY EDUCATION. HEALTHY BLADDER, BACK AND POSTURE HABIT EDUCATION. TRAINING IN COORDINATION OF PELVIC FLOOR MUSCULATURE WITH HIP AND CORE (TRANSVERSE ABDOMINUS) MUSCULATURE. CORE STRENGTHENING. ZAN LE ROM, STRETCHING AND STRENGTHENING. TRAINING IN ABDOMINAL CAVITY PRESSURE MGMT WITH ADL'S. 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 PATIENT IS NOT ON DISABILITY. Present symptoms: PATIENT REPORTS HER CHIEF COMPLAINT IS NOT MAKING IT TO THE BATHROOM IN TIME WITH URGE AND UI WITH COUGHING AND SNEEZING. SHE REPORTS SHE NOW LEAKS A LOT, NOT JUST A LITTLE BIT, WHEN SHE COUGHS OR SNEEZES. Present since: Nov - THIS IS WHEN SYMPTOMS WORSENED. (HYSTERECTOMY JULY 2024). Pain Scale: PATIENT REPORTS SHE HAD LOWER ABDOMINAL PRESSURE WHEN SYMPTOMS STARTED BUT THIS HAS GONE AWAY AND SHE DENIES PAIN. Is it getting better, worse or staying the same: STAYING THE SAME. Commenced as a result of: NO APPARENT REASON IN NOVEMBER 2024. Symptoms at onset: FELT LIKE SOMETHING SHIFTED IN LOWER ABDOMEN AND STRESS INCONTINENCE INCREASED AND URGE INCONTINENCE STARTED. Worse: COUGHING, SNEEZING, SOMETIMES RISING FROM LYING OR SITTING, SOMETIMES STRETCHING IN YOGA OR SQUATTING. URGE Better: KEEPING LEGS TOGETHER Previous history/Previous treatment: HYSTERECTOMY, PELVIC FLOOR THERAPY 2020 [facility] WITH BENEFIT. ABLASION OF UTERUS 2021 FOR BLEEDING Treatment this episode: NO MEDICATION. Gait: PAIN LLE - TIB/FIB AND ANKLE FX FROM FALL 2022 - TROUBLE GOING DOWN STEPS - ONE AT A TIME. How long can you delay the need to urinate: 0-30 MIN Prolapse (Falling out feeling): NO Frequency of Urination: ABOUT EVERY 30 MIN TO EVERY 2 HOURS Ability to stop urine flow: UNSURE Ability to initiate urine stream: YES - NEVER DIFFICULT Dyspareunia: NO Bowel Incontinence: NO Unexplained weight loss: NO Imaging: PATIENT REPORTS SHE WAS TOLD RECENT US SHOWS SHE IS EMPTYING HER BLADDER WITHIN NORMAL RANGE. OTHER: PATIENT REPORTS SHE WANTS TO LET ME KNOW THAT SHE HAS CHRONIC MID AND LOW BACK PAIN THAT WORSENED AT ABOUT THE SAME TIME HER UI WORSENED. PMH/Recent major surgery: Objective Objective: Sitting/Standing Posture: INCREASED LORDOSIS. ANTERIOR PELVIC TILT IN STANDING. NO RELEVANT LATERAL LUMBAR SHIFT Active Correction of posture: ABLE TO PARTIALLY CORRECT. DECREASES PAIN. Other Observations: INDEP Sensory deficit: DECREASED LIGHT TOUCH SENSATION LLE COMPARED TO R ROM deficit: ZAN HIP FLEXOR TIGHTNESS. Motor deficit: R LE 5/5. L LE GROSSLY 4/5 Dural Signs: NEGATIVE ZAN LE'S. Lumbar mvmt loss: flex - NIL ext - ELVA - INCREASES BACK - NW R SG - MIN - INCREASES R BACK - NW L SG - MIN - INCREASES L BACK - NW PATIENT REPORTS INCREASED BACK PAIN FROM 3/10 TO 4/10 POST LUMBAR ROM TESTING. Core strength: POOR Palpation: INCREASED MUSCLE TONE ZAN THORACIC AND LUMBAR PARASPINALS FUNCTIONAL SCREEN: Pelvic Organ Prolapse Distress Inventory Score: 3 Colorectal-Anal Distress Inventory: 1 Urogenital Distress Inventory Score: 7 Goals Goal 1:: INCREASE PELVIC FLOOR STRENGTH AND ENDURANCE FOR BETTER ORGAN SUPPORT AND IMROVE URINARY INCONTINENCE Goal Time Frame: 8-12 Weeks Goal 2:: DEVELOP HEALTHY FLUID INTAKE HABITS WITH FLUID INTAKE OF ? BODY WEIGHT IN OUNCES PER DAY AND 2/3 BEING WATER AND NORMALIZE VOIDING FREQUENCEY TO EVERY 3-4 HOURS. 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 Goal Time Frame: 2-4 Weeks Goal 6:: PATIENT WILL BE INDEP WITH A HEP/HOME INSTRUCTIONS FOR CONTINUED IMPROVEMENT ONCE FORMAL PHYSICAL THERAPY CONCLUDES. 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, C/O LBP Rehabilitation Potential: Good Anticipated Interventions Patient/Client Instruction: Educate patient on: Condition, Plan of Care and Risk Factors For the Purpose of:: To improve self management Therapeutic Exercise to Include: Strength training, Endurance training, Postural training, Flexibilty training, Neuromotor development and Relaxation training For the Purpose of:: To improve muscle performance and motor function, To increase tolerance to activity/condition/position, To increase flexibility/ROM, To improve self management and To improve ability to perform tasks related to life management Text: Thank you for the opportunity to evaluate your patient. For Medicare and Medicare HMO plans, please review the plan of care and approve it. It will need to be FAXED BACK to us at [phone] for Medicare purposes. For Medicare only, by signing this I certify the plan of care. Please let me know if there are questions or concerns regarding this plan of care. Physician Signature: Date:
--- NOTE | 2025-04-23 18:24 | HP.PT.NRP ---
Patient Information Patient Information: GABY AMEZCUA was seen in my office for initial evaluation on 02/03/25. The following Plan of Care was established for this patient: POC Established Initial Frequency: 1x/Week Initial Duration: 2-4 Months Anticipated Interventions Patient/Client Instruction: Educate patient on: Condition, Plan of Care and Risk Factors For the Purpose of:: To improve self management Therapeutic Exercise to Include: Strength training, Endurance training, Postural training, Flexibilty training, Neuromotor development and Relaxation training For the Purpose of:: To improve muscle performance and motor function, To increase tolerance to activity/condition/position, To increase flexibility/ROM, To improve self management and To improve ability to perform tasks related to life management Last Seen Last Seen: This patient was last seen in our office 02/10/25. Pertinent comments regarding their Physical therapy will appear below: It has been my pleasure to see this patient for a total of 2 visits. This patient has not returned to Physical Therapy for more visits and is appropriate to return to MD for further follow-up as needed. At this point I will be discontinuing this patient from physical therapy. I would be happy to see this patient again in the future if found appropriate by the physician. Thank you! Yudelka Baptiste, PT, Cert MDT
== END 2025-02-10 19:00 | disposition home or self-care (01) ==
LOC: PT 11:00
PROVIDERS: PCP Family Medicine; Referring Provider Urology; Visit Provider Urology
DX: R39.15 Urgency of urination (principal); N39.3 Stress incontinence (female) (male); N81.11 Cystocele, midline
CPT/HCPCS: 97162; 97530

== ENCOUNTER 2025-02-18 16:37 | Emergency (ER) | payer MEDICAID, SELFPAY ==
[2025-02-18 16:37] VITALS: BP 163/106; PULSE 141; RESP 18; TEMP 37.2; O2SAT 100
[2025-02-18 16:40] VITALS: BMI 46.5
--- NOTE | 2025-02-18 16:53 | RAD_ITS ---
PROCEDURE: CHEST 1 VIEW (PORTABLE) 02/18/2025 REASON FOR EXAM: CHEST PAIN TECHNIQUE: Frontal view of the chest. FINDINGS: No focal consolidation. No pleural effusion or pneumothorax. Cardiac silhouette is within normal limits. No acute fractures. RAD/Chest 1 View (Portable) IMPRESSION: No focal consolidations. Reading Location: [id number]
--- NOTE | 2025-02-18 16:53 | EKG12_ITS ---
Test Reason : CP Blood Pressure : */* mmHG Vent. Rate : 136 BPM Atrial Rate : 136 BPM P-R Int : 134 ms QRS Dur : 90 ms QT Int : 292 ms P-R-T Axes : 59 62 39 degrees QTcB Int : 439 ms Sinus tachycardia Otherwise normal ECG Confirmed by LEAH TATUM ([id number]), marketing editor CRIS LINTON ([id number]) on 02/20/2025 6:57:51 AM Referred By: DESHAUN/KAITLYNN Confirmed By: LEAH TATUM
--- NOTE | 2025-02-18 16:55 | EDS_ITS ---
HPI History of Present Illness Chief Complaint: Chest Pain Narrative Narrative: This is a 29-year-old female presents to the emergency department chest pain. Patient states that last night she had an episode of sharp midsternal chest pain without any radiation. She had shortness of breath at that time. It resolved. This morning the patient woke up and she had another episode of this sharp chest pain that radiates across her chest. She also felt short of breath this morning. She states she was very anxious. She has had a slight nonproductive cough. No fevers or chills. No congestion or sore throat. No ear pain. The patient states that she tried taking a THC gummy about 4 hours ago without any relief of her anxiety. She is on medication for hypertension, but missed her medications last night. She otherwise takes no medications daily. She states her child has been sick and she has been around others with infectious respiratory symptoms. Patient herself has not had any fevers or chills at home. She denies any nausea, vomiting or abdominal pain. She does endorse some diarrhea. No urinary symptoms. She has had a prior hysterectomy. No prior history of DVT or PE. No recent immobility, travel, or surgery. The patient states that she vapes marijuana. 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, insulin controlled Lactose intolerance Cystic fibrosis carrier Obsessive compulsive disorder Major depressive disorder, 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 Home Medications ?Medication ?Instructions ?Recorded ?Last Taken ?Type cetirizine 10 mg tablet (Zyrtec) 10 mg PO DAILY 08/15/24 History lisinopril 20 1 tab PO QDAY 06/29/2408/15 History mg-hydrochlorothiazide 12.5 mg tablet aripiprazole 5 mg tablet 5 mg PO DAILY #90 tabs 11/08 Unknown Rx venlafaxine 150 mg 150 mg PO QHS #90 caps 11/08 Unknown Rx capsule,extended release 24 hr (Effexor XR) venlafaxine 75 mg capsule,extended 75 mg PO QDAY #30 c aps 11/08/24 Unknown Rx release 24 hr hydroxyzine HCl 10 mg tablet 10 mg PO TID PRN anxiety #90 tabs 01/26/25 Unknown Rx Allergy/AdvReac Type Severity Reaction Status Date / Time lanolin AdvReac Rash Verified 02/18/25 16:37 Family History Father Hypertension Grandmother Diabetes Surgical History H/O foot surgery History of robot-assisted laparoscopic hysterectomy Tubal ligation status History of endometrial ablation History of dilation and curettage Social History adopted: No household members: spouse and family housing: house number of children: 2 pets and animals: Yes pets and animals: dog(s) history of recent travel: No sexually active: Yes Smoking Status: Never smoker how long ago did patient quit smoking: quit in 2013 alcohol intake: current alcohol intake frequency: a few times a month substance use type: marijuana well-balanced diet: about half the time caffeine: Yes Type: coffee Number of servings: 1 eating out: 1-3 times/week what type of physical activity do you participate in: walking frequency: 1-2 times per week danni/samaritan: None seatbelt use: always do you feel safe at home: Yes additional social history: - [facility] Constitutional Constitutional ED: Reports as per HPI; Denies chills, fever(s) or headache(s) ENT ENT ED: Denies ear pain, rhinorrhea or sore throat Cardiovascular Cardiovascular: Reports chest pain and dyspnea; Denies orthopnea Respiratory/Chest Respiratory/Chest: Reports cough and dyspnea; Denies dyspnea on exertion, orthopnea or sputum Gastrointestinal Gastrointestinal: Reports diarrhea; Denies abdominal pain, constipation, nausea or vomiting Genitourinary Genitourinary ED: Denies burning urination Musculoskeletal Musculoskeletal: Reports myalgias Integumentary Denies rash Neurologic Neurologic: Denies weakness Psychiatric Psychiatric: Reports none Hematologic/Lymphatic Hematologic/Lymphatic: Reports none Allergic/Immunologic Allergic/Immunologic ED: Reports none EXAM Physical Exam Const Vital Signs: 02/18/25 16:37 02/18/25 16:40 02/18/25 19:37 Temperature 99.0 F Temperature Source Oral Pulse Rate 141 H 103 H Respiratory Rate 18 21 H Respiratory Effort Normal Blood Pressure 163/106 H 148/92 H Blood Pressure Mean 125 110 Pulse Ox 100 98 Oxygen Delivery Method Room Air Room Air 02/18/25 20:09 Temperature 97.6 F L Temperature Source Pulse Rate 83 Respiratory Rate 18 Respiratory Effort Blood Pressure 157/89 H Blood Pressure Mean 111 Pulse Ox 996 Oxygen Delivery Method Positive well nourished, well developed, oriented x3 and healthy appearing General Appearance ED: active, cooperative and well developed Orientation / Consciousness: awake and oriented to person Exam Limitations: no limitations HEENT Reports normocephalic, head/scalp atraumatic, TM's clear, moist mucous membra meghann, nasal mucous membranes and turbinates normal and oropharynx normal normocephalic, normal to inspection and atraumatic Face and Sinus: normal facial exam Nose: external nose normal and nares normal External Ear: external ears normal Tympanic Membrane ED: Yes TM's clear Mouth ED: Yes oral and palatal mucosa normal, Yes lips normal and Yes tongue normal Mouth: oral and palatal mucosa normal, lips normal and tongue normal Throat: posterior oropharynx normal Eyes PERRL, EOMs intact bilaterally and conjunctivae normal General Eye ED: Yes normal appearance of both eyes Visual Acuity: acuity normal Eyelid: eyelids normal Conjunctiva: conjunctiva normal Sclera: sclera normal Cornea: cornea normal Pupil: PERRL and accommodation reflex normal EOM: EOM abnormal Neck full ROM Lymph Lymphatic: no lymphadenopathy noted Chest Wall inspection of chest normal Chest: abnormal inspection of the chest Resp normal respiratory effort and normal air movement Effort and Inspection: able to speak in complete sentences and symmetric chest movement Auscultation: clear to auscultation bilaterally Cardio regular rhythm Rate: tachycardic Peripheral Pulses: pulses 2+ throughout GI normal to inspection, nondistended, normoactive bowel sounds Rectal Exam: deferred Back/Spine normal ROM and normal to inspection Cervical Spine: cervical ROM normal Extremity normal to inspection, full ROM and normal capillary refill Neuro oriented x3, CN's II-XII intact bilaterally, moves all extremities and no focal motor deficits Sensorium / Orientation: awake and alert Motor Exam: strength 5/5 throughout Psych mental status grossly normal Appearance: grossly normal Speech: normal speech Mood & Affect: tearful Skin no rashes or lesions noted MDM MDM MDM Narrative Medical decision making narrative: Patient presented to the emergency department for chest pain. She initially arrived with a temperature of 99 and tachycardia with a pulse of 141. On EKG the patient does show sinus tachycardia but she has no evidence of any acute arrhythmia or ischemia. Patient is not having any acute respiratory distress and oxygen was 100% on room air. I have a low suspicion for any cardiac etiology as the patient's pain is very atypical in nature. Both of her troponin levels are negative. Chest x-ray was unremarkable and EKG just shows a sinus tachycardia. Additionally, low suspicion for PE given the D-dimer was within normal range. The rest of her labs were reviewed and she has a grossly normal CBC other than some throat both cytosis. Her electrolytes and renal function are preserved. Overall I suspect more of a viral etiology of her symptoms given that her child has been ill. She was very anxious as well which is also a contributing factor. She was given Ativan in the emergency department in addition to Tylenol. Heart rate improved. On screening, the patient states she does occasionally have some passive suicidal ideation. She states she is under a lot of stress recently. She states she has no active suicidal thoughts at this time when I spoke to her about this. She is connected with a psychiatrist here in the area and also has a counselor that sees she sees virtually every week through the [facility]. The patient has a good support system at home and she states her is able to support her through this. She can contract her safety and does not feel she needs any escalation in psychiatric care or resources at this time. Overall patient is comfortable with discharge home with continued oral hydration and her weekly scheduled psychiatric appointments and counseling sessions. She will continue as well with Tylenol and ibuprofen as needed at home. All questions answered. Return indications discussed. Patient discharged home. Lab Data Attestation: I reviewed the patient's lab results. Labs: Laboratory Results - last 24 hr 02/18/25 02/18/25 17:00 19:20 WBC 10.2 RBC 5.11 Hgb 14.1 Hct 42.2 MCV 82.6 MCH 27.6 MCHC 33.4 RDW Std Deviation 37.7 RDW Coeff of Demond 12.6 Plt Count 524 H MPV 9.9 Immature Gran % (Auto) 0.300 Neut % (Auto) 58.8 Lymph % (Auto) 31.5 [place] % (Auto) 7.3 Eos % (Auto) 1.5 Baso % (Auto) 0.6 Absolute Neuts (auto) 6.0 Absolute Lymphs (auto) 3.23 Nucleated RBC % 0 D-Dimer Quant (PE/DVT) 0.41 Sodium 138 Potassium 3.4 Chloride 99 Carbon Dioxide 25.4 Anion Gap 14 BUN 10 Creatinine 0.73 Estim Creat Clear Calc 172.41 Est GFR (MDRD) Non-Af 114 BUN/Creatinine Ratio 13.4 Glucose 105 H Calcium 9.7 Troponin T High Sens < 6 Troponin T Hi Sens 2 Hr < 6 Radiography Chest X-Ray - ED: 1 View and - (I personally reviewed the patient's chest x-ray shows no focal consolidations to suggest pneumonia. No pneumothorax. No pulmonary edema or pleural effusion.) Diagnostic Testing: Clinical Impression(s) from Imaging Studies Chest X-Ray 02/18/25 16:53 IMPRESSION: No focal consolidations. Reading Location: [facility] Discharge Plan Triage Chief Complaint: Chest Pain ED Provider: Kierra Deluna Dx/Rx/DC Orders Clinical Impression: Atypical chest pain Instructions: ED Chest Pain, Noncardiac Prescriptions: No Action lisinopril-hydrochlorothiazide 20-12.5 mg tablet 1 tab PO QDAY aripiprazole 5 mg tablet 5 mg PO DAILY Qty: 90 1RF venlafaxine [Effexor XR] 150 mg capsule,extended release 24hr 150 mg PO QHS Qty: 90 1RF Rx Instructions: To be taken with 75 mg capsule for total daily dose of 225 mg venlafaxine 75 mg capsule,extended release 24hr 75 mg PO QDAY Qty: 30 3RF hydroxyzine HCl 10 mg tablet 10 mg PO TID PRN (Reason: anxiety) Qty: 90 1RF cetirizine [Zyrtec] 10 mg Tablet 10 mg PO DAILY Primary Care Provider: Lona Rico Referrals: Lona Rico MD [Primary Care Provider, Family Practice] Print Language: Turkish Disposition Disposition: Home, Self Care Discharge Date/Time: 02/18/25 20:10
--- NOTE | 2025-02-18 17:04 | NURSING ---
Pt tells this RN that life has been very stressful recently and she sometimes has thoughts of harming herself. Pt denies plan at this time and would never do anything. notified.
[2025-02-18 17:07] LABS: Hematocrit 42.2 % (37-47); Hemoglobin 14.1 g/dL (12.0-15.0); Immature Granulocytes Count 0.030 X10^3/uL (0.0-0.0); Mean Corp Hgb Conc 33.4 g/dL (32-36); Mean Corpuscular Volume 82.6 fL (81-99); Mean Platelet Vol. 9.9 fl (6.2-12.0); NRBC Flagged by Analyzer 0 % (0-5); Platelet Count 524 K/mm3 (150-450); RBC Distribution Width CV 12.6 % (11.6-14.6); RBC Distribution Width SD 37.7 fl (35.1-43.9); Red Blood Count 5.11 M/mm3 (4.2-5.4); White Blood Count 10.2 K/mm3 (4.4-11.0)
[2025-02-18 17:25] LABS: Anion Gap 14 (5-15); BUN 10 mg/dL (4-19); BUN/Creat Ratio 13.4 RATIO (10-20); Calcium,Total 9.7 mg/dL (7.6-11.0); Carbon Dioxide 25.4 mmol/L (21.0-32.0); Chloride 99 mmol/L (98-108); Estimated Creatinine Clearance 172.41 ml/min (50-250); Glucose 105 mg/dL (70-99); Potassium 3.4 mmol/L (3.3-5.1); Troponin T High Sensitivity < 6 ng/L (<=14)
[2025-02-18 17:27] LABS: D-Dimer Quantitative (DVT/PE) 0.41 FEU/ug/m (0.27-0.49)
[2025-02-18 19:37] VITALS: BP 148/92; PULSE 103; RESP 21; O2SAT 98
[2025-02-18 19:48] LABS: Troponin T High Sens 2 HR < 6 ng/L (<=14)
[2025-02-18 20:09] VITALS: BP 157/89; PULSE 83; RESP 18; TEMP 36.4; O2SAT 996
== END 2025-02-18 20:10 | disposition home or self-care (01) ==
PROVIDERS: Emergency Provider Emergency Medicine; PCP Family Medicine; Visit Provider Emergency Medicine
DX: R07.89 Other chest pain (principal); Z90.710 Acquired absence of both cervix and uterus; I10 Essential (primary) hypertension; F41.9 Anxiety disorder, unspecified; F33.9 Major depressive disorder, recurrent, unspecified; Z79.899 Other long term (current) drug therapy; Z98.51 Tubal ligation status
CPT/HCPCS: 71045; 80048; 84484; 85025; 85379; 87631; 93005; 96374; 96376; 99284; A4216